=== PATIENT | female | born 1950 | race Caucasian/White ===

== ENCOUNTER 2024-05-27 11:47 | Inpatient (IN) | payer MEDICARE, OTHER, SELFPAY ==
[2024-05-27 12:00] VITALS: BMI 14.6
[2024-05-27 12:34] VITALS: BP 129/51
--- NOTE | 2024-05-27 12:45 | CON.GI ---
Addendum entered and electronically signed by Inocente Sanches DO 05/27/24 15:52:
I saw and examined the patient.
The SHUTTLE BUGGY OPERATOR's note was reviewed and I agree with the note.
Comment: This is a 73 y.o female with past medical history notable for Parkinson's disease, dementia and severe protein-calorie malnutrition who presented from her [facility] as a direct admission for an elective PEG. Patient was previously seen
as an outpatient with Dr. Carter for her severe protein calorie malnutrition and weight loss where a PEG tube was discussed given her profound cachexia and BMI 14. Advised to have this inpatient due to her increased risk for refeeding syndrome.
This was discussed with both the patient and her son, Donte Aguilar who is her listed POA. She is a limited historian, but is able to endorse persistent oropharyngeal dysphagia to both solids and liquids. Otherwise, no abdominal pain, changes in bowel
habits, constipation/diarrhea, melena or bloody stools. No prior history of abdominal surgeries in the past and without contraindications to PEG placement. Not on any antiplatelets or anticoagulants.
Recommendations:
- Follow-up routine labs this afternoon
- Plan for EGD with PEG placement tomorrow, 05/28/2024
- Will require IV Cefazolin (Ancef) 1 gm tomorrow prior to EGD/PEG
- Nutrition consult regarding formula / tube feeds
- Will need to be closely monitored for refeeding syndrome while inpatient
- Unable to reach patient's son (Donte Aguilar, ) despite two separate attempts to further confirm EGD with PEG. Given patient's dementia, will need to review risks and benefits prior to procedure with patient's family. Will attempt to
reach out later this afternoon versus tomorrow
- Rest of care as outlined below
Original Note:
Consultation
-
Date/Time Consultation Requested: 05/27/24 1240
Date/Time Consultation Performed: 05/27/24 1350
Requesting Provider: Patty Balbuena MD
Performing Provider: JOHN Aquino, Inocente Sanches MD
Reason for Consultation: peg placement
Medical History
Chief Complaint / HPI
Chief Complaint: malnutrition
History of Present Illness:
Pt is a 73yo presents with hx parkinson's with involuntary movements, falls, neuropathy, depression, dementia, osteoporosis, migraine, borderline personality disorder, chronic low back pain on oxycodone, hypothyroidism, COPD, presents for
elective peg and concern for severe calorie malnutrition for anorexia with ? eating disorder with wt loss and BMI 14.6 noted on admission. In reviewing with patient some dysphagia with solid and liquids but denies odynophagia, GERD, nausea,
vomiting, abdominal pain, diarrhea, constipation or rectal bleeding. No hx EGD or colonoscopy in past.
Past Medical History
Past Medical History: Asthma (asthma ), COPD, Hypothyroidism, Psychiatric (depression, dementia, borderline personality disorder) and Other (parkinson's disease, osteoporosis, migraines, anorexia ? eating disorder, falls, neuropathy, clavicle
fracture )
Social History
Tobacco: Non-Smoker
Alcohol: None
Drug: None
Living: [facility]
Employment: Retired
Family History
Family History: Other (daughter with hx GERD)
Review of Systems
-
History Source: Patient
Constitutional: Reports Weight Loss
EENT: Reports No Symptoms
Respiratory: Reports No Symptoms
Cardiac: Reports No Symptoms
Abdomen/GI: Reports No Symptoms
: Reports No Symptoms
Musculoskeletal: Reports No Symptoms
Skin: Reports No Symptoms
Neurological: Reports Weakness
Endocrine: Reports No Symptoms
Hematologic/Lymphatic: Reports No Symptoms
Vital Signs
Temp Pulse Resp BP Pulse Ox
97.6 F 61 18 129/51 98
05/27/24 12:34 05/27/24 12:34 05/27/24 12:34 05/27/24 12:34 05/27/24 12:34
Physical Exam
Exam
General: No Apparent Distress and Other (thin appearing )
HEENT: Normocephalic and Anicteric
Respiratory: Clear
Cardiac: Regular Rhythm
GI: Soft and Non Distended
Genito-urinary: No Costovertebral Tender
Musculoskeletal: Other (involuntary movements )
Skin: Warm and Dry
Neuro: Awake and Alert
Psych: Calm
Results
Prior GI Procedures:
EGD: none
Colonoscopy: none
Assessment / Plan
-
Pt is a 73yo presents with hx parkinson's with involuntary movements, falls, neuropathy, depression, dementia, osteoporosis, migraine, borderline personality disorder, chronic low back pain on oxycodone, hypothyroidism, COPD, presents for
elective peg and concern for severe calorie malnutrition. BMI noted with weight of 14.6 on admission. In reviewing with patient some dysphagia with solid and liquids but denies odynophagia, GERD, nausea, vomiting, abdominal pain, diarrhea,
constipation or rectal bleeding. No hx EGD or colonoscopy in past.
-wt loss
-severe calorie malnutrition
-concern for underlying eating disorder
-parkinson's
other med problems:
-asthma/copd
-hx falls/clavicle fx
-neuropathy
-depression
-dementia
-borderline personality disorder
-migraines
-chronic back pain on narcotics
PLAN:
Etiology of malnutrition/ wt loss related to parkinson's, underlying eating disorder vs other
plan for EGD with peg in AM reviewed risks and benefits with patient
await labs to ensure stable prior to proceeding
add mag and phos level for baseline
ok for DSS5 diet, NPO in AM
dietary consult for tube feeds recs and eval for refeeding issues
NPO in AM
Dr. Sanches to call family to review
-
-
Thank you for consultation and allowing me to participate in the patient's care. Please call the deputy coroner investigator GI physician during the after hours with any questions or concerns.
--- NOTE | 2024-05-27 12:53 | PTCARENOTE ---
Received patient from ED (Direct Admission) via stretcher. Pt AAOX1. Pox: 98% JUAN. Forgetful at times. Bed alarm on. Call tom within reach. Plan of care ongoing.
--- NOTE | 2024-05-27 12:56 | HPS.HSE ---
Addendum entered and electronically signed by Patty Balbuena MD 05/27/24 16:58:
I was unable to talk to the daughter but apparently GI did.� Patient was apparently recently hospitalized at [facility] in February and apparently had findings of metastatic lung cancer.� However, patient did not have any workup or follow-up
regarding this since then.�
Addendum entered and electronically signed by Patty Balbuena MD 05/27/24 13:08:
Medications have been listed.
Patient takes oxycodone for chronic lower back pain.
Continue megestrol for protein calorie malnutrition.
Addendum entered and electronically signed by Patty Balbuena MD 05/27/24 13:03:
Pureed diet for now.
Original Note:
Family Physician
-
Family Physician: NO INTERVIEW UNKNOWN
Chief Complaint
-
PEG tube
History of Present Illness
73-year-old female past medical history of Parkinson's disease, dementia, anxiety/depression, migraines, protein calorie malnutrition, hypothyroidism, hyperlipidemia, hypertension, COPD, asthma, presenting from senior living as direct admission for
placement of PEG tube.
Patient states that she has been eating but when she swallows she coughs. She denies any pain when she swallows or sensation of food getting stuck in her esophagus. She thinks she has lost 10 pounds in the past month. She denies any diarrhea or
constipation. She denies any abdominal pain.
Medical History
Past Medical History
Past Medical History: Reports Other ( Parkinson's disease, dementia, anxiety/depression, migraines, protein calorie malnutrition, hypothyroidism, hyperlipidemia, hypertension, COPD, asthma)
Past Surgical History: Reports None
Social History
Tobacco: Non-smoker
Alcohol: None
Drug: None
Family History
Family History: Not pertinent
Allergies / Home Medications
Allergies reflects when Allergies were last updated in [employer].
Home Medications with original date entered in [employer]
Allergy/Medication List:
Unable to obtain
Review of Systems
-
Constitutional: Reports No Symptoms
EENT: Reports No Symptoms
Respiratory: Reports No Symptoms
Cardiac: Reports No Symptoms
Abdomen/GI: Reports No Symptoms
: Reports No Symptoms
Musculoskeletal: Reports No Symptoms
Skin: Reports No Symptoms
Neurological: Reports No Symptoms
Endocrine: Reports No Symptoms
Hematologic/Lymphatic: Reports No Symptoms
Psych: Reports No Symptoms
Physical Exam
Vital Signs
Vital Signs
Temp Pulse Resp BP Pulse Ox
97.6 F 61 18 129/51 98
05/27/24 12:34 05/27/24 12:34 05/27/24 12:34 05/27/24 12:34 05/27/24 12:34
Physical Exam
General: Well Developed, Well Nourished and No Apparent Distress
HEENT: NormoCephalic, Moist mucous membranes and Atraumatic
Respiratory: Clear
Cardiac: S1/S2 and Regular Rhythm; No Murmur or Rub
GI: Soft, Non Tender, Non Distended and Normal Bowel Sounds; No Organomegaly
Rectal: Deferred by Provider
Musculoskeletal: No Clubbing, No Cyanosis and No Edema
Skin: No Rash
Neuro: Nonfocal/grossly intact
Data Reviewed
-
Lab Data: Labs Reviewed by me
Old Records: Reviewed
Impression/Plan
-
IMPRESSION:
PLAN:
# Dysphagia in the setting of Parkinson's disease seems oropharyngeal
# Protein calorie malnutrition/failure to thrive
-Check speech and swallow evaluation
-Attempted to call patient's son and daughter for further history but they did not pick up worker the phone, patient is poor historian
-GI consulted for consideration of PEG tube
Parkinson's disease
-Continue amantadine
-Continue gabapentin
Alzhemiers Dementia
Anxiety/depression
-Continue sertraline
Migraine history
Hypothyroidism
-Continue levothyroxine
Hyperlipidemia
Essential hypertension
COPD/asthma
Osteoporosis
-Continue Fosamax
Full code
DVT prophylaxis�heparin
N.p.o.
--- NOTE | 2024-05-27 14:07 | PTOTSP ---
Dysphagia Evaluation
Patient presents with signs concerning for at least mild-moderate oral dysphagia with chronic risk factors (i.e., Parkinson's, Alzheimer's dementia, COPD, whole body writhing movements). Signs concerning for pharyngeal dysphagia reported (i.e.,
coughing with PO intake), not noted, and patient could not provide further history.
Recommend:
1. IDDSI Level 5 Minced/Moist, Thin
2. Medications - in puree
3. Strategies: 1:1 supervision/assistance, upright to 90 degrees, small single sips/bites, slow rate, alternate sips/bites, check for pocketing
4. Video swallow study to rule out pharyngeal dysphagia (though whole body movements may impact image capture)
5. Dysphagia therapy at the acute care level
[2024-05-27 14:18] LABS: % Basophils 0.5 % (0-2); % Eosinophils 2.1 % (0-6); % Immature Granulocytes 0.4 % (0-0.5); % Lymphocytes 12.3 % (20.5-51.1); % Monocytes 7.5 % (1.7-9.3); % Neutrophils 77.2 % (42.2-75.2); Absolute Eosinophils 0.2 10^3/uL (0-0.7); Absolute Monocytes 0.6 10^3/uL (0.1-0.6); Absolute Neutrophils 6.2 10^3/uL (1.4-6.5); Hematocrit 34.5 % (37.0-47.0); Hemoglobin 11.7 g/dL (12.0-16.0); Mean Corp Hgb Conc. 33.9 g/dL (33.0-37.0); Mean Corpuscular Hgb 31.4 pg (27.0-31.0); Mean Corpuscular Volume 92.5 fL (81.0-99.0); Mean Platelet Volume 8.6 fL (7.4-10.4); Nucleated Red Blood Cells % 0 %; Platelet Count 236 10^3/uL (130-400); Red Blood Cell Count 3.73 10^6/uL (4.20-5.40); Red Cell Dist. Width 12.8 % (11.5-14.5)
[2024-05-27 14:42] LABS: ALT (SGPT) < 10 U/L (0-35); AST (SGOT) 22 U/L (14-36); Albumin 3.9 g/dl (3.5-5.0); Alkaline Phosphatase 107 U/L (38-126); Blood Urea Nitrogen 23 mg/dl (7-17); Calcium 9.6 mg/dl (8.4-10.2); Carbon Dioxide 20 mmol/L (22-30); Chloride 107 mmol/L (98-107); Estimated Creatinine Clearance 46 ml/min; Glucose 106 mg/dl (70-99); Phosphorus 4.1 mg/dl (2.5-4.5); Potassium 4.3 mmol/L (3.5-5.1); Sodium 142 mmol/L (135-145); Total Bilirubin 0.4 mg/dl (0.2-1.3); Total Protein 6.5 g/dl (6.3-8.2); eGFR > 60.00
[2024-05-27 15:20] VITALS: BP 136/77
[2024-05-27 15:43] VITALS: BMI 14.6
[2024-05-27] MEDS: SYMMETREL 100 MG PO ×2 (16:26→21:26)
[2024-05-27] MEDS: SINEMET CR 25-100 (EXTENDED RELEASE) 1 TABLET PO ×2 (17:48→21:25)
[2024-05-27] MEDS: FLORASTOR 250 MG PO (21:23)
[2024-05-27] MEDS: DESYREL 50 MG PO (21:24)
[2024-05-27] MEDS: SENOKOT 17.2 MG PO (21:24)
[2024-05-27] MEDS: NEURONTIN 100 MG PO (21:24)
[2024-05-27] MEDS: SINEMET CR 50/200 (EXTENDED RELEASE) 1 TABLET PO (21:25)
[2024-05-27 23:07] VITALS: BP 113/43
[2024-05-28] VITALS (11 sets, daily range): BP systolic 125–147; BP diastolic 54–85
[2024-05-28] MEDS: SYNTHROID 75 MCG PO (04:32)
[2024-05-28] MEDS: THERAGRAN PO (07:34)
[2024-05-28] MEDS: FLORASTOR PO (07:34)
[2024-05-28] MEDS: SINEMET CR 25-100 (EXTENDED RELEASE) PO ×2 (07:34→13:14)
[2024-05-28] MEDS: SYMMETREL PO ×2 (07:34→16:08)
[2024-05-28] MEDS: NEURONTIN PO (07:34)
[2024-05-28] MEDS: ZOLOFT PO (07:34)
[2024-05-28 07:42] LABS: % Eosinophils 3.3 % (0-6); % Immature Granulocytes 0.4 % (0-0.5); % Lymphocytes 20.8 % (20.5-51.1); % Monocytes 8.3 % (1.7-9.3); % Neutrophils 66.2 % (42.2-75.2); Absolute Basophils 0.1 10^3/uL (0-0.2); Absolute Eosinophils 0.2 10^3/uL (0-0.7); Absolute Lymphocytes 1.1 10^3/uL (1.2-3.4); Absolute Monocytes 0.4 10^3/uL (0.1-0.6); Absolute Neutrophils 3.5 10^3/uL (1.4-6.5); Hematocrit 37.5 % (37.0-47.0); Hemoglobin 12.8 g/dL (12.0-16.0); Mean Corp Hgb Conc. 34.1 g/dL (33.0-37.0); Mean Corpuscular Hgb 31.5 pg (27.0-31.0); Mean Corpuscular Volume 92.4 fL (81.0-99.0); Mean Platelet Volume 8.7 fL (7.4-10.4); Nucleated Red Blood Cells % 0 %; Platelet Count 231 10^3/uL (130-400); Red Blood Cell Count 4.06 10^6/uL (4.20-5.40); Red Cell Dist. Width 12.7 % (11.5-14.5); White Blood Cell Count 5.2 10^3/uL (4.8-10.8)
[2024-05-28 07:57] LABS: INR 1.14; PT 14.5 Sec (11.4-14.6)
[2024-05-28 08:10] LABS: ALT (SGPT) < 10 U/L (0-35); AST (SGOT) 21 U/L (14-36); Alkaline Phosphatase 109 U/L (38-126); Blood Urea Nitrogen 14 mg/dl (7-17); Calcium 9.9 mg/dl (8.4-10.2); Carbon Dioxide 24 mmol/L (22-30); Chloride 105 mmol/L (98-107); Estimated Creatinine Clearance 46 ml/min; Glucose 84 mg/dl (70-99); Potassium 3.7 mmol/L (3.5-5.1); Sodium 142 mmol/L (135-145); Total Bilirubin 0.5 mg/dl (0.2-1.3); Total Protein 6.5 g/dl (6.3-8.2); eGFR > 60.00
--- NOTE | 2024-05-28 12:32 | W.PN.HOSP.TC ---
Today's Communication/Plan
-
Pending PEG tube placement
N.p.o. open
For VSE in AM.
Assessment / Plan
Assessment / Plan
Impression:
Severe malnutrition with BMI of 14.
Dysphagia with aspiration risk
Parkinson disease
Hypothyroidism
Dyslipidemia
Essential hypertension
COPD/asthma without exacerbation
Osteoporosis
Alzheimer's dementia as per history.
Anxiety/depression.
Plan:*
Severe dysphagia likely multifactorial in the patient with Parkinson's disease and dementia.
Pending PEG tube placement.
Nutrition consult.
Once initiated on tube feeding monitor for refeeding syndrome
Dysphagia with aspiration risk.
Speech and swallow evaluation on board.
Plan for VAC on 05/29
Parkinson's disease continue preadmission regimen including carbidopa levodopa, amantadine
Continue gabapentin
Anxiety/depression
-Continue sertraline
Migraine history
Hypothyroidism
-Continue levothyroxine
Hyperlipidemia
Essential hypertension
COPD/asthma
Osteoporosis
-Continue Fosamax
Full code
DVT prophylaxis�heparin
Anticipated Discharge: > 48 hours
Subjective/Interval History
-
Date of Service: May 28, 2024
Objective Data
-
Labs:
Laboratory Results
05/28/24
07:14
WBC 5.2
Hgb 12.8
Hct 37.5
Plt Count 231
PT 14.5
INR 1.14
Sodium 142
Potassium 3.7
Chloride 105
Carbon Dioxide 24
BUN 14
Creatinine 0.6
Glucose 84
Calcium 9.9
Total Bilirubin 0.5
AST 21
ALT < 10
Alkaline Phosphatase 109
Vital Signs:
Vital Signs
Temp Pulse Resp BP Pulse Ox
97.8 F 60 16 125/76 96
05/28/24 07:35 05/28/24 07:35 05/28/24 07:35 05/28/24 07:35 05/28/24 10:02
I&O
05/27/24 05/28/24 05/29/24
06:59 06:59 06:59
Intake Total 120 / 120
Balance 120 / 120
Physical Exam
-
General: Well Developed and No Apparent Distress
HEENT: Normocephalic, Atraumatic and Moist Mucous Membranes
Respiratory: Clear to Auscultation
Cardiac: Regular Rhythm and S1/S2; Negative Murmur, Rub or Gallop
GI: Soft, Nontender, Nondistended and Normal Bowel Sounds; Negative Organomegaly
Rectal: Deferred by Provider
Musculoskeletal: No Clubbing, No Cyanosis and No Edema
Skin: Negative Rash
Neuro: Awake, Alert, Oriented, Tremors and Nonfocal/Grossly Intact
--- NOTE | 2024-05-28 12:37 | W.PN.UPDATE ---
Update Note
Progress Note Update
In review of medical records and discussion with gastroenterology, information about metastatic lung carcinoma is not correct and meant for different patient.
Patient was never admitted to [facility].
--- NOTE | 2024-05-28 15:26 | CM ---
Mikayla is a resident at [facility] with plan to return there at discharge. She was transferred from [facility] for PEG placement which is likely being done in AM.
[facility] will accept Mikayla back when she is ready for discharge.
will follow to send updated clinical information to [facility] when nearing readiness for discharge.
--- NOTE | 2024-05-28 17:24 | PTCARENOTE ---
[id number] addendum... Patient arrived from GI lab very restless with involuntary movement. VSS, difficulty obtaining O2 saturation D/T increased movement. Dr Dean and Dr Sanches both at bedside in PACU. Report rec'd and Dr Sanches reports the Patient
presented like this earlier (H/O Tardive dyskinesia). Aprox [id number] patient was resting comfortably, VSS. Involuntary movement resolved.
[2024-05-28] MEDS: SINEMET CR 25-100 (EXTENDED RELEASE) 1 TABLET PO ×2 (17:52→21:04)
--- NOTE | 2024-05-28 18:01 | PTCARENOTE ---
Received patient from PACU via stretcher. Pt AAOX2. Po: 98% 2L NC. Patient denies pain. Call tom within reach. Plan of care ongoing.
[2024-05-28] MEDS: FLORASTOR 250 MG PO (19:53)
[2024-05-28] MEDS: NEURONTIN 100 MG PO (19:53)
[2024-05-28] MEDS: SINEMET CR 50/200 (EXTENDED RELEASE) 1 TABLET PO (21:04)
[2024-05-28] MEDS: DESYREL 50 MG PO (21:04)
[2024-05-28] MEDS: SYMMETREL 100 MG PO (21:04)
[2024-05-28] MEDS: SENOKOT 17.2 MG PO (21:05)
[2024-05-29 03:29] VITALS: BP 128/61
[2024-05-29] MEDS: SYNTHROID PO (07:15)
--- NOTE | 2024-05-29 07:39 | W.PN.GI.CBS2 ---
Addendum entered and electronically signed by Inocente Sanches DO 05/29/24 17:22:
I saw and examined the patient.
The OPERATING ROOM TECH's note was reviewed and I agree with the note.
Comment: Agree with recommendations. Nutrition and internal medicine team to monitor for refeeding. GI team will sign-off. Please recontact with any questions or concerns related to this patient.
Addendum entered and electronically signed by JOHN Hammond 05/29/24 08:02:
left message for son with update
Original Note:
Today's Communication / Plan
-
Etiology of malnutrition/ wt loss related to parkinson's, underlying eating disorder vs other
s/p peg 05/28
mag/phos/k stable 05/27 prior to feed with concern for refeeding syndrome
plan for VSE today
after VSE will start tube feeds this am at 10 advance later to 15ml/hr
if stable labs 05/30 advance further per retail merchandising specialist
cont to watch for refeeding
Assessment / Plan
-
Pt is a 73yo presents with hx parkinson's with involuntary movements, falls, neuropathy, depression, dementia, osteoporosis, migraine, borderline personality disorder, chronic low back pain on oxycodone, hypothyroidism, COPD, presents for
elective peg and concern for severe calorie malnutrition. BMI noted with weight of 14.6 on admission. In reviewing with patient some dysphagia with solid and liquids but denies odynophagia, GERD, nausea, vomiting, abdominal pain, diarrhea,
constipation or rectal bleeding. No hx EGD or colonoscopy in past.
-wt loss with -severe calorie malnutrition s/p peg 05/28
-concern for underlying eating disorder
-parkinson's
other med problems:
-asthma/copd
-hx falls/clavicle fx
-neuropathy
-depression
-dementia
-borderline personality disorder
-migraines
-chronic back pain on narcotics
PLAN:
Etiology of malnutrition/ wt loss related to parkinson's, underlying eating disorder vs other
s/p peg 05/28
mag/phos/k stable 05/27 prior to feed with concern for refeeding syndrome
plan for VSE today
after VSE will start tube feeds this am at 10 advance later to 15ml/hr
if stable labs 05/30 advance further per retail merchandising specialist
cont to watch for refeeding
Subjective
Subjective
Date of Service: May 29, 2024
s/p peg, NPO doing well post peg no stools
Objective
Data Reviewed
Laboratory Data:
Laboratory Results
05/28/24 07:14
05/28/24 07:14
Laboratory Results
PT 14.5 Sec (11.4-14.6) 05/28/24 07:14
INR 1.14 05/28/24 07:14
Phosphorus 4.1 mg/dl (2.5-4.5) 05/27/24 13:46
Magnesium 2.0 mg/dl (1.6-2.3) 05/27/24 13:46
Total Bilirubin 0.5 mg/dl (0.2-1.3) 05/28/24 07:14
AST 21 U/L (14-36) 05/28/24 07:14
ALT < 10 U/L (0-35) 05/28/24 07:14
Alkaline Phosphatase 109 U/L (38-126) 05/28/24 07:14
Vital Signs and I&O:
Vital Signs
Temp Pulse Resp BP Pulse Ox
98.3 F 73 16 128/61 99
05/29/24 03:29 05/29/24 03:29 05/29/24 03:29 05/29/24 03:29 05/29/24 03:29
I&O
05/28/24 05/29/24 05/30/24
06:59 06:59 06:59
Intake Total 195 / 195
Balance
Physical Exam
Physical Exam
HEENT: Anicteric and Moist mucous membranes
Cardiology: Normal Sinus Rhythm
Pulmonary: Clear
GI: Soft, Non Distended, Tender (minimal tenderness around tube ) and Other
Extremities: No Edema
Neuro: Other (some verbal conversation, tremors minimal this am)
[2024-05-29 08:18] VITALS: BP 127/51
[2024-05-29] MEDS: SYMMETREL 100 MG PO (09:38)
[2024-05-29] MEDS: ZOLOFT 150 MG PO (09:38)
[2024-05-29] MEDS: THERAGRAN 1 TABLET PO (09:39)
[2024-05-29] MEDS: SINEMET CR 25-100 (EXTENDED RELEASE) 1 TABLET PO ×2 (09:39→12:43)
[2024-05-29] MEDS: NEURONTIN 100 MG PO (09:39)
[2024-05-29] MEDS: FLORASTOR 250 MG PO (09:39)
--- NOTE | 2024-05-29 09:45 | PTOTSP ---
Video Swallow Study
Summary: Patient with moderate oral/ pharyngeal dysphagia secondary to Parkinson�s disease and dementia. See patient care note for full details of study.
Risk for aspiration is elevated. However, patient currently without signs concerning for respiratory complications from dysphagia such as PNA. Patient with PEG in place secondary to malnutrition. If opting to continue an oral diet understanding
risks/complications of aspiration, consider diet below.
Diet options:
1. NPO and PEG vs.
2. IDDSI Level 4 Puree, IDDSI Level 0 Thin Liquids understanding risks of dysphagia/aspiration
Recommendations:
3. Medications - via PEG if able
4. Oral care 3x daily to reduce risk for complications if aspiration were to occur
5. Strategies (if opting for oral intake): 1:1 assistance, small sips/bites, slow rate, alternate sips/bites, check for oral clearance, reflux precautions
6. Dysphagia therapy follow up at the acute care level for patient/family education pending goals of care.
7. Consider palliative care consult.
[2024-05-29 11:41] VITALS: BP 125/56
[2024-05-29] MEDS: PEPCID 40 MG TUBE (12:42)
[2024-05-29 15:59] VITALS: BP 117/58
[2024-05-29] MEDS: SYMMETREL SYRUP 100 MG TUBE ×2 (16:34→21:19)
--- NOTE | 2024-05-29 16:35 | W.PN.HOSP.TC ---
Today's Communication/Plan
-
Tube feeding.
Modified oral diet
Changed medications to tube
Supportive care
Goals of care discussion
Assessment / Plan
Assessment / Plan
Impression:
Severe malnutrition with BMI of 14.
Dysphagia with aspiration syndrome
Parkinson disease
Hypothyroidism
Dyslipidemia
Essential hypertension
COPD/asthma without exacerbation
Osteoporosis
Alzheimer's dementia as per history.
Anxiety/depression.
Plan:*
Severe dysphagia likely multifactorial in the patient with Parkinson's disease and dementia.
Status post PEG placement on 05/28
Initiated on tube feeds
Nutrition consult.
Monitor electrolytes for refeeding syndrome
Change medications to tube route
Dysphagia with aspiration risk.
Speech and swallow evaluation on board.
VSE on 05/29 confirming aspiration syndrome.
Discussed with patient and the son. Plan is to start modified pur�ed diet with aspiration precautions along with the tube feeds with understanding of significant aspiration risk.
Parkinson's disease continue preadmission regimen including carbidopa levodopa, amantadine
Continue gabapentin
Anxiety/depression
-Continue sertraline
Migraine history
Hypothyroidism
-Continue levothyroxine
Hyperlipidemia
Essential hypertension
COPD/asthma
Osteoporosis
-Continue Fosamax
Full code
DVT prophylaxis�heparin
Goals of care discussion on 05/29. Discussed with patient's son extensively. Patient with progressive neurologic disorder, advanced Parkinson's disease with now aspiration syndrome, severe malnutrition. Received feeding tube for nutritional
support, although that would not reduce aspiration risk. Patient's son is willing to try pleasure feeding with modified diet along with the tube feeds. They understand of progressive nature of disease. I advised to continue goals of care
discussion. Currently plan is to discharge to snf facility with supportive care, although patient has high risk for rehospitalization due to recurrent infection not limited to aspiration pneumonia, UTI.
Anticipated Discharge: 24 - 48 hours
Subjective/Interval History
-
Date of Service: May 29, 2024
Objective Data
-
Vital Signs:
Vital Signs
Temp Pulse Resp BP Pulse Ox
97.5 F 62 18 117/58 99
05/29/24 15:59 05/29/24 15:59 05/29/24 15:59 05/29/24 15:59 05/29/24 15:59
I&O
05/28/24 05/29/24 05/30/24
06:59 06:59 06:59
Intake Total
Balance 195
Physical Exam
-
General: Well Developed and No Apparent Distress
HEENT: Normocephalic, Atraumatic and Moist Mucous Membranes
Respiratory: Clear to Auscultation
Cardiac: Regular Rhythm and S1/S2; Negative Murmur, Rub or Gallop
GI: Soft, Nontender, Nondistended and Normal Bowel Sounds; Negative Organomegaly
Rectal: Deferred by Provider
Musculoskeletal: No Clubbing, No Cyanosis and No Edema
Skin: Negative Rash
Neuro: Awake, Alert, Oriented, Tremors and Nonfocal/Grossly Intact
--- NOTE | 2024-05-29 17:58 | PTCARENOTE ---
Received patient this am AAOx1. Pt has history of dementia. NPO. Pt off unit this a for Video Swallow. 1400 Pt started on Tube Feedings. Jevity 1.5 at 10ml/hr and tolerating well. Pt turned Q 2hrs. Made patient comfortable. Cont to assess
patient status.
[2024-05-29] MEDS: SINEMET 25-100 1 TABLET TUBE ×3 (18:10→21:52)
[2024-05-29] MEDS: NEURONTIN 100 MG TUBE (21:19)
[2024-05-29] MEDS: DESYREL 50 MG TUBE (21:19)
[2024-05-29] MEDS: SENOKOT 17.2 MG TUBE (21:19)
[2024-05-29] MEDS: FLORASTOR 250 MG TUBE (21:20)
[2024-05-29] MEDS: SINEMET 25-100 2 TABLET TUBE (21:52)
[2024-05-29 23:07] VITALS: BP 117/54
[2024-05-30] MEDS: SYNTHROID 75 MCG TUBE (06:01)
[2024-05-30 07:32] LABS: Blood Urea Nitrogen 13 mg/dl (7-17); Calcium 9.8 mg/dl (8.4-10.2); Carbon Dioxide 23 mmol/L (22-30); Chloride 105 mmol/L (98-107); Estimated Creatinine Clearance 46 ml/min; Glucose 102 mg/dl (70-99); Magnesium 2.1 mg/dl (1.6-2.3); Phosphorus 2.5 mg/dl (2.5-4.5); Potassium 3.7 mmol/L (3.5-5.1); Sodium 141 mmol/L (135-145); eGFR > 60.00
[2024-05-30 08:34] VITALS: BP 131/53
[2024-05-30] MEDS: SYMMETREL SYRUP 100 MG TUBE ×3 (09:14→21:02)
[2024-05-30] MEDS: NEURONTIN 100 MG TUBE ×2 (09:14→20:52)
[2024-05-30] MEDS: SINEMET 25-100 1 TABLET TUBE ×4 (09:15→21:02)
[2024-05-30] MEDS: PEPCID 40 MG TUBE (09:15)
[2024-05-30] MEDS: FLORASTOR 250 MG TUBE (09:15)
[2024-05-30] MEDS: ZOLOFT 150 MG TUBE (09:15)
[2024-05-30] MEDS: THERAGRAN 1 TABLET TUBE (09:15)
--- NOTE | 2024-05-30 10:44 | CM ---
Addendum entered by Cristy Manuel 05/30/24 17:18:
Note below related to hours is for waiver hours in the home. Son is also agreeable to [facility] when discharged from [facility].
Addendum entered by Cristy Manuel 05/30/24 14:25:
CM spoke with Mikayla's son via telephone today. He advised that Mikayla has been approved for 18 hours, but they have requested a reduction to 12 hours of waiver services at home, as family is not comfortable with the caregivers being their while
they are sleeping. Mikayla has a history of falls, fx ribs and fx arm per son; chart indicates clavicle fracture in the past.
Waiver services have been in place for the past 8 months, however he has not been happy with the care, stating the caregivers do not do a lot and do not seem comfortable with caring for his mother. His perception is that they are just there to
watch his mother and would like to have someone with more knowledge of nursing (rehab nursing tech services), especially since his mother will be coming home (after discharge from [facility]) with a PEG tube. Son stated he is 'a nervous wreck'.
Email sent to son with home care choice list ([email or web address]).
Plan: Anticipate discharge to [facility] when medically cleared. Will need BLS transport.
Original Note:
Chart reviewed; PEG has been placed, but will not reduce risk of aspiration. Goals of care discussion with family on 05/29. per physician note, son is willing to try pleasure feeding with modified diet along with the tube feeds.
Update provided to Theresa at [facility].
Plan: CM to continue to follow for transfer to [facility] at discharge which is anticipated in the next 24-48 hours.
[2024-05-30 13:25] VITALS: BP 112/42; BP 94/64; PULSE 71
[2024-05-30] MEDS: ROXICODONE 5 MG TUBE ×2 (14:02→21:05)
[2024-05-30 16:18] VITALS: BP 135/55
--- NOTE | 2024-05-30 16:46 | W.PN.HOSP.TC ---
Today's Communication/Plan
-
Advance tube feeds to the goal is recommended.
Continue diet with aspiration precautions
Ongoing goals of care discussion
Discharge planning
Assessment / Plan
Assessment / Plan
Impression:
Severe malnutrition with BMI of 14.
Dysphagia with aspiration syndrome
Parkinson disease
Hypothyroidism
Dyslipidemia
Essential hypertension
COPD/asthma without exacerbation
Osteoporosis
Alzheimer's dementia as per history.
Anxiety/depression.
Plan:*
Severe dysphagia likely multifactorial in the patient with Parkinson's disease and dementia.
Status post PEG placement on 05/28
Initiated on tube feeds
Nutrition consult.
Monitor electrolytes for refeeding syndrome
Change medications to tube route
Dysphagia with aspiration risk.
Speech and swallow evaluation on board.
VSE on 05/29 confirming aspiration syndrome.
Discussed with patient and the son. Plan is to start modified pur�ed diet with aspiration precautions along with the tube feeds with understanding of significant aspiration risk.
Parkinson's disease continue preadmission regimen including carbidopa levodopa, amantadine
Continue gabapentin
Anxiety/depression
-Continue sertraline
Migraine history
Hypothyroidism
-Continue levothyroxine
Hyperlipidemia
Essential hypertension
COPD/asthma
Osteoporosis
-Continue Fosamax
Full code
DVT prophylaxis�heparin
Goals of care discussion on 05/29. Discussed with patient's son extensively. Patient with progressive neurologic disorder, advanced Parkinson's disease with now aspiration syndrome, severe malnutrition. Received feeding tube for nutritional
support, although that would not reduce aspiration risk. Patient's son is willing to try pleasure feeding with modified diet along with the tube feeds. They understand of progressive nature of disease. I advised to continue goals of care
discussion. Currently plan is to discharge to assisted facility with supportive care, although patient has high risk for rehospitalization due to recurrent infection not limited to aspiration pneumonia, UTI.
Goals of care discussion on 05/30 with patient's daughter at the bedside reiterating advancement of Parkinson's disease, aspiration risk risk for infection and rehospitalization.
Anticipated Discharge: 24 - 48 hours
Subjective/Interval History
-
Date of Service: May 30, 2024
Objective Data
-
Labs:
Laboratory Results
05/30/24
06:53
Sodium 141
Potassium 3.7
Chloride 105
Carbon Dioxide 23
BUN 13
Creatinine 0.6
Glucose 102 H
Calcium 9.8
Vital Signs:
Vital Signs
Temp Pulse Resp BP Pulse Ox
97.5 F 60 16 135/55 97
05/30/24 16:18 05/30/24 16:18 05/30/24 16:18 05/30/24 16:18 05/30/24 16:18
I&O
05/29/24 05/30/24 05/31/24
06:59 06:59 06:59
Intake Total 195 / 195 140 / 140
Balance 195 / 195 140 / 140
Physical Exam
-
General: Well Developed and No Apparent Distress
HEENT: Normocephalic, Atraumatic and Moist Mucous Membranes
Respiratory: Clear to Auscultation
Cardiac: Regular Rhythm and S1/S2; Negative Murmur, Rub or Gallop
GI: Soft, Nontender, Nondistended, Normal Bowel Sounds and Peg Tube; Negative Organomegaly
Rectal: Deferred by Provider
Musculoskeletal: No Clubbing, No Cyanosis and No Edema
Skin: Negative Rash
Neuro: Awake, Alert, Oriented, Tremors and Nonfocal/Grossly Intact
[2024-05-30] MEDS: SINEMET 25-100 2 TABLET TUBE (21:03)
[2024-05-30] MEDS: FLORASTOR TUBE (21:03)
[2024-05-30] MEDS: SENOKOT 17.2 MG TUBE (21:03)
[2024-05-30] MEDS: DESYREL 50 MG TUBE (21:03)
[2024-05-30 23:40] VITALS: BP 124/84
[2024-05-31] MEDS: ATIVAN 0.5 MG IV (02:03)
[2024-05-31 02:40] VITALS: BP 121/56; BP 137/69; PULSE 67; O2SAT 97
[2024-05-31] MEDS: SYNTHROID 75 MCG TUBE (05:43)
[2024-05-31 07:11] LABS: % Basophils 0.7 % (0-2); % Eosinophils 3.2 % (0-6); % Immature Granulocytes 0.5 % (0-0.5); % Lymphocytes 9.6 % (20.5-51.1); % Monocytes 6.3 % (1.7-9.3); % Neutrophils 79.7 % (42.2-75.2); Absolute Eosinophils 0.2 10^3/uL (0-0.7); Absolute Lymphocytes 0.6 10^3/uL (1.2-3.4); Absolute Monocytes 0.4 10^3/uL (0.1-0.6); Absolute Neutrophils 4.8 10^3/uL (1.4-6.5); Hematocrit 35.9 % (37.0-47.0); Hemoglobin 12.6 g/dL (12.0-16.0); Mean Corp Hgb Conc. 35.1 g/dL (33.0-37.0); Mean Corpuscular Hgb 31.8 pg (27.0-31.0); Mean Corpuscular Volume 90.7 fL (81.0-99.0); Mean Platelet Volume 9.4 fL (7.4-10.4); Nucleated Red Blood Cells % 0 %; Platelet Count 195 10^3/uL (130-400); Red Blood Cell Count 3.96 10^6/uL (4.20-5.40); Red Cell Dist. Width 12.8 % (11.5-14.5)
[2024-05-31 07:35] LABS: Blood Urea Nitrogen 13 mg/dl (7-17); Calcium 9.5 mg/dl (8.4-10.2); Carbon Dioxide 22 mmol/L (22-30); Chloride 106 mmol/L (98-107); Estimated Creatinine Clearance 46 ml/min; Glucose 87 mg/dl (70-99); Sodium 141 mmol/L (135-145); eGFR > 60.00
[2024-05-31 07:58] VITALS: BP 139/55
[2024-05-31] MEDS: SINEMET 25-100 1 TABLET TUBE ×4 (07:59→22:21)
[2024-05-31] MEDS: PEPCID 20 MG TUBE (07:59)
[2024-05-31] MEDS: SYMMETREL SYRUP 100 MG TUBE ×3 (07:59→22:21)
[2024-05-31] MEDS: ZOLOFT 150 MG TUBE (07:59)
[2024-05-31] MEDS: NEURONTIN 100 MG TUBE ×2 (07:59→20:35)
[2024-05-31] MEDS: THERAGRAN 1 TABLET TUBE (07:59)
[2024-05-31] MEDS: FLORASTOR 250 MG TUBE ×2 (07:59→20:35)
--- NOTE | 2024-05-31 11:12 | CM ---
Received a call from patient's son/NIMESH Donte Aguilar (#[phone])
Son discussed concerns/needs for Home Health Services when mother is discharged from [facility]; [facility] is agency preference
spoke with Michael Perez liaison via phone; Referral for home health sent to [facility]
Chacha reported that she will follow up with care [facility]; and contact patient's son to discuss home health services when patient is stable to go home
[2024-05-31 15:54] VITALS: BP 121/56; PULSE 67; O2SAT 97
--- NOTE | 2024-05-31 16:14 | W.PN.HOSP.TC ---
Today's Communication/Plan
-
Advance tube feeding to the goal monitoring for refeeding syndrome
Continue oral diet with aspiration precautions.
Ongoing goals of care discussions with family. Patient with progressive and advanced Parkinson's disease with exceedingly high aspiration risk.
Assessment / Plan
Assessment / Plan
Impression:
Severe malnutrition with BMI of 14.
Dysphagia with aspiration syndrome
Parkinson disease
Hypothyroidism
Dyslipidemia
Essential hypertension
COPD/asthma without exacerbation
Osteoporosis
Alzheimer's dementia as per history.
Anxiety/depression.
Plan:*
Severe dysphagia likely multifactorial in the patient with Parkinson's disease and dementia.
Status post PEG placement on 05/28
Initiated on tube feeds
Nutrition consult.
Monitor electrolytes for refeeding syndrome
Change medications to tube route
Dysphagia with aspiration risk.
Speech and swallow evaluation on board.
VSE on 05/29 confirming aspiration syndrome.
Discussed with patient and the son. Plan is to start modified pur�ed diet with aspiration precautions along with the tube feeds with understanding of significant aspiration risk.
Parkinson's disease continue preadmission regimen including carbidopa levodopa, amantadine
Continue gabapentin
Anxiety/depression
-Continue sertraline
Migraine history
Hypothyroidism
-Continue levothyroxine
Hyperlipidemia
Essential hypertension
COPD/asthma
Osteoporosis
-Continue Fosamax
Full code
DVT prophylaxis�heparin
Goals of care discussion on 05/29. Discussed with patient's son extensively. Patient with progressive neurologic disorder, advanced Parkinson's disease with now aspiration syndrome, severe malnutrition. Received feeding tube for nutritional
support, although that would not reduce aspiration risk. Patient's son is willing to try pleasure feeding with modified diet along with the tube feeds. They understand of progressive nature of disease. I advised to continue goals of care
discussion. Currently plan is to discharge to intermediate facility with supportive care, although patient has high risk for rehospitalization due to recurrent infection not limited to aspiration pneumonia, UTI.
Goals of care discussion on 05/30 with patient's daughter at the bedside reiterating advancement of Parkinson's disease, aspiration risk risk for infection and rehospitalization.
Anticipated Discharge: 24 - 48 hours
Subjective/Interval History
-
Date of Service: May 31, 2024
Objective Data
-
Labs:
Laboratory Results
05/31/24
06:48
WBC 6.0
Hgb 12.6
Hct 35.9 L
Plt Count 195
Sodium 141
Potassium 4.0
Chloride 106
Carbon Dioxide 22
BUN 13
Creatinine 0.5 L
Glucose 87
Calcium 9.5
Vital Signs:
Vital Signs
Temp Pulse Resp BP Pulse Ox
98.3 F 72 16 139/55 97
05/31/24 07:58 05/31/24 15:08 05/31/24 15:08 05/31/24 07:58 05/31/24 15:08
I&O
05/30/24 05/31/24 06/01/24
06:59 06:59 06:59
Intake Total 140 / 140
Balance 140 / 140
Physical Exam
-
General: Well Developed and No Apparent Distress
HEENT: Normocephalic, Atraumatic and Moist Mucous Membranes
Respiratory: Clear to Auscultation
Cardiac: Regular Rhythm and S1/S2; Negative Murmur, Rub or Gallop
GI: Soft, Nontender, Nondistended, Normal Bowel Sounds and Peg Tube; Negative Organomegaly
Rectal: Deferred by Provider
Musculoskeletal: No Clubbing, No Cyanosis and No Edema
Skin: Negative Rash
Neuro: Awake, Alert, Oriented, Tremors and Nonfocal/Grossly Intact
[2024-05-31 16:28] VITALS: BP 141/51
[2024-05-31] MEDS: SENOKOT 17.2 MG TUBE (22:20)
[2024-05-31] MEDS: SINEMET 25-100 2 TABLET TUBE (22:21)
[2024-05-31] MEDS: DESYREL 50 MG TUBE (22:22)
[2024-05-31 23:00] VITALS: BP 137/104
[2024-06-01] MEDS: SYNTHROID 75 MCG TUBE (05:10)
[2024-06-01 07:30] VITALS: BP 113/43
[2024-06-01] MEDS: TYLENOL 650 MG TUBE (08:18)
[2024-06-01] MEDS: FLORASTOR 250 MG TUBE (08:19)
[2024-06-01] MEDS: THERAGRAN 1 TABLET TUBE (08:19)
[2024-06-01] MEDS: NEURONTIN 100 MG TUBE ×2 (08:19→20:32)
[2024-06-01] MEDS: PEPCID 20 MG TUBE (08:19)
[2024-06-01] MEDS: SYMMETREL SYRUP 100 MG TUBE ×3 (08:19→20:33)
[2024-06-01] MEDS: ZOLOFT 150 MG TUBE (08:19)
[2024-06-01] MEDS: SINEMET 25-100 1 TABLET TUBE ×4 (08:19→20:33)
--- NOTE | 2024-06-01 08:34 | PTCARENOTE ---
pt wakes to name orientedx3. forgetful at times. peg tube placement checked and flushed. pt states pain at feeding tube site pain med given as ordered. tube feeding running as ordered.
--- NOTE | 2024-06-01 08:38 | W.PN.HOSP.TC ---
Today's Communication/Plan
-
Continue tube feeding and monitoring for refeeding syndrome
Continue oral diet with aspiration precautions.
Assessment / Plan
Assessment / Plan
Impression:
Severe malnutrition with BMI of 14.
Dysphagia with aspiration syndrome
Parkinson disease
Hypothyroidism
Dyslipidemia
Essential hypertension
COPD/asthma without exacerbation
Osteoporosis
Alzheimer's dementia as per history.
Anxiety/depression.
Plan:*
Severe dysphagia likely multifactorial in the patient with Parkinson's disease and dementia.
Status post PEG placement on 05/28
Initiated on tube feeds
Nutrition consult.
Continue to monitor electrolytes for refeeding syndrome
Continue medications via feeding tube
Dysphagia with aspiration risk.
Speech and swallow evaluation on board.
VSE on 05/[address] Menard discussed with patient and the son. Plan was to start modified pur�ed diet with aspiration precautions along with the tube feeds with understanding of significant aspiration risk.
Parkinson's disease continue preadmission regimen including carbidopa levodopa, amantadine
Continue gabapentin
Anxiety/depression
-Continue sertraline
Migraine history
Hypothyroidism
-Continue levothyroxine
Hyperlipidemia
Essential hypertension
COPD/asthma
Osteoporosis
-Continue Fosamax
Full code
DVT prophylaxis�heparin
Goals of care discussion on 05/29. Dr. Menard discussed with patient's son extensively. Patient with progressive neurologic disorder, advanced Parkinson's disease with now aspiration syndrome, severe malnutrition. Received feeding tube for
nutritional support, although that would not reduce aspiration risk. Patient's son is willing to try pleasure feeding with modified diet along with the tube feeds. They understand of progressive nature of disease. Dr. Menard advised to continue
goals of care discussion. Currently plan is to discharge to group home facility with supportive care, although patient has high risk for rehospitalization due to recurrent infection not limited to aspiration pneumonia, UTI.
Dr. Menard had goals of care discussion on 05/30 with patient's daughter at the bedside reiterating advancement of Parkinson's disease, aspiration risk risk for infection and rehospitalization.
Anticipated Discharge: > 48 hours
Subjective/Interval History
-
Date of Service: June 01, 2024
Patient was seen and examined. Reported some pain around PEG tube insertion site but otherwise no new complaints.
Objective Data
-
Vital Signs:
Vital Signs
Temp Pulse Resp BP Pulse Ox
98.2 F 66 18 137/104 96
05/31/24 23:00 05/31/24 23:00 05/31/24 23:00 05/31/24 23:00 05/31/24 23:00
I&O
05/31/24 06/01/24 06/02/24
06:59 06:59 06:59
Intake Total 575 / 575
Balance 575 / 575
Physical Exam
-
General: No Apparent Distress
HEENT: Normocephalic and Atraumatic
Respiratory: Clear to Auscultation
Cardiac: Regular Rhythm and S1/S2
GI: Soft, Nontender, Normal Bowel Sounds and Peg Tube
Musculoskeletal: No Cyanosis and No Edema
Skin: Warm and Dry
Neuro: Awake, Alert and Tremors
[2024-06-01 13:17] LABS: Blood Urea Nitrogen 15 mg/dl (7-17); Calcium 9.6 mg/dl (8.4-10.2); Carbon Dioxide 25 mmol/L (22-30); Chloride 106 mmol/L (98-107); Estimated Creatinine Clearance 46 ml/min; Glucose 116 mg/dl (70-99); Magnesium 1.9 mg/dl (1.6-2.3); Phosphorus 3.6 mg/dl (2.5-4.5); Potassium 4.1 mmol/L (3.5-5.1); Sodium 141 mmol/L (135-145); eGFR > 60.00
[2024-06-01 15:38] VITALS: BP 121/51
[2024-06-01] MEDS: DESYREL 50 MG TUBE (20:32)
[2024-06-01] MEDS: FLORASTOR TUBE (20:32)
[2024-06-01] MEDS: SINEMET 25-100 2 TABLET TUBE (20:33)
[2024-06-01] MEDS: SENOKOT 17.2 MG TUBE (20:33)
[2024-06-02 03:00] VITALS: BP 130/66
[2024-06-02] MEDS: SYNTHROID 75 MCG TUBE (05:51)
[2024-06-02 07:35] VITALS: BP 128/47
[2024-06-02] MEDS: FLORASTOR TUBE (08:30)
[2024-06-02] MEDS: PEPCID 20 MG TUBE (08:31)
[2024-06-02] MEDS: SINEMET 25-100 1 TABLET TUBE ×4 (08:31→21:12)
[2024-06-02] MEDS: ZOLOFT 150 MG TUBE (08:31)
[2024-06-02] MEDS: THERAGRAN 1 TABLET TUBE (08:31)
[2024-06-02] MEDS: SYMMETREL SYRUP 100 MG TUBE ×3 (08:32→21:12)
[2024-06-02] MEDS: NEURONTIN 100 MG TUBE ×2 (08:32→21:00)
[2024-06-02 09:09] LABS: Blood Urea Nitrogen 18 mg/dl (7-17); Calcium 10.1 mg/dl (8.4-10.2); Carbon Dioxide 24 mmol/L (22-30); Chloride 106 mmol/L (98-107); Estimated Creatinine Clearance 46 ml/min; Glucose 119 mg/dl (70-99); Magnesium 1.9 mg/dl (1.6-2.3); Phosphorus 3.6 mg/dl (2.5-4.5); Potassium 4.1 mmol/L (3.5-5.1); Sodium 140 mmol/L (135-145); eGFR > 60.00
--- NOTE | 2024-06-02 12:35 | W.PN.HOSP.TC ---
Today's Communication/Plan
-
Continue tube feeding and monitoring for refeeding syndrome. Electrolytes are okay today.
Continue oral diet with aspiration precautions.
Assessment / Plan
Assessment / Plan
Impression:
Severe malnutrition with BMI of 14.
Dysphagia with aspiration syndrome
Parkinson disease
Hypothyroidism
Dyslipidemia
Essential hypertension
COPD/asthma without exacerbation
Osteoporosis
Alzheimer's dementia as per history.
Anxiety/depression.
Plan:*
Severe dysphagia likely multifactorial in the patient with Parkinson's disease and dementia.
Status post PEG placement on 05/28
Initiated on tube feeds -- per nurse tube feeds are currently at goal
Nutrition consult.
Continue to monitor electrolytes for refeeding syndrome
Continue medications via feeding tube
Dysphagia with aspiration risk.
Speech and swallow evaluation on board.
VSE on 05/[address] Menard discussed with patient and the son. Plan was to start modified pur�ed diet with aspiration precautions along with the tube feeds with understanding of significant aspiration risk.
Parkinson's disease continue preadmission regimen including carbidopa levodopa, amantadine
Continue gabapentin
Anxiety/depression
-Continue sertraline
Migraine history
Hypothyroidism
-Continue levothyroxine
Hyperlipidemia
Essential hypertension
COPD/asthma
Osteoporosis
-Continue Fosamax
Full code
DVT prophylaxis�heparin
Goals of care discussion on 05/29. Dr. Menard discussed with patient's son extensively. Patient with progressive neurologic disorder, advanced Parkinson's disease with now aspiration syndrome, severe malnutrition. Received feeding tube for
nutritional support, although that would not reduce aspiration risk. Patient's son is willing to try pleasure feeding with modified diet along with the tube feeds. They understand of progressive nature of disease. Dr. Menard advised to continue
goals of care discussion. Currently plan is to discharge to senior care facility with supportive care, although patient has high risk for rehospitalization due to recurrent infection not limited to aspiration pneumonia, UTI.
Dr. Menard had goals of care discussion on 05/30 with patient's daughter at the bedside reiterating advancement of Parkinson's disease, aspiration risk risk for infection and rehospitalization.
Anticipated Discharge: > 48 hours
Subjective/Interval History
-
Date of Service: June 02, 2024
Patient was seen and examined. No new complaints or events.
Objective Data
-
Labs:
Laboratory Results
06/02/24
08:42
Sodium 140
Potassium 4.1
Chloride 106
Carbon Dioxide 24
BUN 18 H
Creatinine 0.5 L
Glucose 119 H
Calcium 10.1
Vital Signs:
Vital Signs
Temp Pulse Resp BP Pulse Ox
98.4 F 62 14 128/47 97
06/02/24 07:35 06/02/24 07:35 06/02/24 07:35 06/02/24 07:35 06/02/24 07:35
I&O
06/01/24 06/02/24 06/03/24
06:59 06:59 06:59
Intake Total 575 / 575 960 / 960
Balance 575 / 575 960 / 960
[2024-06-02 15:36] VITALS: BP 132/53
[2024-06-02] MEDS: FLORASTOR 250 MG TUBE (21:00)
[2024-06-02] MEDS: SENOKOT 17.2 MG TUBE (21:11)
[2024-06-02] MEDS: DESYREL 50 MG TUBE (21:11)
[2024-06-02] MEDS: SINEMET 25-100 2 TABLET TUBE (21:12)
[2024-06-02 23:01] VITALS: BP 130/48
[2024-06-03] MEDS: SYNTHROID 75 MCG TUBE (05:24)
[2024-06-03 07:50] VITALS: BP 107/43
[2024-06-03 08:06] LABS: % Basophils 0.5 % (0-2); % Eosinophils 4.4 % (0-6); % Immature Granulocytes 0.5 % (0-0.5); % Lymphocytes 15.1 % (20.5-51.1); % Monocytes 8.6 % (1.7-9.3); % Neutrophils 70.9 % (42.2-75.2); Absolute Eosinophils 0.2 10^3/uL (0-0.7); Absolute Lymphocytes 0.8 10^3/uL (1.2-3.4); Absolute Monocytes 0.5 10^3/uL (0.1-0.6); Absolute Neutrophils 3.9 10^3/uL (1.4-6.5); Hematocrit 33.5 % (37.0-47.0); Hemoglobin 11.3 g/dL (12.0-16.0); Mean Corp Hgb Conc. 33.7 g/dL (33.0-37.0); Mean Platelet Volume 8.7 fL (7.4-10.4); Nucleated Red Blood Cells % 0 %; Platelet Count 273 10^3/uL (130-400); Red Blood Cell Count 3.64 10^6/uL (4.20-5.40); Red Cell Dist. Width 12.8 % (11.5-14.5); White Blood Cell Count 5.5 10^3/uL (4.8-10.8)
[2024-06-03 08:50] LABS: Blood Urea Nitrogen 23 mg/dl (7-17); Calcium 10.1 mg/dl (8.4-10.2); Carbon Dioxide 26 mmol/L (22-30); Chloride 104 mmol/L (98-107); Estimated Creatinine Clearance 46 ml/min; Glucose 116 mg/dl (70-99); Phosphorus 3.9 mg/dl (2.5-4.5); Potassium 4.2 mmol/L (3.5-5.1); Sodium 142 mmol/L (135-145); eGFR > 60.00
[2024-06-03] MEDS: SYMMETREL SYRUP 100 MG TUBE ×2 (09:00→16:21)
[2024-06-03] MEDS: ZOLOFT 150 MG TUBE (09:00)
[2024-06-03] MEDS: SINEMET 25-100 1 TABLET TUBE ×3 (09:01→17:19)
[2024-06-03] MEDS: PEPCID 20 MG TUBE (09:01)
[2024-06-03] MEDS: FLORASTOR 250 MG TUBE (09:01)
[2024-06-03] MEDS: THERAGRAN 1 TABLET TUBE (09:01)
[2024-06-03] MEDS: NEURONTIN 100 MG TUBE (09:01)
--- NOTE | 2024-06-03 12:46 | CM ---
CM discussed case with Dr. Maxwell today. Mikayla is ready for discharge to return to [facility]. Call placed to son Donte ([phone]) and voicemail left requesting a return call regarding Mikayla's discharge.
CM to follow to arrange transportation back to [facility] pending discussion with son. [facility] is choice for home care services when Mikayla is discharged from [facility].
Plan: Discharge to [facility] today
Report: [phone] [phone]
--- NOTE | 2024-06-03 13:08 | W.DS.TRANS ---
DC Summary - Rn Lvn
-
Discharge Instructions:
Discharge Diagnosis/Procedures Dysphagia.
Parkinson's disease
Diet Other diet,Tube feeding
Additional Diets Pureed with thin liquids. TF Jevity 1.5 35ml/hr
with water flushes 25 ml/hr
Instructions:
Stand-Alone Forms:
Changes to Home Medications: Yes
Discharge Medications:
DC Medications w/original date entered in [facility] [employer]
albuterol sulfate 90 mcg/actuation aerosol inhaler 2 puff inhalation R Q6HPRN PRN sob 05/27/24
bisacodyl 10 mg rectal suppository (Dulcolax (bisacodyl)) 10 mg [place] [id number] PRN if no bm aftr mom 05/27/24
fluticasone propionate 50 mcg/actuation nasal spray,suspension 1 spray intranasal DAILYPRN PRN allergies 05/27/24
lidocaine 4 % topical patch 1 patch topical DAILYPRN PRN lower back and hips 05/27/24
sodium phosphates 19 gram-7 gram/118 mL enema (Fleet Enema) 118 ml [place] [id number] PRN if no bm aftr dulcolax 05/27/24
Saccharomyces boulardii 250 mg capsule 250 mg feeding tube BID #30 caps 06/03/24
acetaminophen 325 mg tablet 650 mg (2 x 325 mg) feeding tube Q6HPRN PRN mild pain #30 tabs 06/03/24
amantadine HCl 50 mg/5 mL oral solution 100 mg (10 mL) feeding tube TID #473 mL 06/03/24
carbidopa 25 mg-levodopa 100 mg tablet 1 tab feeding tube QID #30 tabs 06/03/24
carbidopa 25 mg-levodopa 100 mg tablet 2 tab feeding tube HS #60 tabs 06/03/24
famotidine 20 mg tablet 20 mg feeding tube DAILY #30 tabs 06/03/24
gabapentin 100 mg capsule 100 mg feeding tube BID #90 caps 06/03/24
levothyroxine 75 mcg tablet 75 mcg feeding tube DAILY@0600 #30 tabs 06/03/24
magnesium hydroxide 400 mg/5 mL oral suspension 30 ml feeding tube [id number] PRN constipation #3,000 mL 06/03/24
multivitamin with folic acid 400 mcg tablet (Tab-A-Loren) 1 tab feeding tube DAILY #30 tabs 06/03/24
oxycodone 5 mg tablet 5 mg feeding tube Q6HPRN PRN severe pain #14 tabs 06/03/24
sennosides 8.6 mg tablet (Senna Laxative) 17.2 mg (2 x 8.6 mg) feeding tube HS #30 tabs 06/03/24
sertraline 50 mg tablet 150 mg (3 x 50 mg) feeding tube DAILY #30 tabs 06/03/24
trazodone 50 mg tablet 50 mg feeding tube HS #30 tabs 06/03/24
Home Medication Changes
Remeron stopped
Pending Results: No
--- NOTE | 2024-06-03 15:20 | CM ---
Addendum entered by Cristy Manuel 06/03/24 16:29:
Ambulance transport arranged for 6:30pm meat pick[facility]. [facility] and Mikayla's daughter, Polly, are aware of transport plans. Polly will make sure her brother is aware of transport plans as well.
Original Note:
CM attempted contact with both son and daughter today, starting mid-morning. left for both son and daughter. Called and left again early afternoon. I received a call back from Mikayla's daughter who agreed to discharge back to [facility] today.
She will notify her brother.
CM to call daughter back with ambulance meat pickler time.
Plan: Discharge to [facility] today
Report: [phone]
[2024-06-03 16:04] VITALS: BP 107/43; PULSE 74
[2024-06-03 16:16] VITALS: BP 120/49
== END 2024-06-03 19:18 | DRG 56 ==
LOC: 4 EAST ACU 11:47
PROVIDERS: Hospitalist; Nurse Practitioner Adult Health; ADMITTING PHYSICIAN Internal Medicine; FAMILY PHYSICIAN Student in an Organized Health Care Education/Training Program; OTHER PHYSICIAN Student in an Organized Health Care Education/Training Program
PROC: 0DH63UZ Insertion of Feeding Device into Stomach, Percutaneous Approach (ICD-10-PCS; 2024-05-28)
DX: G20.A1 Parkinson's disease without dyskinesia, without mention of fluctuations (principal); E43 Unspecified severe protein-calorie malnutrition; F02.811 Dementia in other diseases classified elsewhere, unspecified severity, with agitation; F02.83 Dementia in other diseases classified elsewhere, unspecified severity, with mood disturbance; F02.84 Dementia in other diseases classified elsewhere, unspecified severity, with anxiety; Z68.1 Body mass index [BMI] 19.9 or less, adult; E03.9 Hypothyroidism, unspecified; E78.5 Hyperlipidemia, unspecified; F32.A Depression, unspecified; R62.7 Adult failure to thrive
CPT/HCPCS: 71046; 74230; 80048; 80053; 83735; 84100; 85025; 85610; 87070; 92610; 92611; 97163; 97167; 97530; 97535

== ENCOUNTER 2024-07-11 15:13 | Inpatient (IN) | payer MEDICARE, OTHER, SELFPAY ==
[2024-07-11] VITALS (20 sets, daily range): BP systolic 143–191; BP diastolic 49–86; BMI 15.8
[2024-07-11 12:46] LABS: % Basophils 0.4 % (0-2); % Eosinophils 0.3 % (0-6); % Immature Granulocytes 0.5 % (0-0.5); % Monocytes 6.6 % (1.7-9.3); % Neutrophils 88.2 % (42.2-75.2); Absolute Immature Granulocytes 0.1 10^3/uL (0-0.05); Absolute Lymphocytes 0.4 10^3/uL (1.2-3.4); Absolute Monocytes 0.7 10^3/uL (0.1-0.6); Hematocrit 38.9 % (37.0-47.0); Hemoglobin 12.9 g/dL (12.0-16.0); Mean Corp Hgb Conc. 33.2 g/dL (33.0-37.0); Mean Corpuscular Volume 93.5 fL (81.0-99.0); Nucleated Red Blood Cells % 0 %; Platelet Count 373 10^3/uL (130-400); Red Blood Cell Count 4.16 10^6/uL (4.20-5.40); Red Cell Dist. Width 14.4 % (11.5-14.5); White Blood Cell Count 10.3 10^3/uL (4.8-10.8)
[2024-07-11 12:58] LABS: ALT (SGPT) 12 U/L (0-35); AST (SGOT) 25 U/L (14-36); Albumin 4.3 g/dl (3.5-5.0); Alkaline Phosphatase 107 U/L (38-126); Blood Urea Nitrogen 38 mg/dl (7-17); Carbon Dioxide 30 mmol/L (22-30); Chloride 99 mmol/L (98-107); Glucose 168 mg/dl (70-99); Potassium 4.2 mmol/L (3.5-5.1); Sodium 142 mmol/L (135-145); Total Bilirubin 0.5 mg/dl (0.2-1.3); Total Protein 7.1 g/dl (6.3-8.2); eGFR > 60.00
[2024-07-11] MEDS: NSS 1000 IV ×2 (14:00→16:53)
[2024-07-11] MEDS: VANCOCIN 200 IV (14:05)
--- NOTE | 2024-07-11 14:05 | HPS.HSE ---
Family Physician
-
Family Physician: Arron Dash DO
Chief Complaint
-
Generalized weakness
, Cough
History of Present Illness
73-year-old with medical history for Parkinson disease, depression, dementia, personality disorder, asthma, GERD, hypothyroidism presented to us with worsening generalized weakness, fatigue for past 2 weeks. For past few days patient was noted very
fatigue and she stopped talking. Today morning she was noted to have cough. Review of system limited as patient is poor historian. History obtained from family. They denied any fever.
Patient has a tube feed, as well as she takes pur�ed diet by mouth.
Upon arrival patient is requiring 2 L of oxygen. Chest x-ray with pneumonia. Admitting for further management
Medical History
Past Medical History
Past Medical History: Reports Other
Additional Past Medical History:
Depression
Parkinson disease
Osteoporosis
Migraine headache
Personality disorder
Past Surgical History: Reports Other
Additional Past Surgical History:
Hip surgery
Cholecystectomy
Social History
Tobacco: Non-smoker
Alcohol: None
Drug: None
Personal:
Living: Other (Rehab)
Family History
Family History: Not pertinent
Allergies / Home Medications
Allergies reflects when Allergies were last updated in [employer].
Home Medications with original date entered in [employer]
Allergy/Medication List:
Allergies
Allergy/AdvReac Type Severity Reaction Status Date / Time
pork derived (porcine) Allergy Unknown Unknown Verified 07/11/24 11:17
shellfish derived Allergy Unknown Unknown Verified 07/11/24 11:17
codeine Allergy Unknown Verified 07/11/24 11:17
metoclopramide Allergy Unknown Verified 07/11/24 11:17
prochlorperazine Allergy Unknown Verified 07/11/24 11:17
[From Compazine]
Home Medications
albuterol sulfate 90 mcg/actuation aerosol inhaler 2 puff inhalation R Q6HPRN PRN sob 05/27/24
bisacodyl 10 mg rectal suppository (Dulcolax (bisacodyl)) 10 mg [place] DAILYPRN PRN if no bm aftr mom 05/27/24
fluticasone propionate 50 mcg/actuation nasal spray,suspension 1 spray intranasal DAILYPRN PRN allergies 05/27/24
lidocaine 4 % topical patch 1 patch topical DAILY lower back & hips 05/27/24
sodium phosphates 19 gram-7 gram/118 mL enema (Fleet Enema) 118 ml [place] DAILYPRN PRN if no bm aftr dulcolax 05/27/24
carbidopa 25 mg-levodopa 100 mg tablet 1 tab feeding tube QID #30 tabs 06/03/24
carbidopa 25 mg-levodopa 100 mg tablet 2 tab feeding tube HS #60 tabs 06/03/24
famotidine 20 mg tablet 20 mg feeding tube DAILY #30 tabs 06/03/24
gabapentin 100 mg capsule 100 mg feeding tube BID #90 caps 06/03/24
levothyroxine 75 mcg tablet 75 mcg feeding tube DAILY@0600 #30 tabs 06/03/24
multivitamin with folic acid 400 mcg tablet (Tab-A-Loren) 1 tab feeding tube DAILY #30 tabs 06/03/24
sennosides 8.6 mg tablet (Senna Laxative) 17.2 mg (2 x 8.6 mg) feeding tube HS #30 tabs 06/03/24
sertraline 50 mg tablet 150 mg (3 x 50 mg) feeding tube DAILY #30 tabs 06/03/24
trazodone 50 mg tablet 50 mg feeding tube HS #30 tabs 06/03/24
acetaminophen 325 mg tablet 650 mg feeding tube Q6HPRN PRN mild pain/temp >100 07/11/24
amantadine HCl 100 mg tablet 100 mg feeding tube TID 07/11/24
magnesium hydroxide 400 mg/5 mL oral suspension 30 ml feeding tube [id number] PRN if no bm 3 days 07/11/24
oxycodone 5 mg tablet 5 mg feeding tube Q6HPRN PRN severe pain 07/11/24
Review of Systems
-
Unable to obtain full review of systems at this time due to: Dementia
Physical Exam
Vital Signs
Vital Signs
Temp Pulse Resp BP Pulse Ox
98.4 F 88 19 161/57 94
07/11/24 11:17 07/11/24 13:45 07/11/24 13:45 07/11/24 13:30 07/11/24 13:45
Physical Exam
General: Well Developed, Well Nourished and No Apparent Distress
HEENT: NormoCephalic, Moist mucous membranes and Atraumatic
Respiratory: Clear and Decreased Breath Sounds
Cardiac: S1/S2 and Regular Rhythm; No Murmur or Rub
GI: Soft, Non Tender, Non Distended and Normal Bowel Sounds; No Organomegaly
Rectal: Deferred by Provider
Musculoskeletal: No Clubbing, No Cyanosis and No Edema
Skin: No Rash
Neuro: AO x 3 and Nonfocal/grossly intact
Psych: Calm
Laboratory Results
-
07/11/24 12:36
07/11/24 12:36
Laboratory Results
Total Bilirubin 0.5 mg/dl (0.2-1.3) 07/11/24 12:36
AST 25 U/L (14-36) 07/11/24 12:36
ALT 12 U/L (0-35) 07/11/24 12:36
Alkaline Phosphatase 107 U/L (38-126) 07/11/24 12:36
Data Reviewed
-
Diagnostic Radiology: Report Reviewed by me
Lab Data: Labs Reviewed by me
Impression/Plan
-
# Acute hypoxia/change in mental status likely from pneumonia concern for aspiration
# History of dementia
-Chest x-ray with pneumonia
-IV Unasyn continued
-Tylenol as needed for fever
# Dysphagia
-Status post PEG placement on 05/28 with TF from 6pm to 10am
-patient also on purred diet at home
-hold on pureed diet
-nutrition consult
-speech consult
#Parkinson's disease continue preadmission regimen including carbidopa levodopa, amantadine
-Continue gabapentin
Anxiety/depression
-Continue sertraline
Migraine history
#Hypothyroidism
-Continue levothyroxine
Hyperlipidemia
Essential hypertension
#COPD/asthma
-Patient not in acute exacerbation
-continue nebs
# GERD
-PPI continued
Full code
DVT prophylaxis�heparin
--- NOTE | 2024-07-11 14:21 | ED.GENMED ---
History of Present Illness
General
Chief Complaint: Cough
Source: patient
Exam Limitations: none
Time Seen by Provider: 07/11/24 11:36
Nursing documentation reviewed up to this point in time: agreed with
History of Present Illness
History of Present Illness:
73-year-old female past medical history of COPD asthma previous lung cancer Alzheimer's dementia presenting to the emergency department today with concerns of low pulse ox at her nursing facility and cough over the past week or so worsening over the
past day or so. Also worsening mental status according to the family.
Review of Systems
Review of Systems
Allergies reviewed?: Yes
All Other Systems: ROS reviewed and negative except as documented in HPI and ROS
Phy Exam
Physical Exam
Physical Exam:
GENERAL: Alert , in no apparent distress
EYE: pupils equal and reactive
NECK: Supple, no significant adenopathy.
ENT: o/p clr, mmm.
CARDIAC: Regular rate and rhythm .
LUNGS: Clear breath sounds bilaterally, no acute respiratory distress, no wheezes/rales/rhonchi
ABDOMEN: Soft, without focal tenderness, no r/g, no cvat
NEUROLOGICAL: Alert no focal neuro deficits
SKIN: Warm and dry, skin intact.
MUSCULOSKELETAL: No edema, well perfused.
PSYCH: Normal and appropriate interaction.
Course
Orders/Labs/Results
Orders:
Orders
07/11/24 11:30
Chest [CR Chest - 2 Views ] Urgent
Comment:
Reason For Exam: cough hypoxic
07/11/24 12:22
EKG [Electrocardiogram (*1)] Urgent
Reason for Study: Shortness of Breath
EKG- Treatment ONCE
07/11/24 12:36
CBC/With Diff [Complete Blood Count/With Diff] Urgent
CMP [Comprehensive Metabolic Panel] Urgent
07/11/24 13:58
0.9% Sodium Chloride 1000 ml [Nss] 1,000 ml IV BOLUS
Cefepime HCl [Maxipime] 2,000 mg IV NOW STA
Vancomycin 1 Gram/200 ml [Vancocin] 1 gram in 200 ml IV NOW
07/11/24 14:08
COVID-19 Antigen Stat
Source: Nasal Swab
Influenza A+B Rapid Molecular Stat
CHARISSA Source: Nasal Swab
Specimen Description:
Abnormal Lab Results
07/11/24
12:36
RBC 4.16 L 10^6/uL
(4.20-5.40)
Abs Immat Gran (auto) 0.1 H 10^3/uL
(0-0.05)
Absolute Neuts (auto) 9.0 H 10^3/uL
(1.4-6.5)
Absolute Lymphs (auto) 0.4 L 10^3/uL
(1.2-3.4)
Absolute Monos (auto) 0.7 H 10^3/uL
(0.1-0.6)
Neutrophils % 88.2 H %
(42.2-75.2)
Lymphocytes % 4.0 L %
(20.5-51.1)
BUN 38 H mg/dl
(7-17)
Creatinine 0.5 L mg/dL
(0.6-1.0)
Glucose 168 H mg/dl
(70-99)
07/11/24 12:36
07/11/24 12:36
Vital Signs
Initial and Last Documented VS:
Initial Vital Signs
BP
171/67
07/11/24 11:15
Last Documented Vital Signs
Temp Pulse Resp BP Pulse Ox
98.4 F 88 19 161/57 94
07/11/24 11:17 07/11/24 13:45 07/11/24 13:45 07/11/24 13:30 07/11/24 13:45
MDM/Problems Addressed
MDM/Problems Addressed:
73-year-old female presenting to the emergency department today with concerns of low pulse ox cough. Upon arrival blood pressure elevated otherwise vital signs are normal on 3 L nasal cannula with pulse ox in the 80s according to nursing staff
prior to oxygen. Here x-ray performed showing pneumonia. Labs showing potential degree of dehydration with BUN to creatinine ratio elevated. Patient started on fluids given IV antibiotic will be admitted for monitoring.
*Critical Care Note
Total Time (30-74mins, 75-104mins- exclusive of procedures): Not Applicable
ED Attending Note
-
Portions of this chart may have been created with voice recognition software.� Occasional wrong word or��sound alike� substitutions may have occurred due to the inherent limitations of voice recognition software.
Discharge Plan
Departure
Patient Disposition: Admit
Date of Disposition: 07/11/24
Time of Disposition: 14:26
Admit to: Telemetry
Admit to doctor: Elliot
Presentation/result/management discussed w/ accepting MD/DO: Hospitalist
Patient with high blood pressure during this ER visit?: No
Condition: Good
Covid-19: Not Applicable
Discharge Problem:
Pneumonia
Prescriptions:
No Action
lidocaine 4 % Adhesive Patch,Medicated
1 patch TOPICAL DAILY
bisacodyl [Dulcolax (bisacodyl)] 10 mg Suppository
[address] DAILYPRN PRN (Reason: if no bm aftr mom)
Fleet Enema 19-7 gram/118 mL Enema
[address] DAILYPRN PRN (Reason: if no bm aftr dulcolax)
albuterol sulfate 90 mcg/actuation Hfa Aerosol Inhaler
2 puff INHALATION R Q6HPRN PRN (Reason: sob)
fluticasone propionate 50 mcg/actuation [place],Suspension
1 spray INTRANASAL DAILYPRN PRN (Reason: allergies)
gabapentin 100 mg Capsule
100 mg feeding tube BID Qty: 90 0RF
sennosides [Senna Laxative] 8.6 mg Tablet
17.2 mg feeding tube HS Qty: 30 0RF
famotidine 20 mg Tablet
20 mg feeding tube DAILY Qty: 30 0RF
sertraline 50 mg Tablet
150 mg feeding tube DAILY Qty: 30 0RF
carbidopa-levodopa 25-100 mg Tablet
1 tab feeding tube QID Qty: 30 0RF
carbidopa-levodopa 25-100 mg Tablet
2 tab feeding tube HS Qty: 60 0RF
levothyroxine 75 mcg Tablet
75 mcg feeding tube DAILY@0600 Qty: 30 0RF
multivitamin with folic acid [Tab-A-Loren] 400 mcg Tablet
1 tab feeding tube DAILY Qty: 30 0RF
trazodone 50 mg Tablet
50 mg feeding tube HS Qty: 30 0RF
amantadine HCl 100 mg Tablet
100 mg feeding tube TID
acetaminophen 325 mg tablet
650 mg feeding tube Q6HPRN MDD 3000 mg PRN (Reason: mild pain/temp >100)
magnesium hydroxide 400 mg/5 mL suspension
30 ml feeding tube [id number] PRN (Reason: if no bm 3 days)
oxycodone 5 mg tablet
5 mg feeding tube Q6HPRN PRN (Reason: severe pain)
Referrals:
Arron Dash DO [Family Provider] -
Interventions
Interventions:
*Risk Screen - Suicide Last Done: 07/11/24 11:17
*General Assessment Last Done: 07/11/24 11:17
*Neglect/Abuse Screening Last Done: 07/11/24 11:17
ED- Fall Risk Assessment Last Done: 07/11/24 11:17
ED- Pulmonary Assessment Last Done: 07/11/24 11:35
Discharge Date and Time
Print Language: CHINESE
[2024-07-11] MEDS: MAXIPIME 2000 MG IV (14:40)
--- NOTE | 2024-07-11 14:43 | W.PN.UPDATE ---
Update Note
Progress Note Update
This is an addendum to H&P written by ITZ Richter
I saw and examined the patient.
The BI LEAD's note was reviewed and I agree with the note.
Comment:
Ms. Mikayla Aguilar is a 73 yo woman with hx Parkinson's with resulting dysphagia with aspiration syndrome (s/p PEG tube placement 05/28/24), Parkinson-related dementia, hypothyroidism, COPD, essential hypertension, HLD presents to the ER with concern
for low pulse ox at her NH with worsening cough over past week.
During last admission, decision made to continue puree feedings for comfort understanding the risks/complications of aspiration.
Triage VS: T 98.4, P 88, RR 19, BP 161/57, SpO2 94%
On exam patient is very frail appearing, cachectic. She is alert but minimally responsive. Per daughter this is the best she has looked in 10 days. Chest without wheezing; CV: S1, S2. LE without swelling. Abdomen + PEG.
LABS: Na 142, K+ 4.2, Cl 99, BUN 38, Cr 0.5, Glucose 168, T. Bili 0.5, AST 25, ALT 12, Alk Phos 107
CXR
IMPRESSION:
Mild left basilar pneumonia
Aspiration Pneumonia
Hx Parkinson's with Dysphagia
-admit to med/surg
-s/p Vanc/Cefepime in ER - will transition to IV Unasyn
-1L IVF gentle
-NPO except TF
-ST consult
-mentioned that given back to back admissions - will need to rethink risks versus benefits of oral feeding
-PT/OT
Parkinson's
Parkinson's-Related Dementia
-home medications continued
Remainder of plan per ITZ Richter's Note
FULL CODE - discussed on admission
--- NOTE | 2024-07-11 15:11 | CM ---
CM called son to discuss discharge planning options. Patient is a STR patient at [facility]. Patient's Medicare days are exhausted as on 07/14. Son was working with business office at [facility] for medicaid forrest. Patient's son is not
happy with care at [facility] and would like patient to return home if possible. Patient lives with son.
Patient son expressed interest in hospice. CM explained hospice philosophy. Patient son was unaware that under hospice curative treatments would be abandoned. CM offered hospice consult to discuss options further. Son declined at this time as he
would like to see if patient can recover from this hospitalization.
CM will remain available.
CM updated Theresa at [facility].
[2024-07-11 15:45] LABS: COVID-19 Antigen Negative (Negative)
[2024-07-11] MEDS: UNASYN IV (21:33)
[2024-07-11] MEDS: HEPARIN 5000 UNITS SC (21:33)
[2024-07-11] MEDS: NEURONTIN 100 MG TUBE (21:34)
[2024-07-11] MEDS: SYMMETREL SYRUP 100 MG TUBE (21:35)
[2024-07-11] MEDS: SINEMET 25-100 2 TABLET TUBE (21:35)
[2024-07-11] MEDS: SENOKOT 17.2 MG TUBE (21:36)
[2024-07-12] MEDS: UNASYN IV ×4 (03:43→22:22)
[2024-07-12] MEDS: SYNTHROID 75 MCG TUBE (06:21)
[2024-07-12 06:35] LABS: Hematocrit 33.6 % (37.0-47.0); Hemoglobin 11.4 g/dL (12.0-16.0); Mean Corp Hgb Conc. 33.9 g/dL (33.0-37.0); Mean Corpuscular Hgb 31.5 pg (27.0-31.0); Mean Corpuscular Volume 92.8 fL (81.0-99.0); Mean Platelet Volume 10.5 fL (7.4-10.4); Platelet Count 199 10^3/uL (130-400); Red Blood Cell Count 3.62 10^6/uL (4.20-5.40); Red Cell Dist. Width 14.3 % (11.5-14.5); White Blood Cell Count 7.6 10^3/uL (4.8-10.8)
--- NOTE | 2024-07-12 07:48 | PTCARENOTE ---
Patient received from ED via stretcher. Patient alert but non verbal, moist non-productive cough noted, patient unable to cough up any sputum at this time. PEG tube clamped, upon arrival to unit. Tube feeds started per order. Mouth care performed,
done frequently throughout shift. Heel foams applied to B/L heel, moisture barrier cream applied to perineum/ sacrum. No family at bedside at this time. Plan of care ongoing, will monitor.
[2024-07-12 07:51] VITALS: BP 127/49
--- NOTE | 2024-07-12 08:30 | PTOTSP ---
Speech Language Pathology
Pt seen for clinical bedside swallow evaluation. Known to SUPERVISOR CEREAL from recent admission and VSE 05/29/24. Recommendations were for NPO, and son chose P.O. diet with acceptance of risks. P.O. trials of puree and thin liquids provided. Biting of straw
at times. Oral holding noted prior to swallow initiation. Multiple swallows per bolus noted, likely indicative of pharyngeal residue. Audible swallows noted likely indicative of incoordination. Inconsistent immediate and delayed weak cough
noted. Family chose P.O. diet recently despite risks of aspiration. Pt currently with PNA, so it appears pt is not tolerating diet.
Recommend:
(1) Strict NPO
(2) Oral care 4x/day with suctioning as needed
(3) Hold on Aspiration Risk Hydration Protocol (ARHP) at this time
(4) Discussion regarding P.O. intake/overall medical plan
(5) SUPERVISOR CEREAL to continue to follow
--- NOTE | 2024-07-12 09:03 | W.PN.HOSP.TC ---
Today's Communication/Plan
-
Antibiotics.
Assessment / Plan
Assessment / Plan
Physical exam:
General: Acute on chronically ill
HEENT: Normocephalic, Atraumatic and Moist Mucous Membranes
Respiratory: Clear to Auscultation; Negative Wheezes, Rales or Rhonchi
Cardiac: Regular Rhythm and S1/S2
GI: Soft, Nontender and Nondistended
Musculoskeletal: No Clubbing, No Cyanosis and No Edema. PEG placement in place
Neuro: Awake, Alert and Oriented
Psych: Calm
A/P:
# Acute hypoxia/acute metabolic encephalopathy likely from aspiration pneumonia
-Chest x-ray with left basilar pneumonia
-IV Unasyn continued
-Tylenol as needed for fever
# Dysphagia secondary to Parkinson's disease
-Status post PEG placement on 05/28 with TF from 6pm to 10am
-patient also on purred diet at home--> Now n.p.o.
-hold on pureed diet
-speech consulted and recommended strict n.p.o. and continue TF
#Parkinson's disease continue preadmission regimen including carbidopa levodopa, amantadine
-Continue gabapentin
#Severe calorie malnutrition
Dietary consult
#Parkinson's related dementia
Monitor mental status and behavior
Anxiety/depression
-Continue sertraline
Migraine history
#Hypothyroidism
-Continue levothyroxine
Hyperlipidemia
Essential hypertension
#COPD/asthma
-Patient not in acute exacerbation
-continue nebs
# GERD
-PPI continued
Full code
DVT prophylaxis�heparin
Anticipated Discharge: 24 - 48 hours
Subjective/Interval History
-
Date of Service: July 12, 2024
Not much information from patient. Afebrile
Objective Data
-
Labs:
Laboratory Results
07/12/24 07/12/24
05:15 07:36
WBC 7.6
Hgb 11.4 L
Hct 33.6 L
Plt Count 199 D
Sodium Cancelled Pending
Potassium Cancelled Pending
Chloride Cancelled Pending
Carbon Dioxide Cancelled Pending
BUN Cancelled Pending
Creatinine Cancelled Pending
Glucose Cancelled Pending
Calcium Cancelled Pending
Vital Signs:
Vital Signs
Temp Pulse Resp BP Pulse Ox
98.6 F 78 15 127/49 97
07/12/24 07:51 07/12/24 07:51 07/12/24 07:51 07/12/24 07:51 07/12/24 07:51
I&O
07/11/24 07/12/24 07/13/24
06:59 06:59 06:59
Intake Total 200 / 200
Balance 200 / 200
[2024-07-12] MEDS: LIDOCAINE 4% PATCH 1 PATCH TOPICAL (09:14)
[2024-07-12] MEDS: ZOLOFT 150 MG TUBE (09:14)
[2024-07-12] MEDS: NEURONTIN 100 MG TUBE ×2 (09:15→22:21)
[2024-07-12] MEDS: HEPARIN 5000 UNITS SC ×2 (09:15→22:18)
[2024-07-12] MEDS: PEPCID 20 MG TUBE (09:15)
[2024-07-12 09:17] LABS: Blood Urea Nitrogen 27 mg/dl (7-17); Calcium 9.2 mg/dl (8.4-10.2); Carbon Dioxide 29 mmol/L (22-30); Chloride 101 mmol/L (98-107); Estimated Creatinine Clearance 50 ml/min; Glucose 127 mg/dl (70-99); Potassium 3.4 mmol/L (3.5-5.1); Sodium 139 mmol/L (135-145); eGFR > 60.00
[2024-07-12] MEDS: SYMMETREL SYRUP 100 MG TUBE ×3 (10:15→22:24)
[2024-07-12] MEDS: SINEMET 25-100 1 TABLET TUBE ×5 (10:16→22:23)
[2024-07-12 13:58] VITALS: BMI 15.8
[2024-07-12 15:36] VITALS: BP 128/53
[2024-07-12] MEDS: SENOKOT 17.2 MG TUBE (22:23)
[2024-07-12] MEDS: SINEMET 25-100 2 TABLET TUBE (22:24)
[2024-07-12] MEDS: ROXICODONE ORAL SOLUTION 5 MG TUBE (22:29)
[2024-07-13 00:05] VITALS: BP 151/67
[2024-07-13] MEDS: UNASYN IV ×4 (03:55→20:35)
[2024-07-13] MEDS: SYNTHROID 75 MCG TUBE (03:56)
[2024-07-13 07:00] VITALS: BP 166/65
--- NOTE | 2024-07-13 08:58 | W.PN.HOSP.TC ---
Today's Communication/Plan
-
Continue IV antibiotics
Assessment / Plan
Assessment / Plan
Physical exam:
General: Acute on chronically ill
HEENT: Normocephalic, Atraumatic and Moist Mucous Membranes
Respiratory: Clear to Auscultation; Negative Wheezes, Rales or Rhonchi
Cardiac: Regular Rhythm and S1/S2
GI: Soft, Nontender and Nondistended
Musculoskeletal: No Clubbing, No Cyanosis and No Edema. PEG placement in place
Neuro: Awake, Alert and Oriented
Psych: Calm
A/P:
# Acute hypoxia/acute metabolic encephalopathy likely from aspiration pneumonia
-Chest x-ray with left basilar pneumonia
-IV Unasyn continued
-Tylenol as needed for fever
# Dysphagia secondary to Parkinson's disease
-Status post PEG placement on 05/28 with TF from 6pm to 10am
-patient also on purred diet at home--> Now n.p.o.
-hold on pureed diet
-speech consulted and recommended strict n.p.o. and continue TF
#Parkinson's disease continue preadmission regimen including carbidopa levodopa, amantadine
-Continue gabapentin
#Severe calorie malnutrition
Dietary consult
#Parkinson's related dementia
Monitor mental status and behavior
Anxiety/depression
-Continue sertraline
Migraine history
#Hypothyroidism
-Continue levothyroxine
Hyperlipidemia
Essential hypertension
#COPD/asthma
-Patient not in acute exacerbation
-continue nebs
# GERD
-PPI continued
Full code
DVT prophylaxis�heparin
Anticipated Discharge: Within 24 hours
Subjective/Interval History
-
Date of Service: July 13, 2024
No new complaints. Afebrile
Objective Data
-
Labs:
Laboratory Results
07/13/24
06:00
WBC Pending
Hgb Pending
Hct Pending
Plt Count Pending
Sodium Pending
Potassium Pending
Chloride Pending
Carbon Dioxide Pending
BUN Pending
Creatinine Pending
Glucose Pending
Calcium Pending
Vital Signs:
Vital Signs
Temp Pulse Resp BP Pulse Ox
97.8 F 67 16 166/65 99
07/13/24 07:00 07/13/24 07:00 07/13/24 07:00 07/13/24 07:00 07/13/24 07:00
I&O
07/12/24 07/13/24 07/14/24
06:59 06:59 06:59
Intake Total 200 / 200
Output Total 200 / 200
Balance 200 / 200 -200 / -200
[2024-07-13] MEDS: SYMMETREL SYRUP 100 MG TUBE ×3 (09:06→20:40)
[2024-07-13] MEDS: PEPCID 20 MG TUBE (09:06)
[2024-07-13] MEDS: NEURONTIN 100 MG TUBE ×2 (09:06→20:41)
[2024-07-13] MEDS: ZOLOFT 150 MG TUBE (09:07)
[2024-07-13] MEDS: LIDOCAINE 4% PATCH 1 PATCH TOPICAL (09:11)
[2024-07-13] MEDS: HEPARIN 5000 UNITS SC ×2 (09:12→20:40)
[2024-07-13] MEDS: KCL ELIXIR 40 MEQ TUBE (09:23)
[2024-07-13 12:06] LABS: Blood Urea Nitrogen 18 mg/dl (7-17); Carbon Dioxide 31 mmol/L (22-30); Chloride 96 mmol/L (98-107); Estimated Creatinine Clearance 50 ml/min; Glucose 156 mg/dl (70-99); Sodium 136 mmol/L (135-145); eGFR > 60.00
[2024-07-13 12:10] LABS: Hematocrit 34.7 % (37.0-47.0); Hemoglobin 11.7 g/dL (12.0-16.0); Mean Corp Hgb Conc. 33.7 g/dL (33.0-37.0); Mean Corpuscular Hgb 30.6 pg (27.0-31.0); Mean Corpuscular Volume 90.8 fL (81.0-99.0); Mean Platelet Volume 8.7 fL (7.4-10.4); Platelet Count 311 10^3/uL (130-400); Red Blood Cell Count 3.82 10^6/uL (4.20-5.40); Red Cell Dist. Width 13.5 % (11.5-14.5); White Blood Cell Count 7.7 10^3/uL (4.8-10.8)
[2024-07-13] MEDS: SINEMET 25-100 1 TABLET TUBE ×3 (13:06→20:35)
[2024-07-13 15:00] VITALS: BP 139/69
[2024-07-13] MEDS: ROXICODONE ORAL SOLUTION 5 MG TUBE (20:35)
[2024-07-13] MEDS: SINEMET 25-100 2 TABLET TUBE (20:39)
[2024-07-13] MEDS: SENOKOT 17.2 MG TUBE (20:39)
[2024-07-13 23:35] VITALS: BP 137/63
[2024-07-14] VITALS (15 sets, daily range): BP systolic 124–159; BP diastolic 46–75
[2024-07-14] MEDS: UNASYN IV ×4 (02:59→19:57)
[2024-07-14] MEDS: SYNTHROID 75 MCG TUBE (05:49)
[2024-07-14 08:04] LABS: Hematocrit 33.2 % (37.0-47.0); Hemoglobin 11.5 g/dL (12.0-16.0); Mean Corp Hgb Conc. 34.6 g/dL (33.0-37.0); Mean Corpuscular Hgb 31.7 pg (27.0-31.0); Mean Corpuscular Volume 91.5 fL (81.0-99.0); Platelet Count 293 10^3/uL (130-400); Red Blood Cell Count 3.63 10^6/uL (4.20-5.40); Red Cell Dist. Width 13.3 % (11.5-14.5); White Blood Cell Count 5.2 10^3/uL (4.8-10.8)
[2024-07-14 08:24] LABS: Blood Urea Nitrogen 20 mg/dl (7-17); Calcium 8.8 mg/dl (8.4-10.2); Carbon Dioxide 30 mmol/L (22-30); Chloride 95 mmol/L (98-107); Estimated Creatinine Clearance 50 ml/min; Glucose 106 mg/dl (70-99); Potassium 3.5 mmol/L (3.5-5.1); Sodium 137 mmol/L (135-145); eGFR > 60.00
[2024-07-14] MEDS: SYMMETREL SYRUP 100 MG TUBE ×3 (08:38→22:05)
[2024-07-14] MEDS: NEURONTIN 100 MG TUBE ×2 (08:39→20:46)
[2024-07-14] MEDS: PEPCID 20 MG TUBE (08:40)
[2024-07-14] MEDS: ZOLOFT 150 MG TUBE (08:40)
[2024-07-14] MEDS: LIDOCAINE 4% PATCH 1 PATCH TOPICAL (08:42)
[2024-07-14] MEDS: HEPARIN 5000 UNITS SC (08:44)
[2024-07-14] MEDS: SINEMET 25-100 1 TABLET TUBE ×3 (08:46→15:13)
--- NOTE | 2024-07-14 09:22 | W.PN.HOSP.TC ---
Addendum entered and electronically signed by Ulises Reynolds MD 07/14/24 19:23:
Labetalol IV for SBP>140. Head elevated, SCD, coags and repeat labs.
Addendum entered and electronically signed by Ulises Reynolds MD 07/14/24 19:17:
I also let [facility] [employer] know if they can pass along to family. I will start her on IV steroids as well and neuro-checks.
Addendum entered and electronically signed by Ulises Reynolds MD 07/14/24 19:02:
I got informed about CT findings by RN, radiologist, and cross-cover physician and it is either hemorrhagic infarct or hemorrhagic mass in her right frontal lobe. I'm out of the hospital now but will transfer her to ICU now and program supervisor and
neurosurgery know about current findings. I'm stopping heparin SQ.
Original Note:
Today's Communication/Plan
-
Continue antibiotics. CT of the head.
Assessment / Plan
Assessment / Plan
Physical exam:
General: Acute on chronically ill
HEENT: Normocephalic, Atraumatic and Moist Mucous Membranes
Respiratory: Clear to Auscultation; Negative Wheezes, Rales or Rhonchi
Cardiac: Regular Rhythm and S1/S2
GI: Soft, Nontender and Nondistended
Musculoskeletal: No Clubbing, No Cyanosis and No Edema. PEG placement in place
Neuro: Awake, Alert and Oriented
Psych: Calm
A/P:
# Acute hypoxia/acute metabolic encephalopathy likely from aspiration pneumonia
-Chest x-ray with left basilar pneumonia
-IV Unasyn continued and plan to switch to oral/through PEG tomorrow or day after
-Tylenol as needed for fever
-Follow-up chest x-ray today and shows same opacities and some atelectasis--> recommend to follow-up chest x-ray in 4 to 6 weeks unless clinical status changes.
-Discussed with son over the phone today, Donte Fox
-Explained that metabolic encephalopathy related to hypoxia and pneumonia but he is concerned about any structural damage in the brain which seems less likely but we will go ahead and do a CT of the head today without contrast. I also discussed
with him that she is getting ready for discharge over the next 24 to 48 hours and if he has concerns he also has a right to appeal discharge but she appears to be moving in the right direction.
# Dysphagia secondary to Parkinson's disease
-Status post PEG placement on 05/28 with TF from 6pm to 10am
-patient also on purred diet at home--> Now n.p.o.
-hold on pureed diet
-speech consulted and recommended strict n.p.o. and continue TF
#Parkinson's disease continue preadmission regimen including carbidopa levodopa, amantadine
-Continue gabapentin
#Severe calorie malnutrition
Dietary consult
#Parkinson's related dementia
Monitor mental status and behavior
Anxiety/depression
-Continue sertraline
Migraine history
#Hypothyroidism
-Continue levothyroxine
Hyperlipidemia
Essential hypertension
#COPD/asthma
-Patient not in acute exacerbation
-continue nebs
# GERD
-PPI continued
Full code
DVT prophylaxis�heparin
Anticipated Discharge: 24 - 48 hours
Subjective/Interval History
-
Date of Service: July 14, 2024
No new events. Afebrile.
Objective Data
-
Labs:
Laboratory Results
07/14/24 07/14/24
07:47 07:48
WBC 5.2
Hgb 11.5 L
Hct 33.2 L
Plt Count 293
Sodium 137
Potassium 3.5
Chloride 95 L
Carbon Dioxide 30
BUN 20 H
Creatinine 0.4 L
Glucose 106 H
Calcium 8.8
Vital Signs:
Vital Signs
Temp Pulse Resp BP Pulse Ox
98.4 F 67 20 147/67 98
07/14/24 07:00 07/14/24 07:00 07/14/24 07:00 07/14/24 07:00 07/14/24 07:00
I&O
07/13/24 07/14/24 07/15/24
06:59 06:59 06:59
Intake Total 240 / 240
Output Total 200 / 200
Balance -200 / -200 240 / 240
--- NOTE | 2024-07-14 12:13 | CM ---
MD indicated pt ready for dc .
Referral placed with [facility] in care port.
Spoke with [facility] where pt has a few Medicare days left.
Spoke with with Donte s Johana [phone] because he was driving car.
Explained above . They asked for MD to call them .
They said they will call back after speaking with MD.
Theresa Peter said Donte will need to speak with billing office before pt returns to complete paper work for Medicaid anthony.Business office not open till tomorrow Mon. aware.
Pt will tube feedings and oxygen 2 liter 98%.
PLAN Probable return to [facility] after he speaks with billing office at [facility]
--- NOTE | 2024-07-14 20:00 | W.PN.UPDATE ---
Update Note
Progress Note Update
07/14/24
1999- Consulted neurologist Dr. Davis, recommendations given no IV steroids at this time, order MRI of the brain with and without contrast (with Ativan prior to study to help with quality of image).
--- NOTE | 2024-07-14 20:00 | PTCARENOTE ---
Pt transferred to ICU with RN and night owl RN, with zoll, IV, tube feed, and O2. Report given to ESTER Downing.
[2024-07-14] MEDS: TRANDATE 5 MG IV (20:47)
[2024-07-14 21:42] LABS: Hematocrit 37.2 % (37.0-47.0); Hemoglobin 13.1 g/dL (12.0-16.0); Mean Corp Hgb Conc. 35.2 g/dL (33.0-37.0); Mean Corpuscular Hgb 32.6 pg (27.0-31.0); Mean Corpuscular Volume 92.5 fL (81.0-99.0); Mean Platelet Volume 8.3 fL (7.4-10.4); Platelet Count 317 10^3/uL (130-400); Red Blood Cell Count 4.02 10^6/uL (4.20-5.40); Red Cell Dist. Width 13.2 % (11.5-14.5); White Blood Cell Count 6.1 10^3/uL (4.8-10.8)
[2024-07-14 21:48] LABS: Erythrocyte Sed Rate 65 mm/hour (0-20)
[2024-07-14 21:53] LABS: INR 0.98; PT 12.8 Sec (11.4-14.6)
[2024-07-14 21:54] LABS: APTT 23.2 Sec (23.4-35.0); Magnesium 2.2 mg/dl (1.6-2.3); Phosphorus 2.8 mg/dl (2.5-4.5)
--- NOTE | 2024-07-14 21:54 | W.PN.UPDATE ---
Update Note
Progress Note Update
07/14/24
2114- Attempted to call patient's son Donte BEAVERS, but he did not answer. Called second contact, patient's daughter Polly, updated and all questions answered.
2139- Patient's son Donte Fox called and was updated and all questions answered. No changes to plan of care, patient remains FULL CODE and family would like to proceed with plan of MRI tomorrow.
2299- Patient complained of nausea and slight headache, difficult to assess with dementia level of nausea. Tube feeding has been stopped. Will repeat ct scan of head. No changes in neurological examination, patient does have difficulty with
dysphagia and possibly aspiration.
Ctscan of the head unchanged.
[2024-07-14 21:55] LABS: ALT (SGPT) 17 U/L (0-35); AST (SGOT) 26 U/L (14-36); Alkaline Phosphatase 107 U/L (38-126); Blood Urea Nitrogen 14 mg/dl (7-17); Calcium 9.1 mg/dl (8.4-10.2); Carbon Dioxide 32 mmol/L (22-30); Chloride 95 mmol/L (98-107); Estimated Creatinine Clearance 50 ml/min; Glucose 101 mg/dl (70-99); Potassium 3.2 mmol/L (3.5-5.1); Sodium 140 mmol/L (135-145); Total Bilirubin 0.6 mg/dl (0.2-1.3); eGFR > 60.00
[2024-07-14] MEDS: SINEMET 25-100 TUBE (22:01)
[2024-07-14] MEDS: SINEMET 25-100 2 TABLET TUBE (22:04)
[2024-07-14] MEDS: SENOKOT TUBE (22:13)
--- NOTE | 2024-07-14 22:18 | PTCARENOTE ---
Received patient from [facility] to ICU 3363. Patient is Ao to self and follows simple commands. Strength in UE 2 out of 5 and LE 1 out of 5. Pupils 4 mm and reactive bilaterally. Foot drop present with tremors noted at times. Q4 neuro checks ongoing.
NSR on tele HR 60 to 70s. Labetalol was given for a systolic greater than 140. Patient is on 2L NC and sating at 100%. Patient has a peg tube placed with Jevity 1.5 at 40 ml/hr with a 25 ml flush. Tube feed on hold per FURNACE LOADER due to nausea. Patient
did complain of nausea prior to labetalol given and FURNACE LOADER was made aware and at bed side. Head Ct was initially ordered but nausea resolved after labetalol was given. Patient is incontinent and has a purewick in place. Patient has head of the bed
elevated to 30 degrees. See MAR for medication administration. Patient resting in bed with call tom in reach.
[2024-07-14] MEDS: KCL ELIXIR 40 MEQ TUBE (22:52)
--- NOTE | 2024-07-14 23:47 | PTCARENOTE ---
Patient reported nausea and headache and was having disorientated conversation with dystonic movements. WARDROBE CONSULTANT made aware and head CT was ordered. Patient transported without issues.
[2024-07-15] VITALS (39 sets, daily range): BP systolic 114–166; BP diastolic 49–110
[2024-07-15] MEDS: UNASYN IV ×4 (02:15→19:35)
--- NOTE | 2024-07-15 02:30 | W.PN.UPDATE ---
Update Note
Progress Note Update
1929 received phone call from attending Dr Reynolds regarding this pt and new findings of poss hemorrhagic infarct on CT head. He stated that he spoke with neurosurgeon and also with histology tech as pt was getting transferred to ICU. Asked that family
be updated on events and transfer.
ICU MAMIE made aware of events and pt transfer. Advised that family will need updated.
--- NOTE | 2024-07-15 04:35 | PTCARENOTE ---
Assessment unchanged. Vital signs stable. Right AC IV removed due to infiltration.
[2024-07-15 04:41] LABS: Hematocrit 32.3 % (37.0-47.0); Hemoglobin 11.3 g/dL (12.0-16.0); Mean Corpuscular Hgb 31.9 pg (27.0-31.0); Mean Corpuscular Volume 91.2 fL (81.0-99.0); Mean Platelet Volume 8.4 fL (7.4-10.4); Platelet Count 294 10^3/uL (130-400); Red Blood Cell Count 3.54 10^6/uL (4.20-5.40); Red Cell Dist. Width 13.2 % (11.5-14.5); White Blood Cell Count 6.3 10^3/uL (4.8-10.8)
[2024-07-15 05:03] LABS: Blood Urea Nitrogen 13 mg/dl (7-17); Carbon Dioxide 28 mmol/L (22-30); Chloride 101 mmol/L (98-107); Estimated Creatinine Clearance 50 ml/min; Glucose 96 mg/dl (70-99); Potassium 3.8 mmol/L (3.5-5.1); Sodium 140 mmol/L (135-145); eGFR > 60.00
[2024-07-15] MEDS: SYNTHROID 75 MCG TUBE (05:38)
--- NOTE | 2024-07-15 07:02 | W.PN.HOSP.TC ---
Today's Communication/Plan
-
brain images today
f/w ICU doctor, neurology and neurosurgery recommendations
Control BP
c/w IV Unasyn
Will follow
Assessment / Plan
Assessment / Plan
Physical exam:
General: chronically ill looking, no respiratory distress.
HEENT: Normocephalic, Atraumatic and Moist Mucous Membranes
Respiratory: Limited but clear to Auscultation; Negative Wheezes.
Cardiac: Regular Rhythm and S1/S2
GI: Soft, Nontender and Nondistended
Musculoskeletal: No Clubbing, No Cyanosis and No Edema. PEG placement in place
Neuro: Awake, Alert to self and surroundings, she did not follow all commands, reduced deep tendon reflexes.
Psych: Calm
A/P:
# Change in mental status, will follow images
CT head showed focus of low attenuation within the right frontal lobe, with central hyperattenuation. DDX: hemorrhagic conversion of infarct, and hemorrhagic mass/metastasis. Minimal hyperattenuation within the right sylvian fissure, which may
represent a small amount of subarachnoid extension of hemorrhage. Atrophy and small vessel ischemic change.
Follow with images of brain including MRI, continue to control BP. Will add amlodipine and PRN Hydralazine
Holding SQ heparin
Order echo of heart
Patient is awake and answered few simple questions, she denied headache.
Appreciate neurology and neurosurgery input
# Acute hypoxia/acute metabolic encephalopathy likely from aspiration pneumonia
-Chest x-ray with left basilar pneumonia
Not in distress this morning, Denies cough
No fevers or leukocytosis
-IV Unasyn continued and plan to do 7 days.
-Tylenol as needed for fever
-Follow-up chest x-ray today and shows same opacities and some atelectasis--> recommend to follow-up chest x-ray in 4 to 6 weeks unless clinical status changes.
#Chronic Dysphagia secondary to Parkinson's disease
Possible swallowing worsened due to new CVA?
-Status post PEG placement on 05/28 with TF from 6pm to 10am
-patient also on purred diet at home--> Now n.p.o.
-hold on pureed diet
-speech consulted and recommended strict n.p.o. and continue TF
# Hypokalemia, resolved
#Parkinson's disease continue preadmission regimen including carbidopa levodopa, amantadine
-Continue gabapentin
#Severe protein- calorie malnutrition
Dietary consult
#Parkinson's related dementia
Monitor mental status and behavior
#Anxiety/depression
-Continue sertraline
Migraine history
#Hypothyroidism
-Continue levothyroxine
#Hyperlipidemia
#COPD/asthma
-Patient not in acute exacerbation
-continue nebs
# GERD
-Pepcid continued
Full code
DVT prophylaxis- thrombo guards
Total time spent to see the patient, examine the patient on the floor, review data and lab results, discuss treatment plan with patient, night team and nursing staff around 55 minutes
Anticipated Discharge: > 48 hours
Subjective/Interval History
-
Date of Service: July 15, 2024
Awake in bed, she answered simple questions, denies headache or blurred vision
Objective Data
-
Labs:
Laboratory Results
07/14/24 07/15/24
21:31 04:27
WBC 6.1 6.3
Hgb 13.1 11.3 L
Hct 37.2 32.3 L
Plt Count 317 294
PT 12.8
INR 0.98
APTT 23.2 L
Sodium 140 140
Potassium 3.2 L 3.8
Chloride 95 L 101
Carbon Dioxide 32 H 28
BUN 14 13
Creatinine 0.5 L 0.4 L
Glucose 101 H 96
Calcium 9.1 9.0
Total Bilirubin 0.6
AST 26
ALT 17
Alkaline Phosphatase 107
Vital Signs:
Vital Signs
Temp Pulse Resp BP Pulse Ox
98.0 F 57 18 138/55 97
07/15/24 06:01 07/15/24 06:30 07/15/24 06:30 07/15/24 06:30 07/15/24 06:30
I&O
07/14/24 07/15/24 07/16/24
06:59 06:59 06:59
Intake Total 240 / 240 770 / 770
Output Total 600 / 600
Balance 240 / 240 170 / 170
--- NOTE | 2024-07-15 07:31 | CON.NEURO ---
Consultation
Order
Date of Consultation: 07/15/24
Requesting Provider: Danette Quintanilla CRNP
Reason for Consult: abnormal CT head
CC: none
HPI: This is a 73-year-old woman who presented to the [facility] from [facility] on July 11, 2024 with worsening of encephalopathy.
According to patient's son Ms. Fox has a history of idiopathic Parkinson disease presenting with progressive bradykinesia's, tremor and imbalance in 1999. Mikayla reportedly developed cognitive deficits leading to the need of medication
administration several years ago. The patient has had progressive weight loss and was transferred to subacute rehab following PEG. Ms. Fox was noted to have reduced verbal output as well as hypoxia leading to the hospitalization.
ER VS: 171/67-191/86, 87, 14-27, afebrile, 96% on RA
PDMP:Oxycodone Hcl (Ir) 5 Mg 30 tabs filled in on 06/14/2024,06/24/2024
Labs: Glucose�168, ESR�65, normal magnesium, LFTs,
CXR-mild left basilar pneumonia.
EKG: NSR, QTc Int : [address] head-focus of low attenuation within the right frontal lobe, with central hyperattenuation. Minimal hyperattenuation within the right sylvian fissure, which may represent a small amount of subarachnoid extension of hemorrhage.
Atrophy and small vessel ischemic change.
MAR: Cefepime, Oxycodone
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
PSH: PEG,R shoulder arthroplasty, pelvic fracture surgery
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
All:Iodine, Compazine, codeine,
FH: mother-dementia in her late 60s, non smoker; no history of ETOH use; sister-uterine CA
Home meds:
Levothyroxine Sodium 25 MCG 1 tablet in the morning on an empty stomach Orally Once a day unsure dose Active
Sertraline HCl 50 MG 1 tablet Orally Once a day unsure dose Active
Amantadine HCl 100 MG 1 capsule Orally Once a day
Gabapentin 100 MG 1 tab in AM, 1 tab at lunchtime and 3 tabs at bedtime Orally TID
Fosamax 70 MG 1 tablet 30 minutes before the first food, beverage or medicine of the day with plain water Orally 1 x week
Stalevo 50
Levothyroxine Sodium 25 MCG
Sertraline HCl 50 MG
ROS: limited due to encephalopathy
General: cachectic, in no acute distress.
Cardio: Regular rate and rhythm without murmur. Extremities are without cyanosis or edema.
Neuro:
Mental Status: Alert, oriented to name, , increased processing time. Poor attention. Follows simple requests intermittently. Nonfluent. No hemineglect
Cranial Nerves: Pupils are equally round and reactive to light. EOMs full. Visual murrieta full to confrontation. No ptosis. No nystagmus. Face symmetric. Normal hearing AU. The palate elevated well. SCMs and traps 5/5. Tongue midline. No
dysarthria.
Motor: Increased motor tone with cogwheeling bilaterally. Drifts the posterior arms to the bed in less than 10 minutes. Minimal movements within bed plane bilaterally
Reflexes: Limited exam due to increased motor
Sensory: Limited exam due to poor attention
Coordination: No tremors, clonic movement
Gait: deferred
Assessment and Plan:
I. R frontal hemorrhagic mass/metastasis vs infarct with hemorrhagic conversion.
II. Idiopathic Parkinson disease
III. Multifactorial encephalopathy (vascular, neurodegenerative(IPD), toxic(oxycodone), infectious(PNA)
-Seizure and aspiration precautions.
-Avoid medications, known to reduce seizure threshold(Cefepime)
-please check TSH, free T4, vit B12, ua, ua cx
-Routine EEG
-Brain MRI w/wo amyda
-Continue home dose of Carbidopa-Levodopa
-Will obtain collateral history from patient's family regarding cognitive baseline.
-No anticoagulants or antithrombotics
-SCDs/TEDs
I personally reviewed all radiology and labs along with past medical records pertinent to current medical problems. Total time spent in patient care is 60 minutes.
Thank you for allowing us to participate in the care of this patient. We will continue to follow. Please do not hesitate to contact us with any questions or concerns.
Subjective/Objective
Subjective Data
Date of Service: July 15, 2024
Objective Data
Vital Signs
Temp Pulse Resp BP Pulse Ox
36.7 C 57 18 138/55 97
07/15/24 06:01 07/15/24 06:30 07/15/24 06:30 07/15/24 06:30 07/15/24 06:30
Lab Results
07/15/24 04:27
07/15/24 04:27
PT 12.8 Sec (11.4-14.6) 07/14/24 21:31
INR 0.98 07/14/24 21:31
APTT 23.2 Sec (23.4-35.0) L 07/14/24 21:31
Sodium 140 mmol/L (135-145) 07/15/24 04:27
Potassium 3.8 mmol/L (3.5-5.1) 07/15/24 04:27
BUN 13 mg/dl (7-17) 07/15/24 04:27
Glucose 96 mg/dl (70-99) 07/15/24 04:27
Calcium 9.0 mg/dl (8.4-10.2) 07/15/24 04:27
Phosphorus 2.8 mg/dl (2.5-4.5) 07/14/24 21:31
Patient Allergies
pork derived (porcine) Allergy (Unknown, Verified 07/11/24 11:17)
Unknown
shellfish derived Allergy (Unknown, Verified 07/11/24 11:17)
Unknown
codeine Allergy (Verified 07/11/24 11:17)
Unknown
metoclopramide Allergy (Verified 07/11/24 11:17)
Unknown
prochlorperazine [From Compazine] Allergy (Verified 07/11/24 11:17)
Unknown
Medications
-
Active Medications
Generic Name Dose Route Start Last Admin
Trade Name Freq PRN Reason Stop Dose Admin
Acetaminophen 650 mg 07/11/24 19:21
Acetaminophen (Oral Solution) 650 Mg/20.3 Ml Cup TUBE 08/08/24 19:20
Q6HPRN PRN
mild pain/temp >100
Acetaminophen 650 mg 07/14/24 19:17
Acetaminophen 325 Mg Tablet PO 08/11/24 19:16
Q4HPRN PRN
temp greater than 38C (100.4F)
Albuterol/Ipratropium 3 ml 07/11/24 19:06
Ipratropium 0.5/Albuterol 3 Mg (3 Ml Ampul) INH
R Q4HPRN PRN
shortness of breath/wheezing
Protocol
Amantadine HCl 100 mg 07/11/24 22:00 07/14/24 22:05
Amantadine Syrup (100 Mg/10 Ml) Cup TUBE 08/08/24 21:59 100 mg
TID ÁNGEL Administration
Amlodipine Besylate 5 mg 07/15/24 08:00
Amlodipine 5 Mg Tablet TUBE 08/12/24 07:59
DAILY ÁNGEL
Carbidopa/Levodopa 1 tablet 07/12/24 08:00 07/14/24 22:01
Carbidopa (25 Mg)/Levodopa (100 Mg) Regular Release Tablet TUBE 08/09/24 07:59 Not Given
QID@0800,1200,1600,2000 ÁNGEL
Carbidopa/Levodopa 2 tablet 07/11/24 22:00 07/14/24 22:04
Carbidopa (25 Mg)/Levodopa (100 Mg) Regular Release Tablet TUBE 08/08/24 21:59 2 tablet
HS ÁNGEL Administration
Famotidine 20 mg 07/12/24 08:00 07/14/24 08:40
Famotidine 20 Mg Tablet TUBE 08/09/24 07:59 20 mg
DAILY ÁNGEL Administration
Gabapentin 100 mg 07/11/24 20:00 07/14/24 20:46
Gabapentin Solution 600 Mg/12 Ml Cup TUBE 08/08/24 19:59 100 mg
BID ÁNGEL Administration
Hydralazine HCl 5 mg 07/15/24 07:16
Hydralazine 10 Mg Tablet PO 08/12/24 07:15
TIDPRN PRN
SBP more than 130
Ampicillin Sodium/Sulbactam 120 mls @ 240 mls/hr 07/11/24 20:00 07/15/24 02:15
Sodium 3 gm/ Sodium Chloride IV 120 mls
Q6H ÁNGEL Administration
Labetalol HCl 5 mg 07/14/24 20:44 07/14/24 20:47
Labetalol Hcl 5 Mg/1 Ml (20 Mg/4 Ml) Injection IV 08/11/24 20:43 5 mg
Q6HPRN PRN Administration
SBP > 140 mmHg
Levothyroxine Sodium 75 mcg 07/12/24 06:00 07/15/24 05:38
Levothyroxine 75 Mcg Tablet TUBE 08/09/24 05:59 75 mcg
DAILY@0600 ÁNGEL Administration
Lidocaine 1 patch 07/12/24 08:00 07/14/24 08:42
Lidocaine 4% Topical Patch TOPICAL 08/09/24 07:59 1 patch
DAILY ÁNGEL Administration
Protocol
Lorazepam 0.25 mg 07/15/24 08:00
Lorazepam 2 Mg/Ml Vial IV 07/15/24 08:01
ONCE ONE
Ondansetron HCl 4 mg 07/14/24 21:04
Ondansetron 4 Mg/2 Ml Vial IV 08/11/24 21:03
Q6HPRN PRN
NAUSEA/VOMITING
Oxycodone HCl 5 mg 07/11/24 19:46 07/13/24 20:35
Oxycodone Oral Solution (5 Mg/5 Ml) Cup TUBE 07/25/24 19:45 5 mg
Q6HPRN PRN Administration
severe pain
Patch Removal 1 patch 07/12/24 20:00 07/14/24 22:11
Remove Lidocaine Patch REMOVE 08/09/24 19:59 Not Given
DAILY@2000 ÁNGEL
Sennosides 17.2 mg 07/11/24 22:00 07/14/24 22:13
Sennosides (Senokot) 8.6 Mg Tablet TUBE 08/08/24 21:59 Not Given
HS ÁNGEL
Sertraline HCl 150 mg 07/12/24 08:00 07/14/24 08:40
Sertraline 50 Mg Tablet TUBE 08/09/24 07:59 150 mg
DAILY ÁNGEL Administration
Sodium Chloride 0 flush 07/11/24 20:00
Sodium Chloride 0.9% (Flush) Syringe IV 08/08/24 19:59
PER PROTOCOL ÁNGEL
Sodium Chloride 0.125 ml 07/15/24 08:00
Nss (Pf) 10 Ml Vial For Ativan 0.25 Mg Dose IV 07/15/24 08:01
ONCE ONE
Home Medications
�Medication �Instructions �Recorded
albuterol sulfate 90 mcg/actuation 2 puff inhalation R Q6HPRN PRN sob 05/27/24
aerosol inhaler
bisacodyl 10 mg rectal suppository 10 mg MN DAILYPRN PRN if no bm 05/27/24
(Dulcolax (bisacodyl)) aftr mom
fluticasone propionate 50 1 spray intranasal DAILYPRN PRN 05/27/24
mcg/actuation nasal allergies
spray,suspension
lidocaine 4 % topical patch 1 patch topical DAILY lower back & 05/27/24
hips
sodium phosphates 19 gram-7 118 ml MN DAILYPRN PRN if no bm 05/27/24
gram/118 mL enema (Fleet Enema) aftr dulcolax
carbidopa 25 mg-levodopa 100 mg 1 tab feeding tube QID #30 tabs 06/03/24
tablet
carbidopa 25 mg-levodopa 100 mg 2 tab feeding tube HS #60 tabs 06/03/24
tablet
famotidine 20 mg tablet 20 mg feeding tube DAILY #30 tabs 06/03/24
gabapentin 100 mg capsule 100 mg feeding tube BID #90 caps 06/03/24
levothyroxine 75 mcg tablet 75 mcg feeding tube DAILY@0600 #30 06/03/24
tabs
multivitamin with folic acid 400 1 tab feeding tube DAILY #30 tabs 06/03/24
mcg tablet (Tab-A-Loren)
sennosides 8.6 mg tablet (Senna 17.2 mg (2 x 8.6 mg) feeding tube 06/03/24
Laxative) HS #30 tabs
sertraline 50 mg tablet 150 mg (3 x 50 mg) feeding tube 06/03/24
DAILY #30 tabs
trazodone 50 mg tablet 50 mg feeding tube HS #30 tabs 06/03/24
acetaminophen 325 mg tablet 650 mg feeding tube Q6HPRN PRN 07/11/24
mild pain/temp >100
amantadine HCl 100 mg tablet 100 mg feeding tube TID 07/11/24
Neurological Condition
magnesium hydroxide 400 mg/5 mL 30 ml feeding tube [id number] PRN if 07/11/24
oral suspension no bm 3 days
oxycodone 5 mg tablet 5 mg feeding tube Q6HPRN PRN 07/11/24
severe pain
Vital Signs and Labs
-
Vital Signs and Labs:
Vital Signs
Temp Pulse Resp BP Pulse Ox
36.7 C 57 18 138/55 97
07/15/24 06:01 07/15/24 06:30 07/15/24 06:30 07/15/24 06:30 07/15/24 06:30
Lab Results
07/15/24 04:27
07/15/24 04:27
PT 12.8 Sec (11.4-14.6) 07/14/24 21:31
INR 0.98 07/14/24 21:31
APTT 23.2 Sec (23.4-35.0) L 07/14/24 21:31
Sodium 140 mmol/L (135-145) 07/15/24 04:27
Potassium 3.8 mmol/L (3.5-5.1) 07/15/24 04:27
BUN 13 mg/dl (7-17) 07/15/24 04:27
Glucose 96 mg/dl (70-99) 07/15/24 04:27
Calcium 9.0 mg/dl (8.4-10.2) 07/15/24 04:27
Phosphorus 2.8 mg/dl (2.5-4.5) 07/14/24 21:31
Medications
-
Medications:
Generic Name Dose Route Start Last Admin
Trade Name Freq PRN Reason Stop Dose Admin
Acetaminophen 650 mg 07/11/24 19:21
Acetaminophen (Oral Solution) 650 Mg/20.3 Ml Cup TUBE 08/08/24 19:20
Q6HPRN PRN
mild pain/temp >100
Acetaminophen 650 mg 07/14/24 19:17
Acetaminophen 325 Mg Tablet PO 08/11/24 19:16
Q4HPRN PRN
temp greater than 38C (100.4F)
Albuterol/Ipratropium 3 ml 07/11/24 19:06
Ipratropium 0.5/Albuterol 3 Mg (3 Ml Ampul) INH
R Q4HPRN PRN
shortness of breath/wheezing
Protocol
Amantadine HCl 100 mg 07/11/24 22:00 07/14/24 22:05
Amantadine Syrup (100 Mg/10 Ml) Cup TUBE 08/08/24 21:59 100 mg
TID ÁNGEL Administration
Amlodipine Besylate 5 mg 07/15/24 08:00
Amlodipine 5 Mg Tablet TUBE 08/12/24 07:59
DAILY ÁNGEL
Carbidopa/Levodopa 1 tablet 07/12/24 08:00 07/14/24 22:01
Carbidopa (25 Mg)/Levodopa (100 Mg) Regular Release Tablet TUBE 08/09/24 07:59 Not Given
QID@0800,1200,1600,2000 ÁNGEL
Carbidopa/Levodopa 2 tablet 07/11/24 22:00 07/14/24 22:04
Carbidopa (25 Mg)/Levodopa (100 Mg) Regular Release Tablet TUBE 08/08/24 21:59 2 tablet
HS ÁNGEL Administration
Famotidine 20 mg 07/12/24 08:00 07/14/24 08:40
Famotidine 20 Mg Tablet TUBE 08/09/24 07:59 20 mg
DAILY ÁNGEL Administration
Gabapentin 100 mg 07/11/24 20:00 07/14/24 20:46
Gabapentin Solution 600 Mg/12 Ml Cup TUBE 08/08/24 19:59 100 mg
BID ÁNGEL Administration
Hydralazine HCl 5 mg 07/15/24 07:16
Hydralazine 10 Mg Tablet PO 08/12/24 07:15
TIDPRN PRN
SBP more than 130
Ampicillin Sodium/Sulbactam 120 mls @ 240 mls/hr 07/11/24 20:00 07/15/24 02:15
Sodium 3 gm/ Sodium Chloride IV 120 mls
Q6H ÁNGEL Administration
Labetalol HCl 5 mg 07/14/24 20:44 07/14/24 20:47
Labetalol Hcl 5 Mg/1 Ml (20 Mg/4 Ml) Injection IV 08/11/24 20:43 5 mg
Q6HPRN PRN Administration
SBP > 140 mmHg
Levothyroxine Sodium 75 mcg 07/12/24 06:00 07/15/24 05:38
Levothyroxine 75 Mcg Tablet TUBE 08/09/24 05:59 75 mcg
DAILY@0600 ÁNGEL Administration
Lidocaine 1 patch 07/12/24 08:00 07/14/24 08:42
Lidocaine 4% Topical Patch TOPICAL 08/09/24 07:59 1 patch
DAILY ÁNGEL Administration
Protocol
Lorazepam 0.25 mg 07/15/24 08:00
Lorazepam 2 Mg/Ml Vial IV 07/15/24 08:01
ONCE ONE
Ondansetron HCl 4 mg 07/14/24 21:04
Ondansetron 4 Mg/2 Ml Vial IV 08/11/24 21:03
Q6HPRN PRN
NAUSEA/VOMITING
Oxycodone HCl 5 mg 07/11/24 19:46 07/13/24 20:35
Oxycodone Oral Solution (5 Mg/5 Ml) Cup TUBE 07/25/24 19:45 5 mg
Q6HPRN PRN Administration
severe pain
Patch Removal 1 patch 07/12/24 20:00 07/14/24 22:11
Remove Lidocaine Patch REMOVE 08/09/24 19:59 Not Given
DAILY@2000 ÁNGEL
Sennosides 17.2 mg 07/11/24 22:00 07/14/24 22:13
Sennosides (Senokot) 8.6 Mg Tablet TUBE 08/08/24 21:59 Not Given
HS ÁNGEL
Sertraline HCl 150 mg 07/12/24 08:00 07/14/24 08:40
Sertraline 50 Mg Tablet TUBE 08/09/24 07:59 150 mg
DAILY ÁNGEL Administration
Sodium Chloride 0 flush 07/11/24 20:00
Sodium Chloride 0.9% (Flush) Syringe IV 08/08/24 19:59
PER PROTOCOL ÁNGEL
Sodium Chloride 0.125 ml 07/15/24 08:00
Nss (Pf) 10 Ml Vial For Ativan 0.25 Mg Dose IV 07/15/24 08:01
ONCE ONE
Home Medications
-
Home Medications
albuterol sulfate 90 mcg/actuation aerosol inhaler 2 puff inhalation R Q6HPRN PRN sob 05/27/24
bisacodyl 10 mg rectal suppository (Dulcolax (bisacodyl)) 10 mg MN DAILYPRN PRN if no bm aftr mom 05/27/24
fluticasone propionate 50 mcg/actuation nasal spray,suspension 1 spray intranasal DAILYPRN PRN allergies 05/27/24
lidocaine 4 % topical patch 1 patch topical DAILY lower back & hips 05/27/24
sodium phosphates 19 gram-7 gram/118 mL enema (Fleet Enema) 118 ml MN DAILYPRN PRN if no bm aftr dulcolax 05/27/24
carbidopa 25 mg-levodopa 100 mg tablet 1 tab feeding tube QID #30 tabs 06/03/24
carbidopa 25 mg-levodopa 100 mg tablet 2 tab feeding tube HS #60 tabs 06/03/24
famotidine 20 mg tablet 20 mg feeding tube DAILY #30 tabs 06/03/24
gabapentin 100 mg capsule 100 mg feeding tube BID #90 caps 06/03/24
levothyroxine 75 mcg tablet 75 mcg feeding tube DAILY@0600 #30 tabs 06/03/24
multivitamin with folic acid 400 mcg tablet (Tab-A-Loren) 1 tab feeding tube DAILY #30 tabs 06/03/24
sennosides 8.6 mg tablet (Senna Laxative) 17.2 mg (2 x 8.6 mg) feeding tube HS #30 tabs 06/03/24
sertraline 50 mg tablet 150 mg (3 x 50 mg) feeding tube DAILY #30 tabs 06/03/24
trazodone 50 mg tablet 50 mg feeding tube HS #30 tabs 06/03/24
acetaminophen 325 mg tablet 650 mg feeding tube Q6HPRN PRN mild pain/temp >100 07/11/24
amantadine HCl 100 mg tablet 100 mg feeding tube TID Neurological Condition 07/11/24
magnesium hydroxide 400 mg/5 mL oral suspension 30 ml feeding tube [id number] PRN if no bm 3 days 07/11/24
oxycodone 5 mg tablet 5 mg feeding tube Q6HPRN PRN severe pain 07/11/24
--- NOTE | 2024-07-15 08:00 | PTCARENOTE ---
Received pt awake and alert.Speech is intermittently confused.States it's 1975,unable to name hospital.Occasional writhing Parkinson movement of torso and bl upper extremity noted.Denies pain.SR noted.Coarse breath sounds left lung murrieta with
decreased breath sounds bibasilar.Occasional non productive cough.NPO.Speech consulted.PEG tube intact.Tube feeds on hold as per MD order.No BM.Purewick intact with yellow urine noted.Skin integrity as documented.Plan of care discussed.
[2024-07-15] MEDS: NEURONTIN 100 MG TUBE ×2 (08:34→19:34)
[2024-07-15] MEDS: NORVASC 5 MG TUBE (08:35)
[2024-07-15] MEDS: PEPCID 20 MG TUBE (08:35)
[2024-07-15] MEDS: LIDOCAINE 4% PATCH 1 PATCH TOPICAL (08:36)
[2024-07-15] MEDS: SYMMETREL SYRUP 100 MG TUBE ×3 (08:36→21:38)
--- NOTE | 2024-07-15 08:47 | CON.INTV ---
Consultation
Consultation Request
Date/Time Consultation Requested: 07/15
Date/Time Consultation Performed: 07/15
Reason for Consultation: Critical care
Medical History
-
History of Present Illness:
History obtained from the chart and from the son by phone. Patient not a very good historian. She does answer some questions. 73-year-old female with history of Parkinson's, dementia who with history of multiple falls in the past, was living with
her son until March. In the interim has been hospitalized few times, was at [facility]. Son noticed ongoing weight loss, progressive malnourishment which prompted eventual feeding tube placement May 2024. More recently,
increased lethargy noted. Upon arrival to [facility], afebrile, pulse 88, breathing at 19, blood pressure 161/57, 94%. Patient was started on antibiotics for possible aspiration event. Continue with tube feeds. During hospital stay,And
workup, head CT was obtained which revealed brain mass. Patient was transferred to ICU for better management of blood pressure in the setting of possible hemorrhagic lesion in the brain. We are asked to help from critical care standpoint.
Presently blood pressure 140s over 80s. Patient does move left side, right upper extremity contracted. Does withdraw the right lower extremity. Speaks only few words at a time
.
PMH: Parkinson's disease, dementia, failure to thrive. Questionable history of asthma, history of hypothyroidism. There is a history of borderline personality disorder. History of multiple falls
Past Medical History
Past Medical History: None (See above)
Past Surgical History: None (See above)
Social History
Tobacco: Non-smoker
Alcohol: None
Drug: None
Living: Retirement (Since March 2024)
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
Family History
Family History: Other (2 biologic children, 1 biologic. Family history otherwise negative for cancer, blood clots.)
Allergies / Home Medications
Allergies
Allergy/AdvReac Type Severity Reaction Status Date / Time
pork derived (porcine) Allergy Unknown Unknown Verified 07/11/24 11:17
shellfish derived Allergy Unknown Unknown Verified 07/11/24 11:17
codeine Allergy Unknown Verified 07/11/24 11:17
metoclopramide Allergy Unknown Verified 07/11/24 11:17
prochlorperazine Allergy Unknown Verified 07/11/24 11:17
[From Compazine]
Home Medications
�Medication �Instructions �Recorded �Confirmed �Last Taken �Type
albuterol sulfate 90 mcg/actuation 2 puff inhalation R Q6HPRN PRN sob 05/27/24 07/11/24 Unknown History
aerosol inhaler
bisacodyl 10 mg rectal suppository 10 mg [place] DAILYPRN PRN if no bm 05/27/24 07/11/24 Unknown History
(Dulcolax (bisacodyl)) aftr mom
fluticasone propionate 50 1 spray intranasal DAILYPRN PRN 05/27/24 07/11/24 Unknown History
mcg/actuation nasal allergies
spray,suspension
lidocaine 4 % topical patch 1 patch topical DAILY lower back & 05/27/24 07/11/24 Unknown History
hips
sodium phosphates 19 gram-7 118 ml [place] DAILYPRN PRN if no bm 05/27/24 07/11/24 Unknown History
gram/118 mL enema (Fleet Enema) aftr dulcolax
carbidopa 25 mg-levodopa 100 mg 1 tab feeding tube QID #30 tabs 06/03/24 07/11/24 Unknown Rx
tablet
carbidopa 25 mg-levodopa 100 mg 2 tab feeding tube HS #60 tabs 06/03/24 07/11/24 Unknown Rx
tablet
famotidine 20 mg tablet 20 mg feeding tube DAILY #30 tabs 06/03/24 07/11/24 Unknown Rx
gabapentin 100 mg capsule 100 mg feeding tube BID #90 caps 06/03/24 07/11/24 Unknown Rx
levothyroxine 75 mcg tablet 75 mcg feeding tube DAILY@0600 #30 06/03/24 07/11/24 Unknown Rx
tabs
multivitamin with folic acid 400 1 tab feeding tube DAILY #30 tabs 06/03/24 07/11/24 Unknown Rx
mcg tablet (Tab-A-Loren)
sennosides 8.6 mg tablet (Senna 17.2 mg (2 x 8.6 mg) feeding tube 06/03/24 07/11/24 Unknown Rx
Laxative) HS #30 tabs
sertraline 50 mg tablet 150 mg (3 x 50 mg) feeding tube 06/03/24 07/11/24 Unknown Rx
DAILY #30 tabs
trazodone 50 mg tablet 50 mg feeding tube HS #30 tabs 06/03/24 07/11/24 Unknown Rx
acetaminophen 325 mg tablet 650 mg feeding tube Q6HPRN PRN 07/11/24 07/11/24 Unknown History
mild pain/temp >100
amantadine HCl 100 mg tablet 100 mg feeding tube TID 07/11/24 07/11/24 Unknown History
Neurological Condition
magnesium hydroxide 400 mg/5 mL 30 ml feeding tube [id number] PRN if 07/11/24 07/11/24 Unknown History
oral suspension no bm 3 days
oxycodone 5 mg tablet 5 mg feeding tube Q6HPRN PRN 07/11/24 07/11/24 Unknown History
severe pain
Review of Systems
-
All other systems: Negative unless noted (Significant weight loss)
Vitals / Labs / Diagnostic Testing
Vital Signs
Temp Pulse Resp BP Pulse Ox
98.5 F 57 18 156/57 97
07/15/24 07:55 07/15/24 06:30 07/15/24 06:30 07/15/24 08:35 07/15/24 06:30
Lab Data
07/15/24 04:27
07/15/24 04:27
Laboratory Results
07/14/24
21:31
PT 12.8
INR 0.98
APTT 23.2 L
Microbiology
07/12/24 06:35 Nose MRSA Screen - Final
No Methicillin Resistant Staphylococcus aureus isolated.
Diagnostic Testing:
Physical Exam
-
HEENT: Normocephalic, Anicteric and Other (Cachectic)
Cardiovascular: S1/S2, Regular Rhythm, Murmur (n), Rub (n) and Peripheral Edema (n)
Respiratory: Wheeze (n), Rales (n), Rhonchi (n) and Non-Labored Respirations
GI: Soft, Non Distended and Tender (Midepigastric, no rebound)
Neurology: Awake, Alert and No Motor Deficits (Generally weak, moves left extremity, right upper extremity contracture)
Skin: Good Color
General: Comfortable
Assessment
-
73-year-old female with history of Parkinson disease, dementia, hypothyroidism, with multiple hospitalizations over the past few months due to multiple falls, progressive anorexia requiring feeding tube placement. Now admitted for mental status
changes. Head CT with 4.6 cm right frontal lobe mass. Patient transferred to ICU for further management and blood pressure monitoring 07/14
Mental status changes, lethargy
Right frontal lobe mass, 4.6 cm
Possible hemorrhagic component
Questionable pulmonary nodules per chest x-ray
Suspected left lower lobe pneumonia
Dysphagia, aspiration risk
Feeding tube placed May 2024
Conditions present prior to admission
History of hypothyroidism
COPD/asthma
Parkinson's disease, dementia
Questionable personality disorder
History of multiple falls
Anorexia, weight loss
Plan/recommendations
At this time, patient appears to be comfortable.
Upon reviewing clinical course with son, patient has had worsening weakness, weight loss over the past few months
Initially thought to be due to dysphagia, aspiration risk
Despite physical therapy, nutrition, patient continues to lose weight according to the son now with increased lethargy
Son describes potential episode with facial droop few weeks ago, details unclear
Moving forward
Continue with management, supportive care
Labetalol as needed, maintain systolic pressure 100-160 per neurosurgery
Presently stable
Has not required IV fluids. Tube feeds on hold for now
Resume as able
Neurosurgery following
EEG, echocardiogram, brain MRI pending
Steroids for possible mild surrounding edema but await neurology evaluation
For now continue with Unasyn therapy
Await CT chest/abdomen. Consider possibility of metastatic disease
DVT prophylaxis: Mechanical for now awaiting MRI
GI prophylaxis: Not indicated
Reviewed CODE STATUS with son by phone. Full code for now
However, son states that patient would not want prolonged mechanical ventilation, life support measures
Son also stated that sister would like to visit prior to any decision regarding withdrawal of care or withholding therapy
Therefore patient is full code
Reviewed with critical care nursing, respiratory care, pharmacy
TCCT 31 min
--- NOTE | 2024-07-15 08:54 | CON.NS ---
Chief Complaint
-
ICH
History of Present Illness
This is a 73-year-old female with medical history for Parkinson disease, depression, dementia, personality disorder, asthma, GERD, hypothyroidism he was admitted with generalized weakness as well as lethargy for 2 weeks prior to admission. She was
admitted with pneumonia and due to mental status CAT scan of the head was ordered. Showed a right frontal possible hemorrhagic infarct. Neurosurgery was consulted she is currently in the ICU. Receiving EEG. She is awake and alert but unable to
provide any history.
Review of Systems
-
Unable to obtain full review of systems at this time due to: Dementia
Medication and Allergies
Home Medications
Home Medications
�Medication �Instructions �Recorded
albuterol sulfate 90 mcg/actuation 2 puff inhalation R Q6HPRN PRN sob 05/27/24
aerosol inhaler
bisacodyl 10 mg rectal suppository 10 mg [place] DAILYPRN PRN if no bm 05/27/24
(Dulcolax (bisacodyl)) aftr mom
fluticasone propionate 50 1 spray intranasal DAILYPRN PRN 05/27/24
mcg/actuation nasal allergies
spray,suspension
lidocaine 4 % topical patch 1 patch topical DAILY lower back & 05/27/24
hips
sodium phosphates 19 gram-7 118 ml [place] DAILYPRN PRN if no bm 05/27/24
gram/118 mL enema (Fleet Enema) aftr dulcolax
carbidopa 25 mg-levodopa 100 mg 1 tab feeding tube QID #30 tabs 06/03/24
tablet
carbidopa 25 mg-levodopa 100 mg 2 tab feeding tube HS #60 tabs 06/03/24
tablet
famotidine 20 mg tablet 20 mg feeding tube DAILY #30 tabs 06/03/24
gabapentin 100 mg capsule 100 mg feeding tube BID #90 caps 06/03/24
levothyroxine 75 mcg tablet 75 mcg feeding tube DAILY@0600 #30 06/03/24
tabs
multivitamin with folic acid 400 1 tab feeding tube DAILY #30 tabs 06/03/24
mcg tablet (Tab-A-Loren)
sennosides 8.6 mg tablet (Senna 17.2 mg (2 x 8.6 mg) feeding tube 06/03/24
Laxative) HS #30 tabs
sertraline 50 mg tablet 150 mg (3 x 50 mg) feeding tube 06/03/24
DAILY #30 tabs
trazodone 50 mg tablet 50 mg feeding tube HS #30 tabs 06/03/24
acetaminophen 325 mg tablet 650 mg feeding tube Q6HPRN PRN 07/11/24
mild pain/temp >100
amantadine HCl 100 mg tablet 100 mg feeding tube TID 07/11/24
Neurological Condition
magnesium hydroxide 400 mg/5 mL 30 ml feeding tube [id number] PRN if 07/11/24
oral suspension no bm 3 days
oxycodone 5 mg tablet 5 mg feeding tube Q6HPRN PRN 07/11/24
severe pain
Allergies
Allergies
Allergy/AdvReac Type Severity Reaction Status Date / Time
pork derived (porcine) Allergy Unknown Unknown Verified 07/11/24 11:17
shellfish derived Allergy Unknown Unknown Verified 07/11/24 11:17
codeine Allergy Unknown Verified 07/11/24 11:17
metoclopramide Allergy Unknown Verified 07/11/24 11:17
prochlorperazine Allergy Unknown Verified 07/11/24 11:17
[From Compazine]
Physical Exam
-
Exam:
Follows commands in all 4 extremities however does appear to have baseline left-sided hemiparesis with spasticity.
Cachectic, poor nutritional status
Pupils are equal round reactive
Speech is hypophonic, disoriented
CT head shows right frontal hypodensity with intermixed hyperdensity; this appears most consistent with hemorrhagic conversion of stroke however underlying mass cannot be ruled out. CT is stable x 2
Problems
-
Problem Status Onset Code
Pneumonia J18.9
Assessment / Plan
-
ICH
1. Check MRI with and without contrast
2. No need for steroids at this time
3. Recommend BP control with systolics 100-160
4. Okay for q. for neurochecks given stability of CAT scan
5. No acute neurosurgical interventions
6. Will await MRI results
7. Okay to start DVT prophylaxis once MRI is completed
[2024-07-15 09:35] LABS: Urine Albumin Negative (Neg - Trace); Urine Bilirubin Negative (Negative); Urine Character Clear (Clear); Urine Color Yellow; Urine Glucose Negative (Negative); Urine Ketone Negative (Negative); Urine Leukocyte Negative (Negative); Urine Nitrite Negative (Negative); Urine Occult Blood Negative (Negative); Urine Urobilinogen Negative (Neg - 1+)
--- NOTE | 2024-07-15 09:39 | PN.CDI ---
Addendum entered and electronically signed by David Virgen MD 07/15/24 11:09:
Stage 2 bilateral heels pressure injuries and Stage 2 sacral pressure injury POA.
Original Note:
CDI
- -
CDI:
Physician Documentation Request
Admit Date: 07/11/24 15:13
Dear Doctor Promise,
Please review the following and provide your response in the progress notes.
Clinical Indicators:
Pt admitted with aspiration pneumonia.
07/11 RN skin assessment noted Stage 2 bilateral heels pressure injuries and Stage 2 sacral pressure injury POA.
Physician documentation of the type and location of wounds is required for compliant documentation. Based on the above clinical findings and your assessment, please provide the following in your progress note:
Stage 2 bilateral heels and Stage 2 sacral pressure injury POA
Non-pressure blateral heels and sacral injury POA
Other
Use of terms such as suspected, likely, concern for, or probable (associated with a specific diagnosis that is being evaluated, monitored, or treated as if it exists) are acceptable and can be coded in the inpatient setting, when documented at the
time of discharge.
Thank you,
Maeve Arzola RN, BSN
CDI Specialist
Available via [facility] [employer]
Please use your independent medical judgment in providing your response.
*Source: National Pressure Ulcer Advisory Panel (NPUAP)
[2024-07-15] MEDS: SINEMET 25-100 1 TABLET TUBE ×4 (09:43→20:19)
[2024-07-15] MEDS: ZOLOFT 150 MG TUBE (09:44)
[2024-07-15] MEDS: TRANDATE 5 MG IV ×2 (09:51→20:19)
--- NOTE | 2024-07-15 09:55 | PTCARENOTE ---
Labetalol given for BP 144/56.
[2024-07-15 10:06] LABS: Amphetamines Negative (Negative); Barbiturates Negative (Negative); Benzodiazepines Negative (Negative); Buprenorphine Negative (Negative); Cocaine Negative (Negative); Marijuana Negative (Negative); Methadone Negative (Negative); Methamphetamines Negative (Negative); Opiates Negative (Negative); Phencyclidine Negative (Negative); Tricyclic Antidepressants Negative (Negative)
--- NOTE | 2024-07-15 10:56 | PTOTSP ---
Patient transferred to ICU - will require updated PT and OT orders to resume therapy services when appropriate. Thank you.
[2024-07-15 11:40] LABS: TSH Reflex To Free T4 1.77 uIU/ml (0.47-4.68)
--- NOTE | 2024-07-15 12:00 | PTCARENOTE ---
Pt assessed.No change in assessment noted.CT,EEG and Echo completed.
--- NOTE | 2024-07-15 15:20 | PTCARENOTE ---
Pt assessed.No change in assessment noted.PM care completed.
--- NOTE | 2024-07-15 17:40 | PTCARENOTE ---
MRI brain completed.Pt did not receive Ativan.
--- NOTE | 2024-07-15 19:43 | EEGC.RPT ---
Continuous EEG Report
Recording
Start Date of Data Reviewed: 07/15/24
End Date of Data Reviewed: 07/15/24
Done with Video Recording: Yes
Electrocardiogram: Unremarkable
Report
TECHNICAL REMARKS:��This is a technically satisfactory eighteen channel record employing 21 disc electrodes applied according to a measured international 10-20 electrode placement system.��There were no significant technical difficulties.��The study
was done on a [employer] System.
MEDICATIONS:� no AED
Study duration: 24 min 21 sec
CLINICAL INFORMATION:��This is a 73 year old woman with encephalopathy. This study was requested to look for epileptiform abnormalities.
REPORT: �At the onset of the EEG, the patient is awake. The background activity consists of 8-9 Hz, persistent, posteriorly dominant, moderate in amplitude, asymmetric, and rhythmic activity with admixed theta activity. Intermittent right
frontocentral delta range slowing is present during wakefulness.� Stepwise intermittent photic stimulation (1-30 Hz) did not induce any additional abnormalities. Hyperventilation was not performed. Drowsiness is characterized by low amplitude mixed
frequency activity, decreased eye blinking, and muscle artifact. N2 sleep was reached.
�
IMPRESSION: �This is an abnormal awake and asleep EEG due to intermittent right frontocentral slowing indicative of cortical dysfunction in the above region. No epileptiform activity was seen.�
--- NOTE | 2024-07-15 20:08 | PTCARENOTE ---
Received patient oriented to self, following commands, denying pain. PERRLA 3 mm, hand tremors intermittently. NIH done with dayshift nurse, score of 7, see flowsheets. Normal sinus 60s, BP 140s/60s, normothermic, trace generalized anasarca. SCDs
on. Lung sounds very diminished b/l, 98% on room air. Left PEG tube, TF on hold per MD order. Cachectic, no BM yet this shift. Purewick in place, patient was saturated, cleaned up and new brief/purewick placed. DTI on sacrum, foam CDI. Heel foams
CDI. Right hand IV patent, WNL. Call tom within reach, hourly rounding and patient safety checks ongoing.
[2024-07-15] MEDS: SENOKOT 17.2 MG TUBE (21:38)
[2024-07-15] MEDS: SINEMET 25-100 2 TABLET TUBE (21:38)
[2024-07-16] VITALS (18 sets, daily range): BP systolic 106–177; BP diastolic 50–104; PULSE 66–68; BMI 15.2
[2024-07-16] MEDS: UNASYN IV ×2 (01:12→07:29)
[2024-07-16] MEDS: APRESOLINE 5 MG TUBE (01:12)
--- NOTE | 2024-07-16 01:19 | PTCARENOTE ---
Patient received prn labetalol and hydralazine for SBP>140, otherwise patient assessment unchanged from previous. Repositioned, mouth care done, call tom within reach.
[2024-07-16] MEDS: TRANDATE 5 MG IV (05:24)
[2024-07-16] MEDS: SYNTHROID 75 MCG TUBE (05:24)
--- NOTE | 2024-07-16 05:56 | PTCARENOTE ---
CHG bath done, labs sent, repositioned, warm blanket provided. Call tom within reach.
[2024-07-16 06:08] LABS: Hematocrit 34.8 % (37.0-47.0); Mean Corp Hgb Conc. 34.5 g/dL (33.0-37.0); Mean Corpuscular Hgb 31.7 pg (27.0-31.0); Mean Corpuscular Volume 91.8 fL (81.0-99.0); Mean Platelet Volume 8.5 fL (7.4-10.4); Platelet Count 297 10^3/uL (130-400); Red Blood Cell Count 3.79 10^6/uL (4.20-5.40); Red Cell Dist. Width 13.2 % (11.5-14.5); White Blood Cell Count 7.1 10^3/uL (4.8-10.8)
[2024-07-16 06:42] LABS: Blood Urea Nitrogen 14 mg/dl (7-17); Calcium 9.2 mg/dl (8.4-10.2); Carbon Dioxide 24 mmol/L (22-30); Chloride 100 mmol/L (98-107); Estimated Creatinine Clearance 48 ml/min; Glucose 90 mg/dl (70-99); Magnesium 2.1 mg/dl (1.6-2.3); Sodium 140 mmol/L (135-145); eGFR > 60.00
[2024-07-16 06:48] LABS: Potassium 3.2 mmol/L (3.5-5.1)
--- NOTE | 2024-07-16 07:03 | W.PN.HOSP.TC ---
Addendum entered and electronically signed by David Virgen MD 07/16/24 09:30:
Addendum
Hypokalemia, replace
End
Original Note:
Today's Communication/Plan
-
c/w PT/OT as able
ok to transfer to telemetry floor
Increase amlodipine to 10 mg
Assessment / Plan
Assessment / Plan
Physical exam:
General: chronically ill looking, no respiratory distress.
HEENT: Normocephalic, Atraumatic and Moist Mucous Membranes
Respiratory: Limited but clear to Auscultation; Negative Wheezes.
Cardiac: Regular Rhythm and S1/S2
GI: Soft, Nontender and Nondistended
Musculoskeletal: No Clubbing, No Cyanosis and No Edema. PEG placement in place
Neuro: Awake, Alert to self and surroundings, she did not follow all commands, reduced deep tendon reflexes.
Psych: Calm
A/P:
# Large intraparenchymal hemorrhage in the right frontal lobe that led to change in mental status.
No new neurological signs, still follows simple commands, generalized weakness with rigidity noticed.
Prognosis is guarded, will c/w PT but overall physical performance status might not improved.
EEG no seizure activity noted. Stable HGB level. C/W BP control.
She denied headache.
Echo of heart no significant abnormalities.
Appreciate neurology and neurosurgery input
# Essential HTN
To better control, increase amlodipine to 10 mg QD
# Acute hypoxia/acute metabolic encephalopathy likely from aspiration pneumonia
-Chest x-ray with left basilar pneumonia
Not in distress this morning, Denies cough
No fevers or leukocytosis
-IV Unasyn continued and plan to do 7 days.
-Tylenol as needed for fever
-Follow-up chest x-ray today and shows same opacities and some atelectasis--> recommend to follow-up chest x-ray in 4 to 6 weeks unless clinical status changes.
#Chronic Dysphagia secondary to Parkinson's disease
Possible swallowing worsened due to new CVA?
-Status post PEG placement on 05/28 with TF from 6pm to 10am
-patient also on purred diet at home--> Now n.p.o.
-hold on pureed diet
-speech consulted and recommended strict n.p.o. and continue TF
# Hypokalemia, resolved
#Parkinson's disease continue preadmission regimen including carbidopa levodopa, amantadine
-Continue gabapentin
#Severe protein- calorie malnutrition
Dietary consult
#Parkinson's related dementia
Monitor mental status and behavior
#Anxiety/depression
-Continue sertraline
Migraine history
#Hypothyroidism
-Continue levothyroxine
#Hyperlipidemia
#COPD/asthma
-Patient not in acute exacerbation
-continue nebs
# GERD
-Pepcid continued
Full code
DVT prophylaxis- thrombo guards
Total time spent to see the patient, examine the patient on the floor, review data and lab results, discuss treatment plan with patient, night team and nursing staff around 55 minutes
Anticipated Discharge: 24 - 48 hours
Subjective/Interval History
-
Date of Service: July 16, 2024
No events over night
No seizures.
Objective Data
-
Labs:
Laboratory Results
07/16/24
05:36
WBC 7.1
Hgb 12.0
Hct 34.8 L
Plt Count 297
Sodium 140
Potassium 3.2 L
Chloride 100
Carbon Dioxide 24
BUN 14
Creatinine 0.5 L
Glucose 90
Calcium 9.2
Vital Signs:
Vital Signs
Temp Pulse Resp BP Pulse Ox
98 F 59 12 152/62 98
07/16/24 04:08 07/16/24 05:30 07/16/24 05:30 07/16/24 05:24 07/15/24 22:00
I&O
07/15/24 07/16/24 07/17/24
06:59 06:59 06:59
Intake Total 770 / 770 300 / 300
Output Total 600 / 600 1160 / 1160
Balance 170 / 170 -860 / -860
--- NOTE | 2024-07-16 07:30 | W.PN.INTV ---
Today's Communication / Plan
Recommendations
Discontinue Unasyn
Resume tube feeds
Continue mechanical DVT prophylaxis. Start pharmacological 1 okay with surgery/neurosurgery
Monitor blood pressure, maintain systolic 100-160 per neurosurgery correspondence
Okay for transfer out of ICU. We will sign off. Please call with questions
Assessment
-
73-year-old female with history of Parkinson disease, dementia, hypothyroidism, with multiple hospitalizations over the past few months due to multiple falls, progressive anorexia requiring feeding tube placement. Now admitted for mental status
changes. Head CT with 4.6 cm right frontal lobe mass. Patient transferred to ICU for further management and blood pressure monitoring 07/14
Mental status changes, lethargy
Right frontal lobe mass, 4.6 cm
Possible hemorrhagic component
Confirmed per brain MRI, 4.[address] chest/abdomen/pelvis, no acute findings
Left lower lobe atelectasis vs aspiration pneumonitis
Dysphagia, aspiration risk
Feeding tube placed May 2024
Conditions present prior to admission
History of hypothyroidism
COPD/asthma
Parkinson's disease, dementia
Questionable personality disorder
History of multiple falls
Anorexia, weight loss
Plan/recommendations
At this time, patient appears to be comfortable.
Upon reviewing clinical course with son, patient has had worsening weakness, weight loss over the past few months
Initially thought to be due to dysphagia, aspiration risk
Despite physical therapy, nutrition, patient continues to lose weight according to the son now with increased lethargy
Son describes potential episode with facial droop few weeks ago, details unclear
Brain MRI confirms 4.0 cm right frontal lobe mass, mild vasogenic surrounding edema. Mild subarachnoid blood products. Cannot differentiate between mass versus intraparenchymal hemorrhage per report
Moving forward
Continue with management, supportive care
Labetalol as needed, maintain systolic pressure 100-160 per neurosurgery
Presently stable
Hydralazine and amlodipine also ordered per primary service
Okay to resume tube feeds
Neurosurgery following
No indication for surgical intervention
Steroids for possible mild surrounding edema
No indication for steroids
Discontinue Unasyn
CT chest with minimal left basilar atelectasis
Has completed 4 days
DVT prophylaxis: Mechanical for now, pharmacological when cleared by neurology/neurosurgery
GI prophylaxis: Famotidine via tube
Reviewed CODE STATUS with son by phone. Full code for now
However, son states that patient would not want prolonged mechanical ventilation, life support measures
Son also stated that sister would like to visit prior to any decision regarding withdrawal of care or withholding therapy
Therefore patient is full code
Reviewed with critical care nursing, respiratory care, pharmacy, primary service
Patient for transfer out of ICU. We will sign off. Please call with questions
Subjective Dataa
Subjective Data
Date of Service:
Date of Service: July 16, 2024
Subjective:
Patient appears to be more awake this morning. She is giving 1 answer words, stating that she feels 'not good' she denies shortness of breath, chest pain, nausea, abdominal pain, headache. When asked why not good, she does not know, 'I do not know
why'
Objective Data
Data Reviewed
Vital Signs / I&O / Oxygen:
Vital Signs
Temp Pulse Resp BP Pulse Ox
98 F 59 12 152/62 98
07/16/24 04:08 07/16/24 05:30 07/16/24 05:30 07/16/24 05:24 07/15/24 22:00
Intake and Output
07/15/24 07/16/24 07/17/24
06:59 06:59 06:59
Intake Total 770 / 770 300 / 300
Output Total 600 / 600 1160 / 1160
Balance 170 / 170 -860 / -860
SaO2 98
Nasal Cannula flow liters per 2
minute
Physical Exam
General: Comfortable and Other (Cachectic)
HEENT: Normocephalic and Anicteric
Cardiovascular: S1-S2, Regular Rhythm, Murmur (n) and Rub (n)
Respiratory: Wheeze (n), Crackles (n), Rhonchi (n) and Non-Labored Respirations
GI: Soft, Non Distended and Tender (Mild, nonreproducible, no rebound)
Neurology: Awake and No Motor Deficits (Extremely weak, does move all extremities, left lower extremity appears to be weaker)
Skin: Cyanosis (n), Jaundice (n) and Rash (Mild scalp rash)
Labs/Micro/Reports
Lab Data
07/16/24 05:36
07/16/24 05:36
Microbiology
07/12/24 06:35 Nose MRSA Screen - Final
No Methicillin Resistant Staphylococcus aureus isolated.
[2024-07-16] MEDS: NEURONTIN 100 MG TUBE ×2 (07:35→22:32)
[2024-07-16] MEDS: SYMMETREL SYRUP 100 MG TUBE ×3 (07:35→22:37)
[2024-07-16] MEDS: LIDOCAINE 4% PATCH 1 PATCH TOPICAL (07:39)
[2024-07-16] MEDS: NORVASC 10 MG TUBE (07:39)
[2024-07-16] MEDS: PEPCID 20 MG TUBE (07:39)
[2024-07-16] MEDS: ZOLOFT 150 MG TUBE (07:39)
[2024-07-16] MEDS: SINEMET 25-100 1 TABLET TUBE ×4 (07:46→22:37)
--- NOTE | 2024-07-16 08:09 | PTCARENOTE ---
Received patient from maintenance supervisor 2nd shift. patient somnolent, withdrawn. arouses to voice. She is on room air, pulse ox applied, 98%. She is sinus iris on monitor. blood pressure cuff replaced, SBP 140. Patient is cachectic, pale. Has peg tube for
feeds, denies pain and nausea at this time, tube feeds are on hold. Will give meds through tube. Cecelia urine draining from purewick. DTI on sacrum otherwise skin is intact/dry. Will review orders. Dose of norvasc changed this morning to 10mg.
[2024-07-16] MEDS: KCL ELIXIR 40 MEQ TUBE (09:52)
--- NOTE | 2024-07-16 10:09 | PTCARENOTE ---
Patient now written for tele transfer. BP checks q4.
--- NOTE | 2024-07-16 15:41 | CM ---
commercial sales manager received a call from patient's son, Donte who stated that he plans on taking patient home at discharge, patient to increase services in home from 16 hours per day 7 days a week to 24 hours per day 7 days a week, per son patient will need
hospital bed and patient will need new tube feeds set up.
Plan; Patient to transfer out of ICU today, per family plan is to take patient home, they plan on increasing services in home. New tube feeds, per son patient needs hospital bed, PT are recommending skilled placement.
--- NOTE | 2024-07-16 15:45 | PTCARENOTE ---
Transferred patient to 319 bed 2 on monitor.
--- NOTE | 2024-07-16 16:43 | W.PN.NEURO.1 ---
Today's Communication / Plan
-
.
Subjective/Objective
Subjective Data
Date of Service: July 16, 2024
24h events: normotensive, afebrile. Ms. Aguilar reports no complaints.
Continues to be on Unasyn.
Brain MRI wo mayda showed large intraparenchymal hemorrhage versus hemorrhagic mass in the right frontal lobe. Mild subarachnoid blood products in the right frontal lobe, sylvian fissure, and dependent bilateral lateral ventricles.
Routine EEG-intermittent R frontocentral slowing, no epileptiform abnormalities.
CT chest/abdomen-no evidence of primary malignancy
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
PSH: PEG,R shoulder arthroplasty, pelvic fracture surgery
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
All:Iodine, Compazine, codeine,
FH: mother-dementia in her late 60s, non smoker; no history of ETOH use; sister-uterine CA
Home meds:
Levothyroxine Sodium 25 MCG 1 tablet in the morning on an empty stomach Orally Once a day unsure dose Active
Sertraline HCl 50 MG 1 tablet Orally Once a day unsure dose Active
Amantadine HCl 100 MG 1 capsule Orally Once a day
Gabapentin 100 MG 1 tab in AM, 1 tab at lunchtime and 3 tabs at bedtime Orally TID
Fosamax 70 MG 1 tablet 30 minutes before the first food, beverage or medicine of the day with plain water Orally 1 x week
Stalevo 50
Levothyroxine Sodium 25 MCG
Sertraline HCl 50 MG
ROS: limited due to encephalopathy
General: cachectic, in no acute distress.
Cardio: Regular rate and rhythm without murmur. Extremities are without cyanosis or edema.
Neuro: masked facies
Mental Status: Alert, oriented to name, not to location, month, year, age. Poor attention. Follows simple requests intermittently. Nonfluent. No hemineglect
Cranial Nerves: Pupils are equally round and reactive to light. EOMs full. BTT BL No ptosis. No nystagmus. Face symmetric. Normal hearing AU. The palate elevated well. SCMs and traps 5/5. Tongue midline. Hypophonic
Motor: Increased motor tone with cogwheeling bilaterally. Drifts the posterior arms to the bed in less than 10 minutes. Minimal movements within bed plane bilaterally
Sensory: Limited exam due to poor attention
Coordination: intermittent left hand resting tremor
Gait: not ambulatory
Assessment and Plan:
I. R frontal hemorrhagic mass vs infarct with hemorrhagic conversion.
II. Idiopathic Parkinson disease
III. Multifactorial encephalopathy (vascular, neurodegenerative(IPD), infectious(PNA)
-Seizure and aspiration precautions.
-Brain MRI with mayda
-Will consider switching to Carbidopa/Levodopa 25/250 or Duopa based on medical records review.
-Continue Amantadine 100 mg TID
-No anticoagulants or antithrombotics
-SCDs/TEDs
-The case was discussed with melinda's son.
I personally reviewed all radiology and labs along with past medical records pertinent to current medical problems. Total time spent in patient care is 60 minutes.
Thank you for allowing us to participate in the care of this patient. We will continue to follow. Please do not hesitate to contact us with any questions or concerns.
Objective Data
Vital Signs
Temp Pulse Resp BP Pulse Ox
36.5 C 67 18 115/70 98
07/16/24 16:13 07/16/24 16:13 07/16/24 16:13 07/16/24 16:13 07/16/24 16:13
Lab Results
07/16/24 05:36
07/16/24 05:36
PT 12.8 Sec (11.4-14.6) 07/14/24 21:31
INR 0.98 07/14/24 21:31
APTT 23.2 Sec (23.4-35.0) L 07/14/24 21:31
Sodium 140 mmol/L (135-145) 07/16/24 05:36
Potassium 3.2 mmol/L (3.5-5.1) L 07/16/24 05:36
BUN 14 mg/dl (7-17) 07/16/24 05:36
Glucose 90 mg/dl (70-99) 07/16/24 05:36
Calcium 9.2 mg/dl (8.4-10.2) 07/16/24 05:36
Phosphorus 2.8 mg/dl (2.5-4.5) 07/14/24 21:31
Ur Buprenorphine Negative (Negative) 07/15/24 09:25
Patient Allergies
pork derived (porcine) Allergy (Unknown, Verified 07/11/24 11:17)
Unknown
shellfish derived Allergy (Unknown, Verified 07/11/24 11:17)
Unknown
codeine Allergy (Verified 07/11/24 11:17)
Unknown
metoclopramide Allergy (Verified 07/11/24 11:17)
Unknown
prochlorperazine [From Compazine] Allergy (Verified 07/11/24 11:17)
Unknown
Vital Signs and Labs
-
Vital Signs and Labs:
Vital Signs
Temp Pulse Resp BP Pulse Ox
36.5 C 67 18 115/70 98
07/16/24 16:13 07/16/24 16:13 07/16/24 16:13 07/16/24 16:13 07/16/24 16:13
Lab Results
07/16/24 05:36
07/16/24 05:36
PT 12.8 Sec (11.4-14.6) 07/14/24 21:31
INR 0.98 07/14/24 21:31
APTT 23.2 Sec (23.4-35.0) L 07/14/24 21:31
Sodium 140 mmol/L (135-145) 07/16/24 05:36
Potassium 3.2 mmol/L (3.5-5.1) L 07/16/24 05:36
BUN 14 mg/dl (7-17) 07/16/24 05:36
Glucose 90 mg/dl (70-99) 07/16/24 05:36
Calcium 9.2 mg/dl (8.4-10.2) 07/16/24 05:36
Phosphorus 2.8 mg/dl (2.5-4.5) 07/14/24 21:31
Ur Buprenorphine Negative (Negative) 07/15/24 09:25
Medications
-
Medications:
Generic Name Dose Route Start Last Admin
Trade Name Freq PRN Reason Stop Dose Admin
Acetaminophen 650 mg 07/11/24 19:21
Acetaminophen (Oral Solution) 650 Mg/20.3 Ml Cup TUBE 08/08/24 19:20
Q6HPRN PRN
mild pain/temp >100.4F
Albuterol/Ipratropium 3 ml 07/11/24 19:06
Ipratropium 0.5/Albuterol 3 Mg (3 Ml Ampul) INH
R Q4HPRN PRN
shortness of breath/wheezing
Protocol
Amantadine HCl 100 mg 07/11/24 22:00 07/16/24 15:36
Amantadine Syrup (100 Mg/10 Ml) Cup TUBE 08/08/24 21:59 100 mg
TID ÁNGEL Administration
Amlodipine Besylate 10 mg 07/16/24 08:00 07/16/24 07:39
Amlodipine 10 Mg Tablet TUBE 08/13/24 07:59 10 mg
DAILY ÁNGEL Administration
Carbidopa/Levodopa 1 tablet 07/12/24 08:00 07/16/24 15:36
Carbidopa (25 Mg)/Levodopa (100 Mg) Regular Release Tablet TUBE 08/09/24 07:59 1 tablet
QID@0800,1200,1600,2000 ÁNGEL Administration
Carbidopa/Levodopa 2 tablet 07/11/24 22:00 07/15/24 21:38
Carbidopa (25 Mg)/Levodopa (100 Mg) Regular Release Tablet TUBE 08/08/24 21:59 2 tablet
HS ÁNGEL Administration
Famotidine 20 mg 07/12/24 08:00 07/16/24 07:39
Famotidine 20 Mg Tablet TUBE 08/09/24 07:59 20 mg
DAILY ÁNGEL Administration
Gabapentin 100 mg 07/11/24 20:00 07/16/24 07:35
Gabapentin Solution 600 Mg/12 Ml Cup TUBE 08/08/24 19:59 100 mg
BID ÁNGEL Administration
Hydralazine HCl 5 mg 07/15/24 13:53 07/16/24 01:12
Hydralazine 10 Mg Tablet TUBE 08/12/24 13:52 5 mg
TIDPRN PRN Administration
SBP more than 150
Levothyroxine Sodium 75 mcg 07/12/24 06:00 07/16/24 05:24
Levothyroxine 75 Mcg Tablet TUBE 08/09/24 05:59 75 mcg
DAILY@0600 ÁNGEL Administration
Lidocaine 1 patch 07/12/24 08:00 07/16/24 07:39
Lidocaine 4% Topical Patch TOPICAL 08/09/24 07:59 1 patch
DAILY ÁNGEL Administration
Protocol
Ondansetron HCl 4 mg 07/14/24 21:04
Ondansetron 4 Mg/2 Ml Vial IV 08/11/24 21:03
Q6HPRN PRN
NAUSEA/VOMITING
Oxycodone HCl 5 mg 07/11/24 19:46 07/13/24 20:35
Oxycodone Oral Solution (5 Mg/5 Ml) Cup TUBE 07/25/24 19:45 5 mg
Q6HPRN PRN Administration
severe pain
Patch Removal 1 patch 07/12/24 20:00 07/15/24 19:54
Remove Lidocaine Patch REMOVE 08/09/24 19:59 Not Given
DAILY@1999 ÁNGEL
Sennosides 17.2 mg 07/11/24 22:00 07/15/24 21:38
Sennosides (Senokot) 8.6 Mg Tablet TUBE 08/08/24 21:59 17.2 mg
HS ÁNGEL Administration
Sertraline HCl 150 mg 07/12/24 08:00 07/16/24 07:39
Sertraline 50 Mg Tablet TUBE 08/09/24 07:59 150 mg
DAILY ÁNGEL Administration
Sodium Chloride 0 flush 07/11/24 20:00
Sodium Chloride 0.9% (Flush) Syringe IV 08/08/24 19:59
PER PROTOCOL ÁNGEL
Home Medications
-
Home Medications
albuterol sulfate 90 mcg/actuation aerosol inhaler 2 puff inhalation R Q6HPRN PRN sob 05/27/24
bisacodyl 10 mg rectal suppository (Dulcolax (bisacodyl)) 10 mg OH DAILYPRN PRN if no bm aftr mom 05/27/24
fluticasone propionate 50 mcg/actuation nasal spray,suspension 1 spray intranasal DAILYPRN PRN allergies 05/27/24
lidocaine 4 % topical patch 1 patch topical DAILY lower back & hips 05/27/24
sodium phosphates 19 gram-7 gram/118 mL enema (Fleet Enema) 118 ml OH DAILYPRN PRN if no bm aftr dulcolax 05/27/24
carbidopa 25 mg-levodopa 100 mg tablet 1 tab feeding tube QID #30 tabs 06/03/24
carbidopa 25 mg-levodopa 100 mg tablet 2 tab feeding tube HS #60 tabs 06/03/24
famotidine 20 mg tablet 20 mg feeding tube DAILY #30 tabs 06/03/24
gabapentin 100 mg capsule 100 mg feeding tube BID #90 caps 06/03/24
levothyroxine 75 mcg tablet 75 mcg feeding tube DAILY@0600 #30 tabs 06/03/24
multivitamin with folic acid 400 mcg tablet (Tab-A-Loren) 1 tab feeding tube DAILY #30 tabs 06/03/24
sennosides 8.6 mg tablet (Senna Laxative) 17.2 mg (2 x 8.6 mg) feeding tube HS #30 tabs 06/03/24
sertraline 50 mg tablet 150 mg (3 x 50 mg) feeding tube DAILY #30 tabs 06/03/24
trazodone 50 mg tablet 50 mg feeding tube HS #30 tabs 06/03/24
acetaminophen 325 mg tablet 650 mg feeding tube Q6HPRN PRN mild pain/temp >100 07/11/24
amantadine HCl 100 mg tablet 100 mg feeding tube TID Neurological Condition 07/11/24
magnesium hydroxide 400 mg/5 mL oral suspension 30 ml feeding tube [id number] PRN if no bm 3 days 07/11/24
oxycodone 5 mg tablet 5 mg feeding tube Q6HPRN PRN severe pain 07/11/24
[2024-07-16 18:26] LABS: Vitamin B12 891 pg/ml (239-931)
[2024-07-16] MEDS: SENOKOT 17.2 MG TUBE (22:31)
[2024-07-16 23:46] LABS: Glucose - Point of Care 125 mg/dl (70-99)
[2024-07-17] VITALS (8 sets, daily range): BP systolic 111–158; BP diastolic 46–64; PULSE 59
[2024-07-17] MEDS: ATIVAN 0.25 MG IV ×2 (00:10→04:17)
[2024-07-17] MEDS: NSS (PRESERVATIVE FREE) 0.125 ML IV ×2 (00:11→04:18)
[2024-07-17] MEDS: FLUSH (NSS) 2 FLUSH IV ×2 (00:12→04:18)
[2024-07-17 00:15] LABS: % Basophils 0.5 % (0-2); % Eosinophils 2.3 % (0-6); % Immature Granulocytes 1.5 % (0-0.5); % Lymphocytes 14.7 % (20.5-51.1); % Monocytes 7.5 % (1.7-9.3); % Neutrophils 73.5 % (42.2-75.2); Absolute Eosinophils 0.2 10^3/uL (0-0.7); Absolute Immature Granulocytes 0.1 10^3/uL (0-0.05); Absolute Lymphocytes 1.1 10^3/uL (1.2-3.4); Absolute Monocytes 0.6 10^3/uL (0.1-0.6); Absolute Neutrophils 5.5 10^3/uL (1.4-6.5); Hematocrit 37.2 % (37.0-47.0); Mean Corp Hgb Conc. 34.9 g/dL (33.0-37.0); Mean Corpuscular Hgb 31.7 pg (27.0-31.0); Mean Corpuscular Volume 90.7 fL (81.0-99.0); Mean Platelet Volume 8.4 fL (7.4-10.4); Nucleated Red Blood Cells % 0 %; Platelet Count 333 10^3/uL (130-400); Red Cell Dist. Width 13.3 % (11.5-14.5); White Blood Cell Count 7.5 10^3/uL (4.8-10.8)
--- NOTE | 2024-07-17 00:17 | W.PN.UPDATE ---
Update Note
Progress Note Update
RR/Stroke Alert - notified by RN of patient's change in NIH scale 6-->9. RR/storke alert called for patient's increased change in condition. Upon assessment, patient AAOX1 - knows her name and that she is in the hospital, but unable to follow
directions. Patient restless, having dyskinetic movement in bed - change from her baseline according to nursing, pupils reactive to light, VSS. Spoke with Neurology oncall Leigh Ann Carmichael who is following patient.
Patient is known to have
I. R frontal hemorrhagic mass vs infarct with hemorrhagic conversion.
II. Idiopathic Parkinson disease
III. Multifactorial encephalopathy (vascular, neurodegenerative(IPD), infectious(PNA)
Per neurology recommendation patient not candidate for anticoagulant, no need for CT head. Continue symptom management at this time.
[2024-07-17 00:20] LABS: INR 1.05; PT 13.5 Sec (11.4-14.6)
[2024-07-17 00:25] LABS: ALT (SGPT) 10 U/L (0-35); AST (SGOT) 25 U/L (14-36); Albumin 4.3 g/dl (3.5-5.0); Alkaline Phosphatase 99 U/L (38-126); Blood Urea Nitrogen 20 mg/dl (7-17); Calcium 10.3 mg/dl (8.4-10.2); Carbon Dioxide 22 mmol/L (22-30); Chloride 102 mmol/L (98-107); Estimated Creatinine Clearance 48 ml/min; Glucose 108 mg/dl (70-99); Lactic Acid 2.3 mmol/L (0.7-2.0); Potassium 3.9 mmol/L (3.5-5.1); Sodium 139 mmol/L (135-145); Total Bilirubin 0.6 mg/dl (0.2-1.3); Total Protein 7.1 g/dl (6.3-8.2); eGFR > 60.00
[2024-07-17 00:39] LABS: Troponin I < 0.012 ng/ml
[2024-07-17] MEDS: SINEMET 25-100 2 TABLET TUBE ×2 (01:02→22:02)
--- NOTE | 2024-07-17 01:15 | PTCARENOTE ---
@2315; FRAME EXPANDER on floor and instructed on NIHSS change from 6 to 10 now.Pt appears tired and appears to have changes on the left side.Pt is talking and able to follow simply commands.When attempting to do vital signs,pt began fidgeting in bed .Pt's
head then started bobbing up and down ,shoulders moving about and body swaying side ways, @2332; rapid response called. Labs drawn @2338;stroke alert called.@2350; JOHN Ayala instructed staff,neuro was notified and no scan is needed.JOHN Ayala
ordered Ativan 0.25mg IV now and administered @0010.Pt appeared comfortable sleeping at 0030.
[2024-07-17] MEDS: TYLENOL ORAL SOLUTION 650 MG TUBE (04:04)
--- NOTE | 2024-07-17 05:00 | PTCARENOTE ---
@0352; Instructed JOHN Burnham ,via TT ,pt restless again,twisting body about in bed ,nodding her head up and down and getting her head caught in between the pillows and side rails at intervals. Pt had a large brown stool.AX temp= 99.6 and rectal
temp= 100.4 .BP =130/64,HR =74.POX room =100. Lungs sound good.Tylenol given.Received order for Ativan 0.25mg IV now and administered @0417. Pt appeared comfortable sleeping at 0440.Med sitter obtained for pt's safety.
[2024-07-17] MEDS: SYNTHROID 75 MCG TUBE (06:10)
[2024-07-17 06:47] LABS: % Basophils 0.7 % (0-2); % Immature Granulocytes 1.3 % (0-0.5); % Lymphocytes 12.8 % (20.5-51.1); % Monocytes 8.6 % (1.7-9.3); % Neutrophils 73.6 % (42.2-75.2); Absolute Basophils 0.1 10^3/uL (0-0.2); Absolute Eosinophils 0.2 10^3/uL (0-0.7); Absolute Immature Granulocytes 0.1 10^3/uL (0-0.05); Absolute Lymphocytes 0.9 10^3/uL (1.2-3.4); Absolute Monocytes 0.6 10^3/uL (0.1-0.6); Absolute Neutrophils 5.1 10^3/uL (1.4-6.5); Hematocrit 36.4 % (37.0-47.0); Hemoglobin 12.5 g/dL (12.0-16.0); Mean Corp Hgb Conc. 34.3 g/dL (33.0-37.0); Mean Corpuscular Hgb 30.3 pg (27.0-31.0); Mean Corpuscular Volume 88.3 fL (81.0-99.0); Mean Platelet Volume 8.4 fL (7.4-10.4); Nucleated Red Blood Cells % 0 %; Platelet Count 294 10^3/uL (130-400); Red Blood Cell Count 4.12 10^6/uL (4.20-5.40); Red Cell Dist. Width 13.4 % (11.5-14.5); White Blood Cell Count 6.9 10^3/uL (4.8-10.8)
[2024-07-17 07:04] LABS: Lactic Acid 1.5 mmol/L (0.7-2.0)
[2024-07-17 07:13] LABS: Blood Urea Nitrogen 22 mg/dl (7-17); Calcium 9.9 mg/dl (8.4-10.2); Carbon Dioxide 25 mmol/L (22-30); Chloride 102 mmol/L (98-107); Estimated Creatinine Clearance 48 ml/min; Glucose 137 mg/dl (70-99); Potassium 3.5 mmol/L (3.5-5.1); Sodium 142 mmol/L (135-145); eGFR > 60.00
--- NOTE | 2024-07-17 08:35 | W.PN.UPDATE ---
Update Note
Progress Note Update
MRI reviewed
Favor this to represent old frontal hemorrhage with subacute blood products over this representing a hemorrhagic mass
Rec to repeat MRi in 6 weeks and follow up as OP at that time
no acute interventions needed at this time
she is cleared for any DVT prophylaxis needed
[2024-07-17] MEDS: LIDOCAINE 4% PATCH 1 PATCH TOPICAL (09:27)
[2024-07-17] MEDS: NORVASC 10 MG TUBE (09:28)
[2024-07-17] MEDS: ZOLOFT 150 MG TUBE (09:28)
[2024-07-17] MEDS: PEPCID 20 MG TUBE (09:28)
[2024-07-17] MEDS: SYMMETREL SYRUP 100 MG TUBE ×3 (09:29→22:03)
[2024-07-17] MEDS: NEURONTIN 100 MG TUBE ×2 (09:29→22:01)
[2024-07-17] MEDS: SINEMET 25-100 1 TABLET TUBE ×4 (09:33→22:02)
--- NOTE | 2024-07-17 10:14 | W.PN.HOSP.TC ---
Today's Communication/Plan
-
.
Assessment / Plan
Assessment / Plan
Physical exam:
General: chronically ill looking, no respiratory distress.
HEENT: Normocephalic, Atraumatic and Moist Mucous Membranes
Respiratory: Limited but clear to Auscultation; Negative Wheezes.
Cardiac: Regular Rhythm and S1/S2
GI: Soft, Nontender and Nondistended
Musculoskeletal: No Clubbing, No Cyanosis and No Edema. PEG placement in place
Neuro: Awake, Alert to self and surroundings, she did not follow all commands, reduced deep tendon reflexes.
Psych: Calm
A/P:
# Large intraparenchymal hemorrhage in the right frontal lobe that led to change in mental status.
No new neurological signs, still follows simple commands, generalized weakness with rigidity noticed.
Prognosis is guarded, will c/w PT but overall physical performance status might not improved.
EEG no seizure activity noted. Stable HGB level. C/W BP control.
She denied headache.
Echo of heart no significant abnormalities.
Appreciate neurology and neurosurgery input
# Essential HTN
To better control, increase amlodipine to 10 mg QD
# Acute hypoxia/acute metabolic encephalopathy likely from aspiration pneumonia
-Chest x-ray with left basilar pneumonia
Not in distress this morning, Denies cough
No fevers or leukocytosis
-IV Unasyn continued and plan to do 7 days.
-Tylenol as needed for fever
-Follow-up chest x-ray today and shows same opacities and some atelectasis--> recommend to follow-up chest x-ray in 4 to 6 weeks unless clinical status changes.
#Chronic Dysphagia secondary to Parkinson's disease
Possible swallowing worsened due to new CVA?
-Status post PEG placement on 05/28 with TF from 6pm to 10am
-patient also on purred diet at home--> Now n.p.o.
-hold on pureed diet
-speech consulted and recommended strict n.p.o. and continue TF
# Hypokalemia, resolved
#Parkinson's disease continue preadmission regimen including carbidopa levodopa, amantadine
-Continue gabapentin
#Severe protein- calorie malnutrition
Dietary consult
#Parkinson's related dementia
Monitor mental status and behavior
#Anxiety/depression
-Continue sertraline
Migraine history
#Hypothyroidism
-Continue levothyroxine
#Hyperlipidemia
#COPD/asthma
-Patient not in acute exacerbation
-continue nebs
# GERD
-Pepcid continued
Full code
DVT prophylaxis- thrombo guards
Total time spent to see the patient, examine the patient on the floor, review data and lab results, discuss treatment plan with patient, night team and nursing staff around 55 minutes
Anticipated Discharge: 24 - 48 hours
Subjective/Interval History
-
Date of Service: July 17, 2024
No seizures
lethargic this morning
Objective Data
-
Labs:
Laboratory Results
07/16/24 07/17/24 07/17/24
23:45 00:00 06:29
WBC 7.5 6.9
Hgb 13.0 12.5
Hct 37.2 36.4 L
Plt Count 333 294
PT 13.5 Cancelled
INR 1.05 Cancelled
Sodium 139 142
Potassium 3.9 3.5
Chloride 102 102
Carbon Dioxide 22 25
BUN 20 H 22 H
Creatinine 0.6 0.5 L
Glucose 108 H 137 H
Calcium 10.3 H 9.9
Total Bilirubin 0.6
AST 25
ALT 10
Alkaline Phosphatase 99
Vital Signs:
Vital Signs
Temp Pulse Resp BP Pulse Ox
97.9 F 60 12 138/55 99
07/17/24 07:00 07/17/24 09:28 07/17/24 07:00 07/17/24 09:28 07/17/24 07:00
I&O
07/16/24 07/17/24 07/18/24
06:59 06:59 06:59
Intake Total 300 / 300 1170 / 1170
Output Total 1160 / 1160
Balance -860 / -860 1170 / 1170
--- NOTE | 2024-07-17 12:20 | W.PN.NEURO.1 ---
Today's Communication / Plan
-
.
Subjective/Objective
Subjective Data
Date of Service: July 17, 2024
24h events: normotensive, afebrile.
Ms. Aguilar was noted to be more encephalopathic overnight.
MAR: Ativan 0.25 mg IV at 00:10 and 04:17 on .
Brain MRI w/wo she-signal alteration in the right frontal lobe measuring 4.0 x 4.0 x 3.9 cm with T1 hyperintense signal peripherally and isointense T1 signal centrally, heterogeneous but predominantly hyperintense T2 signal, and a peripheral rim of
susceptibility. Assessment for postcontrast enhancement is limited given the large amount of intrinsically hyperintense T1 signal. This is space-occupying with localized mass effect and effacement of the frontal horn of the right lateral ventricle.
Minimal leftward midline shift measures up to 2 mm. Surrounding vasogenic edema in the right frontal lobe. Susceptibility in the sulci of the right frontal lobe and sylvian fissure, and in the dependent aspects of the bilateral lateral ventricles,
indicating mild subarachnoid blood products. Mild age-related parenchymal atrophy. Confluent T2/FLAIR hyperintense signal in the white matter of the bilateral cerebral hemispheres, most compatible with the changes of moderate to advanced chronic
microangiopathic ischemia.
PMH: IPD, SHE, GERD, hypothyroidism, migraine CORDOBA, osteoporosis, borderline personality DO, MDD, SHE, nephrolithiasis, severe protein-calorie malnutrition (BMI 13.97)
PSH: PEG,R shoulder arthroplasty, pelvic fracture surgery
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
All:Iodine, Compazine, codeine,
FH: mother-dementia in her late 60s, non smoker; no history of ETOH use; sister-uterine CA
ROS: limited due to encephalopathy
General: cachectic, in no acute distress.
Cardio: Regular rate and rhythm without murmur. Extremities are without cyanosis or edema.
Neuro: masked facies
Mental Status: Alert, oriented to name only. Poor attention and comprehension. Follows simple requests intermittently. Nonfluent. No hemineglect
Cranial Nerves: Pupils are equally round and reactive to light. EOMs full. BTT BL No ptosis. No nystagmus. Face symmetric. Normal hearing AU. The palate elevated well. SCMs and traps 5/5. Tongue midline. Hypophonic
Motor: Increased motor tone. Drifts' L>R arm to bed plane in <10 secs. Minimal movements within bed plane bilaterally
Sensory: Limited exam due to poor attention
Coordination: head/upper extremities dyskinesias
Gait: not ambulatory
Assessment and Plan:
I. R frontal hemorrhagic mass vs subacute infarct with hemorrhagic conversion with vasogenic edema and 2 mm midline shift.
II. 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
III. Multifactorial encephalopathy (vascular, neurodegenerative(IPD), toxic),infectious(PNA)) stable
-Seizure and aspiration precautions.
-Continue Carbidopa-Levodopa 25/100 2 tabs QID and 2 tabs QHS
-No anticoagulants or antithrombotics
-Repeat CT head wo contrast in 2 weeks to monitor edema
-No objections to start chemical DVT prophylaxis
-The case was discussed with patient's daughter
-OP neurology follow up in 1 week
-Please recall neurology service with any questions or concerns.
I personally reviewed all radiology and labs along with past medical records pertinent to current medical problems. Total time spent in patient care is 35 minutes.
Thank you for allowing us to participate in the care of this patient. Please do not hesitate to contact us with any questions or concerns.
Objective Data
Vital Signs
Temp Pulse Resp BP Pulse Ox
36.6 C 60 12 138/55 98
07/17/24 07:00 07/17/24 09:28 07/17/24 07:00 07/17/24 09:28 07/17/24 12:06
Lab Results
07/17/24 06:29
07/17/24 06:29
PT Cancelled 10/30/24 00:00
INR Cancelled 07/17/24 00:00
APTT 23.2 Sec (23.4-35.0) L 07/14/24 21:31
Sodium 142 mmol/L (135-145) 07/17/24 06:29
Potassium 3.5 mmol/L (3.5-5.1) 07/17/24 06:
BUN 22 mg/dl (7-17) H 07/17/24 06:29
Glucose 137 mg/dl (70-99) H 07/17/24 06:29
Calcium 9.9 mg/dl (8.4-10.2) 07/17/24 06:
Phosphorus 2.8 mg/dl (2.5-4.5) 07/14/24 21:31
Vitamin B12 891 pg/ml (239-931) 07/16/24 17:09
Ur Buprenorphine Negative (Negative) 07/15/24 09:25
Patient Allergies
pork derived (porcine) Allergy (Unknown, Verified 07/11/24 11:17)
Unknown
shellfish derived Allergy (Unknown, Verified 07/11/24 11:17)
Unknown
codeine Allergy (Verified 07/11/24 11:17)
Unknown
metoclopramide Allergy (Verified 07/11/24 11:17)
Unknown
prochlorperazine [From Compazine] Allergy (Verified 07/11/24 11:17)
Unknown
Vital Signs and Labs
-
Vital Signs and Labs:
Vital Signs
Temp Pulse Resp BP Pulse Ox
36.6 C 60 12 138/55 98
07/17/24 07:00 07/17/24 09:28 07/17/24 07:00 07/17/24 09:28 07/17/24 12:06
Lab Results
07/17/24 06:29
07/17/24 06:29
PT Cancelled 07/17/24 00:00
INR Cancelled 07/17/24 00:00
APTT 23.2 Sec (23.4-35.0) L 07/14/24 21:31
Sodium 142 mmol/L (135-145) 07/17/24 06:29
Potassium 3.5 mmol/L (3.5-5.1) 07/17/24 06:29
BUN 22 mg/dl (7-17) H 07/17/24 06:29
Glucose 137 mg/dl (70-99) H 07/17/24 06:29
Calcium 9.9 mg/dl (8.4-10.2) 07/17/24 06:29
Phosphorus 2.8 mg/dl (2.5-4.5) 07/14/24 21:31
Vitamin B12 891 pg/ml (239-931) 07/16/24 17:09
Ur Buprenorphine Negative (Negative) 07/15/24 09:25
Medications
-
Medications:
Generic Name Dose Route Start Last Admin
Trade Name Freq PRN Reason Stop Dose Admin
Acetaminophen 650 mg 07/11/24 19:21 07/17/24 04:04
Acetaminophen (Oral Solution) 650 Mg/20.3 Ml Cup TUBE 08/08/24 19:20 650 mg
Q6HPRN PRN Administration
mild pain/temp >100.4F
Albuterol/Ipratropium 3 ml 07/11/24 19:06
Ipratropium 0.5/Albuterol 3 Mg (3 Ml Ampul) INH
R Q4HPRN PRN
shortness of breath/wheezing
Protocol
Amantadine HCl 100 mg 07/11/24 22:00 07/17/24 09:29
Amantadine Syrup (100 Mg/10 Ml) Cup TUBE 08/08/24 21:59 100 mg
TID ÁNGEL Administration
Amlodipine Besylate 10 mg 07/16/24 08:00 07/17/24 09:28
Amlodipine 10 Mg Tablet TUBE 08/13/24 07:59 10 mg
DAILY ÁNGEL Administration
Carbidopa/Levodopa 1 tablet 07/12/24 08:00 07/17/24 09:33
Carbidopa (25 Mg)/Levodopa (100 Mg) Regular Release Tablet TUBE 08/09/24 07:59 1 tablet
QID@0800,1200,1600,2000 ÁNGEL Administration
Carbidopa/Levodopa 2 tablet 07/11/24 22:00 07/17/24 01:02
Carbidopa (25 Mg)/Levodopa (100 Mg) Regular Release Tablet TUBE 08/08/24 21:59 2 tablet
HS ÁNGEL Administration
Famotidine 20 mg 07/12/24 08:00 07/17/24 09:28
Famotidine 20 Mg Tablet TUBE 08/09/24 07:59 20 mg
DAILY ÁNGEL Administration
Gabapentin 100 mg 07/11/24 20:00 07/17/24 09:29
Gabapentin Solution 600 Mg/12 Ml Cup TUBE 08/08/24 19:59 100 mg
BID ÁNGEL Administration
Heparin Sodium 5,000 units 07/17/24 20:00
Heparin 5,000 Units/Ml 1 Ml Vial SC 08/14/24 19:59
Q12 ÁNGEL
Hydralazine HCl 5 mg 07/15/24 13:53 07/16/24 01:12
Hydralazine 10 Mg Tablet TUBE 08/12/24 13:52 5 mg
TIDPRN PRN Administration
SBP more than 150
Levothyroxine Sodium 75 mcg 07/12/24 06:00 07/17/24 06:10
Levothyroxine 75 Mcg Tablet TUBE 08/09/24 05:59 75 mcg
DAILY@0600 ÁNGEL Administration
Lidocaine 1 patch 07/12/24 08:00 07/17/24 09:27
Lidocaine 4% Topical Patch TOPICAL 08/09/24 07:59 1 patch
DAILY ÁNGEL Administration
Protocol
Ondansetron HCl 4 mg 07/14/24 21:04
Ondansetron 4 Mg/2 Ml Vial IV 08/11/24 21:03
Q6HPRN PRN
NAUSEA/VOMITING
Oxycodone HCl 5 mg 07/11/24 19:46 07/13/24 20:35
Oxycodone Oral Solution (5 Mg/5 Ml) Cup TUBE 07/25/24 19:45 5 mg
Q6HPRN PRN Administration
severe pain
Patch Removal 1 patch 07/12/24 20:00 07/16/24 22:36
Remove Lidocaine Patch REMOVE 08/09/24 19:59 1 patch
DAILY@2000 ÁNGEL Administration
Sennosides 17.2 mg 07/11/24 22:00 07/16/24 22:31
Sennosides (Senokot) 8.6 Mg Tablet TUBE 08/08/24 21:59 17.2 mg
HS ÁNGEL Administration
Sertraline HCl 150 mg 07/12/24 08:00 07/17/24 09:28
Sertraline 50 Mg Tablet TUBE 08/09/24 07:59 150 mg
DAILY ÁNGEL Administration
Sodium Chloride 0 flush 07/11/24 20:00 07/17/24 04:18
Sodium Chloride 0.9% (Flush) Syringe IV 08/08/24 19:59 2 flush
PER PROTOCOL ÁNGEL Administration
Home Medications
-
Home Medications
albuterol sulfate 90 mcg/actuation aerosol inhaler 2 puff inhalation R Q6HPRN PRN sob 05/27/24
bisacodyl 10 mg rectal suppository (Dulcolax (bisacodyl)) 10 mg KS DAILYPRN PRN if no bm aftr mom 05/27/24
fluticasone propionate 50 mcg/actuation nasal spray,suspension 1 spray intranasal DAILYPRN PRN allergies 05/27/24
lidocaine 4 % topical patch 1 patch topical DAILY lower back & hips 05/27/24
sodium phosphates 19 gram-7 gram/118 mL enema (Fleet Enema) 118 ml KS DAILYPRN PRN if no bm aftr dulcolax 05/27/24
carbidopa 25 mg-levodopa 100 mg tablet 1 tab feeding tube QID #30 tabs 06/03/24
carbidopa 25 mg-levodopa 100 mg tablet 2 tab feeding tube HS #60 tabs 06/03/24
famotidine 20 mg tablet 20 mg feeding tube DAILY #30 tabs 06/03/24
gabapentin 100 mg capsule 100 mg feeding tube BID #90 caps 06/03/24
levothyroxine 75 mcg tablet 75 mcg feeding tube DAILY@0600 #30 tabs 06/03/24
multivitamin with folic acid 400 mcg tablet (Tab-A-Loren) 1 tab feeding tube DAILY #30 tabs 06/03/24
sennosides 8.6 mg tablet (Senna Laxative) 17.2 mg (2 x 8.6 mg) feeding tube HS #30 tabs 06/03/24
sertraline 50 mg tablet 150 mg (3 x 50 mg) feeding tube DAILY #30 tabs 06/03/24
trazodone 50 mg tablet 50 mg feeding tube HS #30 tabs 06/03/24
acetaminophen 325 mg tablet 650 mg feeding tube Q6HPRN PRN mild pain/temp >100 07/11/24
amantadine HCl 100 mg tablet 100 mg feeding tube TID Neurological Condition 07/11/24
magnesium hydroxide 400 mg/5 mL oral suspension 30 ml feeding tube [id number] PRN if no bm 3 days 07/11/24
oxycodone 5 mg tablet 5 mg feeding tube Q6HPRN PRN severe pain 07/11/24
[2024-07-17] MEDS: SENOKOT 17.2 MG TUBE (22:02)
[2024-07-17] MEDS: HEPARIN SC (23:33)
[2024-07-18] VITALS (7 sets, daily range): BP systolic 106–137; BP diastolic 44–74
[2024-07-18] MEDS: ATIVAN 0.25 MG TUBE ×2 (00:45→22:29)
[2024-07-18] MEDS: SYNTHROID 75 MCG TUBE (06:18)
[2024-07-18] MEDS: LIDOCAINE 4% PATCH 1 PATCH TOPICAL (08:39)
[2024-07-18] MEDS: NEURONTIN 100 MG TUBE ×2 (08:42→21:03)
[2024-07-18] MEDS: SYMMETREL SYRUP 100 MG TUBE ×3 (08:44→21:03)
[2024-07-18] MEDS: ZOLOFT 150 MG TUBE (08:45)
[2024-07-18] MEDS: PEPCID 20 MG TUBE (08:46)
[2024-07-18] MEDS: NORVASC 10 MG TUBE (08:46)
[2024-07-18] MEDS: HEPARIN SC ×2 (08:47→20:24)
[2024-07-18] MEDS: SINEMET 25-100 1 TABLET TUBE ×4 (08:51→21:06)
--- NOTE | 2024-07-18 10:24 | W.PN.HOSP.TC ---
Today's Communication/Plan
-
dc planning
Assessment / Plan
Assessment / Plan
Physical exam:
General: chronically ill looking, no respiratory distress.
HEENT: Normocephalic, Atraumatic and Moist Mucous Membranes
Respiratory: Limited but clear to Auscultation; Negative Wheezes.
Cardiac: Regular Rhythm and S1/S2
GI: Soft, Nontender and Nondistended
Musculoskeletal: No Clubbing, No Cyanosis and No Edema. PEG placement in place
Neuro: Awake, Alert to self and surroundings, she did not follow all commands, reduced deep tendon reflexes.
Psych: Calm
A/P:
# Large intraparenchymal hemorrhage in the right frontal lobe that led to change in mental status.
No new neurological signs, still follows simple commands, generalized weakness with rigidity noticed.
Prognosis is guarded, will c/w PT but overall physical performance status might not improved.
EEG no seizure activity noted. Stable HGB level. C/W BP control.
She denied headache.
I d/w neurosurgery, likely hemorrhagic stroke, follow up in 6 week if family wishes to continue. I d/w neurology, recommend oP follow up in two week with CT head.
Echo of heart no significant abnormalities.
Appreciate neurology and neurosurgery input
# Essential HTN
To better control, increase amlodipine to 10 mg QD
# Acute hypoxia/acute metabolic encephalopathy likely from aspiration pneumonia
-Chest x-ray with left basilar pneumonia
Not in distress this morning, Denies cough
No fevers or leukocytosis
-IV Unasyn continued and plan to do 7 days.
-Tylenol as needed for fever
-Follow-up chest x-ray today and shows same opacities and some atelectasis--> recommend to follow-up chest x-ray in 4 to 6 weeks unless clinical status changes.
#Chronic Dysphagia secondary to Parkinson's disease
Possible swallowing worsened due to new CVA?
-Status post PEG placement on 05/28 with TF from 6pm to 10am
-patient also on purred diet at home--> Now n.p.o.
-hold on pureed diet
-speech consulted and recommended strict n.p.o. and continue TF
# Hypokalemia, resolved
#Parkinson's disease continue preadmission regimen including carbidopa levodopa, amantadine
-Continue gabapentin
#Severe protein- calorie malnutrition
Dietary consult
#Parkinson's related dementia
Monitor mental status and behavior
#Anxiety/depression
-Continue sertraline
Migraine history
#Hypothyroidism
-Continue levothyroxine
#Hyperlipidemia
#COPD/asthma
-Patient not in acute exacerbation
-continue nebs
# GERD
-Pepcid continued
Full code
DVT prophylaxis- thrombo guards
Total time spent to see the patient, examine the patient on the floor, review data and lab results, discuss treatment plan with patient, night team and nursing staff around 55 minutes
Anticipated Discharge: Within 24 hours
Subjective/Interval History
-
Date of Service: July 18, 2024
No events over night
Objective Data
-
Vital Signs:
Vital Signs
Temp Pulse Resp BP Pulse Ox
97.7 F 63 12 137/55 96
07/18/24 07:49 07/18/24 07:49 07/18/24 07:49 07/18/24 03:30 07/18/24 07:49
I&O
07/17/24 07/18/24 07/19/24
06:59 06:59 06:59
Intake Total 1170 / 1170
Balance 1170 / 1170
--- NOTE | 2024-07-18 14:37 | PTCARENOTE ---
Student Nurse washed patients hair, and attempted to detangle a large knot but was unsuccessful. Family member at bedside and aware.
--- NOTE | 2024-07-18 15:48 | CM ---
Reviewed chart, spoke with attending who stated that patient's son wants to take patient home with his private caregivers, that he receives through the [facility]. Right now she receives 16 hours a week however son is trying to work with his CM through
the [facility] to get 24 hrs. Patient's son is agreeable to VN, PT, OT and a CORDOBA. Patient receives Jevity through PEG and is NPO. She takes Jevity 1.5. VN liason, Rosalie confirmed that patient's son, will get a teaching regarding how to use the tube. Son
was advised of amount of care patient requires and he confirmed he could met patient's needs.
Patient's son asked if he could meet with CM and attending @ 10:30. He called back later and asked if he could meet at 12:30 instead due to his 's schedule. Will ask attending.
Plan: Case management will continue to follow and assist with discharge planning. Home with VN and private caregivers.
--- NOTE | 2024-07-18 16:42 | PTCARENOTE ---
Pt complaining of chest pain with pressure over sternum. VS taken BP 129/52, HR 64 pulse, ox 97% on RA. ECG showed ST and T wave abnormalities which was unchanged from previous ECG done on 07/11. Dr Virgen made aware. No new orders at this time. Will
continue to monitor the pt.
[2024-07-18] MEDS: SENOKOT 17.2 MG TUBE (21:03)
[2024-07-18] MEDS: SINEMET 25-100 2 TABLET TUBE (21:03)
[2024-07-19 03:33] VITALS: BP 128/72
[2024-07-19] MEDS: SYNTHROID 75 MCG TUBE (05:45)
[2024-07-19 07:20] VITALS: BP 120/52
[2024-07-19] MEDS: NEURONTIN 100 MG TUBE ×2 (09:23→19:06)
[2024-07-19] MEDS: HEPARIN 5000 UNITS SC ×2 (09:23→19:06)
[2024-07-19] MEDS: SYMMETREL SYRUP 100 MG TUBE ×3 (09:23→22:22)
[2024-07-19] MEDS: LIDOCAINE 4% PATCH 1 PATCH TOPICAL (09:25)
[2024-07-19] MEDS: ZOLOFT 150 MG TUBE (09:27)
[2024-07-19] MEDS: NORVASC 10 MG TUBE (09:27)
[2024-07-19] MEDS: PEPCID 20 MG TUBE (09:27)
[2024-07-19] MEDS: SINEMET 25-100 1 TABLET TUBE ×4 (09:29→19:09)
--- NOTE | 2024-07-19 09:44 | VNURNOTE ---
[facility] liaison met with patient briefly at bedside. [facility] brochure left at bedside. Called son Donte. No answer, left message.
--- NOTE | 2024-07-19 10:16 | VNURNOTE ---
Blaise Kent's address: [address] [address]
--- NOTE | 2024-07-19 10:44 | W.PN.HOSP.TC ---
Addendum entered and electronically signed by David Virgen MD 07/19/24 15:33:
Addendum
Request for a hospital bed
Patient requires the head of bed to be elevated more than 30 degrees due to problems with aspiration, tube feeds and requires infrequent and immediate change in body position
End
Original Note:
Today's Communication/Plan
-
Discharge plan
Give SQ heparin as ordered.
family meeting today
c/w tube feeding
Ordering home supplies per home care request
Assessment / Plan
Assessment / Plan
Physical exam:
General: chronically ill looking, no respiratory distress.
HEENT: Normocephalic, Atraumatic and Moist Mucous Membranes
Respiratory: Limited but clear to Auscultation; Negative Wheezes.
Cardiac: Regular Rhythm and S1/S2
GI: Soft, Nontender and Nondistended
Musculoskeletal: No Clubbing, No Cyanosis and No Edema. PEG placement in place
Neuro: Awake, Alert to self and surroundings, she did not follow all commands, reduced deep tendon reflexes.
Psych: Calm
A/P:
# Large intraparenchymal hemorrhage in the right frontal lobe that led to change in mental status.
No new neurological signs, still follows simple commands, generalized weakness with rigidity noticed.
Prognosis is guarded, will c/w PT but overall physical performance status might not improved.
EEG no seizure activity noted. Stable HGB level. C/W BP control.
She denied headache.
I d/w neurosurgery, likely hemorrhagic stroke, follow up in 6 week if family wishes to continue. I d/w neurology, recommend oP follow up in two week with CT head.
Echo of heart no significant abnormalities.
Appreciate neurology and neurosurgery input
# Essential HTN
To better control, increased amlodipine to 10 mg QD
# Acute hypoxia/acute metabolic encephalopathy likely from aspiration pneumonia
-Chest x-ray with left basilar pneumonia
Not in distress this morning, Denies cough
No fevers or leukocytosis
-IV Unasyn continued and finished course.
-Tylenol as needed for fever
-Follow-up chest x-rayshowed same opacities and some atelectasis--> recommend to follow-up chest x-ray in 4 to 6 weeks unless clinical status changes.
#Chronic Dysphagia secondary to Parkinson's disease
Possible swallowing worsened due to new CVA?
-Status post PEG placement on 05/28 with TF from 6pm to 10am
-patient also on purred diet at home--> Now n.p.o.
-hold on pureed diet
-speech consulted and recommended strict n.p.o. and continue TF
# Hypokalemia, resolved
#Parkinson's disease continue preadmission regimen including carbidopa levodopa, amantadine
-Continue gabapentin
#Severe protein- calorie malnutrition
Dietary consult
#Parkinson's related dementia
Monitor mental status and behavior
#Anxiety/depression
-Continue sertraline
Migraine history
#Hypothyroidism
-Continue levothyroxine
#Hyperlipidemia
#COPD/asthma
-Patient not in acute exacerbation
-continue nebs
# GERD
-Pepcid continued
Full code
DVT prophylaxis- SQ heparin
Total time spent to see the patient, examine the patient on the floor, review data and lab results, discuss treatment plan with patient, night team and nursing staff around 55 minutes
Anticipated Discharge: Within 24 hours
Subjective/Interval History
-
Date of Service: July 19, 2024
She is feeling cold, denies chest pain or abdominal pain
Objective Data
-
Vital Signs:
Vital Signs
Temp Pulse Resp BP Pulse Ox
98.5 F 65 16 120/52 99
07/19/24 07:20 07/19/24 07:20 07/19/24 07:20 07/19/24 07:20 07/19/24 07:20
I&O
07/18/24 07/19/24 07/20/24
06:59 06:59 06:59
Intake Total 300 / 300
Balance 300 / 300
--- NOTE | 2024-07-19 14:11 | CM ---
Reviewed chart, met with patient's son, daughter in law, VN liason, and attending. Patient's son and daughter in law were provided with information regarding VN services and are agreeable to bringing patient home. They were advised that it will
take time to coordinate the DME and order the Jevity. They expressed understanding.
Plan: Case management will continue to follow and assist with discharge planning. Home with VN and PEG tube.
--- NOTE | 2024-07-19 15:55 | VNURNOTE ---
Home Health Liaison met with patient's son and during family meeting w/Hospitalist and CM Magda. Liaison discussed [facility] nurse/therapy, visits, schedule. Reviewed with son that he and other family members will be taught tube feed administration,
med administration and assessment and teach medical management. Explained that visits at home will be 2-3 x per week. Son willing to learn and his sister Polly. Althea willing to learn but stated she is not home often. Hospitalist Dr Casper
explained to son and that patient will need full care as she is currently bedbound. Son and verbalized understanding. They are in process of setting up 24 hr caregivers. [employer] sent to RN Lissa requesting preliminary TF teaching
to son. [facility] brochure provided with contact information. Son and aware that [facility] will contact them for start of care in 1-2 days after discharge from . Hospital bed info faxed to Jairo at [employer]. TF and equip pending CM. [facility]
referral completed in [facility] [place]. Liaison reached out to PCP Kimber Samano ([facility]). Per her office, they are willing to sign [facility] orders however, patient needs a follow up appointment once RI'ed. Explained that getting out of house would be
very difficult/ pt bedbound currently- requested if Telehealth appt would be acceptable. Waiting for call back.
[2024-07-19 16:00] VITALS: BP 113/60
[2024-07-19 19:37] VITALS: BP 111/44
[2024-07-19] MEDS: SENOKOT 17.2 MG TUBE (22:22)
[2024-07-19] MEDS: SINEMET 25-100 2 TABLET TUBE (22:22)
[2024-07-20] VITALS (8 sets, daily range): BP systolic 97–120; BP diastolic 38–93
[2024-07-20] MEDS: ROXICODONE ORAL SOLUTION 5 MG TUBE ×2 (00:42→14:46)
[2024-07-20] MEDS: SYNTHROID 75 MCG TUBE (05:30)
[2024-07-20] MEDS: NORVASC 10 MG TUBE (08:34)
[2024-07-20] MEDS: SYMMETREL SYRUP 100 MG TUBE ×3 (08:34→21:22)
[2024-07-20] MEDS: ZOLOFT 150 MG TUBE (08:35)
[2024-07-20] MEDS: PEPCID 20 MG TUBE (08:35)
[2024-07-20] MEDS: NEURONTIN 100 MG TUBE ×2 (08:35→19:54)
[2024-07-20] MEDS: HEPARIN 5000 UNITS SC ×2 (08:35→19:53)
[2024-07-20] MEDS: LIDOCAINE 4% PATCH 1 PATCH TOPICAL (08:36)
[2024-07-20] MEDS: SINEMET 25-100 1 TABLET TUBE ×4 (08:37→19:56)
--- NOTE | 2024-07-20 12:45 | W.PN.HOSP.TC ---
Today's Communication/Plan
-
Mental status fluctuation unchanged.
c/w tube feeding
Important to continue with position change as patient at risk of pressure skin sore
Discharge pending home care agency to set up home equipment
Assessment / Plan
Assessment / Plan
Physical exam:
General: chronically ill looking, no respiratory distress.
HEENT: Normocephalic, Atraumatic and Moist Mucous Membranes
Respiratory: Limited but clear to Auscultation; Negative Wheezes.
Cardiac: Regular Rhythm and S1/S2
GI: Soft, Nontender and Nondistended
Musculoskeletal: No Clubbing, No Cyanosis and No Edema. PEG placement in place
Neuro: Awake, Alert to self and surroundings, she did not follow all commands, reduced deep tendon reflexes.
Psych: Calm
A/P:
# Family meeting on 07/19 with son Donte and his
Answered all questions about care/ medical status/ prognosis. Son wanted patient home. Home care agency is working with wrapper caser.
# Large intraparenchymal hemorrhage in the right frontal lobe that led to change in mental status.
No new neurological signs, still follows simple commands, generalized weakness with rigidity noticed. Alertness fluctuates from depressed to more alert to follow commands.
Prognosis is guarded at this point. Will c/w pT upon discharge. Family was made aware of need to follow with neurology/ neurosurgery for repeat images.
EEG no seizure activity noted. Stable HGB level. C/W BP control.
She denied headache.
d/w neurosurgery Dr Lizama , likely hemorrhagic stroke > mass, follow up in 6 week if family wishes to continue. D/W neurologist Dr Cardoza, not sure if mass or stroke but recommendations are the same, to OP follow up in two week with CT head.
Echo of heart no significant abnormalities.
Appreciate neurology and neurosurgery input
Updated pt's primary neurologist at [place] Dr Garcia.
# Essential HTN
Better controlled with increased amlodipine to 10 mg QD
# Acute hypoxia/acute metabolic encephalopathy likely from aspiration pneumonia
-Chest x-ray with left basilar pneumonia
Not in distress this morning, Denies cough
No fevers or leukocytosis
-IV Unasyn continued and finished course.
-Tylenol as needed for fever
-Follow-up chest x-ray showed same opacities and some atelectasis--> recommend to follow-up chest x-ray in 4 to 6 weeks unless clinical status changes.
#Chronic Dysphagia secondary to Parkinson's disease
Swallowing difficulty and dysphagia worsened due to new CVA.
-Status post PEG placement on 05/28 with TF from 6pm to 10am
-patient also on purred diet at home--> Now n.p.o.
-hold on oral diet
-speech consulted and recommended strict n.p.o. and continue TF
# Hypokalemia, resolved
#Parkinson's disease continue preadmission regimen including carbidopa levodopa, amantadine
-Continue gabapentin
#Severe protein- calorie malnutrition
Dietary consult
#Parkinson's related dementia
Monitor mental status and behavior
#Anxiety/depression
-Continue sertraline
Migraine history
#Hypothyroidism
-Continue levothyroxine
#Hyperlipidemia
#COPD/asthma
-Patient not in acute exacerbation
-continue nebs
# GERD
-Pepcid continued
Full code
DVT prophylaxis- SQ heparin
Total time spent to see the patient, examine the patient on the floor, review data and lab results, discuss treatment plan with patient, night team and nursing staff around 55 minutes
Anticipated Discharge: Within 24 hours
Subjective/Interval History
-
Date of Service: July 20, 2024
Denies pain
Objective Data
-
Vital Signs:
Vital Signs
Temp Pulse Resp BP Pulse Ox
97.4 F 68 16 120/38 96
07/20/24 11:52 07/20/24 11:52 07/20/24 11:52 07/20/24 11:52 07/20/24 11:52
I&O
07/19/24 07/20/24 07/21/24
06:59 06:59 05:59
Intake Total 300 / 300 780 / 780
Balance 300 / 300 780 / 780
[2024-07-20] MEDS: SENOKOT 17.2 MG TUBE (21:22)
[2024-07-20] MEDS: SINEMET 25-100 2 TABLET TUBE (21:22)
[2024-07-21 03:00] VITALS: BP 132/63
[2024-07-21] MEDS: SYNTHROID 75 MCG TUBE (06:16)
[2024-07-21 07:00] VITALS: BP 135/53
[2024-07-21] MEDS: NEURONTIN 100 MG TUBE ×3 (08:29→19:55)
[2024-07-21] MEDS: SYMMETREL SYRUP 100 MG TUBE ×3 (08:29→22:04)
[2024-07-21] MEDS: LIDOCAINE 4% PATCH 1 PATCH TOPICAL (08:29)
[2024-07-21] MEDS: ZOLOFT 150 MG TUBE (08:29)
[2024-07-21] MEDS: PEPCID 20 MG TUBE (08:29)
[2024-07-21] MEDS: NORVASC 10 MG TUBE (08:30)
[2024-07-21] MEDS: HEPARIN 5000 UNITS SC ×2 (08:30→19:53)
[2024-07-21] MEDS: SINEMET 25-100 1 TABLET TUBE ×4 (08:35→19:56)
--- NOTE | 2024-07-21 09:45 | W.PN.HOSP.TC ---
Today's Communication/Plan
-
medically stable to discharge
Await dc planning, home set up
Assessment / Plan
Assessment / Plan
Physical exam:
General: chronically ill looking, no respiratory distress.
HEENT: Normocephalic, Atraumatic and Moist Mucous Membranes
Respiratory: Limited but clear to Auscultation; Negative Wheezes.
Cardiac: Regular Rhythm and S1/S2
GI: Soft, Nontender and Nondistended
Musculoskeletal: No Clubbing, No Cyanosis and No Edema. PEG placement in place
Neuro: Awake, Alert to self and surroundings, she did not follow all commands, reduced deep tendon reflexes.
Psych: Calm
A/P:
# Family meeting on 07/19 with son Donte and his
Answered all questions about care/ medical status/ prognosis. Son wanted patient home. Home care agency is working with case management assistant.
# Large intraparenchymal hemorrhage in the right frontal lobe that led to change in mental status.
No new neurological signs, still follows simple commands, generalized weakness with rigidity noticed. Alertness fluctuates from depressed to more alert to follow commands.
Prognosis is guarded at this point. Will c/w pT upon discharge. Family was made aware of need to follow with neurology/ neurosurgery for repeat images.
EEG no seizure activity noted. Stable HGB level. C/W BP control.
She denied headache.
d/w neurosurgery Dr Lizama , likely hemorrhagic stroke > mass, follow up in 6 week if family wishes to continue. D/W neurologist Dr Cardoza, not sure if mass or stroke but recommendations are the same, to OP follow up in two week with CT head.
Echo of heart no significant abnormalities.
Appreciate neurology and neurosurgery input
Updated pt's primary neurologist at [place] Dr Garcia.
# Essential HTN
Better controlled with increased amlodipine to 10 mg QD
# Acute hypoxia/acute metabolic encephalopathy likely from aspiration pneumonia
-Chest x-ray with left basilar pneumonia
Not in distress this morning, Denies cough
No fevers or leukocytosis
-IV Unasyn continued and finished course.
-Tylenol as needed for fever
-Follow-up chest x-ray showed same opacities and some atelectasis--> recommend to follow-up chest x-ray in 4 to 6 weeks unless clinical status changes.
#Chronic Dysphagia secondary to Parkinson's disease
Swallowing difficulty and dysphagia worsened due to new CVA.
-Status post PEG placement on 05/28 with TF from 6pm to 10am
-patient also on purred diet at home--> Now n.p.o.
-hold on oral diet
-speech consulted and recommended strict n.p.o. and continue TF
# Hypokalemia, resolved
#Parkinson's disease continue preadmission regimen including carbidopa levodopa, amantadine
-Continue gabapentin
#Severe protein- calorie malnutrition
Dietary consult
#Parkinson's related dementia
Monitor mental status and behavior
#Anxiety/depression
-Continue sertraline
Migraine history
#Hypothyroidism
-Continue levothyroxine
#Hyperlipidemia
#COPD/asthma
-Patient not in acute exacerbation
-continue nebs
# GERD
-Pepcid continued
Full code
DVT prophylaxis- SQ heparin
Total time spent to see the patient, examine the patient on the floor, review data and lab results, discuss treatment plan with patient, case management assistant and nursing staff around 45 minutes
Anticipated Discharge: Today
Subjective/Interval History
-
Date of Service: July 21, 2024
No fever
No hypoxia
Objective Data
-
Vital Signs:
Vital Signs
Temp Pulse Resp BP Pulse Ox
98.4 F 63 17 135/53 98
07/21/24 07:00 07/21/24 07:00 07/21/24 07:00 07/21/24 07:00 07/21/24 07:00
I&O
07/20/24 07/21/24 07/22/24
07:59 06:59 06:59
Intake Total
Balance
[2024-07-21] MEDS: ROXICODONE ORAL SOLUTION 5 MG TUBE (12:49)
[2024-07-21] MEDS: TYLENOL ORAL SOLUTION 650 MG TUBE (12:50)
[2024-07-21] MEDS: ZOFRAN 4 MG IV (12:50)
--- NOTE | 2024-07-21 14:52 | CM ---
Late entry note from 07/20
Spoke with patient's attending who stated that patient should return to previous environment sooner than later as she is medically stable. Patient's son approached CM with concerns regarding discharge as he feels he needs more training and
understanding of how to provide care. Discussed the possibility of having patient transfer back to [facility] until services, DME, Tube Feeds and caregivers as well as VN could be arranged. Patient's son stated that he did not want to consider this
option even though he admitted that it may take a few weeks to get more care arranged through patient's waiver program and that he would have difficulty providing around the clock care at this time.
Patient will need Jevity ordered and be taught how to care for PEG tube.
Plan: Case management will continue to follow and assist with discharge planning. Will continue to advocate that patient goes to LTC as to give family more time to prepare for her to come home.
--- NOTE | 2024-07-21 14:57 | PTCARENOTE ---
PT alert able to make needs known. 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 I have been doing very frequent pain assessments and she consistently states she is not in pain and says no to pain medication. pt
with PEG tube and on aspiration precuations. HOB at 35% and required to be repositined by nursing stagfe every 15 minutes by me this shift. around 115 PT very agitated restless clenched with constant spastic motions to the point she folds forward
and puts her self down to 10 degrees and sometimes less than, I did hold tube feed during these episodes as i was unable to follow PEG tube feeding protocol to keep HOB > 45 degrees. I have repositioned her constantlyh every 2 - 5 minutes during
the time from 1130 to 1245. Pt is on video monitoring but it is not picking up that she is < 35 degrees. I notified MD to tell her i have tube feeding off and unable to keep her safe from aspiration . MD did recommend trialing narcotics and
ordered extra neurontin dose. All meds given along with tylenol. She is currently resting very quietly and spasticity has ceased HOB is at 40degrees and tube feed has resumed. is aware.
[2024-07-21 16:58] VITALS: BP 132/62
[2024-07-21] MEDS: SENOKOT 17.2 MG TUBE (22:04)
[2024-07-21] MEDS: SINEMET 25-100 2 TABLET TUBE (22:04)
[2024-07-21 23:40] VITALS: BP 118/52
[2024-07-22] MEDS: SYNTHROID 75 MCG TUBE (05:49)
[2024-07-22 07:42] VITALS: BP 103/44
[2024-07-22 08:05] LABS: Hematocrit 33.7 % (37.0-47.0); Hemoglobin 11.6 g/dL (12.0-16.0); Mean Corp Hgb Conc. 34.4 g/dL (33.0-37.0); Mean Corpuscular Hgb 30.9 pg (27.0-31.0); Mean Corpuscular Volume 89.9 fL (81.0-99.0); Mean Platelet Volume 8.8 fL (7.4-10.4); Platelet Count 301 10^3/uL (130-400); Red Blood Cell Count 3.75 10^6/uL (4.20-5.40); Red Cell Dist. Width 13.5 % (11.5-14.5)
[2024-07-22 08:21] LABS: Blood Urea Nitrogen 26 mg/dl (7-17); Calcium 10.2 mg/dl (8.4-10.2); Carbon Dioxide 31 mmol/L (22-30); Chloride 101 mmol/L (98-107); Estimated Creatinine Clearance 48 ml/min; Glucose 125 mg/dl (70-99); Sodium 143 mmol/L (135-145); eGFR > 60.00
--- NOTE | 2024-07-22 08:46 | W.PN.HOSP.TC ---
Addendum entered and electronically signed by Ulises Reynolds MD 07/22/24 14:57:
Patient will require tube feeds at home for greater than 90 days due to dysphagia/Parkinson/severe protein calorie malnutrition.
Original Note:
Today's Communication/Plan
-
Continue TF. Ongoing discharge disposition.
Assessment / Plan
Assessment / Plan
Physical exam:
General: chronically ill looking, no respiratory distress.
HEENT: Normocephalic, Atraumatic and Moist Mucous Membranes
Respiratory: Limited but clear to Auscultation; Negative Wheezes.
Cardiac: Regular Rhythm and S1/S2
GI: Soft, Nontender and Nondistended
Musculoskeletal: No Clubbing, No Cyanosis and No Edema. PEG placement in place
Neuro: Awake, Alert to self and surroundings, she did not follow all commands, reduced deep tendon reflexes.
Psych: Calm
A/P:
# Dr. Virgen had family meeting on 07/19 with son Donte and his
Answered all questions about care/ medical status/ prognosis. Son wanted patient home. Home care agency is working with briefcase sewer.
# Large intraparenchymal hemorrhage in the right frontal lobe that led to change in mental status.
No new neurological signs, still follows simple commands, generalized weakness with rigidity noticed. Alertness fluctuates from depressed to more alert to follow commands.
Prognosis is guarded at this point. Will c/w pT upon discharge. Family was made aware of need to follow with neurology/ neurosurgery for repeat images.
EEG no seizure activity noted. Stable HGB level. C/W BP control.
She denied headache.
d/w neurosurgery Dr Lizama , likely hemorrhagic stroke > mass, follow up in 6 week if family wishes to continue. D/W neurologist Dr Cardoza, not sure if mass or stroke but recommendations are the same, to OP follow up in two week with CT head.
Echo of heart no significant abnormalities.
Appreciate neurology and neurosurgery input
Updated pt's primary neurologist at [place] Dr Garcia.
# Essential HTN
Better controlled with increased amlodipine to 10 mg QD
# Acute hypoxia/acute metabolic encephalopathy likely from aspiration pneumonia
-Chest x-ray with left basilar pneumonia
Not in distress this morning, Denies cough
No fevers or leukocytosis
-IV Unasyn continued and finished course.
-Tylenol as needed for fever
-Follow-up chest x-ray showed same opacities and some atelectasis--> recommend to follow-up chest x-ray in 4 to 6 weeks unless clinical status changes.
#Chronic Dysphagia secondary to Parkinson's disease
Swallowing difficulty and dysphagia worsened due to new CVA.
-Status post PEG placement on 05/28 with TF from 6pm to 10am
-patient also on purred diet at home--> Now n.p.o.
-hold on oral diet
-speech consulted and recommended strict n.p.o. and continue TF
# Hypokalemia, resolved
#Parkinson's disease continue preadmission regimen including carbidopa levodopa, amantadine
-Continue gabapentin
#Severe protein- calorie malnutrition
Dietary consult
#Parkinson's related dementia
Monitor mental status and behavior
#Anxiety/depression
-Continue sertraline
Migraine history
#Hypothyroidism
-Continue levothyroxine
#Hyperlipidemia
#COPD/asthma
-Patient not in acute exacerbation
-continue nebs
# GERD
-Pepcid continued
Full code
DVT prophylaxis- SQ heparin
Anticipated Discharge: 24 - 48 hours
Subjective/Interval History
-
Date of Service: July 22, 2024
Patient alert, mildly disoriented. Afebrile.
Objective Data
-
Labs:
Laboratory Results
07/22/24
07:43
WBC 7.0
Hgb 11.6 L
Hct 33.7 L
Plt Count 301
Sodium 143
Potassium 4.0
Chloride 101
Carbon Dioxide 31 H
BUN 26 H
Creatinine 0.5 L
Glucose 125 H
Calcium 10.2
Vital Signs:
Vital Signs
Temp Pulse Resp BP Pulse Ox
97.6 F 62 14 103/44 94
07/22/24 07:42 07/22/24 07:42 07/22/24 07:42 07/22/24 07:42 07/22/24 07:42
I&O
07/21/24 07/22/24 07/23/24
06:59 06:59 06:59
Intake Total 780 / 780
Balance 780 / 780
[2024-07-22] MEDS: SYMMETREL SYRUP 100 MG TUBE ×3 (08:50→21:03)
[2024-07-22] MEDS: NEURONTIN 100 MG TUBE ×2 (08:50→21:02)
[2024-07-22] MEDS: LIDOCAINE 4% PATCH 1 PATCH TOPICAL (08:51)
[2024-07-22] MEDS: HEPARIN 5000 UNITS SC ×2 (08:51→21:00)
[2024-07-22] MEDS: PEPCID 20 MG TUBE (08:52)
[2024-07-22] MEDS: NORVASC 10 MG TUBE (08:52)
[2024-07-22] MEDS: SINEMET 25-100 1 TABLET TUBE ×4 (09:00→21:05)
[2024-07-22] MEDS: ZOLOFT 150 MG TUBE (09:04)
[2024-07-22] MEDS: ZOLOFT TUBE (09:14)
[2024-07-22 10:48] VITALS: PULSE 66; O2SAT 98
[2024-07-22 10:49] VITALS: PULSE 68; O2SAT 98
--- NOTE | 2024-07-22 11:05 | VNURNOTE ---
[facility] Don[facility]. At time of call, son was on a run. Gave him update on last nurse's note. Reviewed again that patient will need 24hr care. He is waiting on callbacks from [facility] and [facility]. Offered private duty
nurses /caregivers as supplement. Donte stated they cannot afford private duty, and as of now, there will be holes in coverage. He does not plan on taking FMLA. Donte stated he came in over weekend and was given some info about tube feeding (keeping
HOB up, s/sx of dehydration). He did not manipulate syringe or pump. Prior to phone call, this author spoke with Michelle NORMAN who was agreeable to show son additional teaching w/TF today. [facility] Intake & supervisors aware of pending new admission.
--- NOTE | 2024-07-22 14:17 | CM ---
CM reviewed pt with Rosalie/SEBASTIENVPhyllis liaison and Dr Reynolds
Pt will need new tube feeds to be set up at home
Call with son to review dc planning
Prior CM notes indicate only 16 hours/weekly of [employer] through waiver- this is NOT correct
Pt receives 16 hours daily of [employer], he plans to increase to 24 hours daily through waiver
[facility] has coordinated for hospital bed to be delivery prior to dc
Son notes with continued [employer] care through the waiver, he will be able to handle pt's needs at home
Infusion providers discussed- referral made to [facility]
Clinicals faxed [phone]
TT/Dr Reynolds requesting length of note need
Awaiting note and script
VM left for dietary requesting updated recs
Per Dr Reynolds, likely plan for bolus feeds on dc
Discharge Disposition- home with VN, new hospital bed and new tube feeds through [facility]
--- NOTE | 2024-07-22 14:55 | VNURNOTE ---
Confirmed with Jairo at [facility] bed to be delivered on .
[2024-07-22 15:26] VITALS: BP 111/46
--- NOTE | 2024-07-22 16:31 | PTOTSP ---
Addendum entered and electronically signed by ST Levi 07/22/24 16:35:
Ice chips with supervision
Original Note:
Dysphagia Therapy
Patient can have sparing ice chips for comfort if awake, alert, with appropriate mentation, and able to sit upright without significant tremors/chorea like movements. Hold if these factors are not met.
Recommend:
1. NPO (PEG in place)
2. Medications via non-oral means
3. Aspiration Risk Hydration Protocol - sparing ice chips if able to remain awake/alert/seated upright without significant tremor/chorea like movements
4. Dysphagia therapy at the acute care level and after D/C pending GOC
[2024-07-22] MEDS: SINEMET 25-100 2 TABLET TUBE (21:01)
[2024-07-22] MEDS: SENOKOT 17.2 MG TUBE (21:01)
[2024-07-22 22:30] VITALS: BP 164/55
[2024-07-23] MEDS: SYNTHROID 75 MCG TUBE (06:33)
[2024-07-23 07:40] LABS: Glucose - Point of Care 134 mg/dl (70-99)
[2024-07-23 07:40] LABS: % Basophils 0.4 % (0-2); % Eosinophils 4.3 % (0-6); % Immature Granulocytes 0.4 % (0-0.5); % Lymphocytes 13.5 % (20.5-51.1); % Monocytes 6.5 % (1.7-9.3); % Neutrophils 74.9 % (42.2-75.2); Absolute Eosinophils 0.3 10^3/uL (0-0.7); Absolute Lymphocytes 0.9 10^3/uL (1.2-3.4); Absolute Monocytes 0.4 10^3/uL (0.1-0.6); Absolute Neutrophils 5.1 10^3/uL (1.4-6.5); Hematocrit 38.7 % (37.0-47.0); Hemoglobin 13.1 g/dL (12.0-16.0); Mean Corp Hgb Conc. 33.9 g/dL (33.0-37.0); Mean Corpuscular Hgb 31.7 pg (27.0-31.0); Mean Corpuscular Volume 93.7 fL (81.0-99.0); Mean Platelet Volume 8.9 fL (7.4-10.4); Nucleated Red Blood Cells % 0 %; Platelet Count 331 10^3/uL (130-400); Red Blood Cell Count 4.13 10^6/uL (4.20-5.40); Red Cell Dist. Width 13.4 % (11.5-14.5); White Blood Cell Count 6.8 10^3/uL (4.8-10.8)
[2024-07-23 07:43] LABS: Blood Urea Nitrogen 24 mg/dl (7-17); Calcium 10.5 mg/dl (8.4-10.2); Carbon Dioxide 30 mmol/L (22-30); Chloride 102 mmol/L (98-107); Estimated Creatinine Clearance 48 ml/min; Glucose 116 mg/dl (70-99); Potassium 3.6 mmol/L (3.5-5.1); Sodium 145 mmol/L (135-145); eGFR > 60.00
[2024-07-23 07:45] VITALS: BP 118/47
--- NOTE | 2024-07-23 08:25 | W.PN.HOSP.TC ---
Today's Communication/Plan
-
Discharge planning
Assessment / Plan
Assessment / Plan
Physical exam:
General: chronically ill looking, no respiratory distress.
HEENT: Normocephalic, Atraumatic and Moist Mucous Membranes
Respiratory: Limited but clear to Auscultation; Negative Wheezes.
Cardiac: Regular Rhythm and S1/S2
GI: Soft, Nontender and Nondistended
Musculoskeletal: No Clubbing, No Cyanosis and No Edema. PEG placement in place
Neuro: Awake, Alert to self and surroundings, she did not follow all commands, reduced deep tendon reflexes.
Psych: Calm
A/P:
#Discussed with Donte today 07/23 and we are getting everything all set for discharge planning--> we discussed about bolus feeding rather than continuous feeding. Discussed with case management manager and signed all forms.
# Dr. Virgen had family meeting on 07/19 with son Donte and his
Answered all questions about care/ medical status/ prognosis. Son wanted patient home. Home care agency is working with case management manager.
# Large intraparenchymal hemorrhage in the right frontal lobe that led to change in mental status.
No new neurological signs, still follows simple commands, generalized weakness with rigidity noticed. Alertness fluctuates from depressed to more alert to follow commands.
Prognosis is guarded at this point. Will c/w pT upon discharge. Family was made aware of need to follow with neurology/ neurosurgery for repeat images.
EEG no seizure activity noted. Stable HGB level. C/W BP control.
She denied headache.
d/w neurosurgery Dr Lizama , likely hemorrhagic stroke > mass, follow up in 6 week if family wishes to continue. D/W neurologist Dr Cardoza, not sure if mass or stroke but recommendations are the same, to OP follow up in two week with CT head.
Echo of heart no significant abnormalities.
Appreciate neurology and neurosurgery input
Updated pt's primary neurologist at [place] Dr Garcia.
# Essential HTN
Better controlled with increased amlodipine to 10 mg QD
# Acute hypoxia/acute metabolic encephalopathy likely from aspiration pneumonia
-Chest x-ray with left basilar pneumonia
Not in distress this morning, Denies cough
No fevers or leukocytosis
-IV Unasyn continued and finished course.
-Tylenol as needed for fever
-Follow-up chest x-ray showed same opacities and some atelectasis--> recommend to follow-up chest x-ray in 4 to 6 weeks unless clinical status changes.
#Chronic Dysphagia secondary to Parkinson's disease
Swallowing difficulty and dysphagia worsened due to new CVA.
-Status post PEG placement on 05/28 with TF from 6pm to 10am
-patient also on purred diet at home--> Now n.p.o.
-hold on oral diet
-speech consulted and recommended strict n.p.o. and continue TF
- latest recommendations for home feeds:
recommended 237ml (8 oz ) Jevity 1.5 4 times per day with a 75ml water flush before and after each bolus feeds (total 600ml water flush)
Patient will require tube feeds at home for greater than 90 days due to dysphagia/Parkinson/severe protein calorie malnutrition.
# Hypokalemia, resolved
#Parkinson's disease continue preadmission regimen including carbidopa levodopa, amantadine
-Continue gabapentin
#Severe protein- calorie malnutrition
Dietary consult
#Parkinson's related dementia
Monitor mental status and behavior
#Anxiety/depression
-Continue sertraline
Migraine history
#Hypothyroidism
-Continue levothyroxine
#Hyperlipidemia
#COPD/asthma
-Patient not in acute exacerbation
-continue nebs
# GERD
-Pepcid continued
Full code
DVT prophylaxis- SQ heparin
Anticipated Discharge: Within 24 hours
Subjective/Interval History
-
Date of Service: July 23, 2024
Patient feels well. No new complaints
Objective Data
-
Labs:
Laboratory Results
07/23/24
06:32
WBC 6.8
Hgb 13.1
Hct 38.7
Plt Count 331
Sodium 145
Potassium 3.6
Chloride 102
Carbon Dioxide 30
BUN 24 H
Creatinine 0.5 L
Glucose 116 H
Calcium 10.5 H
Vital Signs:
Vital Signs
Temp Pulse Resp BP Pulse Ox
96.4 F L 68 16 118/47 98
07/23/24 07:45 07/23/24 07:45 07/23/24 07:45 07/23/24 07:45 07/23/24 07:45
I&O
07/22/24 07/23/24 07/24/24
06:59 06:59 06:59
Intake Total 780 / 780
Balance 780 / 780
--- NOTE | 2024-07-23 08:39 | VNURNOTE ---
Received phone call from son Donte. He is declining hospital bed. He stated patient has a Temperpedic bed at home that HOB goes up >40 degrees. He purchased bed rails that will be delivered tomorrow. Jairo at [employer] notified.
[2024-07-23] MEDS: LIDOCAINE 4% PATCH 1 PATCH TOPICAL (09:30)
[2024-07-23] MEDS: HEPARIN 5000 UNITS SC ×2 (09:31→21:26)
[2024-07-23] MEDS: NEURONTIN 100 MG TUBE ×2 (09:32→21:32)
[2024-07-23] MEDS: SYMMETREL SYRUP 100 MG TUBE ×3 (09:33→21:32)
[2024-07-23] MEDS: ZOLOFT 150 MG TUBE (09:33)
[2024-07-23] MEDS: PEPCID 20 MG TUBE (09:33)
[2024-07-23] MEDS: NORVASC 10 MG TUBE (09:34)
[2024-07-23] MEDS: SINEMET 25-100 1 TABLET TUBE ×4 (09:35→21:28)
--- NOTE | 2024-07-23 10:53 | CM ---
Addendum entered by Tiana Javier 07/23/24 14:14:
Luiz from [facility] in to see patient.
Orders reviewed.
All documents received by [facility].
Await TCB from son to confirm d/c plan, number of steps into home.
Patient will require ambulance transport for d/c home.
Plan: home with [facility], Bolus Tube feeds, and private caregivers once medically stable.
Addendum entered by Tiana Javier 07/23/24 12:33:
note, script and nutrition notes faxed.
Addendum entered by Tiana Javier 07/23/24 11:54:
[facility] and [facility].
TC to Reyna JACKSON from [facility] [phone], per Pina in office DPA Selwyn will sign orders if awning installer from [facility] follows with recommendations.
Per Pina if patient cannot come for f/u appointments, then at some point family may need to transition to a visiting MD. Will update son when he returns call.
Spoke with Luiz from [facility], he will be in to review orders and tube.
Plan: home with [facility], Bolus Tube feeds, and private caregivers once medically stable.
Ambulance transport required. m
Original Note:
Left VM for son Donte requesting a call back with name of mothers PCP.
[2024-07-23 11:55] LABS: Glucose - Point of Care 119 mg/dl (70-99)
--- NOTE | 2024-07-23 13:27 | VNURNOTE ---
Patient's primary care:
Kimber Samano NP [facility]
phone [phone]
fax [phone]
[2024-07-23 15:10] VITALS: BP 125/90
[2024-07-23 16:44] LABS: Glucose - Point of Care 92 mg/dl (70-99)
[2024-07-23 21:26] LABS: Glucose - Point of Care 108 mg/dl (70-99)
[2024-07-23] MEDS: SENOKOT 17.2 MG TUBE (21:27)
[2024-07-23] MEDS: SINEMET 25-100 2 TABLET TUBE (21:29)
[2024-07-24 03:34] VITALS: BP 129/54
[2024-07-24] MEDS: SYNTHROID 75 MCG TUBE (05:16)
[2024-07-24 06:03] VITALS: BMI 15.3
[2024-07-24 07:23] VITALS: BP 140/60
[2024-07-24] MEDS: NEURONTIN 100 MG TUBE ×2 (08:30→19:51)
[2024-07-24] MEDS: NORVASC 10 MG TUBE (08:30)
[2024-07-24] MEDS: LIDOCAINE 4% PATCH 1 PATCH TOPICAL (08:30)
[2024-07-24] MEDS: HEPARIN 5000 UNITS SC ×2 (08:30→19:51)
[2024-07-24] MEDS: SINEMET 25-100 1 TABLET TUBE ×4 (08:31→20:29)
[2024-07-24] MEDS: ZOLOFT 150 MG TUBE (08:31)
[2024-07-24] MEDS: SYMMETREL SYRUP 100 MG TUBE ×3 (08:31→21:55)
[2024-07-24] MEDS: PEPCID 20 MG TUBE (08:31)
--- NOTE | 2024-07-24 08:31 | W.PN.HOSP.TC ---
Today's Communication/Plan
-
Continue TF.
Assessment / Plan
Assessment / Plan
Physical exam:
General: chronically ill looking, no respiratory distress.
HEENT: Normocephalic, Atraumatic and Moist Mucous Membranes
Respiratory: Limited but clear to Auscultation; Negative Wheezes.
Cardiac: Regular Rhythm and S1/S2
GI: Soft, Nontender and Nondistended
Musculoskeletal: No Clubbing, No Cyanosis and No Edema. PEG placement in place
Neuro: Awake, Alert to self and surroundings, she did not follow all commands, reduced deep tendon reflexes.
Psych: Calm
A/P:
#Discussed with Donte today 07/23 and we are getting everything all set for discharge planning--> we discussed about bolus feeding rather than continuous feeding. Discussed with case mgr and signed all forms.
# Dr. Virgen had family meeting on 07/19 with son Donte and his
Answered all questions about care/ medical status/ prognosis. Son wanted patient home. Home care agency is working with case mgr.
# Large intraparenchymal hemorrhage in the right frontal lobe that led to change in mental status.
No new neurological signs, still follows simple commands, generalized weakness with rigidity noticed. Alertness fluctuates from depressed to more alert to follow commands.
Prognosis is guarded at this point. Will c/w pT upon discharge. Family was made aware of need to follow with neurology/ neurosurgery for repeat images.
EEG no seizure activity noted. Stable HGB level. C/W BP control.
She denied headache.
d/w neurosurgery Dr Lizama , likely hemorrhagic stroke > mass, follow up in 6 week if family wishes to continue. D/W neurologist Dr Cardoza, not sure if mass or stroke but recommendations are the same, to OP follow up in two week with CT head.
Echo of heart no significant abnormalities.
Appreciate neurology and neurosurgery input
Updated pt's primary neurologist at [place] Dr Garcia.
# Essential HTN
Better controlled with increased amlodipine to 10 mg QD
# Acute hypoxia/acute metabolic encephalopathy likely from aspiration pneumonia
-Chest x-ray with left basilar pneumonia
Not in distress this morning, Denies cough
No fevers or leukocytosis
-IV Unasyn continued and finished course.
-Tylenol as needed for fever
-Follow-up chest x-ray showed same opacities and some atelectasis--> recommend to follow-up chest x-ray in 4 to 6 weeks unless clinical status changes.
#Chronic Dysphagia secondary to Parkinson's disease
Swallowing difficulty and dysphagia worsened due to new CVA.
-Status post PEG placement on 05/28 with TF from 6pm to 10am
-patient also on purred diet at home--> Now n.p.o.
-hold on oral diet
-speech consulted and recommended strict n.p.o. and continue TF
- latest recommendations for home feeds:
recommended 237ml (8 oz ) Jevity 1.5 4 times per day with a 75ml water flush before and after each bolus feeds (total 600ml water flush)
Patient will require tube feeds at home for greater than 90 days due to dysphagia/Parkinson/severe protein calorie malnutrition.
# Hypokalemia, resolved
#Parkinson's disease continue preadmission regimen including carbidopa levodopa, amantadine
-Continue gabapentin
#Severe protein- calorie malnutrition
Dietary consult
#Parkinson's related dementia
Monitor mental status and behavior
#Anxiety/depression
-Continue sertraline
Migraine history
#Hypothyroidism
-Continue levothyroxine
#Hyperlipidemia
#COPD/asthma
-Patient not in acute exacerbation
-continue nebs
# GERD
-Pepcid continued
Full code
DVT prophylaxis- SQ heparin
Anticipated Discharge: Within 24 hours
Subjective/Interval History
-
Date of Service: July 24, 2024
No new complaints.
Objective Data
-
Labs:
Laboratory Results
07/24/24
06:00
WBC Pending
Hgb Pending
Hct Pending
Plt Count Pending
Sodium Pending
Potassium Pending
Chloride Pending
Carbon Dioxide Pending
BUN Pending
Creatinine Pending
Glucose Pending
Calcium Pending
Vital Signs:
Vital Signs
Temp Pulse Resp BP Pulse Ox
97.9 F 65 16 140/60 98
07/24/24 07:23 07/24/24 07:23 07/24/24 07:23 07/24/24 07:23 07/24/24 07:23
I&O
07/23/24 07/24/24 07/25/24
06:59 06:59 06:59
Intake Total 780 / 780
Balance 780 / 780
[2024-07-24 11:00] VITALS: BP 102/80; PULSE 62; O2SAT 99
--- NOTE | 2024-07-24 11:15 | WOUNDNOTE ---
[facility] RN note: Patient seen with ESTER Hector and nurse eyewear manufacturing supervisor Scarlet for skin check for length of stay >4 days. Patient incontinent of urine. Ella care given. Patient turned with help from ESTER Hector and Scarlet. Sacrum has a small red intact area
(scar vs stage 1?). Silicone border foam applied. Protective foam dressings changed on heels. Heels with small discolored solano dry skin suspect healed wound/blister, not open. Heels off bed with pillow. Patient is on a [facility] air bed. She has
feeding tube. Care plan updated. Consult as needed.
--- NOTE | 2024-07-24 13:49 | VNURNOTE ---
Called son Donte. Reviewed with him that [facility] can see patient day of discharge. Patient would need to be DC'ed from hospital before 1200. Hospitalist and CM aware.
--- NOTE | 2024-07-24 14:18 | WOUNDNOTE ---
[facility] RN note: Updated [facility] nurse liaison Rosalie Drew re: small red intact area on patient's sacrum noted, protective silicone foam dressing was applied. Rosalie stated son refused a hospital bed and they have a temperpedic at home that he purchased
rails for.
--- NOTE | 2024-07-24 14:23 | CM ---
CM following re: discharge planning.
Reviewed pt's chart, met with pt.
According to MD pt will be ready for discharge tomorrow and per [facility] liaison if pt is ready for discharge it has to be before 12:00 p.m.
CM spoke to [facility] liaison Juan and she stated that his team still reviewing pt's clinical and he is in a meeting right now and he cannot guarantee or confirm that peg tube supplies will be delivered to pt's home tomorrow.
Awaiting for [facility] to confirm delivery peg tube supplies.
D/C plan: home with [facility] for peg tube supplies, [facility], caregiver services and family support.
CM will follow to assist pt with a safe discharge plan.;
[2024-07-24 14:49] LABS: % Basophils 0.6 % (0-2); % Eosinophils 2.9 % (0-6); % Immature Granulocytes 0.6 % (0-0.5); % Lymphocytes 13.2 % (20.5-51.1); % Monocytes 7.8 % (1.7-9.3); % Neutrophils 74.9 % (42.2-75.2); Absolute Basophils 0.1 10^3/uL (0-0.2); Absolute Eosinophils 0.2 10^3/uL (0-0.7); Absolute Immature Granulocytes 0.1 10^3/uL (0-0.05); Absolute Lymphocytes 1.1 10^3/uL (1.2-3.4); Absolute Monocytes 0.7 10^3/uL (0.1-0.6); Absolute Neutrophils 6.2 10^3/uL (1.4-6.5); Hematocrit 36.3 % (37.0-47.0); Hemoglobin 12.4 g/dL (12.0-16.0); Mean Corp Hgb Conc. 34.2 g/dL (33.0-37.0); Mean Corpuscular Hgb 32.1 pg (27.0-31.0); Mean Platelet Volume 8.7 fL (7.4-10.4); Nucleated Red Blood Cells % 0 %; Platelet Count 346 10^3/uL (130-400); Red Blood Cell Count 3.86 10^6/uL (4.20-5.40); Red Cell Dist. Width 13.8 % (11.5-14.5); White Blood Cell Count 8.3 10^3/uL (4.8-10.8)
[2024-07-24 15:13] VITALS: BP 121/56
[2024-07-24 15:56] LABS: Blood Urea Nitrogen 24 mg/dl (7-17); Calcium 9.9 mg/dl (8.4-10.2); Carbon Dioxide 24 mmol/L (22-30); Chloride 101 mmol/L (98-107); Estimated Creatinine Clearance 48 ml/min; Glucose 94 mg/dl (70-99); Potassium 3.6 mmol/L (3.5-5.1); Sodium 143 mmol/L (135-145); eGFR > 60.00
[2024-07-24] MEDS: ROXICODONE ORAL SOLUTION 5 MG TUBE (19:50)
[2024-07-24] MEDS: SENOKOT 17.2 MG TUBE (20:30)
[2024-07-24] MEDS: SINEMET 25-100 2 TABLET TUBE (21:55)
[2024-07-25] MEDS: SYNTHROID 75 MCG TUBE (04:45)
[2024-07-25 05:16] VITALS: BMI 15.2
[2024-07-25 07:52] VITALS: BP 106/59
[2024-07-25] MEDS: PEPCID 20 MG TUBE (08:40)
[2024-07-25] MEDS: ZOLOFT 150 MG TUBE (08:40)
[2024-07-25] MEDS: NEURONTIN 100 MG TUBE ×2 (08:40→20:12)
[2024-07-25] MEDS: NORVASC 10 MG TUBE (08:40)
[2024-07-25] MEDS: HEPARIN 5000 UNITS SC ×2 (08:41→20:11)
[2024-07-25] MEDS: SYMMETREL SYRUP 100 MG TUBE ×3 (08:43→21:51)
[2024-07-25] MEDS: LIDOCAINE 4% PATCH 1 PATCH TOPICAL (08:44)
[2024-07-25] MEDS: SINEMET 25-100 1 TABLET TUBE ×4 (08:45→20:12)
--- NOTE | 2024-07-25 09:10 | W.PN.HOSP.TC ---
Today's Communication/Plan
-
Discharge planning
Assessment / Plan
Assessment / Plan
Physical exam:
General: chronically ill looking, no respiratory distress.
HEENT: Normocephalic, Atraumatic and Moist Mucous Membranes
Respiratory: Limited but clear to Auscultation; Negative Wheezes.
Cardiac: Regular Rhythm and S1/S2
GI: Soft, Nontender and Nondistended
Musculoskeletal: No Clubbing, No Cyanosis and No Edema. PEG placement in place
Neuro: Awake, Alert to self and surroundings, she did not follow all commands, reduced deep tendon reflexes.
Psych: Calm
A/P:
#Discussed with Donte today 07/23 and we are getting everything all set for discharge planning--> we discussed about bolus feeding rather than continuous feeding. Discussed with case management specialist and signed all forms. Ideally she should go to rehab but
family insists on taking her home.
# Dr. Virgen had family meeting on 07/19 with son Donte and his
Answered all questions about care/ medical status/ prognosis. Son wanted patient home. Home care agency is working with case management specialist.
# Large intraparenchymal hemorrhage in the right frontal lobe that led to change in mental status.
No new neurological signs, still follows simple commands, generalized weakness with rigidity noticed. Alertness fluctuates from depressed to more alert to follow commands.
Prognosis is guarded at this point. Will c/w pT upon discharge. Family was made aware of need to follow with neurology/ neurosurgery for repeat images.
EEG no seizure activity noted. Stable HGB level. C/W BP control.
She denied headache.
d/w neurosurgery Dr Lizama , likely hemorrhagic stroke > mass, follow up in 6 week if family wishes to continue. D/W neurologist Dr Cardoza, not sure if mass or stroke but recommendations are the same, to OP follow up in two week with CT head.
Echo of heart no significant abnormalities.
Appreciate neurology and neurosurgery input
Updated pt's primary neurologist at [place] Dr Garcia.
# Essential HTN
Better controlled with increased amlodipine to 10 mg QD
# Acute hypoxia/acute metabolic encephalopathy likely from aspiration pneumonia
-Chest x-ray with left basilar pneumonia
Not in distress this morning, Denies cough
No fevers or leukocytosis
-IV Unasyn continued and finished course.
-Tylenol as needed for fever
-Follow-up chest x-ray showed same opacities and some atelectasis--> recommend to follow-up chest x-ray in 4 to 6 weeks unless clinical status changes.
#Chronic Dysphagia secondary to Parkinson's disease
Swallowing difficulty and dysphagia worsened due to new CVA.
-Status post PEG placement on 05/28 with TF from 6pm to 10am
-patient also on purred diet at home--> Now n.p.o.
-hold on oral diet
-speech consulted and recommended strict n.p.o. and continue TF
- latest recommendations for home feeds:
recommended 237ml (8 oz ) Jevity 1.5 4 times per day with a 75ml water flush before and after each bolus feeds (total 600ml water flush)
Patient will require tube feeds at home for greater than 90 days due to dysphagia/Parkinson/severe protein calorie malnutrition.
# Hypokalemia, resolved
#Parkinson's disease continue preadmission regimen including carbidopa levodopa, amantadine
-Continue gabapentin
#Severe protein- calorie malnutrition
Dietary consult
#Parkinson's related dementia
Monitor mental status and behavior
#Anxiety/depression
-Continue sertraline
Migraine history
#Hypothyroidism
-Continue levothyroxine
#Hyperlipidemia
#COPD/asthma
-Patient not in acute exacerbation
-continue nebs
# GERD
-Pepcid continued
Full code
DVT prophylaxis- SQ heparin
Anticipated Discharge: Today
Subjective/Interval History
-
Date of Service: July 25, 2024
No new complaints. Tolerating TF
Objective Data
-
Vital Signs:
Vital Signs
Temp Pulse Resp BP Pulse Ox
97.6 F 61 16 106/59 98
07/25/24 07:52 07/25/24 07:52 07/25/24 07:52 07/25/24 07:52 07/25/24 07:52
I&O
07/24/24 07/25/24 07/26/24
06:59 06:59 06:59
Intake Total 780 / 780 840 / 840
Balance 780 / 780 840 / 840
--- NOTE | 2024-07-25 11:05 | CM ---
Addendum entered by Chasity Velarde RN 07/26/24 08:06:
received email from son Donte he wrote he had not called he wrote he had not reached out to 3 out of 4 respiratory care assistant agencies. He wrote he had called [employer] to start appeal and case number was [id number].
Addendum entered by Chasity Velarde RN 07/25/24 15:35:
researched care givers that take waivers. [place] monitoring analyst [employer] [phone], [facility] [phone], and [facility] [phone] ext [phone] Marianne . Above names and numbers left on Mabel message . Requested call back by
4:30 pm today.
IMM emailed to Donte at 11:44 am today.
Addendum entered by Chasity Velarde RN 07/25/24 11:45:
Spoke with son Donte explained dc plan. He said that he has not been able to get care givers set up . CM gave him agency to call.
IMM emailed to Donte .
Instructed Donte to call back [facility] about care givers.
Original Note:
MD entered order for discharge.
LM x2 with Donte son [phone]. Spoke with Polly [phone] she confirmed Son Donte's address: [address] [place] [id number] admission to change in summary.
In message to Donte requested he line up care givers for tomorrow.
Spoke with [facility] she said Jevity and supplies can be delivered day of dc in am.Informed her dc is tomorrow.
[facility] said pt to be dc be 12 :00 tomorrow. Medical nec form completed for 11:30 am tomorrow.0 steps to enter
As per Rosalie BOLIVAR Sl[facility] [place] [phone] will follow pt with tube feedings at home.
PLAN Home via ambulance i am with [facility] and [facility] for tube feedings.
[2024-07-25 15:12] VITALS: BP 104/40
[2024-07-25] MEDS: SENOKOT 17.2 MG TUBE (21:51)
[2024-07-25] MEDS: SINEMET 25-100 2 TABLET TUBE (21:51)
[2024-07-26 02:50] VITALS: BP 125/58
[2024-07-26 03:25] VITALS: BP 122/59
[2024-07-26 06:00] VITALS: BMI 15.3
[2024-07-26] MEDS: SYNTHROID 75 MCG TUBE (06:07)
[2024-07-26 07:43] VITALS: BP 130/55
[2024-07-26] MEDS: PEPCID 20 MG TUBE (07:46)
[2024-07-26] MEDS: LIDOCAINE 4% PATCH 1 PATCH TOPICAL (07:46)
[2024-07-26] MEDS: NORVASC 10 MG TUBE (07:46)
[2024-07-26] MEDS: ZOLOFT 150 MG TUBE (07:46)
[2024-07-26] MEDS: SYMMETREL SYRUP 100 MG TUBE ×3 (07:46→22:00)
[2024-07-26] MEDS: HEPARIN 5000 UNITS SC ×2 (07:47→19:39)
[2024-07-26] MEDS: NEURONTIN 100 MG TUBE ×2 (07:47→19:38)
[2024-07-26] MEDS: SINEMET 25-100 1 TABLET TUBE ×4 (07:48→19:39)
--- NOTE | 2024-07-26 08:12 | VNURNOTE ---
Spoke with MARTIN Gaspar. Patient's son has appealed DC. No DC today. [facility] bsa officer Pina and VNs notified. [facility] nurses cancelled for 07/26.
--- NOTE | 2024-07-26 09:34 | W.PN.HOSP.TC ---
Today's Communication/Plan
-
Discharge planning in progress.
Assessment / Plan
Assessment / Plan
Physical exam:
General: chronically ill looking, no respiratory distress.
HEENT: Normocephalic, Atraumatic and Moist Mucous Membranes
Respiratory: Clear to Auscultation bilateral; Negative Wheezes.
Cardiac: Regular Rhythm and S1/S2
GI: Soft, Nontender and Nondistended
Musculoskeletal: No Clubbing, No Cyanosis and No Edema. PEG placement in place
Neuro: Awake, Alert and oriented, increased tone/rigidity, generalized weakness.
Psych: Calm
A/P:
Weakness/deconditioning:
Continue PT OT
Recommend rehab but family would like to take her home
I have discussed with family in detail about plan of care and discharge disposition prior.
Dr. Virgen had meetings with family last week as well
Medically stable for discharge
Right frontal hemorrhagic mass versus subacute infarct with hemorrhagic conversion with vasogenic edema and 2 mm midline shift:
Stable
Appreciated neurology and neurosurgery consults and input
Neurosurgery recommended follow-up CT head in [address] Virgen discussed with primary neurologist at [place] Dr. Garcia
Metabolic encephalopathy:
Resolved
Related to intracerebral hemorrhage and aspiration pneumonia
Aspiration pneumonia:
Completed course of IV Unasyn
Remains afebrile and pulse ox normal
Dysphagia due to Parkinson's disease:
Continue TF--> tolerating well
Strict n.p.o.
Dietitian recommended 237ml (8 oz ) Jevity 1.5 4 times per day with a 75ml water flush before and after each bolus feeds (total 600ml water flush) upon discharge.
Severe protein calorie malnutrition:
Continue feedings as above
Hypokalemia:
Resolved
Parkinson's:
Continue current carbidopa-levodopa regimen 25/100 2 tablets 4 times daily and 2 tablets nightly.
Continue amantadine 100 mg 3 times daily
Anxiety/depression:
Continue sertraline
Hypothyroidism:
Continue levothyroxine 75 mcg daily
Hypertension:
Continue amlodipine 10 mg daily
Cognitive deficits/borderline personality disorder:
Monitor behavior
DVT prophylaxis:
Heparin 5000 units every 12 hours--> okay with neurology and neurosurgery
CODE STATUS:
Full code
Anticipated Discharge: Today
Subjective/Interval History
-
Date of Service: July 26, 2024
No new complaints. On room air. Afebrile
Objective Data
-
Vital Signs:
Vital Signs
Temp Pulse Resp BP Pulse Ox
97.5 F 61 16 130/55 98
07/26/24 07:43 07/26/24 07:43 07/26/24 07:43 07/26/24 07:43 07/26/24 07:43
I&O
07/25/24 07/26/24 07/27/24
06:59 06:59 06:59
Intake Total 840 / 840 780 / 780
Balance 840 / 840 780 / 780
[2024-07-26 12:45] VITALS: BP 100/49; PULSE 60; O2SAT 97
[2024-07-26 15:18] VITALS: BP 101/57
--- NOTE | 2024-07-26 16:10 | CM ---
Donte pts son appealed discharge and called [facility] with case # [id number].
Clinical forwarded to [facility]. Awaiting determination.
Detailed Notice of Discharge sent via Secure emailed to Donte and copy of DND left in room.
Spoke with Sourav from [employer] [phone] who determines waiver program recipients. Brain said that pts waiver program is handled by [facility] [phone].
Above information left on voicemail to Donte.
PLAN Awaiting [place] appeal determination
--- NOTE | 2024-07-26 17:18 | PTCARENOTE ---
Pt with discharge order in. Pt was not discharged today due to son's appeal. CM following.
[2024-07-26] MEDS: SINEMET 25-100 2 TABLET TUBE (22:00)
[2024-07-26] MEDS: SENOKOT 17.2 MG TUBE (22:00)
[2024-07-26 23:30] VITALS: BP 97/64
[2024-07-27] MEDS: SYNTHROID 75 MCG TUBE (05:02)
[2024-07-27 06:00] VITALS: BMI 14.8
[2024-07-27 08:45] VITALS: BP 120/45
[2024-07-27] MEDS: LIDOCAINE 4% PATCH 1 PATCH TOPICAL (08:45)
[2024-07-27] MEDS: SYMMETREL SYRUP 100 MG TUBE ×3 (08:45→22:13)
[2024-07-27] MEDS: NEURONTIN 100 MG TUBE ×2 (08:46→19:45)
[2024-07-27] MEDS: ZOLOFT 150 MG TUBE (08:46)
[2024-07-27] MEDS: NORVASC 10 MG TUBE (08:46)
[2024-07-27] MEDS: HEPARIN 5000 UNITS SC ×2 (08:47→19:45)
[2024-07-27] MEDS: PEPCID 20 MG TUBE (08:49)
[2024-07-27] MEDS: SINEMET 25-100 1 TABLET TUBE ×4 (08:49→19:46)
--- NOTE | 2024-07-27 09:57 | W.PN.HOSP.TC ---
Today's Communication/Plan
-
Discharge planning
Assessment / Plan
Assessment / Plan
Physical exam:
General: chronically ill looking, no respiratory distress.
HEENT: Normocephalic, Atraumatic and Moist Mucous Membranes
Respiratory: Clear to Auscultation bilateral; Negative Wheezes.
Cardiac: Regular Rhythm and S1/S2
GI: Soft, Nontender and Nondistended
Musculoskeletal: No Clubbing, No Cyanosis and No Edema. PEG placement in place
Neuro: Awake, Alert and disoriented, increased tone/rigidity, generalized weakness.
Psych: Calm
A/P:
Weakness/deconditioning:
Continue PT OT
Recommend rehab but family would like to take her home
I have discussed with family in detail about plan of care and discharge disposition prior.
Dr. Virgen had meetings with family last week as well
Medically stable for discharge
Awaiting for discharge appeal process
In-hospital delirium:
Monitor mental status and behavior
Right frontal hemorrhagic mass versus subacute infarct with hemorrhagic conversion with vasogenic edema and 2 mm midline shift:
Stable
Appreciated neurology and neurosurgery consults and input
Neurosurgery recommended follow-up CT head in [address] Virgen discussed with primary neurologist at [place] Dr. Garcia
Metabolic encephalopathy:
Resolved
Related to intracerebral hemorrhage and aspiration pneumonia
Aspiration pneumonia:
Completed course of IV Unasyn
Remains afebrile and pulse ox normal
Dysphagia due to Parkinson's disease:
Continue TF--> tolerating well
Strict n.p.o.
Dietitian recommended 237ml (8 oz ) Jevity 1.5 4 times per day with a 75ml water flush before and after each bolus feeds (total 600ml water flush) upon discharge.
Severe protein calorie malnutrition:
Continue feedings as above
Hypokalemia:
Resolved
Parkinson's:
Continue current carbidopa-levodopa regimen 25/100 2 tablets 4 times daily and 2 tablets nightly.
Continue amantadine 100 mg 3 times daily
Anxiety/depression:
Continue sertraline
Hypothyroidism:
Continue levothyroxine 75 mcg daily
Hypertension:
Continue amlodipine 10 mg daily
Cognitive deficits/borderline personality disorder:
Monitor behavior
DVT prophylaxis:
Heparin 5000 units every 12 hours--> okay with neurology and neurosurgery
CODE STATUS:
Full code
Anticipated Discharge: Today
Subjective/Interval History
-
Date of Service: July 27, 2024
No new complaints. Mildly delirious.
Objective Data
-
Vital Signs:
Vital Signs
Temp Pulse Resp BP Pulse Ox
97.6 F 66 18 120/45 97
07/27/24 08:45 07/27/24 08:46 07/27/24 08:45 07/27/24 08:46 07/27/24 08:45
I&O
07/26/24 07/27/24 07/28/24
06:59 06:59 06:59
Intake Total 780 / 780 780 / 780
Balance 780 / 780 780 / 780
--- NOTE | 2024-07-27 14:11 | CM ---
Addendum entered by ORALIA Carpenter 07/27/24 14:16:
SOn hopes he can talk to new [employer]PAT[facility] [employer] agency on Monday to set up needed care. MARTIN again asked him to consider Short term rehab but son said no medicare coverage is available. DIscussed using her [place] Medicaid plan but son wants to bring her home.
Tamara from [facility] called back to clarify the nursing education on bolus feeds needs to be done by RN or MARIO RN.
Tamara will be able to deliver the tube feeding supplies Monday.
Original Note:
Spoke to son Donte. He did not hear from [facility]. MARTIN explained [facility] upheld decision to discharge. Donte said he did not get a phone call or letter. MARTIN copied letter sent to that was to be sent to patient/family . Donte knows this was placed
on chart and he can milk pickup driver in next 12-24 hours. Donte said [facility] has not called him and has not sent out supplies.
MARTIN left VM on Tamara From [facility] asking if she talked to son, Donte and that all supplies need to be at house on Monday for patient.
[2024-07-27 16:39] VITALS: BP 112/47
[2024-07-27] MEDS: SENOKOT 17.2 MG TUBE (22:13)
[2024-07-27] MEDS: SINEMET 25-100 2 TABLET TUBE (22:13)
[2024-07-28 00:30] VITALS: BP 124/74
[2024-07-28] MEDS: SYNTHROID 75 MCG TUBE (05:22)
[2024-07-28 06:00] VITALS: BMI 14.6
--- NOTE | 2024-07-28 07:47 | W.PN.HOSP.TC ---
Today's Communication/Plan
-
Discharge planning.
Assessment / Plan
Assessment / Plan
Physical exam:
General: chronically ill looking, no respiratory distress.
HEENT: Normocephalic, Atraumatic and Moist Mucous Membranes
Respiratory: Clear to Auscultation bilateral; Negative Wheezes.
Cardiac: Regular Rhythm and S1/S2
GI: Soft, Nontender and Nondistended
Musculoskeletal: No Clubbing, No Cyanosis and No Edema. PEG placement in place
Neuro: Awake, Alert and disoriented, increased tone/rigidity, generalized weakness.
Psych: Calm
A/P:
Weakness/deconditioning:
Continue PT OT
Recommend rehab but family would like to take her home
I have discussed with family in detail about plan of care and discharge disposition prior.
Dr. Virgen had meetings with family last week as well
Medically stable for discharge
Awaiting for discharge appeal process--> I have been told discharge appeal went through and she can be discharged. No tube feed supplies at home so awaiting for that to be arranged.
In-hospital delirium:
Monitor mental status and behavior
Right frontal hemorrhagic mass versus subacute infarct with hemorrhagic conversion with vasogenic edema and 2 mm midline shift:
Stable
Appreciated neurology and neurosurgery consults and input
Neurosurgery recommended follow-up CT head in [address] Virgen discussed with primary neurologist at [place] Dr. Garcia
Metabolic encephalopathy:
Resolved
Related to intracerebral hemorrhage and aspiration pneumonia
Aspiration pneumonia:
Completed course of IV Unasyn
Remains afebrile and pulse ox normal
Dysphagia due to Parkinson's disease:
Continue TF--> tolerating well
Strict n.p.o.
Dietitian recommended 237ml (8 oz ) Jevity 1.5 4 times per day with a 75ml water flush before and after each bolus feeds (total 600ml water flush) upon discharge.
Severe protein calorie malnutrition:
Continue feedings as above
Hypokalemia:
Resolved
Parkinson's:
Continue current carbidopa-levodopa regimen 25/100 2 tablets 4 times daily and 2 tablets nightly.
Continue amantadine 100 mg 3 times daily
Anxiety/depression:
Continue sertraline
Hypothyroidism:
Continue levothyroxine 75 mcg daily
Hypertension:
Continue amlodipine 10 mg daily
Cognitive deficits/borderline personality disorder:
Monitor behavior
DVT prophylaxis:
Heparin 5000 units every 12 hours--> okay with neurology and neurosurgery
CODE STATUS:
Full code
Anticipated Discharge: Within 24 hours
Subjective/Interval History
-
Date of Service: July 28, 2024
No new events. Afebrile
Objective Data
-
Vital Signs:
Vital Signs
Temp Pulse Resp BP Pulse Ox
98.6 F 75 18 124/74 98
07/27/24 23:24 07/27/24 23:24 07/27/24 23:24 07/28/24 00:30 07/27/24 23:24
I&O
07/27/24 07/28/24 07/29/24
06:59 06:59 06:59
Intake Total 780 / 780 780 / 780 810 / 810
Balance 780 / 780 780 / 780 810 / 810
[2024-07-28 07:58] VITALS: BP 116/74
[2024-07-28] MEDS: LIDOCAINE 4% PATCH 1 PATCH TOPICAL (08:48)
[2024-07-28] MEDS: ZOLOFT 150 MG TUBE (08:49)
[2024-07-28] MEDS: PEPCID 20 MG TUBE (08:49)
[2024-07-28] MEDS: NORVASC 10 MG TUBE (08:49)
[2024-07-28] MEDS: SINEMET 25-100 1 TABLET TUBE ×4 (08:50→20:16)
[2024-07-28] MEDS: HEPARIN 5000 UNITS SC ×2 (08:50→20:15)
[2024-07-28] MEDS: SYMMETREL SYRUP 100 MG TUBE ×3 (08:51→22:00)
[2024-07-28] MEDS: NEURONTIN 100 MG TUBE ×2 (08:51→20:14)
[2024-07-28 16:36] VITALS: BP 95/66
[2024-07-28] MEDS: TYLENOL ORAL SOLUTION 650 MG TUBE (20:20)
[2024-07-28] MEDS: SENOKOT 17.2 MG TUBE (22:00)
[2024-07-28] MEDS: SINEMET 25-100 2 TABLET TUBE (22:01)
[2024-07-29] VITALS: BP 120/64
[2024-07-29] MEDS: TYLENOL ORAL SOLUTION 650 MG TUBE ×2 (02:22→08:55)
[2024-07-29] MEDS: SYNTHROID 75 MCG TUBE (05:09)
[2024-07-29 05:32] VITALS: BMI 14.5
[2024-07-29 07:38] VITALS: BP 142/57
[2024-07-29 07:41] VITALS: BP 88/59
[2024-07-29] MEDS: LIDOCAINE 4% PATCH 1 PATCH TOPICAL (08:54)
[2024-07-29] MEDS: HEPARIN 5000 UNITS SC ×2 (08:56→19:48)
[2024-07-29] MEDS: PEPCID 20 MG TUBE (08:56)
[2024-07-29] MEDS: SYMMETREL SYRUP 100 MG TUBE ×3 (08:57→23:04)
[2024-07-29] MEDS: NEURONTIN 100 MG TUBE ×2 (08:58→19:48)
[2024-07-29] MEDS: NORVASC TUBE (09:02)
[2024-07-29] MEDS: SINEMET 25-100 1 TABLET TUBE ×4 (09:02→19:58)
[2024-07-29] MEDS: ZOLOFT 150 MG TUBE (09:02)
--- NOTE | 2024-07-29 10:12 | W.PN.HOSP.TC ---
Today's Communication/Plan
-
Discharge planning
Assessment / Plan
Assessment / Plan
Physical exam:
General: chronically ill looking, no respiratory distress.
HEENT: Normocephalic, Atraumatic and Moist Mucous Membranes
Respiratory: Clear to Auscultation bilateral; Negative Wheezes.
Cardiac: Regular Rhythm and S1/S2
GI: Soft, Nontender and Nondistended
Musculoskeletal: No Clubbing, No Cyanosis and No Edema. PEG placement in place
Neuro: Awake, Alert and disoriented, increased tone/rigidity, generalized weakness.
Psych: Calm
A/P:
Weakness/deconditioning:
Continue PT OT
Recommend rehab but family would like to take her home
I have discussed with family in detail about plan of care and discharge disposition prior.
Dr. Virgen had meetings with family last week as well
Medically stable for discharge
Awaiting for discharge appeal process--> I have been told discharge appeal went through and she can be discharged.
In-hospital delirium:
Monitor mental status and behavior
Right frontal hemorrhagic mass versus subacute infarct with hemorrhagic conversion with vasogenic edema and 2 mm midline shift:
Stable
Appreciated neurology and neurosurgery consults and input
Neurosurgery recommended follow-up CT head in [address] Virgen discussed with primary neurologist at [place] Dr. Garcia
Metabolic encephalopathy:
Resolved
Related to intracerebral hemorrhage and aspiration pneumonia
Aspiration pneumonia:
Completed course of IV Unasyn
Remains afebrile and pulse ox normal
Dysphagia due to Parkinson's disease:
Continue TF--> tolerating well
Strict n.p.o.
Dietitian recommended 237ml (8 oz ) Jevity 1.5 4 times per day with a 75ml water flush before and after each bolus feeds (total 600ml water flush) upon discharge.
Severe protein calorie malnutrition:
Continue feedings as above
Hypokalemia:
Resolved
Parkinson's:
Advanced
Continue current carbidopa-levodopa regimen 25/100 2 tablets 4 times daily and 2 tablets nightly.
Continue amantadine 100 mg 3 times daily
I spoke with her primary neurologist Dr Garcia. She was going to talk to son also about goal of care.
Anxiety/depression:
Continue sertraline
Hypothyroidism:
Continue levothyroxine 75 mcg daily
Hypertension:
Continue amlodipine 10 mg daily
Cognitive deficits/borderline personality disorder:
Monitor behavior
DVT prophylaxis:
Heparin 5000 units every 12 hours--> okay with neurology and neurosurgery
CODE STATUS:
Full code
Total time spent to see the patient on the floor, examine the patient, review data and lab results, discuss treatment plan with patient, nursing staff around 55 minutes
Anticipated Discharge: Today
Subjective/Interval History
-
Date of Service: July 29, 2024
No fevers
Objective Data
-
Vital Signs:
Vital Signs
Temp Pulse Resp BP Pulse Ox
99.3 F 73 16 88/59 98
07/29/24 07:41 07/29/24 07:41 07/29/24 07:41 07/29/24 07:41 07/29/24 07:41
I&O
07/28/24 07/29/24 07/30/24
06:59 06:59 06:59
Intake Total 780 / 780 1650 / 1650
Balance 780 / 780 1650 / 1650
--- NOTE | 2024-07-29 12:14 | PTCARENOTE ---
Patient continues with jerky movements and leaning towards the right. Patient repositioned frequently. Patient resting comfortably at present, able to answer yes and no questions and sometimes makes needs known. HOB maintained at 30 degrees
--- NOTE | 2024-07-29 12:26 | CM ---
Addendum entered by Ibrahima Hernandez 07/29/24 15:18:
Correction: Discharge tomorrow 07/30/24
Original Note:
CM following re: discharge planning.
Reviewed pt's chart, met with pt and spoke many times today to pt's son Donte.
Discharge order noted. pt's son is aware that pt lost an appeal and pt's financial responsibility starts today after 12:00 p.m. Pt's son stated he spoke to [employer] yesterday, discussed second level of appeal and was told if pt losses second level of
appeal pt is responsible financially. Pt's son stated he will not do second level of appeal because it's 'worthless'.
Pt's son stated he will do everything possible to arrange caregiver services as soon as possible.
CM spoke to [facility] liaison and [facility] liaison and per [facility] liaison they will not be able to arrange VN services for today and it has t be tomorrow. Per [facility] liaison, they can delivery pt's peg tube supplies only on the day of discharge.
At this point it is unsafe to discharge pt home today due to no ability to delivery peg tube supplies today, to have VN services today and no care caregiver services in place.
Pt's son stated that his mother was at [facility] for almost 100 days and almost exhausted SNF benefits. pt's son stated because her mother was not at home for more than 3 month, pt's caregiver services that provided by [facility] became difficult to
restart. Pt's son stated he is working with [facility], coordinating with sales representative health insurance Marianne [phone]. Pt's son stated that pt is enrolled in PDA waiver community based services with [facility] and was receiving 16 hours of
RN REHAB services before. Pt's son stated that pt's coordinator is Marcy Bailey [phone].
CM called [facility] and left a message to sales representative health insurance Marianne.
CM spoke to pt's associate field service engineer Marcy and she confirmed that [facility] will not be able to start services till August 18. patient placement coordinator Marcy stated she was able to approved RN REHAB services with [facility] and during our
conversation she confirmed with [facility] that they will be able to start caregiver services tomorrow.
CM spoke to pt's son who brought to me his appreciation for coordination of pt's discharge and he confirmed that [facility] caregiver will be at pt's home tomorrow at 12:00 p.m.
MARTIN spoke to [facility] liaison and she confirmed that peg tube supplies with be delivered to pt's home tomorrow by 1:00 p.m.
MARTIN spoke to [facility] liaison and she confirmed that [facility] RN will be at pt's home tomorrow by 1:00 p.m.
[facility] to arrange transportation BLS for tomorrow 08/29/24 for 12:00 scrap picker time. [facility] .
Please fax discharge instructions to VN at [phone].
D/C plan: home tomorrow 08/29/24 with [facility] Peg tube supplies, [facility], 16 hours of [facility] caregivers services per day and family support.
[2024-07-29 15:19] VITALS: BP 143/96
[2024-07-29] MEDS: SENOKOT 17.2 MG TUBE (23:04)
[2024-07-29] MEDS: SINEMET 25-100 2 TABLET TUBE (23:04)
[2024-07-29 23:35] VITALS: BP 93/61
[2024-07-30] MEDS: SYNTHROID 75 MCG TUBE (05:28)
[2024-07-30 06:00] VITALS: BMI 14.4
[2024-07-30 08:08] VITALS: BP 153/121
[2024-07-30] MEDS: ZOLOFT 150 MG TUBE (08:38)
[2024-07-30] MEDS: NEURONTIN 100 MG TUBE (08:40)
[2024-07-30] MEDS: LIDOCAINE 4% PATCH 1 PATCH TOPICAL (08:41)
[2024-07-30] MEDS: SYMMETREL SYRUP 100 MG TUBE (08:41)
[2024-07-30] MEDS: PEPCID 20 MG TUBE (08:42)
[2024-07-30] MEDS: NORVASC 10 MG TUBE (08:43)
[2024-07-30] MEDS: HEPARIN 5000 UNITS SC (08:51)
--- NOTE | 2024-07-30 09:22 | CM ---
CM following re: discharge planning.
Discharge order in.
Transportation is arranged for 11:30 a.m. cone picker time. [facility]
CM spoke to pt's son Donte and he stated he is home and very excited to finally have his mother home and he expressed his great appreciation with discharge plan coordinations and outcome. Pt's son is aware of 11:30 a.m cone picker time and he stated he
is home to accept his mother and a caregiver from [facility] will be at 12:00 p.m.
[facility] will deliver peg tube supplies by 1:00 p.m. Confirmed with [facility] liaison.
MARTIN confirmed with [facility] liaison that [facility] liaison will be at pt's home at 1:00 p.m.
Please fax discharge instructions to VN at [phone]
D/C plan: home today with [facility] Peg tube supplies, [facility], 16 hours of [facility] caregivers services per day and family support.
[2024-07-30] MEDS: SINEMET 25-100 1 TABLET TUBE (09:26)
--- NOTE | 2024-07-30 11:03 | W.PN.HOSP.TC ---
Today's Communication/Plan
-
dc
Assessment / Plan
Assessment / Plan
Physical exam:
General: chronically ill looking, no respiratory distress.
HEENT: Normocephalic, Atraumatic and Moist Mucous Membranes
Respiratory: Clear to Auscultation bilateral; Negative Wheezes.
Cardiac: Regular Rhythm and S1/S2
GI: Soft, Nontender and Nondistended
Musculoskeletal: No Clubbing, No Cyanosis and No Edema. PEG placement in place
Neuro: Awake, Alert and disoriented, increased tone/rigidity, generalized weakness.
Psych: Calm
A/P:
# Risk of re-admission
Patient continued to show no improvement after her stroke. She remains confused, agitated at times, requiring nursing care around the clock. Discharge planning and disposition goal were discussed with Donte, son ( who is the primary animal daycare provider) few
times, he was advised to seek palliative care in NH setting. He wanted to care for him mother at home, dying at home per her wishes according to him.
# In-hospital delirium:
Monitored mental status and behavior, c/w her home dose of Parkinson's medications, Zoloft, gabapentin.
# Right frontal hemorrhagic mass versus subacute infarct with hemorrhagic conversion with vasogenic edema and 2 mm midline shift:
Stable
Appreciated neurology and neurosurgery consults and input
Neurosurgery recommended follow-up CT head in [address] Virgen discussed with primary neurologist at [place] Dr. Garcia
Metabolic encephalopathy:
Resolved
Related to intracerebral hemorrhage and aspiration pneumonia
Aspiration pneumonia:
Completed course of IV Unasyn
Remains afebrile and pulse ox normal
Dysphagia due to Parkinson's disease:
Continue TF--> tolerating well
Strict n.p.o.
Dietitian recommended 237ml (8 oz ) Jevity 1.5 4 times per day with a 75ml water flush before and after each bolus feeds (total 600ml water flush) upon discharge.
Severe protein calorie malnutrition:
Continue feedings as above
Hypokalemia:
Resolved
Parkinson's:
Advanced
Continue current carbidopa-levodopa regimen 25/100 2 tablets 4 times daily and 2 tablets nightly.
Continue amantadine 100 mg 3 times daily
I spoke with her primary neurologist Dr Garcia. She was going to talk to son also about goal of care.
Anxiety/depression:
Continue sertraline
Hypothyroidism:
Continue levothyroxine 75 mcg daily
Hypertension:
Continue amlodipine 10 mg daily
Cognitive deficits/borderline personality disorder:
Monitor behavior
DVT prophylaxis:
Heparin 5000 units every 12 hours--> okay with neurology and neurosurgery
CODE STATUS:
Full code
Total discharge time spent to see the patient on the floor, examine the patient, review data and lab results, discuss discharge plan with patient, pillowcase cleaner, home health nurse, nursing staff around 67 minutes
Anticipated Discharge: Today
Subjective/Interval History
-
Date of Service: July 30, 2024
No fevers
remains confused but no need for restraints
Objective Data
-
Vital Signs:
Vital Signs
Temp Pulse Resp BP Pulse Ox
98.8 F 83 18 147/64 94
07/30/24 08:08 07/30/24 08:43 07/30/24 08:08 07/30/24 08:43 07/30/24 08:08
I&O
07/29/24 07/30/24 07/31/24
06:59 06:59 06:59
Intake Total 1650 / 1650 1590 / 1590
Balance 1650 / 1650 1590 / 1590
--- NOTE | 2024-07-30 12:58 | W.DCSUMMARY ---
Discharge Summary
Discharge Data
Date of Admission: 07/11/24
Date of Discharge: 07/30/24
-
Pending Results: No
Hospital Course
73 years old female with history of Parkinson's, dementia, failure to thrive, recent feeding tube placement in 05/2024, ambulatory dysfunction presented after her family noticed increased hypoxia, aphasia, lethargy with change in mental status.
Upon arrival to [facility], she was afebrile, no leukocytosis. Chest x ray showed same opacities and some atelectasis and she was diagnosed with possible pneumonia. Patient was started on antibiotics for possible aspiration event. Her
mentation did not improve and she remained encephalopathic. CT head was ordered and showed focus of low attenuation within the right frontal lobe, with central hyperattenuation. Differential diagnosis included hemorrhagic conversion of infarct, and
hemorrhagic mass/metastasis. Patient was transferred to ICU for better management of blood pressure in the setting of possible hemorrhagic lesion in the brain. Brain MRI with and without contrast showed large intraparenchymal hemorrhage versus
hemorrhagic mass in the right frontal lobe as seen on the recent prior head CT, mild subarachnoid blood products in the right frontal lobe, sylvian fissure, and dependent bilateral lateral ventricles. Neurologist and neurosurgery doctors saw the
patient and the decision was likely hemorrhagic stroke, recommended a follow up images in 4-6 weeks. Patient was monitored in ICU and amlodipine was added to better control her blood pressure. EEG showed abnormal awake and asleep EEG due to
intermittent right frontocentral slowing indicative of cortical dysfunction, no epileptiform activity was seen.�She was given a pharmacological DVT prophylaxis after observing her and upon recommendations from neurology and neurosurgery doctors.
Patient finished antibiotics course, she did not need supplemental oxygen. Patient remained on telemetry floor for continuous care and observation. She did not have arrhythmias, echo of heart showed LVEF 65-70% with no significant valvular disease.
Patient did not show clinical improvement. Nutrition was maintained through feeding tube and her medications were given through feeding tube. patient remained confused and periods of agitation alternating with lethargy. Goal of care and discharge
planning were discussed with family few times and the son wanted to take the patient home despite her guarded and complex prognosis. assistant finance manager and home health services liaison were heavily involved to coordinate a safe discharge plan. Patient
remained hemodynamically stable and was discharged in stable condition. Patient remains high risk for readmission because of her complex comorbidity. Family/son was advised to seek palliative care. Primary neurologist Dr. Garcia was updated.
Home care services requested to send prescription of home medications in liquid form if possible
Discharge Plan
-
Patient Disposition: Home with Home Care
Discharge Diagnosis/Procedures: Aspiration pneumonia. Sepsis. Acute hypoxic respiratory failure. Acute metabolic encephalopathy. Large intraparenchymal hemorrhage in the right frontal lobe. Dysphagia. Parkinson's disease.
Diet: Other diet
Additional Diets: Jevity 1.5, 4 times a day with 75 cc of water flush before and after bolus.
Activity: As tolerated
Blood Work: Please PCP to order CBC, BMP within 1 week
Activity Restrictions/Additional Instructions:
Pressure redistributing chair cushion (i.e. Air chair cushion)
Elevate heels off bed with pillow.
Turning schedule
Referrals:
Claudia Garcia MD [Non-Admitting Privileges] - in two to three weeks
Arron Dash DO [Non-Admitting Privileges] - in less than 1 week
Prescriptions:
New
gabapentin 250 mg/5 mL solution
100 mg feeding tube BID Qty: 470 0RF
amlodipine 1 mg/mL solution
5 mg feeding tube DAILY Qty: 150 0RF
sennosides [senna] 8.8 mg/5 mL syrup
17.6 mg PO HS Qty: 236 0RF
sertraline [Zoloft] 20 mg/mL concentrate
150 mg feeding tube DAILY Qty: 60 0RF
famotidine 40 mg/5 mL (8 mg/mL) suspension for reconstitution
2.5 ml feeding tube DAILY Qty: 50 0RF
carbidopa-levodopa 25-100 mg tablet,disintegrating
1 tab feeding tube QID Qty: 120 0RF
Rx Instructions:
QID @0800,1200,1600,2000
carbidopa-levodopa 25-100 mg tablet,disintegrating
2 tab PO HS Qty: 60 0RF
amantadine HCl 50 mg/5 mL solution
100 mg feeding tube TID Qty: 473 0RF
Continued
lidocaine 4 % Adhesive Patch,Medicated
1 patch TOPICAL DAILY
bisacodyl [Dulcolax (bisacodyl)] 10 mg Suppository
10 mg MN DAILYPRN PRN (Reason: if no bm aftr mom)
Fleet Enema 19-7 gram/118 mL Enema
118 ml MN DAILYPRN PRN (Reason: if no bm aftr dulcolax)
albuterol sulfate 90 mcg/actuation Hfa Aerosol Inhaler
2 puff INHALATION R Q6HPRN PRN (Reason: sob)
fluticasone propionate 50 mcg/actuation [place],Suspension
1 spray INTRANASAL DAILYPRN PRN (Reason: allergies)
gabapentin 100 mg Capsule
100 mg feeding tube BID Qty: 90 0RF
sennosides [Senna Laxative] 8.6 mg Tablet
17.2 mg feeding tube HS Qty: 30 0RF
famotidine 20 mg Tablet
20 mg feeding tube DAILY Qty: 30 0RF
sertraline 50 mg Tablet
150 mg feeding tube DAILY Qty: 30 0RF
carbidopa-levodopa 25-100 mg Tablet
1 tab feeding tube QID Qty: 30 0RF
carbidopa-levodopa 25-100 mg Tablet
2 tab feeding tube HS Qty: 60 0RF
levothyroxine 75 mcg Tablet
75 mcg feeding tube DAILY@0600 Qty: 30 0RF
multivitamin with folic acid [Tab-A-Loren] 400 mcg Tablet
1 tab feeding tube DAILY Qty: 30 0RF
trazodone 50 mg Tablet
50 mg feeding tube HS Qty: 30 0RF
amantadine HCl 100 mg Tablet
100 mg feeding tube TID
acetaminophen 325 mg tablet
650 mg feeding tube Q6HPRN MDD 3000 mg PRN (Reason: mild pain/temp >100)
magnesium hydroxide 400 mg/5 mL suspension
30 ml feeding tube [id number] PRN (Reason: if no bm 3 days)
oxycodone 5 mg tablet
5 mg feeding tube Q6HPRN PRN (Reason: severe pain)
Discharge Orders:
Discharge Patient (As Directed); Ordered 07/25/24
Ordered By: Ulises Reynolds
Discharge Date and Time
Discharge Date/Time: 07/30/24 11:46
Print Language: MAORI
== END 2024-07-30 11:46 | disposition home health service (06) | DRG 64 ==
LOC: 3 WEST ACU 15:13
PROVIDERS: Hospitalist; Nurse Practitioner Family; Nurse Practitioner Gerontology; Physician Assistant; Registered Nurse; ADMITTING PHYSICIAN Student in an Organized Health Care Education/Training Program; ATTENDING PHYSICIAN Internal Medicine; EMERGENCY PHYSICIAN Emergency Medicine; FAMILY PHYSICIAN Nurse Practitioner Family; OTHER PHYSICIAN Internal Medicine Critical Care Medicine; OTHER PHYSICIAN Neurological Surgery; OTHER PHYSICIAN Psychiatry & Neurology Neurology
DX: I61.9 Nontraumatic intracerebral hemorrhage, unspecified (principal); E43 Unspecified severe protein-calorie malnutrition; J69.0 Pneumonitis due to inhalation of food and vomit; G93.41 Metabolic encephalopathy; G93.6 Cerebral edema; Z68.1 Body mass index [BMI] 19.9 or less, adult; R64 Cachexia; J44.0 Chronic obstructive pulmonary disease with (acute) lower respiratory infection; F02.83 Dementia in other diseases classified elsewhere, unspecified severity, with mood disturbance; F02.84 Dementia in other diseases classified elsewhere, unspecified severity, with anxiety; E03.9 Hypothyroidism, unspecified; E78.5 Hyperlipidemia, unspecified; G20.A1 Parkinson's disease without dyskinesia, without mention of fluctuations; R62.7 Adult failure to thrive; G43.909 Migraine, unspecified, not intractable, without status migrainosus; F60.3 Borderline personality disorder; E87.6 Hypokalemia; I10 Essential (primary) hypertension; K21.9 Gastro-esophageal reflux disease without esophagitis; M81.0 Age-related osteoporosis without current pathological fracture; R13.10 Dysphagia, unspecified; L89.622 Pressure ulcer of left heel, stage 2; L89.612 Pressure ulcer of right heel, stage 2; L89.152 Pressure ulcer of sacral region, stage 2; Z96.611 Presence of right artificial shoulder joint; Z93.1 Gastrostomy status; Z85.118 Personal history of other malignant neoplasm of bronchus and lung; Z79.899 Other long term (current) drug therapy; Z79.890 Hormone replacement therapy; Z11.52 Encounter for screening for COVID-19; R09.02 Hypoxemia
CPT/HCPCS: 70450; 70553; 71045; 71046; 71250; 74176; 80048; 80053; 80306; 81003; 82607; 82962; 83605; 83735; 84100; 84443; 84484; 85025; 85027; 85610; 85652; 85730; 87070; 87502; 87811; 92507; 92523; 92526; 92610; 93005; 93306; 95816; 96365; 97112; 97163; 97164; 97167; 97530; 97535; 99285; A9575

== ENCOUNTER 2024-07-30 17:59 | Inpatient (IN) | payer MEDICARE, OTHER, SELFPAY ==
[2024-07-30] VITALS (8 sets, daily range): BP systolic 100–128; BP diastolic 41–108; BMI 15.2
--- NOTE | 2024-07-30 14:40 | ED.GENMED ---
History of Present Illness
General
Chief Complaint: Change in Mental Status
Source: patient
Exam Limitations: none
Time Seen by Provider: 07/30/24 14:37
History of Present Illness
History of Present Illness:
73-year-old female presents via EMS after her son called EMS after noticing slurred speech. Time of onset unknown. Patient was called as a prehospital stroke alert. Patient cannot provide any valuable history. She is able to tell me her name.
She has a history of Parkinson's and lung cancer.
Phy Exam
Physical Exam
Physical Exam:
General: Cachectic female with diffuse tremors
HEENT: Normocephalic no obvious facial droop
Heart: Regular rate and rhythm
Lungs: Clear no wheeze
Neurologic exam: Tremors noted. Alert response to verbal stimuli but does not follow commands. She is able to tell me her name. Patient not following commands so hard to assess drift
Skin is warm to the touch
Abdomen is soft nontender nondistended
Sepsis
Sepsis Screening
Sepsis Assessment: Sepsis Ruled Out
Sepsis Screen
Sepsis Screen: Sepsis Ruled Out
Date: 07/30/24
Time: 16:32
Course
Orders/Labs/Results
Orders:
Orders
07/30/24 14:37
CT Head W/o Iv Contrast Urgent
Comment:
Reason For Exam: change in mental status
07/30/24 14:38
Urinalysis Reflex To Culture Urgent
Date Specimen was Collected: 07/30/24
Time Specimen was Collected: 16:06
07/30/24 14:53
Acetaminophen [Tylenol] 650 mg TUBE NOW STA
CR Chest Portable - 1 View Urgent
Comment:
Reason For Exam: fever
Reason Study Needs to be Portable: Patient Unstable
07/30/24 14:57
COVID-19 Antigen Urgent
Source: Nasal Swab
Complete Blood Count/With Diff Urgent
Comprehensive Metabolic Panel Urgent
Lactic Acid Q4H
Comment: CANCEL 2nd LACTIC ACID IF 1st LACTIC ACID IS LESS THAN 2
Blood Culture Q30M
CHARISSA Source: Blood/Venous
Specimen Description:
Blood Culture Q30M
CHARISSA Source: Blood/Venous
Specimen Description:
07/30/24 14:58
Influenza A+B Rapid Molecular Urgent
CHARISSA Source: Nasal Swab
Specimen Description:
07/30/24 15:25
0.9% Sodium Chloride 1000 ml [Nss] 1,000 ml IV BOLUS
07/30/24 15:39
Add On- LAB Routine
Tests Added?: lipid panel, hbA1c
07/30/24 16:27
Piperacillin/Tazo 3.375 Gram [Zosyn] 3.375 gram in 50 ml IV NOW
Vancomycin 1 Gram/200 ml [Vancocin] 1 gram in 200 ml IV NOW
Abnormal Lab Results
07/30/24
14:57
RBC 3.96 L 10^6/uL
(4.20-5.40)
MCH 31.8 H pg
(27.0-31.0)
Absolute Neuts (auto) 7.4 H 10^3/uL
(1.4-6.5)
Absolute Lymphs (auto) 0.8 L 10^3/uL
(1.2-3.4)
Absolute Monos (auto) 0.7 H 10^3/uL
(0.1-0.6)
Neutrophils % 83.1 H %
(42.2-75.2)
Lymphocytes % 8.5 L %
(20.5-51.1)
Sodium 151 H mmol/L
(135-145)
Potassium 3.1 L mmol/L
(3.5-5.1)
Chloride 108 H mmol/L
(98-107)
BUN 28 H mg/dl
(7-17)
Creatinine 0.5 L mg/dL
(0.6-1.0)
Glucose 122 H mg/dl
(70-99)
Calcium 10.3 H mg/dl
(8.4-10.2)
07/30/24 14:57
07/30/24 14:57
Vital Signs
Initial and Last Documented VS:
Initial Vital Signs
Pulse Resp Pulse Ox
83 16 96
07/30/24 14:36 07/30/24 14:36 07/30/24 14:36
Last Documented Vital Signs
Temp Pulse Resp BP Pulse Ox
101.2 F H 70 17 120/58 98
07/30/24 14:55 07/30/24 16:15 07/30/24 16:15 07/30/24 16:00 07/30/24 16:21
MDM/Problems Addressed
Differential Diagnosis Includes:
Patient presents with rigors fever upon triage and slurred speech per family. Patient just discharged from the hospital today for possible pneumonia. During her workup she was noted to have a hemorrhagic mass in the right frontal lobe. She was
monitored in the ICU. No intervention felt necessary surgically. Discharge diagnosis was aspiration pneumonia and sepsis
Will repeat CT of head to evaluate for any change in intraparenchymal hemorrhage.
Tylenol ordered for fever. Will recheck urine and labs
Neurology in room upon patient's arrival. We reviewed studies. There is a intraparenchymal hemorrhage related to a mass. Patient not a candidate for tPA
*Critical Care Note
Total Time (30-74mins, 75-104mins- exclusive of procedures): Not Applicable
Update Note
Update Note:
CT head demonstrates known right frontal mass however no signs of acute hemorrhage. This is improved since prior CAT scan. Chest x-ray shows no obvious abnormality. Urinalysis taken COVID and flu negative. Patient here with change in mental
status and slurred speech likely related to fever. Neurology saw patient upon arrival. No indication for tPA. Tylenol administered fluids ordered covered with vancomycin and Zosyn will admit to hospital
ED Attending Note
-
Portions of this chart may have been created with voice recognition software.� Occasional wrong word or��sound alike� substitutions may have occurred due to the inherent limitations of voice recognition software.
Discharge Plan
Departure
Patient Disposition: Home (Routine Discharge)
Date of Disposition: 07/30/24
Time of Disposition: 16:31
Patient with high blood pressure during this ER visit?: No
Discharge Problem:
Fever
Prescriptions:
No Action
lidocaine 4 % Adhesive Patch,Medicated
1 patch TOPICAL DAILY
bisacodyl [Dulcolax (bisacodyl)] 10 mg Suppository
10 mg [place] DAILYPRN PRN (Reason: if no bm aftr mom)
Fleet Enema 19-7 gram/118 mL Enema
118 ml [place] DAILYPRN PRN (Reason: if no bm aftr dulcolax)
albuterol sulfate 90 mcg/actuation Hfa Aerosol Inhaler
2 puff INHALATION R Q6HPRN PRN (Reason: sob)
fluticasone propionate 50 mcg/actuation [place],Suspension
1 spray INTRANASAL DAILYPRN PRN (Reason: allergies)
gabapentin 100 mg Capsule
100 mg feeding tube BID Qty: 90 0RF
sennosides [Senna Laxative] 8.6 mg Tablet
17.2 mg feeding tube HS Qty: 30 0RF
famotidine 20 mg Tablet
20 mg feeding tube DAILY Qty: 30 0RF
sertraline 50 mg Tablet
150 mg feeding tube DAILY Qty: 30 0RF
carbidopa-levodopa 25-100 mg Tablet
2 tab feeding tube HS Qty: 60 0RF
levothyroxine 75 mcg Tablet
75 mcg feeding tube DAILY@0600 Qty: 30 0RF
multivitamin with folic acid [Tab-A-Loren] 400 mcg Tablet
1 tab feeding tube DAILY Qty: 30 0RF
trazodone 50 mg Tablet
50 mg feeding tube HS Qty: 30 0RF
acetaminophen 325 mg tablet
650 mg feeding tube Q6HPRN MDD 3000 mg PRN (Reason: mild pain/temp >100)
magnesium hydroxide 400 mg/5 mL suspension
30 ml feeding tube [id number] PRN (Reason: if no bm 3 days)
oxycodone 5 mg tablet
5 mg feeding tube Q6HPRN PRN (Reason: severe pain)
amantadine HCl 50 mg/5 mL solution
100 mg feeding tube TID Qty: 473 0RF
amlodipine 5 mg Tablet
5 mg PO DAILY
carbidopa-levodopa 25-100 mg tablet
1 tab feeding tube QID@08,12,16,20
Referrals:
UNKNOWN - PT NOT,INTERVIEWE [Family Provider] -
Interventions
Interventions:
*Risk Screen - Suicide Last Done: 07/30/24 14:58
*General Assessment Last Done: 07/30/24 15:25
*Neglect/Abuse Screening Last Done: 07/30/24 14:58
ED- Fall Risk Assessment Last Done: 07/30/24 15:26
*ED COVID-19 Vaccine History Last Done: 07/30/24 15:01
ED- Pulmonary Assessment Last Done: 07/30/24 16:21
ED-Psychological Assessment Last Done: 07/30/24 16:21
ED- Neurological Assessment Last Done: 07/30/24 15:04
ED- Cardiac Assessment Last Done: 07/30/24 16:21
ED Swallowing Screen Last Done: 07/30/24 15:07
Discharge Date and Time
Print Language: POLISH
--- NOTE | 2024-07-30 14:43 | CON.NEURO4 ---
Addendum entered and electronically signed by Tiffanie Duque NP 07/31/24 09:14:
Correction to HPI first sentence below; patient presented from home, not from [facility].
Addendum entered and electronically signed by Rik Davis MD 07/30/24 16:14:
Studies reviewed.
I have personally examined the patient. I reviewed and agree with the ATTENDANCE OFFICER's Note.
My addenda:
Awake, alert, interactive. No acute distress.
Speech unable to discern most speech with markedly reduced output.
Does not follow some single step requests. Full body rigors with diffuse distal involuntary nonrhythmic movements. The patient at times moves her right arm in a flailing way as if to strike people around her
Extra-ocular movements grossly intact.
Facial movements full and symmetric. Hearing intact to normal conversational volume.
Normal UE movements bilaterally.
Neck: full ROM.
Chest: no dyspnea
Heart: no JVD
Ext: (-) Clubbing, (-) Cyanosis, (-) Edema
IMPRESSIONS/RECOMMENDATIONS:
Abrupt onset of worsening mental status in a patient with debilitating parkinsonism and large right frontal lesion thought to be a mass lesion by recent MRI of brain
Currently is likely experiencing toxic metabolic encephalopathy due to high fever. Patient also experiencing encephalopathy due to likely underlying parkinsonian disease dementia and right frontal mass
Provide therapies to remediate patient's recurrent fever
Continue previously prescribed dosing of carbidopa/levodopa
Repeated neuroimaging of the brain by means of MRI with and without contrast in approximately 4 weeks
Will continue to follow patient as needed.
Original Note:
Consultation - Neurology 4
-
CONSULTING PHYSICIAN: Rik Davis MD
REFERRING PHYSICIAN: ER/Mohsen Jefferson
DICTATED BY: JOHN Jeter
DATE/TIME OF REQUEST: 07/30/24
DATE/TIME OF CONSULTATION: 07/30/24
Reason for Consultation: Change in mental status
History of Present Illness:
This is a 73-year-old female who has presented to the hospital from [facility] with report of a change in mental status; being minimally verbal and entire body shaking. Patient was recently evaluated by our inpatient Neurology service in
June 2024 for report of a change in mental status.
From previous evaluation by Neurology Dr. Cardoza on 07/15/24:
'HPI: This is a 73-year-old woman who presented to the [facility] from [facility] on July 11, 2024 with worsening of encephalopathy.
According to patient's son Ms. Fox has a history of idiopathic Parkinson disease presenting with progressive bradykinesia's, tremor and imbalance in 1999. Mikayla reportedly developed cognitive deficits leading to the need of medication
administration several years ago. The patient has had progressive weight loss and was transferred to subacute rehab following PEG. Ms. Fox was noted to have reduced verbal output as well as hypoxia leading to the hospitalization.'
MRI brain was obtained and demonstrated a large intraparenchymal hemorrhage versus hemorrhagic mass in the right frontal lobe. Neurosurgery evaluated the patient and felt the MRI brain imaging was more customer success representative of a hemorrhagic stroke,
recommending follow-up MRi brain imaging in 6 weeks as an outpatient, SBP goal <160. EEG on 07/15/24 was abnormal due to intermittent right frontocentral slowing but did not show any epileptiform abnormalities. Neurology recommended follow-up CT
head imaging in two weeks to monitor for edema. Patient's hospitalization was complicated by sepsis pneumonia. She was discharged back to [facility] today at 1130 and made it to the facility by 1200. At an unclear time in the past 2 hours,
patient became minimally verbal again and was having whole body shaking. EMS activated a stroke alert prior to ER arrival. On arrival in the ER, patient is able to state her name and birthday. She is minimally cooperative with examination. She has
whole body rigors. Temperature is 101.2.
Past Medical History: Parkinson disease (diagnosed 1999, under care of Neurologist Claudia Garcia MD, MPH), MAYDA, GERD, hypothyroidism, lung cancer, migraine CORDOBA, osteoporosis, borderline personality DO, MDD, MAYDA, dysphagia, severe protein-calorie
malnutrition (BMI 13.97), frequent falls, neuropathy
Surgical History: PEG tube, R shoulder arthroscopy, pelvic fracture repair
Family History: Mother- dementia.
Social History: Denies tobacco, alcohol, and illicit drug use. Lives at [facility].
Allergies: Shellfish, pork derived, codeine, metoclopramide, prochlorperazine.
Home Medications: See below.
Review of Symptoms:
Per the HPI. I am unable to obtain a complete review of systems�because of patient's inability to provide history.
Physical Exam:
The patient is febrile, abdomen is nondistended, breathing is unlabored, skin is hot to touch, PEG tube in place, no edema.
Neurologic Examination:
The patient is awake, alert and oriented to herself only. She is able to follow selective commands, minimally cooperative, and answer questions rare appropriately. Moderately reduced verbal output. Hypophonic. There is no dysarthria. On cranial
nerve assessment, pupils are 3 mm bilateral, round and reactive to light and accommodation. SENA visual murri[place], blinks to threat. Extraocular movements track in all directions, no gaze deviation. There is no facial asymmetry. Hearing is intact
bilaterally to normal conversation volume. SENA tongue palate palate and uvula. Moves all extremities spontaneously, Uncooperative with drift assessment but appears to drift faster on the left side.. Increased tone in all 4 extremities. +Rigors.
Deep tendon reflexes are 1+ bilateral upper and lower extremities and Babinski is absent bilaterally. SENA sensation, DBS, and coordination.
Lab Results: See below.
Neuro Imaging:
1. MRI brain 07/15/24: Large intraparenchymal hemorrhage versus hemorrhagic mass in the right frontal lobe as seen on the recent prior head CT. Difficult to differentiate on this exam due to the large amount of intrinsically hyperintense T1 signal.
Mild subarachnoid blood products in the right frontal lobe, sylvian fissure, and dependent bilateral lateral ventricles.
Differentials for the patient's presentation include:
1. TME in the setting of fever likely producing decreased verbal output and rigors.
2. Known large right frontal lobe intraparenchymal hemorrhage vs hemorrhagic mass.
3. Advanced Parkinson disease.
Patient has the following risk factors for their symptoms: fever, R frontal lobe hemorrhagic mass vs stroke
Recommendations:
-Infectious workup per primary team, goal normothermia.
-Do not see a role for neurological imaging at this time.
-If symptoms do not improve with resolution of fever, will consider EEG and CT head imaging at that point.
-Continue Carbidopa-Levodopa 25/100 2 tabs QID and 2 tabs QHS
-Neurological checks per unit guidelines. Seizure precautions.
-Avoid all blood-thinning medications.
-SBP goal <160.
Discussed patient care with: Mohsen Hoksins
Vital Signs and Labs
-
Vital Signs and Labs:
Vital Signs
Temp Pulse Resp BP Pulse Ox
101.2 F H 77 21 105/82 97
07/30/24 14:55 07/30/24 15:03 07/30/24 14:55 07/30/24 14:55 07/30/24 14:55
Lab Results
07/30/24 14:57
Medications
-
Home Medications
�Medication �Instructions �Recorded
albuterol sulfate 90 mcg/actuation 2 puff inhalation R Q6HPRN PRN sob 05/27/24
aerosol inhaler
bisacodyl 10 mg rectal suppository 10 mg [place] DAILYPRN PRN if no bm 05/27/24
(Dulcolax (bisacodyl)) aftr mom
fluticasone propionate 50 1 spray intranasal DAILYPRN PRN 05/27/24
mcg/actuation nasal allergies
spray,suspension
lidocaine 4 % topical patch 1 patch topical DAILY lower back & 05/27/24
hips
sodium phosphates 19 gram-7 118 ml [place] DAILYPRN PRN if no bm 05/27/24
gram/118 mL enema (Fleet Enema) aftr dulcolax
carbidopa 25 mg-levodopa 100 mg 2 tab feeding tube HS #60 tabs 06/03/24
tablet
famotidine 20 mg tablet 20 mg feeding tube DAILY #30 tabs 06/03/24
gabapentin 100 mg capsule 100 mg feeding tube BID #90 caps 06/03/24
levothyroxine 75 mcg tablet 75 mcg feeding tube DAILY@0600 #30 06/03/24
tabs
multivitamin with folic acid 400 1 tab feeding tube DAILY #30 tabs 06/03/24
mcg tablet (Tab-A-Loren)
sennosides 8.6 mg tablet (Senna 17.2 mg (2 x 8.6 mg) feeding tube 06/03/24
Laxative) HS #30 tabs
sertraline 50 mg tablet 150 mg (3 x 50 mg) feeding tube 06/03/24
DAILY #30 tabs
trazodone 50 mg tablet 50 mg feeding tube HS #30 tabs 06/03/24
acetaminophen 325 mg tablet 650 mg feeding tube Q6HPRN PRN 07/11/24
mild pain/temp >100
magnesium hydroxide 400 mg/5 mL 30 ml feeding tube [id number] PRN if 07/11/24
oral suspension no bm 3 days
oxycodone 5 mg tablet 5 mg feeding tube Q6HPRN PRN 07/11/24
severe pain
amantadine HCl 50 mg/5 mL oral 100 mg (10 mL) feeding tube TID 07/30/24
solution #473 mL
amlodipine 5 mg tablet 5 mg PO DAILY 07/30/24
carbidopa 25 mg-levodopa 100 mg 1 tab feeding tube QID@08,12,16,20 07/30/24
tablet
--- NOTE | 2024-07-30 15:04 | EDRN ---
severe parkinson's tremors affecting ifeanyi LE rt> lt.
She cannot hold her legs up. Not really following commands well.
[2024-07-30] MEDS: TYLENOL 650 MG TUBE (15:08)
[2024-07-30 15:13] LABS: % Basophils 0.1 % (0-2); % Immature Granulocytes 0.5 % (0-0.5); % Lymphocytes 8.5 % (20.5-51.1); % Monocytes 7.8 % (1.7-9.3); % Neutrophils 83.1 % (42.2-75.2); Absolute Lymphocytes 0.8 10^3/uL (1.2-3.4); Absolute Monocytes 0.7 10^3/uL (0.1-0.6); Absolute Neutrophils 7.4 10^3/uL (1.4-6.5); Hematocrit 38.2 % (37.0-47.0); Hemoglobin 12.6 g/dL (12.0-16.0); Mean Corpuscular Hgb 31.8 pg (27.0-31.0); Mean Corpuscular Volume 96.5 fL (81.0-99.0); Mean Platelet Volume 8.8 fL (7.4-10.4); Nucleated Red Blood Cells % 0 %; Platelet Count 269 10^3/uL (130-400); Red Blood Cell Count 3.96 10^6/uL (4.20-5.40); Red Cell Dist. Width 14.5 % (11.5-14.5); White Blood Cell Count 8.8 10^3/uL (4.8-10.8)
[2024-07-30 15:22] LABS: Lactic Acid 1.1 mmol/L (0.7-2.0)
[2024-07-30 15:24] LABS: ALT (SGPT) 20 U/L (0-35); AST (SGOT) 30 U/L (14-36); Albumin 4.5 g/dl (3.5-5.0); Alkaline Phosphatase 102 U/L (38-126); Blood Urea Nitrogen 28 mg/dl (7-17); Calcium 10.3 mg/dl (8.4-10.2); Carbon Dioxide 30 mmol/L (22-30); Chloride 108 mmol/L (98-107); Glucose 122 mg/dl (70-99); Potassium 3.1 mmol/L (3.5-5.1); Sodium 151 mmol/L (135-145); Total Bilirubin 0.6 mg/dl (0.2-1.3); Total Protein 7.6 g/dl (6.3-8.2); eGFR > 60.00
[2024-07-30 15:26] LABS: COVID-19 Antigen Negative (Negative)
[2024-07-30] MEDS: NSS 1000 IV (15:31)
[2024-07-30] MEDS: ZOSYN 50 IV ×2 (16:36→22:00)
[2024-07-30 16:47] LABS: Urine Albumin 1+ (Neg - Trace); Urine Bilirubin Negative (Negative); Urine Character Slightly Cloudy (Clear); Urine Color Yellow; Urine Glucose Negative (Negative); Urine Ketone Negative (Negative); Urine Leukocyte 2+ (Negative); Urine Nitrite Positive (Negative); Urine Occult Blood 2+ (Negative); Urine Urobilinogen Negative (Neg - 1+)
[2024-07-30 17:17] LABS: Urine Triple Phosphate Crystal Present
[2024-07-30 17:18] LABS: Urine Bacteria Many (Negative); Urine White Cell 26-30 /HPF (0-5)
[2024-07-30] MEDS: VANCOCIN 200 IV (17:22)
[2024-07-30 17:29] LABS: HDL Cholesterol 77 mg/dl; LDL Cholesterol, Calculated 131 mg/dl; Total Cholesterol 234 mg/dl (50-199); Triglyceride 130 mg/dl (10-149); Very Low Density Lipoprotein 26 mg/dl (0-30)
[2024-07-30] MEDS: SINEMET 25-100 1 TABLET TUBE ×2 (17:44→20:37)
--- NOTE | 2024-07-30 17:51 | HPS.HSE ---
Family Physician
-
Family Physician: INTERVIEWE UNKNOWN - PT NOT
Chief Complaint
-
confusion
History of Present Illness
73yo F with Parkinsons, dysphagia on PEG, recent ICH, hypothyroidism, anxiety, dementia with behavioral disturbances, recent hospitalization for aspiration pneumonia and R frontal lobe possible hemorrhagic conversion of stroke vs mass that as per
neurologist and neurosurgeon deemed to be a hemorrhagic stroke. Patient remained intermittently confused and recommendation was discharge to home as per request of the patients son, who is also a POA. He justified it with that patient would like to
spent her final days at home. However after conversations on the GOC - full code was preserved and no palliative/hospice services were accepted by family. After leaving the hospital and upon arrival home - patient was found to be stiffer then usual,
clenching her jaw, with fever and not communicating. Arrived as stroke code. Neurologist evaluated patient and contributed her condition to infection
In ED patient is arousable, following simple commands, with baseline tremors and found febrile with positive UA. Straight cath for 300+ml. Chest CT without signs of pneumonia. COVID-19 and Influenza PCR neg
Medical History
Past Medical History
Past Medical History: Reports Other
Additional Past Medical History:
see HPI
Past Surgical History: Reports Other
Additional Past Surgical History:
See HPI
Social History
Unable to obtain full social history at this time due to: Dementia
Family History
Family History: Not pertinent
Allergies / Home Medications
Allergies reflects when Allergies were last updated in [employer].
Home Medications with original date entered in [employer]
Allergy/Medication List:
Allergies
Allergy/AdvReac Type Severity Reaction Status Date / Time
pork derived (porcine) Allergy Unknown Unknown Verified 07/30/24 16:32
shellfish derived Allergy Unknown Unknown Verified 07/30/24 16:32
codeine Allergy Unknown Verified 07/30/24 16:32
metoclopramide Allergy Unknown Verified 07/30/24 16:32
prochlorperazine Allergy Unknown Verified 07/30/24 16:32
[From Compazine]
Home Medications
albuterol sulfate 90 mcg/actuation aerosol inhaler 2 puff inhalation R Q6HPRN PRN sob 05/27/24
bisacodyl 10 mg rectal suppository (Dulcolax (bisacodyl)) 10 mg [place] DAILYPRN PRN if no bm aftr mom 05/27/24
fluticasone propionate 50 mcg/actuation nasal spray,suspension 1 spray intranasal DAILYPRN PRN allergies 05/27/24
lidocaine 4 % topical patch 1 patch topical DAILY lower back & hips 05/27/24
sodium phosphates 19 gram-7 gram/118 mL enema (Fleet Enema) 118 ml [place] DAILYPRN PRN if no bm aftr dulcolax 05/27/24
carbidopa 25 mg-levodopa 100 mg tablet 2 tab feeding tube HS #60 tabs 06/03/24
famotidine 20 mg tablet 20 mg feeding tube DAILY #30 tabs 06/03/24
gabapentin 100 mg capsule 100 mg feeding tube BID #90 caps 06/03/24
levothyroxine 75 mcg tablet 75 mcg feeding tube DAILY@0600 #30 tabs 06/03/24
multivitamin with folic acid 400 mcg tablet (Tab-A-Loren) 1 tab feeding tube DAILY #30 tabs 06/03/24
sennosides 8.6 mg tablet (Senna Laxative) 17.2 mg (2 x 8.6 mg) feeding tube HS #30 tabs 06/03/24
sertraline 50 mg tablet 150 mg (3 x 50 mg) feeding tube DAILY #30 tabs 06/03/24
trazodone 50 mg tablet 50 mg feeding tube HS #30 tabs 06/03/24
acetaminophen 325 mg tablet 650 mg feeding tube Q6HPRN PRN mild pain/temp >100 07/11/24
magnesium hydroxide 400 mg/5 mL oral suspension 30 ml feeding tube [id number] PRN if no bm 3 days 07/11/24
oxycodone 5 mg tablet 5 mg feeding tube Q6HPRN PRN severe pain 07/11/24
amantadine HCl 50 mg/5 mL oral solution 100 mg (10 mL) feeding tube TID #473 mL 07/30/24
amlodipine 5 mg tablet 5 mg PO DAILY 07/30/24
carbidopa 25 mg-levodopa 100 mg tablet 1 tab feeding tube QID@08,12,16,20 07/30/24
Review of Systems
-
Unable to obtain full review of systems at this time due to: Dementia
Physical Exam
Vital Signs
Vital Signs
Temp Pulse Resp BP Pulse Ox
101.2 F H 70 18 125/85 97
07/30/24 14:55 07/30/24 17:15 07/30/24 17:15 07/30/24 17:01 07/30/24 17:15
Physical Exam
General: Chills, Sweats and Cachectic
HEENT: Moist mucous membranes
Respiratory: Clear
Cardiac: S1/S2 and Regular Rhythm
GI: Soft, Non Tender and Non Distended
Musculoskeletal: No Clubbing, No Cyanosis and No Edema
Skin: Warm
Neuro: Awake, Alert and Tremors
Psych: Calm, Confused and Apparent Dementia
Laboratory Results
-
07/30/24 14:57
07/30/24 14:57
Laboratory Results
Lactic Acid Cancelled 07/30/24 18:45
Total Bilirubin 0.6 mg/dl (0.2-1.3) 07/30/24 14:57
AST 30 U/L (14-36) 07/30/24 14:57
ALT 20 U/L (0-35) 07/30/24 14:57
Alkaline Phosphatase 102 U/L (38-126) 07/30/24 14:57
Data Reviewed
-
Diagnostic Radiology: Report Reviewed by me
CT Scan: Report Reviewed by me
Lab Data: Labs Reviewed by me
Impression/Plan
-
A/P:
#Sepsis 2/2 UTI (Toxic metabolic encephalopathy, fever)
CT abd without contrast
Zosyn following Ucx
Bcx
Bladder scans q6h and watch for urinary retention
#Parkinsons, advanced and debilitating with ambulatory deficiency
Possibly missed dose of Sinemet
Restart Sinemet via PEG
PT/OT
#Dysphagia
#Severe protein calorie malnutrition
Artificial Limb Maker for feeding
IVF meanwhile
#Hypokalemia
#Hypernatremia
most likely dehydration
D5W with KCL and follow electrolytes including Mg
#R frontal lesion, possible mass
#Recently hemorrhagic stroke
Avoid Antiplatelet and anticoagulation
Repeat MRI in 4 weeks and follow with neuroSx as outpatient as previously recommended
Neurology follows: AMS 2/[address] on 07/30/24: decreased edematous changes and resolved blood products
#Anxiety d/o
#Demential with behavioral disturbances
#Essential HTN
#Chronic constipation
#Hypothyroidism
cont home meds
DVT ppx SCDs
Full code (as per daughter bedside)
I have spent at least 78min reviewing chart, test result, communication with consultants and direct patient care
[2024-07-30 19:12] LABS: Magnesium 2.3 mg/dl (1.6-2.3)
--- NOTE | 2024-07-30 19:30 | PTCARENOTE ---
Pt received from the ED at 1845. Pt presents with frequent arm and leg jerking due to Hx of Parkinson's. Pt VSS and unable to answer orientation questions, just answers 'yeah and 'no'. Pt follows simple commands. Pt bed in lowest position and call
tom within reach. Pt informed on importance of call tom usage. Pt relays understanding. Will continue with current plan of care.
[2024-07-30] MEDS: D5W with KCL 20 MEQ 1000 IV (20:15)
[2024-07-30] MEDS: NEURONTIN 100 MG TUBE (20:31)
[2024-07-30] MEDS: DESYREL 50 MG TUBE (21:53)
[2024-07-30] MEDS: SENOKOT 17.2 MG TUBE (21:53)
[2024-07-30] MEDS: SYMMETREL SYRUP 100 MG TUBE (21:54)
[2024-07-30] MEDS: SINEMET 25-100 2 TABLET TUBE (22:02)
[2024-07-31] MEDS: ZOSYN 50 IV ×4 (03:12→22:13)
[2024-07-31] MEDS: SYNTHROID 75 MCG TUBE (05:53)
[2024-07-31] MEDS: D5W with KCL 20 MEQ 1000 IV ×2 (06:23→16:30)
[2024-07-31 07:30] VITALS: BP 131/56
[2024-07-31 08:57] LABS: ALT (SGPT) 11 U/L (0-35); AST (SGOT) 30 U/L (14-36); Albumin 3.8 g/dl (3.5-5.0); Alkaline Phosphatase 80 U/L (38-126); Blood Urea Nitrogen 23 mg/dl (7-17); Calcium 9.3 mg/dl (8.4-10.2); Carbon Dioxide 25 mmol/L (22-30); Chloride 107 mmol/L (98-107); Estimated Creatinine Clearance 50 ml/min; Glucose 106 mg/dl (70-99); Magnesium 2.3 mg/dl (1.6-2.3); Potassium 3.2 mmol/L (3.5-5.1); Sodium 147 mmol/L (135-145); Total Bilirubin 0.8 mg/dl (0.2-1.3); Total Protein 6.4 g/dl (6.3-8.2); eGFR > 60.00
--- NOTE | 2024-07-31 09:05 | W.PN.HOSP.TC ---
Today's Communication/Plan
-
c/w IV Antibiotics
c/w Tube feeding
c/w IVF
Potassium replacement
MRI of brain, to give Ativan to be able to do MRI study
Assessment / Plan
Assessment / Plan
Physical exam:
General: chronically ill looking, no respiratory distress.
HEENT: Normocephalic, Atraumatic and Moist Mucous Membranes
Respiratory: Clear to Auscultation bilateral; Negative Wheezes.
Cardiac: Regular Rhythm and S1/S2
GI: Soft, Nontender and Nondistended
Musculoskeletal: No Clubbing, No Cyanosis and No Edema. PEG placement in place
Neuro: Awake, disoriented, increased tone/rigidity, generalized weakness.
Psych: Calm but sometimes agitation
# # Change in mental status
Her mentation seems unchanged from last admission. She continues to have periods of delirium/ agitation with lethargy
She was evaluated by neurologist, recommend to continue supportive care
CT head on 07/30 showed same findings of large right frontal lobe lesion/ stroke. decreasing edema and signs of hemorrhage.
I d/w neurologist today, will repeat MRI w/WO contrast
# SIRS/ Sepsis 2/2 UTI (Toxic metabolic encephalopathy, fever)
CT abd without contrast seems to be c/w UTI/ cystitis
c/w empiric IV Abx, Zosyn and Vancomycin
Bladder scans q6h and watch for urinary retention
Afebrile
Not much improvement in mental status
# Blood culture 2 bottles positive for gram positive cocci, although urine culture is gram negative rods?
Will repeat blood culture to confirm the result
#Parkinson disease, advanced and debilitating with ambulatory deficiency
c/w Sinemet via PEG
Primary neurologist Dr Garcia at [place] ( she is aware of her last brain images)
#Dysphagia
#Severe protein calorie malnutrition
c/w tube feeding
IVF meanwhile
#Hypokalemia, improving , replace and recheck
#Hypernatremia, improving
c/w hypotonic IVF
Sodium is coming down
# hypercalcemia, improving
# #Chronic constipation
c/w daily Senna, add Miralax since CT showed moderate amount of fecal material throughout the distal colon
#Anxiety d/o
c/w home medications of Zoloft and Trazodone
#Demential with behavioral disturbances
#Essential HTN
lower dose of Amlodipine since BP was soft
#Hypothyroidism
cont home meds
DVT ppx SCDs, ok to do SQ Heparin per evaluation from neurosurgery/ neurology
Full code
Total time spent to see the patient, examine the patient, review data and lab results, discuss treatment plan with patient, nursing staff around 55 minutes
Anticipated Discharge: > 48 hours
Subjective/Interval History
-
Date of Service: July 31, 2024
No fever today
same level of mentation, confused with slurred speech and tremors
Objective Data
-
Labs:
Laboratory Results
07/31/24 07/31/24
06:50 07:59
WBC Pending
Hgb Pending
Hct Pending
Plt Count Pending
Sodium 147 H
Potassium 3.2 L
Chloride 107
Carbon Dioxide 25
BUN 23 H
Creatinine 0.6
Glucose 106 H
Calcium 9.3
Total Bilirubin 0.8
AST 30
ALT 11
Alkaline Phosphatase 80
Vital Signs:
Vital Signs
Temp Pulse Resp BP Pulse Ox
98.4 F 58 18 131/56 98
07/31/24 07:30 07/31/24 07:30 07/31/24 07:30 07/31/24 07:30 07/31/24 07:30
I&O
07/30/24 07/31/24 08/01/24
06:59 06:59 06:59
Intake Total 1300 / 1300
Balance 1300 / 1300
[2024-07-31 09:12] LABS: % Basophils 0.3 % (0-2); % Eosinophils 3.2 % (0-6); % Immature Granulocytes 0.3 % (0-0.5); % Lymphocytes 14.6 % (20.5-51.1); % Monocytes 12.4 % (1.7-9.3); % Neutrophils 69.2 % (42.2-75.2); Absolute Eosinophils 0.2 10^3/uL (0-0.7); Absolute Lymphocytes 0.9 10^3/uL (1.2-3.4); Absolute Monocytes 0.7 10^3/uL (0.1-0.6); Absolute Neutrophils 4.1 10^3/uL (1.4-6.5); Hematocrit 41.1 % (37.0-47.0); Hemoglobin 13.2 g/dL (12.0-16.0); Mean Corp Hgb Conc. 32.1 g/dL (33.0-37.0); Mean Corpuscular Volume 99.5 fL (81.0-99.0); Mean Platelet Volume 9.9 fL (7.4-10.4); Nucleated Red Blood Cells % 0 %; Platelet Count 191 10^3/uL (130-400); Red Blood Cell Count 4.13 10^6/uL (4.20-5.40); Red Cell Dist. Width 14.4 % (11.5-14.5)
[2024-07-31 09:19] LABS: TSH 0.95 uIU/ml (0.47-4.68)
[2024-07-31 09:22] VITALS: BMI 15.2
[2024-07-31] MEDS: SYMMETREL SYRUP 100 MG TUBE ×3 (09:35→22:12)
[2024-07-31] MEDS: ZOLOFT 150 MG TUBE (09:35)
[2024-07-31] MEDS: PEPCID 20 MG TUBE (09:35)
[2024-07-31] MEDS: NEURONTIN 100 MG TUBE ×2 (09:36→20:23)
[2024-07-31] MEDS: NORVASC 2.5 MG TUBE (09:36)
[2024-07-31] MEDS: SINEMET 25-100 1 TABLET TUBE ×4 (09:50→20:24)
[2024-07-31] MEDS: ROXICODONE 5 MG TUBE (12:41)
[2024-07-31 15:00] VITALS: BP 116/61
--- NOTE | 2024-07-31 15:37 | CM ---
CM spoke with son/Donte BEAVERS on phone
Pt resides with Donte and his young family in a 2SH with 1STE
Pt has a first floor set up
Pt has a tempurpedic bed with adjustable HOB and rails
She was discharged from yesterday and readmitted within a few hours
Pt is bed bound, total care
She was discharged home with [facility], new tube feeds through [facility]
Pt has daily services through [address]/waiver program
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
Son is working to increase services to 10/04 with his [facility] case finishing machine adjuster
Pt with peg and son was educated on bolus feeds prior to dc yesterday
He confirmed feeds were delivered to the home by [facility]
A hospital bed was arranged by [facility] during last admission- he declined noting pt would be more comfortable with her personal mattress
PCP- Slime Samano
Son will medical concerns noting that pt was not likely ready for dc yesterday
Encouraged him to share concerns with medical team
He was provided general info regarding palliative and hospice care per his request
He will alert CM if he would like a referral to either
Brochures left bedside per his request
Overall, son was appreciative of the care and coordination of dc planning
Of note, pt listed as residing at [facility], spelling is Timothy ( left for admissions)
Discharge Disposition -return home with [facility], [facility], waiver services and family support
--- NOTE | 2024-07-31 15:59 | VNURNOTE ---
Chart reviewed. [facility] start of care visit in home yesterday- patient was not admitted to services due to sent back to hospital. Son Donte not taught in home due to return to hospital. Jevity 1.5 formula and bolus equip in home per
nurse Guerda. Son will need need to be taught bolus tube feeds. He had preliminary teaching by nurse during last hospitalization.
VN will need to be notified in advance of DC in order to be available to provide same day visit for TF teaching.
New VN referral placed in [facility].
[2024-07-31] MEDS: LIPITOR 40 MG TUBE (17:25)
[2024-07-31] MEDS: DESYREL 50 MG TUBE (22:12)
[2024-07-31] MEDS: SINEMET 25-100 2 TABLET TUBE (22:12)
[2024-07-31] MEDS: SENOKOT 17.2 MG TUBE (22:12)
[2024-07-31 23:21] VITALS: BP 115/48
[2024-08-01] MEDS: ZOSYN 50 IV ×4 (03:01→22:39)
[2024-08-01] MEDS: SYNTHROID 75 MCG TUBE (05:05)
[2024-08-01] MEDS: D5W with KCL 20 MEQ 1000 IV (05:36)
[2024-08-01 07:00] VITALS: BP 142/86
[2024-08-01] MEDS: SINEMET 25-100 1 TABLET TUBE ×4 (08:50→20:43)
[2024-08-01] MEDS: PEPCID 20 MG TUBE (08:50)
[2024-08-01] MEDS: NORVASC 2.5 MG TUBE (08:50)
[2024-08-01] MEDS: ZOLOFT 150 MG TUBE (08:50)
[2024-08-01] MEDS: NEURONTIN 100 MG TUBE ×2 (08:50→20:42)
[2024-08-01] MEDS: SYMMETREL SYRUP 100 MG TUBE ×3 (08:50→23:04)
[2024-08-01] MEDS: MIRALAX 17 GRAMS TUBE (08:50)
[2024-08-01 09:39] LABS: Blood Urea Nitrogen 15 mg/dl (7-17); Calcium 8.9 mg/dl (8.4-10.2); Carbon Dioxide 26 mmol/L (22-30); Chloride 103 mmol/L (98-107); Estimated Creatinine Clearance 50 ml/min; Glucose 111 mg/dl (70-99); Potassium 3.2 mmol/L (3.5-5.1); Sodium 140 mmol/L (135-145); eGFR > 60.00
[2024-08-01] MEDS: ATIVAN 1 MG IV (10:22)
--- NOTE | 2024-08-01 10:56 | W.PN.HOSP.TC ---
Today's Communication/Plan
-
follow with ID recommendations.
resume TF
Assessment / Plan
Assessment / Plan
Physical exam:
General: chronically ill looking, no respiratory distress.
HEENT: Normocephalic, Atraumatic and Moist Mucous Membranes
Respiratory: Clear to Auscultation bilateral; Negative Wheezes.
Cardiac: Regular Rhythm and S1/S2
GI: Soft, Nontender and Nondistended
Musculoskeletal: No Clubbing, No Cyanosis and No Edema. PEG placement in place
Neuro: Awake, disoriented, increased tone/rigidity, generalized weakness.
Psych: Calm but sometimes agitation
# # Change in mental status
Her mentation seems unchanged from last admission. She continues to have periods of delirium/ agitation with lethargy
She was evaluated by neurologist, recommend to continue supportive care
CT head on 07/30 showed same findings of large right frontal lobe lesion/ stroke. decreasing edema and signs of hemorrhage.
I d/w neurologist, repeat MRI w/WO contrast
# SIRS/ Sepsis 2/2 UTI (Toxic metabolic encephalopathy, fever)
CT abd without contrast seems to be c/w UTI/ cystitis
s/p empiric IV Abx,
Consult ID, input appreciated
Bladder scans q6h and watch for urinary retention
Afebrile , normal WBC. normal lactic acid.
Not much improvement in mental status
# Bacteremia with streptococcus
repeat blood culture on 07/31
No fevers, no leukocytosis
Last echo 07/15 no signs of vegetations
No hypoxia
No Diarrhea
No skin rash
cant rule out contamination, await further culture data and repeat cultures.
Consult ID, input appreciated
#Parkinson disease, advanced and debilitating with ambulatory deficiency
c/w Sinemet via PEG
Primary neurologist Dr Garcia at [place] ( she is aware of her last brain images)
#Dysphagia
#Severe protein calorie malnutrition
c/w tube feeding
no need for more IVF
#Hypokalemia, improving , replace and recheck
#Hypernatremia, improving
resolved, can stop IVF, c/w water through feeding tube
# hypercalcemia, improving
# #Chronic constipation
c/w daily Senna, added Miralax since CT showed moderate amount of fecal material throughout the distal colon
#Anxiety d/o
c/w home medications of Zoloft and Trazodone
#Demential with behavioral disturbances
#Essential HTN
lower dose of Amlodipine since BP was soft
#Hypothyroidism
cont home meds
DVT ppx SCDs, ok to do SQ Heparin per evaluation from neurosurgery/ neurology
Full code
Total time spent to see the patient, examine the patient, review data and lab results, discuss treatment plan with patient, nursing staff around 55 minutes
Anticipated Discharge: > 48 hours
Subjective/Interval History
-
Date of Service: August 01, 2024
No fevers
No hypoxia
Objective Data
-
Labs:
Laboratory Results
08/01/24
08:56
Sodium 140
Potassium 3.2 L
Chloride 103
Carbon Dioxide 26
BUN 15
Creatinine 0.6
Glucose 111 H
Calcium 8.9
Vital Signs:
Vital Signs
Temp Pulse Resp BP Pulse Ox
98 F 60 20 142/86 97
08/01/24 07:00 08/01/24 07:00 08/01/24 07:00 08/01/24 07:00 08/01/24 07:00
I&O
07/31/24 08/01/24 08/02/24
06:59 06:59 06:59
Intake Total 1300 / 1300 1300 / 1300
Balance 1300 / 1300 1300 / 1300
[2024-08-01] MEDS: KCL ELIXIR 40 MEQ TUBE (13:19)
[2024-08-01 15:00] VITALS: BP 116/66
[2024-08-01] MEDS: LIPITOR 40 MG TUBE (17:25)
[2024-08-01 18:42] VITALS: BP 116/66
[2024-08-01] MEDS: DESYREL 50 MG TUBE (22:39)
[2024-08-01] MEDS: SINEMET 25-100 2 TABLET TUBE (22:39)
[2024-08-01] MEDS: SENOKOT 17.2 MG TUBE (22:39)
[2024-08-01 23:27] VITALS: BP 92/52
--- NOTE | 2024-08-02 01:03 | PTCARENOTE ---
In room while bolus tube feed being administered since pt is constantly moving in bed and frequently obsesrved with head less than 30 degrees. While tube feed infusing pt began to cough and gag and vomited a moderate amount of clear emesis. Tube
feed stopped. Residuals = 0. Lung sounds unchanged from previous assessment and no distress observed. CLINICAL PARTNER covering house contacted w/events. Instructed to hold tube feeds and maintain strict aspiration precautions.
[2024-08-02] MEDS: SYNTHROID 75 MCG TUBE (05:21)
[2024-08-02] MEDS: ZOSYN 50 IV (05:21)
[2024-08-02 07:30] VITALS: BP 136/57
--- NOTE | 2024-08-02 08:49 | W.PN.HOSP.TC ---
Today's Communication/Plan
-
f/w blood culture, further results
Change to IV Rocephin for now,
f/w ID doctor recommendations
c/w tube feeding
replace potassium
manager water wastewater consult
Assessment / Plan
Assessment / Plan
Physical exam:
General: chronically ill looking, no respiratory distress.
HEENT: Normocephalic, Atraumatic and Moist Mucous Membranes
Respiratory: Clear to Auscultation bilateral; Negative Wheezes.
Cardiac: Regular Rhythm and S1/S2
GI: Soft, Nontender and Nondistended
Musculoskeletal: No Clubbing, No Cyanosis and No Edema. PEG placement in place
Neuro: Awake, disoriented, increased tone/rigidity, generalized weakness.
Psych: Calm but sometimes agitation
# # Change in mental status
Her mentation seems unchanged from last admission. She continues to have periods of delirium/ agitation with lethargy
She was evaluated by neurologist, recommend to continue supportive care
CT head on 07/30 showed same findings of large right frontal lobe lesion/ stroke. decreasing edema and signs of hemorrhage.
I d/w neurologist, repeat MRI w/WO contrast showed no changed in right frontal hematoma ( finding was consistent with a bleeding stroke into an ischemic stroke- that was what neurosurgery felt it was upon reviewing her first brain MRI)
# SIRS/ Sepsis 2/2 UTI (Toxic metabolic encephalopathy, fever)
CT abd without contrast seems to be c/w UTI/ cystitis
s/p empiric IV Abx, change to IV Rocephin
Consult ID, input appreciated
Bladder scans BID and watch for urinary retention,.
Afebrile , normal WBC. normal lactic acid.
Not much improvement in mental status
# Bacteremia with streptococcus,
repeat blood culture on 07/31 : no growth
No fevers, no leukocytosis
Last echo 07/15 no signs of vegetations
No hypoxia
No Diarrhea
No skin rash
Possible blood culture contamination, await further culture data and repeat cultures.
Consult ID, input appreciated
#Parkinson disease, advanced and debilitating with ambulatory deficiency
c/w Sinemet via PEG
Primary neurologist Dr Garcia at [place] ( she is aware of her last brain images)
#Dysphagia
#Severe protein calorie malnutrition
c/w tube feeding
no need for more IVF
#Hypokalemia, improving , replace and recheck
#Hypernatremia, improving
resolved, can stop IVF, c/w water through feeding tube
# hypercalcemia, improving
# #Chronic constipation
resolving
c/w daily Senna, added Miralax since CT showed moderate amount of fecal material throughout the distal colon
#Anxiety d/o
c/w home medications of Zoloft and Trazodone
#Demential with behavioral disturbances
#Essential HTN
lower dose of Amlodipine since BP was soft
#Hypothyroidism
cont home meds
DVT ppx SCDs, ok to do SQ Heparin per evaluation from neurosurgery/ neurology
Full code
Total time spent to see the patient, examine the patient, review data and lab results, discuss treatment plan with patient, nursing staff around 55 minutes
Anticipated Discharge: 24 - 48 hours
Subjective/Interval History
-
Date of Service: August 02, 2024
No fevers
Objective Data
-
Vital Signs:
Vital Signs
Temp Pulse Resp BP Pulse Ox
99.0 F 55 18 136/57 97
08/02/24 07:30 08/02/24 07:30 08/02/24 07:30 08/02/24 07:30 08/02/24 07:30
I&O
08/01/24 08/02/24 08/03/24
06:59 06:59 06:59
Intake Total 1300 / 1300 50 / 50
Balance 1300 / 1300 50 / 50
--- NOTE | 2024-08-02 08:53 | CON.ID ---
Consultation
-
Date/Time Consultation Requested: 08/01/2024 1055
Date/Time Consultation Performed: 08/02/2024 0844
Requesting Provider: Dr. Virgen
Performing Provider: Dr. Hirsch
Reason for Consultation: Bacteremia
Chief Complaint / Past History
History of Present Illness
Mikayla Aguilar is a 74-year-old female with a significant past medical history of Parkinson's and recent intracranial hemorrhage being evaluated at the request of Dr. Virgen in regards to bacteremia. History is obtained from chart review, with very
limited history available from the patient.
The patient recently was discharged to home on 07/30 following a hospitalization for intracranial hemorrhage. At son's request, patient was discharged to home, presumably for palliative, or hospice care, which evidently was not pursued. The
patient presents back after arriving home and the son noticing slurred speech. It appears that the patient was at home for a exceedingly short time (less than 2 hours).
Upon readmission, the patient was not found to have a leukocytosis, but blood cultures obtained at the time of admission now reveal the presence of a strep species, and urine culture reveals the presence of Proteus mirabilis. Infectious Diseases is
asked to comment upon further antimicrobial therapy.
Past History
Additional Past Medical History:
Parkinson's disease
Dysphagia
Recent CVA (ICH)
Hypothyroidism
Anxiety
Dementia
Aspiration PNA
Additional Past Surgical History:
PEG
Hip surgery
Cholecystectomy
Allergy History:
codeine Allergy (Verified 07/30/24 16:32)
Unknown
metoclopramide Allergy (Verified 07/30/24 16:32)
Unknown
pork derived (porcine) Allergy (Verified 07/30/24 18:40)
Unknown
prochlorperazine [From Compazine] Allergy (Verified 07/30/24 16:32)
Unknown
shellfish derived Allergy (Verified 07/30/24 18:40)
Unknown
Medications Reviewed: Yes
Current Antibiotics:
Zosyn 3.375 g IV every 6 hours -> ceftriaxone 1 g IV every 24 hours
Social History
Tobacco: Non-Smoker
Alcohol: None
Drug: None
Personal:
Living: With Family
Employment: Not Employed
Review of Systems
Vital Signs
Temp Pulse Resp BP Pulse Ox
99.0 F 55 18 136/57 97
08/02/24 07:30 08/02/24 07:30 08/02/24 07:30 08/02/24 07:30 08/02/24 07:30
Physical Exam
Physical Exam
Constitutional: No Acute Distress, Comfortable, Chronically Ill and Cachetic
Head: Normocephalic and Other (Temporal wasting noted)
Eyes: No Conjunctival Hemorrhage and Sclera Anicteric
Cardiovascular: S1/S2; Negative S3/S4 or Murmur
Pulmonary: Non Labored and Other (Poor inspiratory effort); Negative Wheezes
Gastrointestinal: Soft, Non Distended and Other (PEG tube in place.)
Extremities: Negative Edema, Cyanosis or Erythema
Skin: Negative Rash or Jaundice
Neurological: Other (Arousable. Responsive to voice and touch, but not especially following commands.)
Psychological: Calm
.
Lab / Diagnostic Study Results
07/31/24 07:59
08/01/24 08:56
Abs Immat Gran (auto) 0.0 10^3/uL (0-0.05) 07/31/24 07:59
Absolute Neuts (auto) 4.1 10^3/uL (1.4-6.5) 07/31/24 07:59
Absolute Lymphs (auto) 0.9 10^3/uL (1.2-3.4) L 07/31/24 07:59
Absolute Monos (auto) 0.7 10^3/uL (0.1-0.6) H 07/31/24 07:59
Absolute Basos (auto) 0.0 10^3/uL (0-0.2) 07/31/24 07:59
Immature Gran % 0.3 % (0-0.5) 07/31/24 07:59
Neutrophils % 69.2 % (42.2-75.2) 07/31/24 07:59
Lymphocytes % 14.6 % (20.5-51.1) L 07/31/24 07:59
Monocytes % 12.4 % (1.7-9.3) H 07/31/24 07:59
Eosinophils % 3.2 % (0-6) 07/31/24 07:59
Basophils % 0.3 % (0-2) 07/31/24 07:59
Lactic Acid Cancelled 07/30/24 18:45
Microbiology Results
Micro:
07/31/24 11:36 Blood Culture - Preliminary
Blood/Venous No Growth in 24 hours- Final report to follow
07/30/24 14:57 Blood Culture - Preliminary
Blood/Venous Streptococcus species
Gram Stain - Preliminary
07/30/24 14:57 Blood Culture - Preliminary
Blood/Venous Streptococcus species
Gram Stain - Preliminary
07/30/24 16:15 Urine Culture - Final
Urine Proteus mirabilis
07/30/24 14:58 Influenza Types A & B (PIPPA) - Final
Nasal Swab Negative for Influenza A & B, NAAT
Negative results must be combined with clinical observations
and patient history.
Nucleic Acid Amplification test (NAAT)performed on the
[employer] platform.
Imaging:
08/01/2024 MRI brain without contrast: No significant change in what likely represents a hematoma in the right frontal lobe. There is surrounding gliosis. There is sulcal effacement, but less mass effect on the right frontal horn compared to the
prior brain MRI. Please see full dictation for additional detail.
07/30/2024 CT abdomen/pelvis: Moderate diffuse urinary bladder wall thickening suggesting acute cystitis. A 3 mm nonobstructing right intrarenal calculus is noted. Moderate amount of fecal material throughout the distal colon suggesting
constipation. Percutaneous gastrostomy tube in place. Please see full dictation for additional detail.
Assessment / Plan
Bacteremia with strep species
� ER draws; may be contaminant
Bacteriuria/pyuria
� No systemic symptomatology. May be asymptomatic bacteriuria
Isolated fever
� Obtained rectally in ER
- No further fever recorded.
Hyponatremia; improved
Parkinson's disease
Dysphagia
Recent CVA (ICH)
Hypothyroidism
Anxiety
Dementia
Aspiration PNA
Recommendations:
Continue with antibiotics for the present.
Sensitivities of recovered isolate reviewed. Patient has been transitioned to ceftriaxone from Zosyn.
Await final culture data to guide further antimicrobial selection/de-escalation/discontinuation.
Monitor white count and temperature curve.
[2024-08-02] MEDS: KCL ELIXIR 20 MEQ TUBE (09:31)
[2024-08-02] MEDS: SYMMETREL SYRUP 100 MG TUBE ×3 (09:31→22:19)
[2024-08-02] MEDS: ZOLOFT 150 MG TUBE (09:32)
[2024-08-02] MEDS: MIRALAX 17 GRAMS TUBE (09:32)
[2024-08-02] MEDS: STERILE WATER FOR INJECTION 10 ML IV (09:32)
[2024-08-02] MEDS: NORVASC 2.5 MG TUBE (09:32)
[2024-08-02] MEDS: PEPCID 20 MG TUBE (09:33)
[2024-08-02] MEDS: ROCEPHIN 1000 MG IV (09:33)
[2024-08-02] MEDS: NEURONTIN 100 MG TUBE ×2 (09:36→20:24)
[2024-08-02] MEDS: KCL ELIXIR 40 MEQ TUBE (09:36)
[2024-08-02] MEDS: SINEMET 25-100 1 TABLET TUBE ×4 (09:39→20:24)
--- NOTE | 2024-08-02 14:43 | CM ---
Spoke w/ son Donte (POA) re d/c plan
Per Donte, family would like to move forward w/ palliative. Referral completed in [facility]
Per Donte, he did speak w/ Rosalie/ Palliative who stated she is able to see pt on Monday following referral
Current w/ [facility]
Will cont. services w/ [facility] for tube feeds
Son cont. to work w/ [facility] to get 24 hour care, pt currently has 16x7
Currently on IV abx
[facility]

Palliative Care

Plan: Home w/ [facility] and Palliative care
[2024-08-02 15:13] VITALS: BP 118/95
[2024-08-02] MEDS: LIPITOR 40 MG TUBE (17:18)
[2024-08-02] MEDS: DESYREL 25 MG TUBE (22:14)
[2024-08-02] MEDS: SINEMET 25-100 2 TABLET TUBE (22:19)
[2024-08-02 23:45] VITALS: BP 107/52
[2024-08-03] MEDS: TYLENOL ORAL SOLUTION 650 MG TUBE ×2 (01:13→17:36)
[2024-08-03] MEDS: ROXICODONE 5 MG TUBE ×3 (01:50→21:22)
[2024-08-03] MEDS: SYNTHROID 75 MCG TUBE (05:02)
[2024-08-03 07:00] VITALS: BP 135/65
[2024-08-03 08:28] LABS: Blood Urea Nitrogen 16 mg/dl (7-17); Calcium 9.4 mg/dl (8.4-10.2); Carbon Dioxide 23 mmol/L (22-30); Chloride 109 mmol/L (98-107); Estimated Creatinine Clearance 49 ml/min; Glucose 128 mg/dl (70-99); Potassium 3.4 mmol/L (3.5-5.1); Sodium 145 mmol/L (135-145); eGFR > 60.00
[2024-08-03] MEDS: KCL ELIXIR 40 MEQ TUBE (08:41)
[2024-08-03] MEDS: SYMMETREL SYRUP 100 MG TUBE ×3 (08:41→21:11)
[2024-08-03] MEDS: NORVASC 2.5 MG TUBE (08:42)
[2024-08-03] MEDS: PEPCID 20 MG TUBE (08:42)
[2024-08-03] MEDS: ZOLOFT 50 MG TUBE (08:42)
[2024-08-03] MEDS: NEURONTIN 100 MG TUBE ×2 (08:42→19:43)
[2024-08-03] MEDS: ROCEPHIN 1000 MG IV (08:49)
[2024-08-03] MEDS: SINEMET 25-100 1 TABLET TUBE ×4 (08:49→19:45)
[2024-08-03] MEDS: STERILE WATER FOR INJECTION 10 ML IV (08:50)
--- NOTE | 2024-08-03 09:12 | W.PN.HOSP.TC ---
Addendum entered and electronically signed by David Virgen MD 08/03/24 14:24:
Addendum
d/w son, Donte regarding code status. He wanted DNR to avoid put her through more suffering.
End
Original Note:
Today's Communication/Plan
-
DC planning
Skin care/ high risk for pressure wounds, changing position
Daily weight
Consult palliative care
Due to lethargy, c/w home medications of Zoloft and Trazodone but reduced the dose
c/w potassium
Likely will need water flushes to 100cc to avoid dehydration
Day 5 of Antibiotic.
Assessment / Plan
Assessment / Plan
Physical exam:
General: chronically ill looking, no respiratory distress.
HEENT: Normocephalic, Atraumatic and Moist Mucous Membranes
Respiratory: Clear to Auscultation bilateral; Negative Wheezes.
Cardiac: Regular Rhythm and S1/S2
GI: Soft, Nontender and Nondistended
Musculoskeletal: No Clubbing, No Cyanosis and No Edema. PEG placement in place
Neuro: Awake, disoriented, increased tone/rigidity, generalized weakness.
Psych: Calm but sometimes agitation
# Change in mental status/ Right frontal lobe hemorrhagic stroke
Her mentation seems unchanged from last admission. She continues to have periods of delirium/ agitation with lethargy
She was evaluated by neurologist, recommend to continue supportive care
CT head on 07/30 showed same findings of large right frontal lobe lesion/ stroke. decreasing edema and signs of hemorrhage.
I d/w neurologist, repeat MRI w/WO contrast showed no changed in right frontal hematoma ( finding was consistent with a bleeding stroke into an ischemic stroke- that was what neurosurgery felt upon reviewing her first brain MRI).
Continue with skin care, changing position as she remains high risk for skin pressure injury/ ulcers, tube feeding. Daily weight to monitor her weight and adjust medication doses.
Family meeting 08/02, answered questions to their satisfaction, requested to consult palliative care, aware that prognosis remains guarded.
.
since patient lost weight and seems lethargic most of the time, will decrease some of psych medications and monitor
# SIRS
Sepsis is ruled out, seems localized infection due to probably UTI (Toxic metabolic encephalopathy, fever)
CT abd without contrast seems to be c/w UTI/ cystitis
s/p empiric broad spectrum IV Abx, changed to IV Rocephin, day # 5 of antibiotic treatment.
Consult ID, input appreciated
Bladder scans BID and watch for urinary retention,.
Afebrile , normal WBC. normal lactic acid.
Not much improvement in mental status
# Bacteremia with streptococcus mitis, c/w contaminant,
Repeat blood culture on 07/31 : no growth
No fevers, no leukocytosis
Last echo 07/15 no signs of vegetations
No hypoxia
No Diarrhea
No skin rash
Possible blood culture contamination, await further culture data and repeat cultures.
Consult ID, input appreciated
#Parkinson disease, advanced and debilitating with ambulatory deficiency
c/w Sinemet via PEG
Primary neurologist Dr Garcia at [place] ( she is aware of her last brain images)
#Dysphagia
#Severe protein calorie malnutrition
c/w tube feeding
no need for more IVF
#Hypokalemia, improving , replace and recheck
#Hypernatremia, resolved.
Stopped further IVF, c/w tube feeding + water through feeding tube
# hypercalcemia, improving
# #Chronic constipation
resolved, holding senna and MiraLAX
Resume usual daily dose
#Anxiety d/o
c/w home medications of Zoloft and Trazodone but reduced the dose due to lethargy
#Demential with behavioral disturbances
#Essential HTN
lower dose of Amlodipine since BP was soft
#Hypothyroidism
cont home meds
DVT ppx SCDs, ok to do SQ Heparin per evaluation from neurosurgery/ neurology
Full code
Total time spent to see the patient, examine the patient, review data and lab results, discuss treatment plan with patient, nursing staff around 55 minutes
Anticipated Discharge: 24 - 48 hours
Subjective/Interval History
-
Date of Service: August 03, 2024
no fevers
no hypotension
Objective Data
-
Labs:
Laboratory Results
08/03/24
06:56
Sodium 145
Potassium 3.4 L
Chloride 109 H
Carbon Dioxide 23
BUN 16
Creatinine 0.4 L
Glucose 128 H
Calcium 9.4
Vital Signs:
Vital Signs
Temp Pulse Resp BP Pulse Ox
97.3 F 64 20 135/65 99
08/03/24 07:00 08/03/24 07:00 08/03/24 07:00 08/03/24 07:00 08/03/24 07:00
I&O
08/02/24 08/03/24 08/04/24
06:59 06:59 06:59
Intake Total 50 / 50
Balance 50 / 50
[2024-08-03] MEDS: ATIVAN 0.25 MG IV (13:23)
[2024-08-03] MEDS: NSS (PRESERVATIVE FREE) 0.125 ML IV (13:24)
[2024-08-03 15:00] VITALS: BP 98/83
[2024-08-03] MEDS: LIPITOR 40 MG TUBE (15:27)
[2024-08-03] MEDS: DESYREL 25 MG TUBE (21:10)
[2024-08-03] MEDS: SINEMET 25-100 2 TABLET TUBE (21:11)
[2024-08-03 23:25] VITALS: BP 136/70
[2024-08-04] MEDS: TYLENOL ORAL SOLUTION 650 MG TUBE ×3 (01:53→20:01)
[2024-08-04] MEDS: ATIVAN 0.25 MG IV ×3 (02:30→23:16)
[2024-08-04] MEDS: NSS (PRESERVATIVE FREE) 0.5 ML IV (02:31)
[2024-08-04] MEDS: SYNTHROID 75 MCG TUBE (05:00)
[2024-08-04 06:00] VITALS: BMI 14.6
[2024-08-04 08:00] VITALS: BP 155/92
[2024-08-04] MEDS: SINEMET 25-100 1 TABLET TUBE ×4 (08:51→20:00)
[2024-08-04] MEDS: ZOLOFT 50 MG TUBE ×2 (08:52→10:20)
[2024-08-04] MEDS: SYMMETREL SYRUP 100 MG TUBE ×3 (08:52→21:14)
[2024-08-04] MEDS: PEPCID 20 MG TUBE (08:52)
[2024-08-04] MEDS: KCL ELIXIR 40 MEQ TUBE (08:52)
[2024-08-04] MEDS: NEURONTIN 200 MG TUBE ×2 (08:54→20:00)
[2024-08-04] MEDS: NORVASC 2.5 MG TUBE (08:54)
[2024-08-04] MEDS: ROCEPHIN 1000 MG IV (08:55)
[2024-08-04] MEDS: STERILE WATER FOR INJECTION 10 ML IV (08:56)
--- NOTE | 2024-08-04 09:13 | W.PN.HOSP.TC ---
Today's Communication/Plan
-
Last day of Rocephin 08/05
c/w BID straight cath and bladder scan to avoid UTI
skin care/ mouth care, change position q 2 hours
Increased gabapentin to decrease PRN Ativan
Increased Trazodone dose at HS ( back to her usual dose)
palliative care consult upon dc ( discussed with case finishing machine adjuster)
Assessment / Plan
Assessment / Plan
Physical exam:
General: chronically ill looking, no respiratory distress.
HEENT: Normocephalic, Atraumatic and Moist Mucous Membranes
Respiratory: Clear to Auscultation bilateral; Negative Wheezes.
Cardiac: Regular Rhythm and S1/S2
GI: Soft, Nontender and Nondistended
Musculoskeletal: No Clubbing, No Cyanosis and No Edema. PEG placement in place
Neuro: Awake, disoriented, increased tone/rigidity, generalized weakness.
Psych: Calm but sometimes agitation
# Change in mental status/ Right frontal lobe hemorrhagic stroke
Her mentation seems unchanged from last admission. She continues to have periods of delirium/ agitation with lethargy
She was evaluated by neurologist, recommend to continue supportive care
CT head on 07/30 showed same findings of large right frontal lobe lesion/ stroke. decreasing edema and signs of hemorrhage.
I d/w neurologist, repeat MRI W/WO contrast showed no changed in right frontal hematoma ( finding was consistent with a bleeding stroke into an ischemic stroke- that was what neurosurgery felt upon reviewing her first brain MRI).
Continue with skin care, changing position as she remains high risk for skin pressure injury/ ulcers, tube feeding. Daily weight to monitor her weight and adjust medication doses.
Family meeting 08/02, answered questions to their satisfaction, requested to consult palliative care, aware that prognosis remains guarded.
Tried to decrease Trazodone, pt became restless/ agitated at night time, back to usual dose. Change dose of Zoloft to 100 mg.
# SIRS
Sepsis is ruled out, seems localized infection due to probably UTI (Toxic metabolic encephalopathy, fever)
CT abd without contrast seems to be c/w UTI/ cystitis
s/p empiric broad spectrum IV Abx, changed to IV Rocephin, day # 6 of antibiotic treatment. last day 08/05.
Consult ID, input appreciated
Bladder scans BID and watch for urinary retention,.
Afebrile , normal WBC. normal lactic acid.
Not much improvement in mental status
# Bacteremia with streptococcus mitis, c/w contaminant.
Repeat blood culture on 07/31 : no growth
No fevers, no leukocytosis
Last echo 07/15 no signs of vegetations
No hypoxia
No Diarrhea
No skin rash
Consult ID, input appreciated
#Parkinson disease, advanced and debilitating with ambulatory deficiency
c/w Sinemet via PEG
Primary neurologist Dr Garcia at [place] ( she is aware of her last brain images)
#Dysphagia
#Severe protein calorie malnutrition
c/w tube feeding
no need for more IVF
#Hypokalemia, improving , replace and recheck
#Hypernatremia, resolved.
Stopped further IVF, c/w tube feeding + water through feeding tube
# hypercalcemia, improving
# #Chronic constipation
resolved, holding senna and MiraLAX
Resume usual daily dose
#Anxiety d/o
c/w home medications of Zoloft and Trazodone but reduced the dose due to lethargy
#Demential with behavioral disturbances
Positive restlessness & agitation. Added PRN Ativan. Increase dose of Gabapentin. Monitor for over sedation.
c/w Gabapentin, Zoloft & Trazodone.
#Essential HTN
lower dose of Amlodipine since BP was soft
#Hypothyroidism
cont home meds
DVT ppx SCDs, ok to do SQ Heparin per evaluation from neurosurgery/ neurology
# Code status. Explained code status to son Isatu). Family decided DNR.
d/w case finishing machine adjuster 11/16, recommended palliative care consult upon dc.
Total time spent to see the patient, examine the patient, review data and lab results, discuss treatment plan with patient, nursing staff around 55 minutes
Anticipated Discharge: 24 - 48 hours
Subjective/Interval History
-
Date of Service: August 04, 2024
Restless this morning
Objective Data
-
Vital Signs:
Vital Signs
Temp Pulse Resp BP Pulse Ox
98.1 F 80 17 155/92 99
08/04/24 08:00 08/04/24 08:00 08/04/24 08:00 08/04/24 08:00 08/04/24 08:00
I&O
08/03/24 08/04/24 08/05/24
06:59 06:59 06:59
Intake Total 1640 / 1640
Output Total 650 / 650
Balance 990 / 990
[2024-08-04] MEDS: LIPITOR 40 MG TUBE (15:11)
[2024-08-04 15:24] VITALS: BP 154/73
[2024-08-04] MEDS: SENOKOT 17.2 MG TUBE (21:14)
[2024-08-04] MEDS: DESYREL 50 MG TUBE (21:14)
[2024-08-04] MEDS: SINEMET 25-100 2 TABLET TUBE (21:14)
[2024-08-04 23:30] VITALS: BP 154/74
[2024-08-05] MEDS: SYNTHROID 75 MCG TUBE (05:49)
[2024-08-05 07:35] VITALS: BP 157/99
--- NOTE | 2024-08-05 08:08 | W.PN.HOSP.TC ---
Addendum entered and electronically signed by Ulises Reynolds MD 08/05/24 16:04:
Started on hypotonic IV fluids.
Addendum entered and electronically signed by Ulises Reynolds MD 08/05/24 16:03:
Significant hypernatremia and some leukocytosis. Repeat chest x-ray. Continue IV ceftriaxone for now. Hospice discussions were undertaken. Discussed with palliative care.
Original Note:
Today's Communication/Plan
-
Palliative care evaluation
Assessment / Plan
Assessment / Plan
Physical exam:
General: chronically ill looking, no respiratory distress.
HEENT: Normocephalic, Atraumatic and Moist Mucous Membranes
Respiratory: Clear to Auscultation bilateral; Negative Wheezes.
Cardiac: Regular Rhythm and S1/S2
GI: Soft, Nontender and Nondistended
Musculoskeletal: No Clubbing, No Cyanosis and No Edema. PEG placement in place
Neuro: Awake, disoriented, increased tone/rigidity, generalized weakness.
Psych: Calm but sometimes agitation
# Change in mental status/ Right frontal lobe hemorrhagic stroke
Her mentation seems unchanged from last admission. She continues to have periods of delirium/ agitation with lethargy
She was evaluated by neurologist, recommend to continue supportive care
CT head on 07/30 showed same findings of large right frontal lobe lesion/ stroke. decreasing edema and signs of hemorrhage.
I d/w neurologist, repeat MRI W/WO contrast showed no changed in right frontal hematoma ( finding was consistent with a bleeding stroke into an ischemic stroke- that was what neurosurgery felt upon reviewing her first brain MRI).
Continue with skin care, changing position as she remains high risk for skin pressure injury/ ulcers, tube feeding. Daily weight to monitor her weight and adjust medication doses.
Family meeting 08/02, answered questions to their satisfaction, requested to consult palliative care, aware that prognosis remains guarded.
Tried to decrease Trazodone, pt became restless/ agitated at night time, back to usual dose. Change dose of Zoloft to 100 mg.
Agree with changes of CODE STATUS to DNR.
I think it would be best to have palliative care evaluation while in the hospital given her readmission--> palliative care consulted today.
# SIRS
Sepsis is ruled out, seems localized infection due to probably UTI (Toxic metabolic encephalopathy, fever)
CT abd without contrast seems to be c/w UTI/ cystitis
s/p empiric broad spectrum IV Abx, changed to IV Rocephin, day # 6 of antibiotic treatment. last day 08/05.
Consult ID, input appreciated
Bladder scans BID and watch for urinary retention,.
Afebrile , normal WBC. normal lactic acid.
Not much improvement in mental status
# Bacteremia with streptococcus mitis, c/w contaminant.
Repeat blood culture on 07/31 : no growth
No fevers, no leukocytosis
Last echo 07/15 no signs of vegetations
No hypoxia
No Diarrhea
No skin rash
Consult ID, input appreciated
#Parkinson disease, advanced and debilitating with ambulatory deficiency
c/w Sinemet via PEG
Primary neurologist Dr Garcia at [place] ( she is aware of her last brain images)
#Dysphagia
#Severe protein calorie malnutrition
c/w tube feeding
no need for more IVF
#Hypokalemia, improving , replace and recheck
#Hypernatremia, resolved.
Stopped further IVF, c/w tube feeding + water through feeding tube
# hypercalcemia, improving
# #Chronic constipation
resolved, holding senna and MiraLAX
Resume usual daily dose
#Anxiety d/o
c/w home medications of Zoloft and Trazodone but reduced the dose due to lethargy
#Demential with behavioral disturbances
Positive restlessness & agitation. Added PRN Ativan. Increase dose of Gabapentin. Monitor for over sedation.
c/w Gabapentin, Zoloft & Trazodone.
#Essential HTN
lower dose of Amlodipine since BP was soft
#Hypothyroidism
cont home meds
DVT ppx SCDs, ok to do SQ Heparin per evaluation from neurosurgery/ neurology
# Code status. Explained code status to son Isatu). Family decided DNR.
Anticipated Discharge: 24 - 48 hours
Subjective/Interval History
-
Date of Service: August 05, 2024
Patient with no new complaints. Looks frail overall.
Objective Data
-
Vital Signs:
Vital Signs
Temp Pulse Resp BP Pulse Ox
97.5 F 84 14 154/74 100
08/04/24 23:30 08/04/24 23:30 08/04/24 23:30 08/04/24 23:30 08/04/24 23:30
I&O
08/04/24 08/05/24 08/06/24
06:59 06:59 06:59
Intake Total 1640 / 1640 1020 / 1020
Output Total 650 / 650
Balance 990 / 990 1020 / 1020
[2024-08-05] MEDS: SYMMETREL SYRUP 100 MG TUBE ×3 (08:49→21:09)
[2024-08-05] MEDS: NEURONTIN 200 MG TUBE ×2 (08:51→19:46)
[2024-08-05] MEDS: KCL ELIXIR 40 MEQ TUBE (08:51)
[2024-08-05] MEDS: NORVASC 2.5 MG TUBE (08:52)
[2024-08-05] MEDS: PEPCID 20 MG TUBE (08:52)
[2024-08-05] MEDS: ZOLOFT 100 MG TUBE (08:52)
[2024-08-05] MEDS: SINEMET 25-100 1 TABLET TUBE ×4 (08:59→19:46)
[2024-08-05] MEDS: STERILE WATER FOR INJECTION 10 ML IV (09:01)
[2024-08-05] MEDS: ROCEPHIN 1000 MG IV (09:01)
[2024-08-05 13:46] LABS: % Basophils 0.2 % (0-2); % Lymphocytes 5.1 % (20.5-51.1); % Monocytes 7.9 % (1.7-9.3); % Neutrophils 85.8 % (42.2-75.2); Absolute Immature Granulocytes 0.1 10^3/uL (0-0.05); Absolute Lymphocytes 0.6 10^3/uL (1.2-3.4); Absolute Monocytes 0.9 10^3/uL (0.1-0.6); Absolute Neutrophils 9.9 10^3/uL (1.4-6.5); Hematocrit 44.1 % (37.0-47.0); Hemoglobin 13.9 g/dL (12.0-16.0); Mean Corp Hgb Conc. 31.5 g/dL (33.0-37.0); Mean Corpuscular Hgb 31.5 pg (27.0-31.0); Mean Platelet Volume 8.5 fL (7.4-10.4); Nucleated Red Blood Cells % 0 %; Platelet Count 324 10^3/uL (130-400); Red Blood Cell Count 4.41 10^6/uL (4.20-5.40); Red Cell Dist. Width 15.4 % (11.5-14.5); White Blood Cell Count 11.6 10^3/uL (4.8-10.8)
[2024-08-05 13:56] LABS: INR 0.99; PT 13.4 Sec (11.4-14.6)
[2024-08-05 14:27] LABS: ALT (SGPT) 18 U/L (0-35); AST (SGOT) 20 U/L (14-36); Albumin 4.2 g/dl (3.5-5.0); Alkaline Phosphatase 95 U/L (38-126); Blood Urea Nitrogen 27 mg/dl (7-17); Calcium 10.2 mg/dl (8.4-10.2); Carbon Dioxide 27 mmol/L (22-30); Chloride 114 mmol/L (98-107); Direct Bilirubin 0.1 mg/dl (0.0-0.4); Estimated Creatinine Clearance 47 ml/min; Glucose 163 mg/dl (70-99); Magnesium 2.4 mg/dl (1.6-2.3); Phosphorus 2.4 mg/dl (2.5-4.5); Potassium 4.8 mmol/L (3.5-5.1); Sodium 155 mmol/L (135-145); Total Bilirubin 0.1 mg/dl (0.2-1.3); Total Protein 6.9 g/dl (6.3-8.2); eGFR > 60.00
--- NOTE | 2024-08-05 14:38 | W.PN.ID1 ---
Date of Service
Date of Service: August 05, 2024
Today's Communication
Bacteremia with Strep mitis/oralis
� ER draws; may be contaminant as were drawn at same time
Bacteriuria/pyuria
� No systemic symptomatology. May be asymptomatic bacteriuria
Isolated fever
� Obtained rectally in ER
- No further fever recorded.
Hyponatremia; improved
Parkinson's disease
Dysphagia
Recent CVA (ICH)
Hypothyroidism
Anxiety
Dementia
Aspiration PNA
Recommendations:
Continue with antibiotics for the present.
Monitor white count and temperature curve.
Palliative Care has been consulted. Patient appears palliative care/hospice appropriate.
Chief Complaint
-: Leukocytosis, UTI and Bacteremia
Vital Signs / Physical Exam
Vital Signs
Vital Signs
Temp Pulse Resp BP Pulse Ox
98.6 F 104 20 157/99 94
08/05/24 07:35 08/05/24 07:35 08/05/24 07:35 08/05/24 08:52 08/05/24 07:35
Physical Exam
Constitutional: Comfortable, Chronically Ill and Cachetic
Eyes: Sclera Anicteric
Cardiovascular: S1/S2; Negative S3/S4
Pulmonary: Non Labored
Gastrointestinal: Soft, Non Tender and Non Distended
Neurological: Other (Eyes open. Not especially responsive to voice or touch.)
Objective Data
Lab Data
Lab Results
08/05/24 13:37
08/05/24 13:37
PT 13.4 Sec (11.4-14.6) 08/05/24 13:37
INR 0.99 08/05/24 13:37
Estimated Creat Clear 47 ml/min 08/05/24 13:37
Lactic Acid Cancelled 07/30/24 18:45
Total Bilirubin 0.1 mg/dl (0.2-1.3) L 08/05/24 13:37
AST 20 U/L (14-36) 08/05/24 13:37
ALT 18 U/L (0-35) 08/05/24 13:37
Alkaline Phosphatase 95 U/L (38-126) 08/05/24 13:37
Most recent labs reviewed.
Micro Results:
07/31/24 11:36 Blood Culture - Final
Blood/Venous No Growth - Final Report
07/30/24 14:57 Blood Culture - Preliminary
Blood/Venous Strep mitis/oralis
Gram Stain - Preliminary
07/30/24 14:57 Blood Culture - Final
Blood/Venous Strep mitis/oralis
Gram Stain - Final
07/30/24 16:15 Urine Culture - Final
Urine Proteus mirabilis
07/30/24 14:58 Influenza Types A & B (PIPPA) - Final
Nasal Swab Negative for Influenza A & B, NAAT
Negative results must be combined with clinical observations
and patient history.
Nucleic Acid Amplification test (NAAT)performed on the
[employer] platform.
[2024-08-05 15:00] VITALS: BP 157/78
--- NOTE | 2024-08-05 15:30 | CM ---
Addendum entered by Tiburcio Campa 08/05/24 15:54:
Per Dr. Orourke, discussed hospice w/ pt son, Donte
Family wants to talk about hospice tomorrow if pt doesn't improve
Per Dr. Orourke, family goal is for hospice at home
Hospice nurse/Yanira made aware
Hospitalist in agreement w/ hospice discussions and will cont. to treat in the meantime
CM to follow up w/ family tomorrow re hospice decision
Original Note:
Chart reviewed.
Per Rosalie/ Palliative Care, pt is on Dr. Orourke' list to be seen today
Pt cont. to be palliative care appropriate per ID note
Cont. abx
Monitor white count and temperature curve
Current w/ [facility]
Current w/ [facility] for bolus feed supplies
[facility]

Plan: Home w/ [facility] and [facility]
[2024-08-05] MEDS: LIPITOR 40 MG TUBE (15:51)
--- NOTE | 2024-08-05 15:58 | W.CON.PAL ---
Consultation
-
Date/Time Consultation Requested: 08/05/2024
Date/Time Consultation Performed: 08/05/2024
Requesting Provider: Dr. vieyra
Performing Provider: dr. nowka
Reason for Consult: Advanced Care Planning
Primary Diagnosis: Parkinsons, Dysphagia, Hemmhoragic CVA
Consult Requested By: Patient's Physician
Reason for Admission
Illness Course/HPI
Palliative Care consult, total floor time 60 mins, including telephone conversation with son 40 mins 3:18-4:00.
Mikayla is a 74 y/o female with parkinsons and dysphagia who has had significnat clinical decline over the past few months. REquired peg tube placement. then developed hemorrhagic stroke of frontal lobe. Was discharged home on 07/30 and returned
later same day due to worsening mental status. she is bedbound, requires assistance for all care, and over the last 24 hours appears lethargic, minimally responsive. labs today with elevated WBC count, hypernatremia. fever overnight.
Palliative care consulted to discuss goals of care.
Functional Status
Bedbound, total care.
has [employer] 16 hours per day at home
Goals of Care Discussion
-
Patient able to participate in discussion at time of visit: No
Patient Goals
Spoke with son yoli discussed patients clinical condition and mauricio w things have changed over the past few months. Overall goal is for patient to return home for her last days, does not want SNF. At this time they are would like to see if any
improvement with abx/fluids over next 24 hours and meet with hospice time in am. already has DNR code status in chart.
Pain & Symptom Assessment
-
unable to assess
Objective Data
-
Objective Data:
Vital Signs
Temp Pulse Resp BP Pulse Ox
97.6 F 84 18 157/78 97
08/05/24 15:00 08/05/24 15:00 08/05/24 15:00 08/05/24 15:00 08/05/24 15:00
Laboratory Results
08/05/24 13:37
08/05/24 13:37
PT 13.4 Sec (11.4-14.6) 08/05/24 13:37
INR 0.99 08/05/24 13:37
Total Protein 6.9 g/dl (6.3-8.2) 08/05/24 13:37
Albumin 4.2 g/dl (3.5-5.0) 08/05/24 13:37
TSH 0.95 uIU/ml (0.47-4.68) 07/31/24 07:59
Urine Color Yellow 07/30/24 16:15
Urine Clarity Slightly cloudy (Clear) 07/30/24 16:15
Urine pH 7.0 (5.0-9.0) 07/30/24 16:15
Ur Specific [place] 1.010 (<1.030) 07/30/24 16:15
Urine Ketones Negative (Negative) 07/30/24 16:15
Urine Bilirubin Negative (Negative) 07/30/24 16:15
Palliative Performance Scale
Palliative Performance Scale:
PPS Level Ambulation Activity & Evidence of Disease Self Care Intake Conscious Level
100% Full Normal Activity & Work; Full Intake Full
No Evidence of Disease
90% Full Normal Activity & Work; Full Normal Full
Some Evidence of Disease
80% Full Normal Activity with Effort Full Normal or Full
Some Evidence of Disease Reduced
70% Reduced Unable Normal Job/Work Full Normal or Full
Significant Disease Reduced
60% Reduced Unable Hobby/Housework Occasional Normal or Full or Confusion
Significant Disease Assistance Reduced
50% Mainly Sit/Lie Unable to do Any Work Considerable Normal or Full or Confusion
Extensive Disease Assistance Req'd Reduced
40% Mainly in Bed Unable to do Most Activity Mainly Assistance Normal or Full or Drowsy;
Extensive Disease Reduced +/- Confusion
30% Totally Bed Unable to do Any Activity Total Care Normal or Full or Drowsy;
Bound Extensive Disease Reduced +/- Confusion
20% Totally Bed Bound Unable to do Any Activity Total Care Minimal to Full or Drowsy;
Extensive Disease Sips +/- Confusion
10% Totally Bed Bound Unable to do Any Activity Total Care Mouth Care Drowsy or Coma;
Extensive Disease Only +/- Confusion
0%
PPS Score Level:
Palliative Performance Score Response
Palliative Performance Score Response: 20%
Physical Exam
-
General: Diaphoretic and Other (poorly responsive)
Assessment / Plan
-
Assessment/Plan:
Discussed hospice with son, agreeable to referral and meet with hospice in am ifno improvement in patient's condition.
goal would be for patient to be at home.
[2024-08-05] MEDS: D5W 1000 IV (16:54)
[2024-08-05] MEDS: SENOKOT 17.2 MG TUBE (21:09)
[2024-08-05] MEDS: SINEMET 25-100 2 TABLET TUBE (21:09)
[2024-08-05] MEDS: DESYREL 50 MG TUBE (21:09)
[2024-08-05 23:30] VITALS: BP 134/69
[2024-08-06] MEDS: D5W 1000 IV ×3 (03:00→21:01)
[2024-08-06] MEDS: SYNTHROID 75 MCG TUBE (05:13)
[2024-08-06 05:21] VITALS: BMI 14.3
[2024-08-06 07:00] VITALS: BP 154/76
--- NOTE | 2024-08-06 08:50 | W.PN.HOSP.TC ---
Today's Communication/Plan
-
Hospice meeting today. Continue IVF/ABx
Assessment / Plan
Assessment / Plan
Physical exam:
General: chronically ill looking, no respiratory distress.
HEENT: Normocephalic, Atraumatic and Moist Mucous Membranes
Respiratory: Clear to Auscultation bilateral; Negative Wheezes.
Cardiac: Regular Rhythm and S1/S2
GI: Soft, Nontender and Nondistended
Musculoskeletal: No Clubbing, No Cyanosis and No Edema. PEG placement in place
Neuro: Awake, disoriented, increased tone/rigidity, generalized weakness.
Psych: Calm but sometimes agitation
# Change in mental status/ Right frontal lobe hemorrhagic stroke
Her mentation seems unchanged from last admission. She continues to have periods of delirium/ agitation with lethargy
She was evaluated by neurologist, recommend to continue supportive care
CT head on 07/30 showed same findings of large right frontal lobe lesion/ stroke. decreasing edema and signs of hemorrhage.
I d/w neurologist, repeat MRI W/WO contrast showed no changed in right frontal hematoma ( finding was consistent with a bleeding stroke into an ischemic stroke- that was what neurosurgery felt upon reviewing her first brain MRI).
Continue with skin care, changing position as she remains high risk for skin pressure injury/ ulcers, tube feeding. Daily weight to monitor her weight and adjust medication doses.
Family meeting 08/02, answered questions to their satisfaction, requested to consult palliative care, aware that prognosis remains guarded.
Tried to decrease Trazodone, pt became restless/ agitated at night time, back to usual dose. Change dose of Zoloft to 100 mg.
Agree with changes of CODE STATUS to DNR.
I think it would be best to have palliative care evaluation while in the hospital given her readmission and she is hospice candidate--> palliative care consulted on 08/05 and after family meeting today on 08/06 decided on hospice care. Plan to go
home hospice on 08/08.
#Hypernatremia
On hypotonic IV fluid
Improving
Might just keep for 24 hours and stop
# SIRS
Sepsis is ruled out, seems localized infection due to probably UTI (Toxic metabolic encephalopathy, fever)
Follow-up chest x-ray on 08/05 did not show any evidence of pneumonia
CT abd without contrast seems to be c/w UTI/ cystitis
s/p empiric broad spectrum IV Abx, changed to IV Rocephin. Will defer to ID for final day of antibiotic
Consult ID, input appreciated
Bladder scans BID and watch for urinary retention,.
Afebrile , normal WBC. normal lactic acid.
Not much improvement in mental status
# Bacteremia with streptococcus mitis, c/w contaminant.
Repeat blood culture on 07/31 : no growth
No fevers, no leukocytosis
Last echo 07/15 no signs of vegetations
No hypoxia
No Diarrhea
No skin rash
Consult ID, input appreciated
#Parkinson disease, advanced and debilitating with ambulatory deficiency
c/w Sinemet via PEG
Primary neurologist Dr Garcia at [facility] ( she is aware of her last brain images)
#Dysphagia
#Severe protein calorie malnutrition
c/w tube feeding
no need for more IVF
#Hypokalemia, improving , replace and recheck
#Hypernatremia, resolved.
Stopped further IVF, c/w tube feeding + water through feeding tube
# hypercalcemia, improving
# #Chronic constipation
resolved, holding senna and MiraLAX
Resume usual daily dose
#Anxiety d/o
c/w home medications of Zoloft and Trazodone but reduced the dose due to lethargy
#Demential with behavioral disturbances
Positive restlessness & agitation. Added PRN Ativan. Increase dose of Gabapentin. Monitor for over sedation.
c/w Gabapentin, Zoloft & Trazodone.
#Essential HTN
lower dose of Amlodipine since BP was soft
#Hypothyroidism
cont home meds
DVT ppx SCDs, ok to do SQ Heparin per evaluation from neurosurgery/ neurology
# Code status. Explained code status to son Isatu). Family decided DNR.
Anticipated Discharge: > 48 hours
Subjective/Interval History
-
Date of Service: August 06, 2024
No new events. Remains encephalopathic
Objective Data
-
Labs:
Laboratory Results
08/06/24
07:54
WBC Pending
Hgb Pending
Hct Pending
Plt Count Pending
Sodium Pending
Potassium Pending
Chloride Pending
Carbon Dioxide Pending
BUN Pending
Creatinine Pending
Glucose Pending
Calcium Pending
Vital Signs:
Vital Signs
Temp Pulse Resp BP Pulse Ox
98.3 F 92 18 154/76 96
08/06/24 07:00 08/06/24 07:00 08/06/24 07:00 08/06/24 07:00 08/06/24 07:00
I&O
08/05/24 08/06/24 08/07/24
06:59 06:59 06:59
Intake Total 1020 / 1020
Balance 1020 / 1020
[2024-08-06] MEDS: PEPCID 20 MG TUBE (08:55)
[2024-08-06] MEDS: ZOLOFT 100 MG TUBE (08:55)
[2024-08-06] MEDS: STERILE WATER FOR INJECTION 10 ML IV (08:56)
[2024-08-06] MEDS: KCL ELIXIR 40 MEQ TUBE (08:56)
[2024-08-06] MEDS: NORVASC 2.5 MG TUBE (08:56)
[2024-08-06] MEDS: SYMMETREL SYRUP 100 MG TUBE ×3 (08:56→21:14)
[2024-08-06] MEDS: ROCEPHIN 1000 MG IV (08:57)
[2024-08-06] MEDS: NEURONTIN 200 MG TUBE ×2 (08:58→19:25)
[2024-08-06] MEDS: SINEMET 25-100 1 TABLET TUBE ×4 (09:06→19:26)
[2024-08-06 09:07] LABS: % Basophils 0.3 % (0-2); % Eosinophils 0.3 % (0-6); % Immature Granulocytes 1.1 % (0-0.5); % Lymphocytes 10.8 % (20.5-51.1); % Monocytes 9.2 % (1.7-9.3); % Neutrophils 78.3 % (42.2-75.2); Absolute Immature Granulocytes 0.1 10^3/uL (0-0.05); Absolute Lymphocytes 1.1 10^3/uL (1.2-3.4); Absolute Neutrophils 8.1 10^3/uL (1.4-6.5); Hematocrit 42.9 % (37.0-47.0); Hemoglobin 13.4 g/dL (12.0-16.0); Mean Corp Hgb Conc. 31.2 g/dL (33.0-37.0); Mean Corpuscular Hgb 31.6 pg (27.0-31.0); Mean Corpuscular Volume 101.2 fL (81.0-99.0); Nucleated Red Blood Cells % 0 %; Red Blood Cell Count 4.24 10^6/uL (4.20-5.40); Red Cell Dist. Width 15.4 % (11.5-14.5); White Blood Cell Count 10.4 10^3/uL (4.8-10.8)
[2024-08-06 09:11] LABS: Blood Urea Nitrogen 26 mg/dl (7-17); Calcium 9.7 mg/dl (8.4-10.2); Carbon Dioxide 26 mmol/L (22-30); Chloride 110 mmol/L (98-107); Estimated Creatinine Clearance 46 ml/min; Glucose 129 mg/dl (70-99); Sodium 150 mmol/L (135-145); eGFR > 60.00
--- NOTE | 2024-08-06 12:02 | W.PN.PAL2 ---
Today's Communication
-
Palliative Care follow up 30 mins goals conversation
met with son at room. he is planned to meet with hospice liason today. reviewed goals of comfort and for his mom to be home.
Mikayla today is more alert, opening eyes, but not verablizing any responses.
Assessment / Plan
-
Assessment/Plan:
Meeting with hospice today
Reason for Admission
Illness Course/HPI
Palliative Care consult, total floor time 60 mins, including telephone conversation with son 40 mins 3:18-4:00.
Mikayla is a 74 y/o female with parkinsons and dysphagia who has had significnat clinical decline over the past few months. REquired peg tube placement. then developed hemorrhagic stroke of frontal lobe. Was discharged home on 07/30 and returned
later same day due to worsening mental status. she is bedbound, requires assistance for all care, and over the last 24 hours appears lethargic, minimally responsive. labs today with elevated WBC count, hypernatremia. fever overnight.
Palliative care consulted to discuss goals of care.
Functional Status
Bedbound, total care.
has [employer] 16 hours per day at home
Goals of Care Discussion
-
Patient able to participate in discussion at time of visit: No
Patient Goals
Spoke with son yoli discussed patients clinical condition and mauricio w things have changed over the past few months. Overall goal is for patient to return home for her last days, does not want SNF. At this time they are would like to see if any
improvement with abx/fluids over next 24 hours and meet with hospice time in am. already has DNR code status in chart.
Pain & Symptom Assessment
-
patient appears comfortable at rest.
Objective Data
-
Objective Data:
Vital Signs
Temp Pulse Resp BP Pulse Ox
98.3 F 92 18 154/76 96
08/06/24 07:00 08/06/24 07:00 08/06/24 07:00 08/06/24 08:56 08/06/24 07:00
Laboratory Results
08/06/24 07:54
08/06/24 07:54
PT 13.4 Sec (11.4-14.6) 08/05/24 13:37
INR 0.99 08/05/24 13:37
Total Protein 6.9 g/dl (6.3-8.2) 08/05/24 13:37
Albumin 4.2 g/dl (3.5-5.0) 08/05/24 13:37
TSH 0.95 uIU/ml (0.47-4.68) 07/31/24 07:59
Urine Color Yellow 07/30/24 16:15
Urine Clarity Slightly cloudy (Clear) 07/30/24 16:15
Urine pH 7.0 (5.0-9.0) 07/30/24 16:15
Ur Specific [place] 1.010 (<1.030) 07/30/24 16:15
Urine Ketones Negative (Negative) 07/30/24 16:15
Urine Bilirubin Negative (Negative) 07/30/24 16:15
Palliative Performance Scale
Palliative Performance Scale:
PPS Level Ambulation Activity & Evidence of Disease Self Care Intake Conscious Level
100% Full Normal Activity & Work; Full Intake Full
No Evidence of Disease
90% Full Normal Activity & Work; Full Normal Full
Some Evidence of Disease
80% Full Normal Activity with Effort Full Normal or Full
Some Evidence of Disease Reduced
70% Reduced Unable Normal Job/Work Full Normal or Full
Significant Disease Reduced
60% Reduced Unable Hobby/Housework Occasional Normal or Full or Confusion
Significant Disease Assistance Reduced
50% Mainly Sit/Lie Unable to do Any Work Considerable Normal or Full or Confusion
Extensive Disease Assistance Req'd Reduced
40% Mainly in Bed Unable to do Most Activity Mainly Assistance Normal or Full or Drowsy;
Extensive Disease Reduced +/- Confusion
30% Totally Bed Unable to do Any Activity Total Care Normal or Full or Drowsy;
Bound Extensive Disease Reduced +/- Confusion
20% Totally Bed Bound Unable to do Any Activity Total Care Minimal to Full or Drowsy;
Extensive Disease Sips +/- Confusion
10% Totally Bed Bound Unable to do Any Activity Total Care Mouth Care Drowsy or Coma;
Extensive Disease Only +/- Confusion
0%
PPS Score Level:
Palliative Performance Score Response
Palliative Performance Score Response: 30%
Physical Exam
-
General: Comfortable, Appears Chronically Ill and Cachectic
Neuro: Awake
Psych: Calm
--- NOTE | 2024-08-06 13:21 | HOSPNOTE ---
Spoke with son and discussed hospice and the philosophy. The plan is for the patient to return home on 08/08. Patient will need transport via ambulance. OOH DNR will be needed on chart. CM and Attending aware.
--- NOTE | 2024-08-06 14:55 | CM ---
CM reviewed with supervisor of operations, plan for discharge home with Hospice on , patient will require ambulance transport. Call placed to patients son, Donte, left voicemail to confirm discharge plan/home address. CM will continue to follow
for all discharge planning needs.
Plan; home with Hospice, , transport forms on chart.
[2024-08-06 15:00] VITALS: BP 147/80
[2024-08-06] MEDS: LIPITOR 40 MG TUBE (16:55)
--- NOTE | 2024-08-06 17:06 | W.PN.ID1 ---
Date of Service
Date of Service: August 06, 2024
Today's Communication
Continue antibiotics for today.
Assessment / Plan
Bacteremia with Strep mitis/oralis
� ER draws; may be contaminant as were drawn at same time
Bacteriuria/pyuria
� No systemic symptomatology. May be asymptomatic bacteriuria
Isolated fever
� Obtained rectally in ER
- No further fever recorded.
Hyponatremia; improved
Parkinson's disease
Dysphagia
Recent CVA (ICH)
Hypothyroidism
Anxiety
Dementia
Aspiration PNA
Recommendations:
Remains on ceftriaxone (d#8 antibiotics)
Continue with antibiotics for the present.
Monitor white count and temperature curve.
Palliative Care has been consulted and has met with family. Family to meet with manager of learning. Patient appears palliative care/hospice appropriate.
����������������������������������������������������������
Chief Complaint
-: Leukocytosis, UTI and Bacteremia
Subjective / Review of Systems
Patient seen and examined. No significant changes overnight.
Review of Systems: No Fever
Vital Signs / Physical Exam
Vital Signs
Vital Signs
Temp Pulse Resp BP Pulse Ox
98.1 F 104 18 147/80 96
08/06/24 15:00 08/06/24 15:00 08/06/24 15:00 08/06/24 15:00 08/06/24 15:00
Physical Exam
Constitutional: No Acute Distress, Comfortable, Chronically Ill and Cachetic
Eyes: Sclera Anicteric
Cardiovascular: Regular Rate and S1/S2; Negative S3/S4
Pulmonary: Non Labored
Gastrointestinal: Soft, Non Tender and Non Distended
Neurological: Other (Eyes open. Not especially responsive to voice or touch.)
Objective Data
Lab Data
Lab Results
08/06/24 07:54
08/06/24 07:54
PT 13.4 Sec (11.4-14.6) 08/05/24 13:37
INR 0.99 08/05/24 13:37
Estimated Creat Clear 46 ml/min 08/06/24 07:54
Lactic Acid Cancelled 07/30/24 18:45
Total Bilirubin 0.1 mg/dl (0.2-1.3) L 08/05/24 13:37
AST 20 U/L (14-36) 08/05/24 13:37
ALT 18 U/L (0-35) 08/05/24 13:37
Alkaline Phosphatase 95 U/L (38-126) 08/05/24 13:37
Most recent labs reviewed.
Micro Results:
07/30/24 14:57 Blood Culture - Final
Blood/Venous Strep mitis/oralis
Gram Stain - Final
07/31/24 11:36 Blood Culture - Final
Blood/Venous No Growth - Final Report
07/30/24 14:57 Blood Culture - Final
Blood/Venous Strep mitis/oralis
Gram Stain - Final
07/30/24 16:15 Urine Culture - Final
Urine Proteus mirabilis
07/30/24 14:58 Influenza Types A & B (PIPPA) - Final
Nasal Swab Negative for Influenza A & B, NAAT
Negative results must be combined with clinical observations
and patient history.
Nucleic Acid Amplification test (NAAT)performed on the
[employer] platform.
[2024-08-06] MEDS: DESYREL 50 MG TUBE (21:14)
[2024-08-06] MEDS: SENOKOT 17.2 MG TUBE (21:14)
[2024-08-06] MEDS: SINEMET 25-100 2 TABLET TUBE (21:14)
[2024-08-06 23:19] VITALS: BP 138/74
[2024-08-07] MEDS: SYNTHROID 75 MCG TUBE (05:01)
[2024-08-07 05:53] VITALS: BMI 15.1
[2024-08-07] MEDS: D5W 1000 IV (07:27)
[2024-08-07 07:30] VITALS: BP 98/56
[2024-08-07 08:09] LABS: % Basophils 0.4 % (0-2); % Eosinophils 2.7 % (0-6); % Immature Granulocytes 1.3 % (0-0.5); % Lymphocytes 10.2 % (20.5-51.1); % Neutrophils 77.4 % (42.2-75.2); Absolute Basophils 0.1 10^3/uL (0-0.2); Absolute Eosinophils 0.3 10^3/uL (0-0.7); Absolute Immature Granulocytes 0.2 10^3/uL (0-0.05); Absolute Lymphocytes 1.2 10^3/uL (1.2-3.4); Absolute Monocytes 0.9 10^3/uL (0.1-0.6); Absolute Neutrophils 8.8 10^3/uL (1.4-6.5); Hematocrit 38.9 % (37.0-47.0); Hemoglobin 12.4 g/dL (12.0-16.0); Mean Corp Hgb Conc. 31.9 g/dL (33.0-37.0); Mean Corpuscular Hgb 31.4 pg (27.0-31.0); Mean Corpuscular Volume 98.5 fL (81.0-99.0); Nucleated Red Blood Cells % 0 %; Red Blood Cell Count 3.95 10^6/uL (4.20-5.40); Red Cell Dist. Width 14.9 % (11.5-14.5); White Blood Cell Count 11.3 10^3/uL (4.8-10.8)
[2024-08-07] MEDS: ZOLOFT 100 MG TUBE (08:16)
[2024-08-07] MEDS: PEPCID 20 MG TUBE (08:17)
[2024-08-07] MEDS: SINEMET 25-100 1 TABLET TUBE ×4 (08:17→21:08)
[2024-08-07] MEDS: NEURONTIN 200 MG TUBE ×2 (08:18→21:08)
[2024-08-07] MEDS: KCL ELIXIR 40 MEQ TUBE (08:18)
[2024-08-07] MEDS: SYMMETREL SYRUP 100 MG TUBE ×3 (08:19→21:09)
[2024-08-07 08:36] LABS: Platelet Count 207 10^3/uL (130-400)
--- NOTE | 2024-08-07 08:40 | W.PN.HOSP.TC ---
Today's Communication/Plan
-
Plan to hospice in a.m.
Assessment / Plan
Assessment / Plan
Physical exam:
General: chronically ill looking, no respiratory distress.
HEENT: Normocephalic, Atraumatic and Moist Mucous Membranes
Respiratory: Clear to Auscultation bilateral; Negative Wheezes.
Cardiac: Regular Rhythm and S1/S2
GI: Soft, Nontender and Nondistended
Musculoskeletal: No Clubbing, No Cyanosis and No Edema. PEG placement in place
Neuro: Awake, disoriented, increased tone/rigidity, generalized weakness.
Psych: Calm but sometimes agitation
# Change in mental status/ Right frontal lobe hemorrhagic stroke
Her mentation seems unchanged from last admission. She continues to have periods of delirium/ agitation with lethargy
She was evaluated by neurologist, recommend to continue supportive care
CT head on 07/30 showed same findings of large right frontal lobe lesion/ stroke. decreasing edema and signs of hemorrhage.
I d/w neurologist, repeat MRI W/WO contrast showed no changed in right frontal hematoma ( finding was consistent with a bleeding stroke into an ischemic stroke- that was what neurosurgery felt upon reviewing her first brain MRI).
Continue with skin care, changing position as she remains high risk for skin pressure injury/ ulcers, tube feeding. Daily weight to monitor her weight and adjust medication doses.
Tried to decrease Trazodone, pt became restless/ agitated at night time, back to usual dose. Change dose of Zoloft to 100 mg.
I thought it would be best to have palliative care evaluation while in the hospital given her readmission and she is hospice candidate--> palliative care consulted on 08/05 and after family meeting on 08/06 decided on hospice care. Plan to go home
hospice tomorrow on 08/08.
#Hypernatremia
On hypotonic IV fluid with sodium back down to 141 with marginal clinical improvement. Stop IV fluids now. Continue free water flushes.
# SIRS
Sepsis is ruled out, seems localized infection due to probably UTI (Toxic metabolic encephalopathy, fever).
ID recommended to stop antibiotics after last dose of ceftriaxone on 08/06.
Follow-up chest x-ray on 08/05 did not show any evidence of pneumonia
CT abd without contrast seems to be c/w UTI/ cystitis
s/p empiric broad spectrum IV Abx, changed to IV Rocephin. ID recommended to stop antibiotics after last dose of ceftriaxone on 08/06.
Consult ID, input appreciated
Bladder scans BID and watch for urinary retention,.
Afebrile , normal WBC. normal lactic acid.
Not much improvement in mental status
# Bacteremia with streptococcus mitis, c/w contaminant.
Repeat blood culture on 07/31 : no growth
No fevers, no leukocytosis
Last echo 07/15 no signs of vegetations
No hypoxia
No Diarrhea
No skin rash
Consult ID, input appreciated
#Parkinson disease, advanced and debilitating with ambulatory deficiency
c/w Sinemet via PEG
Primary neurologist Dr Garcia at [facility] ( she is aware of her last brain images)
#Dysphagia
#Severe protein calorie malnutrition
c/w tube feeding
no need for more IVF
#Hypokalemia, improving , replace and recheck
# hypercalcemia, improving
# #Chronic constipation
resolved, holding senna and MiraLAX
Resume usual daily dose
#Anxiety d/o
c/w home medications of Zoloft and Trazodone but reduced the dose due to lethargy
#Demential with behavioral disturbances
Positive restlessness & agitation. Added PRN Ativan. Increase dose of Gabapentin. Monitor for over sedation.
c/w Gabapentin, Zoloft & Trazodone.
#Essential HTN
lower dose of Amlodipine since BP was soft
#Hypothyroidism
cont home meds
DVT ppx SCDs, ok to do SQ Heparin per evaluation from neurosurgery/ neurology
# Code status. DNR
Anticipated Discharge: Within 24 hours
Subjective/Interval History
-
Date of Service: August 07, 2024
She appears more alert but still encephalopathic. Looks frail overall.
Objective Data
-
Labs:
Laboratory Results
08/07/24
07:27
WBC 11.3 H
Hgb 12.4
Hct 38.9
Plt Count 207 D
Sodium Pending
Potassium Pending
Chloride Pending
Carbon Dioxide Pending
BUN Pending
Creatinine Pending
Glucose Pending
Calcium Pending
Vital Signs:
Vital Signs
Temp Pulse Resp BP Pulse Ox
98.6 F 72 16 98/56 100
08/07/24 07:30 08/07/24 07:30 08/07/24 07:30 08/07/24 07:30 08/07/24 07:30
I&O
08/06/24 08/07/24 08/08/24
06:59 06:59 06:59
Intake Total 1200 / 1200
Balance 1200 / 1200
[2024-08-07 09:23] LABS: Blood Urea Nitrogen 19 mg/dl (7-17); Calcium 9.4 mg/dl (8.4-10.2); Carbon Dioxide 25 mmol/L (22-30); Chloride 103 mmol/L (98-107); Estimated Creatinine Clearance 49 ml/min; Glucose 91 mg/dl (70-99); Potassium 3.8 mmol/L (3.5-5.1); Sodium 141 mmol/L (135-145); eGFR > 60.00
[2024-08-07] MEDS: ROCEPHIN IV (11:24)
[2024-08-07] MEDS: STERILE WATER FOR INJECTION IV (11:24)
[2024-08-07 11:30] VITALS: BP 115/40
[2024-08-07] MEDS: NORVASC 2.5 MG TUBE (11:46)
--- NOTE | 2024-08-07 12:12 | W.PN.ID1 ---
Date of Service
Date of Service: August 07, 2024
Today's Communication
Continue ceftriaxone for today.
Assessment / Plan
Bacteremia with Strep mitis/oralis
� ER draws; may be contaminant as were drawn at same time
Bacteriuria/pyuria
� No systemic symptomatology. May be asymptomatic bacteriuria
Isolated fever
� Obtained rectally in ER
- No further fever recorded.
Hyponatremia; improved
Parkinson's disease
Dysphagia
Recent CVA (ICH)
Hypothyroidism
Anxiety
Dementia
Aspiration PNA
Recommendations:
Remains on ceftriaxone (d#9 antibiotics)
Continue with antibiotics for today.
Monitor white count and temperature curve.
Palliative Care has been consulted and has met with family. Family to meet with hospice spiritual care coordinator. Patient appears palliative care/hospice appropriate.
����������������������������������������������������������
Chief Complaint
-: Leukocytosis, UTI and Bacteremia
Subjective / Review of Systems
Patient seen and examined. Appears much more bright and interactive today.
Review of Systems: No Fever and No Chills
Vital Signs / Physical Exam
Vital Signs
Vital Signs
Temp Pulse Resp BP Pulse Ox
98.2 F 65 16 115/40 100
08/07/24 11:30 08/07/24 11:46 08/07/24 11:30 08/07/24 11:46 08/07/24 11:30
Physical Exam
Constitutional: No Acute Distress, Comfortable, Chronically Ill, Non-toxic and Cachetic
Eyes: Sclera Anicteric
Cardiovascular: Regular Rate and S1/S2; Negative S3/S4
Pulmonary: Non Labored
Gastrointestinal: Soft, Non Tender and Non Distended
Neurological: Awake and Alert
Psychological: Calm
Objective Data
Lab Data
Lab Results
08/07/24 07:27
08/07/24 07:27
PT 13.4 Sec (11.4-14.6) 08/05/24 13:37
INR 0.99 08/05/24 13:37
Estimated Creat Clear 49 ml/min 08/07/24 07:27
Lactic Acid Cancelled 07/30/24 18:45
Total Bilirubin 0.1 mg/dl (0.2-1.3) L 08/05/24 13:37
AST 20 U/L (14-36) 08/05/24 13:37
ALT 18 U/L (0-35) 08/05/24 13:37
Alkaline Phosphatase 95 U/L (38-126) 08/05/24 13:37
Most recent labs reviewed.
Micro Results:
07/30/24 14:57 Blood Culture - Final
Blood/Venous Strep mitis/oralis
Gram Stain - Final
07/31/24 11:36 Blood Culture - Final
Blood/Venous No Growth - Final Report
07/30/24 14:57 Blood Culture - Final
Blood/Venous Strep mitis/oralis
Gram Stain - Final
07/30/24 16:15 Urine Culture - Final
Urine Proteus mirabilis
07/30/24 14:58 Influenza Types A & B (PIPPA) - Final
Nasal Swab Negative for Influenza A & B, NAAT
Negative results must be combined with clinical observations
and patient history.
Nucleic Acid Amplification test (NAAT)performed on the
[employer] platform.
[2024-08-07 15:00] VITALS: BP 131/54
[2024-08-07] MEDS: LIPITOR 40 MG TUBE (16:51)
[2024-08-07] MEDS: SENOKOT TUBE (20:47)
[2024-08-07] MEDS: SINEMET 25-100 2 TABLET TUBE (21:08)
[2024-08-07] MEDS: DESYREL 50 MG TUBE (21:09)
[2024-08-07] MEDS: TRANSDERM-SCOP 1 PATCH TRANSDERM (21:50)
[2024-08-07 23:16] VITALS: BP 99/66
[2024-08-07] MEDS: ATIVAN 0.25 MG IV (23:46)
[2024-08-08 05:43] VITALS: BMI 15.0
[2024-08-08] MEDS: SYNTHROID 75 MCG TUBE (06:11)
[2024-08-08 08:00] VITALS: BP 100/60
--- NOTE | 2024-08-08 09:02 | W.PN.HOSP.TC ---
Today's Communication/Plan
-
Discharge planning today
Assessment / Plan
Assessment / Plan
Physical exam:
General: chronically ill looking, no respiratory distress.
HEENT: Normocephalic, Atraumatic and Moist Mucous Membranes
Respiratory: Clear to Auscultation bilateral; Negative Wheezes.
Cardiac: Regular Rhythm and S1/S2
GI: Soft, Nontender and Nondistended
Musculoskeletal: No Clubbing, No Cyanosis and No Edema. PEG placement in place
Neuro: Awake, disoriented, increased tone/rigidity, generalized weakness.
Psych: Calm but sometimes agitation
# Change in mental status/ Right frontal lobe hemorrhagic stroke
Her mentation seems unchanged from last admission. She continues to have periods of delirium/ agitation with lethargy
She was evaluated by neurologist, recommend to continue supportive care
CT head on 07/30 showed same findings of large right frontal lobe lesion/ stroke. decreasing edema and signs of hemorrhage.
I d/w neurologist, repeat MRI W/WO contrast showed no changed in right frontal hematoma ( finding was consistent with a bleeding stroke into an ischemic stroke- that was what neurosurgery felt upon reviewing her first brain MRI).
Continue with skin care, changing position as she remains high risk for skin pressure injury/ ulcers, tube feeding. Daily weight to monitor her weight and adjust medication doses.
Tried to decrease Trazodone, pt became restless/ agitated at night time, back to usual dose. Change dose of Zoloft to 100 mg.
I thought it would be best to have palliative care evaluation while in the hospital given her readmission and she is hospice candidate--> palliative care consulted on 08/05 and after family meeting on 08/06 decided on hospice care. Plan to go home
hospice today.
#Hypernatremia
On hypotonic IV fluid with sodium back down to 141 with marginal clinical improvement. Stop IV fluids now. Continue free water flushes.
# SIRS
Sepsis is ruled out, seems localized infection due to probably UTI (Toxic metabolic encephalopathy, fever).
ID recommended to stop antibiotics after last dose of ceftriaxone on 08/06.
Follow-up chest x-ray on 08/05 did not show any evidence of pneumonia
CT abd without contrast seems to be c/w UTI/ cystitis
s/p empiric broad spectrum IV Abx, changed to IV Rocephin. ID recommended to stop antibiotics after last dose of ceftriaxone on 08/06.
Consult ID, input appreciated
Bladder scans BID and watch for urinary retention,.
Afebrile , normal WBC. normal lactic acid.
Not much improvement in mental status
# Bacteremia with streptococcus mitis, c/w contaminant.
Repeat blood culture on 07/31 : no growth
No fevers, no leukocytosis
Last echo 07/15 no signs of vegetations
No hypoxia
No Diarrhea
No skin rash
Consult ID, input appreciated
#Parkinson disease, advanced and debilitating with ambulatory deficiency
c/w Sinemet via PEG
Primary neurologist Dr Garcia at [facility] ( she is aware of her last brain images)
#Dysphagia
#Severe protein calorie malnutrition
c/w tube feeding
no need for more IVF
#Hypokalemia, improving , replace and recheck
# hypercalcemia, improving
# #Chronic constipation
resolved, holding senna and MiraLAX
Resume usual daily dose
#Anxiety d/o
c/w home medications of Zoloft and Trazodone but reduced the dose due to lethargy
#Demential with behavioral disturbances
Positive restlessness & agitation. Added PRN Ativan. Increase dose of Gabapentin. Monitor for over sedation.
c/w Gabapentin, Zoloft & Trazodone.
#Essential HTN
lower dose of Amlodipine since BP was soft
#Hypothyroidism
cont home meds
DVT ppx SCDs, ok to do SQ Heparin per evaluation from neurosurgery/ neurology
# Code status. DNR
Anticipated Discharge: Today
Subjective/Interval History
-
Date of Service: August 08, 2024
No new events
Objective Data
-
Vital Signs:
Vital Signs
Temp Pulse Resp BP Pulse Ox
99.5 F 73 18 100/60 97
08/08/24 08:00 08/08/24 08:00 08/08/24 08:00 08/08/24 08:00 08/08/24 08:00
I&O
08/07/24 08/08/24 08/09/24
06:59 06:59 06:59
Intake Total 1200 / 1200 150 / 150
Balance 1200 / 1200 150 / 150
--- NOTE | 2024-08-08 09:05 | W.DCSUMMARY ---
Discharge Summary
Discharge Data
Date of Admission: 07/30/24
Date of Discharge: 08/08/24
-
Pending Results: No
Hospital Course
Patient is 74 years old female with history of advanced Parkinson's, dementia, recent intracranial hemorrhage, dysphagia on tube feedings, came into the hospital with mental status changes and generalized weakness. She was treated with antibiotics
and IV fluid for electrolyte abnormalities and bacteremia versus contaminant. She was seen by ID. Neurology also saw her and noticed that she had toxic metabolic encephalopathy. Patient has been declining prior to presentation and during this
hospital stay therefore palliative care was consulted. After discussions of goals of care and plan, family decided on hospice and she is going to go to home hospice today. Prognosis remains guarded. No other events were noticed.
Discharge Plan
-
Patient Disposition: Home with Hospice
Discharge Diagnosis/Procedures: Toxic metabolic encephalopathy. Hypernatremia. Systemic inflammatory response syndrome possible urinary tract infection. Parkinson's disease. Dementia. Bacteremia with strep mitis/oralis. Hyponatremia.
Hypokalemia. Dysphagia. Recent hemorrhagic stroke.
Diet: Other diet
Additional Diets: Tube feedings.
Referrals:
Slime Samano CRNP [Family Provider] -
Prescriptions:
Continued
lidocaine 4 % Adhesive Patch,Medicated
1 patch TOPICAL DAILY
bisacodyl [Dulcolax (bisacodyl)] 10 mg Suppository
10 mg AL DAILYPRN PRN (Reason: if no bm aftr mom)
Fleet Enema 19-7 gram/118 mL Enema
118 ml AL DAILYPRN PRN (Reason: if no bm aftr dulcolax)
albuterol sulfate 90 mcg/actuation Hfa Aerosol Inhaler
2 puff INHALATION R Q6HPRN PRN (Reason: sob)
fluticasone propionate 50 mcg/actuation Channing,Suspension
1 spray INTRANASAL DAILYPRN PRN (Reason: allergies)
gabapentin 100 mg Capsule
100 mg feeding tube BID Qty: 90 0RF
sennosides [Senna Laxative] 8.6 mg Tablet
17.2 mg feeding tube HS Qty: 30 0RF
famotidine 20 mg Tablet
20 mg feeding tube DAILY Qty: 30 0RF
sertraline 50 mg Tablet
150 mg feeding tube DAILY Qty: 30 0RF
carbidopa-levodopa 25-100 mg Tablet
2 tab feeding tube HS Qty: 60 0RF
levothyroxine 75 mcg Tablet
75 mcg feeding tube DAILY@0600 Qty: 30 0RF
multivitamin with folic acid [Tab-A-Loren] 400 mcg Tablet
1 tab feeding tube DAILY Qty: 30 0RF
trazodone 50 mg Tablet
50 mg feeding tube HS Qty: 30 0RF
acetaminophen 325 mg tablet
650 mg feeding tube Q6HPRN MDD 3000 mg PRN (Reason: mild pain/temp >100)
magnesium hydroxide 400 mg/5 mL suspension
30 ml feeding tube [id number] PRN (Reason: if no bm 3 days)
oxycodone 5 mg tablet
5 mg feeding tube Q6HPRN PRN (Reason: severe pain)
amantadine HCl 50 mg/5 mL solution
100 mg feeding tube TID Qty: 473 0RF
amlodipine 5 mg Tablet
5 mg PO DAILY
carbidopa-levodopa 25-100 mg tablet
1 tab feeding tube QID@08,12,16,20
Discharge Orders:
Discharge Patient (As Directed); Ordered 08/08/24
Ordered By: Ulises Reynolds
Discharge Date and Time
Discharge Date/Time: 08/08/24 13:01
Print Language: TELUGU
[2024-08-08] MEDS: SYMMETREL SYRUP 100 MG TUBE (09:13)
[2024-08-08] MEDS: KCL ELIXIR 40 MEQ TUBE (09:13)
[2024-08-08] MEDS: NEURONTIN 200 MG TUBE (09:16)
[2024-08-08] MEDS: NORVASC TUBE (09:21)
[2024-08-08] MEDS: PEPCID 20 MG TUBE (09:21)
[2024-08-08] MEDS: ZOLOFT 100 MG TUBE (09:22)
[2024-08-08] MEDS: SINEMET 25-100 1 TABLET TUBE (09:24)
--- NOTE | 2024-08-08 10:32 | CM ---
Per hospitalist, pt to d/c this AM.
Ambulance transport arranged for 12 pm noon. CM informed [facility]/ Hospice.
Spoke w/ son, Donte re d/c today w/ hospice.
Per son, he is aware of plan for home and hospice's role in the care of pt. Per Donte he stated hospice nurse/Yanira, has been very informative w/ regard to the overview of hospice care. Donte stated he is aware that feedings will be discontinued
w/ [facility] and that food will be private pay but supplies will be provided by hospice.
Per Donte, he and his will need to be educated on peg tube feedings in the home. Per Yanira, hospice team will do it.
CM informed Donte of 12pm ambulance transport time
IMM reviewed w/ Donte, provided him a copy. Copy placed in chart
Hospice

Plan: Home w/ Hospice
[2024-08-08 11:31] VITALS: BP 117/50
== END 2024-08-08 13:01 | disposition hospice, home (50) | DRG 689 ==
LOC: 4 WEST ACU 17:59
PROVIDERS: Internal Medicine; Physician Assistant; ADMITTING PHYSICIAN Internal Medicine; ATTENDING PHYSICIAN Hospitalist; CONSULT PHYSICIAN Internal Medicine Hospice and Palliative Medicine; CONSULT PHYSICIAN Internal Medicine Infectious Disease; EMERGENCY PHYSICIAN Emergency Medicine; FAMILY PHYSICIAN Nurse Practitioner Family; OTHER PHYSICIAN Psychiatry & Neurology Neurology
DX: N39.0 Urinary tract infection, site not specified (principal); E43 Unspecified severe protein-calorie malnutrition; G92.8 Other toxic encephalopathy; I63.9 Cerebral infarction, unspecified; I62.9 Nontraumatic intracranial hemorrhage, unspecified; E87.0 Hyperosmolality and hypernatremia; F02.84 Dementia in other diseases classified elsewhere, unspecified severity, with anxiety; R64 Cachexia; Z68.1 Body mass index [BMI] 19.9 or less, adult; R65.10 Systemic inflammatory response syndrome (SIRS) of non-infectious origin without acute organ dysfunction; Z11.52 Encounter for screening for COVID-19; G20.A1 Parkinson's disease without dyskinesia, without mention of fluctuations; Z51.5 Encounter for palliative care; E87.6 Hypokalemia; I10 Essential (primary) hypertension; E03.9 Hypothyroidism, unspecified; Z66 Do not resuscitate; Z74.01 Bed confinement status
CPT/HCPCS: 70450; 70553; 71045; 74176; 80048; 80053; 80061; 80076; 81003; 81015; 83605; 83735; 84100; 84443; 85025; 85610; 87040; 87077; 87086; 87186; 87205; 87502; 87811; 96365; 96367; 99285; A9575